=== PATIENT | female | born 1930 | race Caucasian/White ===

== ENCOUNTER 2016-07-18 14:07 | Emergency (ER) | payer OTHER, MEDICARE ==
[~2016-07-18] VITALS: Ht 162.6 cm; Wt 64.8 kg
[~2016-07-18 14:07] MED LIST: ADVIN25/60 INH; ASCO500T16 PO; ASPI-232 PO; ATEN50TA8 PO; CALC1CHW PO; CYCL0.05 OPB; FLUT0.0529 NAE; LEVO100T PO; MULT-506 PO; POTA-65 PO; PRMVC PV; TIOTCAP INH; TRIATAB3 PO; TRML160 TOP
[2016-07-18 14:11] VITALS: TEMP 36.8; Ht 162.6 cm; Wt 64.8 kg
[2016-07-18 14:18] VITALS: O2SAT 97
[2016-07-18] MEDS ORDERED: ALBUT/IPRATROP 3MG/0.5MG NEB 3 ML VIAL INH STA (14:21)
[2016-07-18] MEDS ORDERED: SODIUM CHLORIDE 0.9% 1000ML 1,000 ML IV STA (14:21)
--- NOTE | 2016-07-18 14:47 | DIAGNOSTIC IMAGING REPORT ---
CHEST ONE VIEW PORTABLE HISTORY: Evaluate Fever/Sepsis COMPARISON: Chest 04/26/2016. FINDINGS: No pneumothorax. No pleural effusions. The heart remains borderline enlarged. Mild diffuse interstitial thickening persists. There is progressive interstitial thickening at the left lower lobe. IMPRESSION: Mild diffuse interstitial thickening consistent with a chronic interstitial process. The left lower lobe interstitial thickening has progressed which may represent a superimposed pneumonitis. Electronically signed by: Darryl Degroot M.D. 07/18/2016 2:46 PM Dictated Date/Time: 07/18/2016 2:44 PM
[2016-07-18 15:05] LABS: BASO % 0.2 %; BASO ABS # 0.02 K/uL (0-0.2); COMPLETE YES; EOS % 0.2 %; HEMATOCRIT 30.3 % (37-47); IG% 0.8 %; LYMPH % 12.5 %; LYMPH ABS # 1.66 K/uL (1.2-3.4); MEAN CELL VOLUME 77.9 fL (80-100); MEAN CORPUSCULAR HEMOGLOBIN 25.4 pg (25-34); MEAN CORPUSCULAR HGB CONC 32.7 g/dl (32-36); MEAN PLATELET VOLUME 9.1 fL (7.4-10.4); MONO % 9.9 %; NEUT % 76.4 %; PLATELET COUNT 191 K/uL (130-400); RED BLOOD COUNT 3.89 M/uL (4.2-5.4)
[2016-07-18 15:15] LABS: INR 1.1 (0.9-1.1); PARTIAL THROMBOPLASTIN RATIO 0.9; PROTHROMBIN TIME (PATIENT) 11.4 SECONDS (9.0-12.0)
[2016-07-18] MEDS ORDERED: ACET-1256 PO (15:15)
[2016-07-18] MEDS ORDERED: FLUT0.15 NAE (15:15)
[2016-07-18] MEDS ORDERED: LEVO1TAB33 PO (15:15)
[2016-07-18] MEDS ORDERED: [UNRECOGNIZED DRUG - CODE] OPB (15:15)
[2016-07-18] MEDS ORDERED: VITACAP26 PO (15:15)
[2016-07-18] MEDS ORDERED: PRED10TA PO (15:15)
[2016-07-18] MEDS ORDERED: SPRIN INH (15:16)
[2016-07-18 15:22] LABS: BLOOD UREA NITROGEN 20 mg/dl (7-18); BUN/CREATININE RATIO 17.9 (10-20); CALCIUM 9.7 mg/dl (8.5-10.1); CARBON DIOXIDE 30 mmol/L (21-32); CHLORIDE 102 mmol/L (98-107); GLUCOSE 91 mg/dl (70-99); POTASSIUM 3.4 mmol/L (3.5-5.1); SODIUM 139 mmol/L (136-145)
[2016-07-18] MEDS ORDERED: PRED20TA PO (16:25)
[2016-07-18] MEDS ORDERED: PRVHFAIN INH (16:25)
--- NOTE | 2016-07-18 16:25 | EMERGENCY ROOM VISIT NOTE ---
History Report prepared by Isha: Regina Fry Under the Supervision of: Dr. Julio Luevano D.O. First contact with patient: 14:12 Chief Complaint: SHORTNESS OF BREATH Stated Complaint: BREATHING DIFFICULTY History of Present Illness The patient is an 85 year old female who presents to the Emergency Room with complaints of a worsening illness that began last Thursday. The patient states that she has had chronic problems with her sinuses over the years. She states that she was diagnosed with chronic rhinitis several years ago. The patient states that her PCP gave her a rescue kit to use when she would begin to feel sick. She states that Thursday she started with fatigue, cough, vomiting, and shortness of breath. The patient states that she started a 10 day prednisone taper and Levofloxacin on Thursday, but states that her symptoms have continued to worsen. She states that today she felt too sick to go see her primary care physician. The patient additionally notes chest heaviness and congestion. She states that she gets winded with walking up one flight of stairs. The patient denies any body aches. The patient states that she uses inhalers daily. Source of History: patient Onset: Thursday Position: other (global) Quality: other Timing: worsening Associated Symptoms: + SOB, + cough, + fatigue, + vomiting Note: Associated Symptoms: chest heaviness, congestion. Review of Systems See HPI for pertinent positives & negatives. A total of 10 systems reviewed and were otherwise negative. Past Medical & Surgical Medical Problems: (1) Bronchitis (2) Bronchitis (3) Chronic Sinusitis Nos (4) COPD (chronic obstructive pulmonary disease) (5) COPD exacerbation (6) Cough (7) Dehydration (8) Hypertension Nos (9) Hypokalemia (10) Hypokalemia (11) Hypothyroidism Nos (12) Hypoxia (13) Interstitial lung disease (14) Nausea & vomiting (15) Nausea & vomiting (16) Osteoarthritis (17) Sinus infection (18) Upper respiratory infection Surgical Problems: (1) Cataract Nos (2) Knee Joint Replacement Status (3) Knee Joint Replacement Status Family History Diabetes mellitus Hypertension Social History Smoking Status: Former Smoker Alcohol Use: none Drug Use: none Marital Status: Housing Status: lives alone Occupation Status: retired Current/Historical Medications Scheduled Albuterol (Ventolin Hfa), 1 PUFF INH QID Aspirin (Aspir-81), 81 MG PO QPM Atenolol (Tenormin), 50 MG PO DAILY Calcium Carbonate-Vitamin D (Caltrate 600+D), 1 TAB PO DAILY Cyclosporine (Ophth) (Restasis Multidose), 1 DROP OPB BID Fluticasone Prop/Salmeterol (Advair Diskus 250/50 60 Dose), 1 PUFF INH BID Fluticasone Propionate (Nasal) (Flonase Allergy Relief), 2 SPRAY DONNELL DAILY Levothyroxine Sodium (Synthroid), 100 MCG PO DAILY Multivitamin (Multivitamin), 1 TAB PO DAILY Potassium Chloride (Potassium Chloride ER), 40 MEQ PO DAILY Tiotropium Nichols (Spiriva Handihaler), 1 CAP INH DAILY Triamterene/Hctz (Triamterene/Hctz 37.5-25MG), 1 TAB PO DAILY Vitamins C & E (Vitamin C), 1 CAP PO DAILY Scheduled PRN Acetaminophen (Tylenol), 500 MG PO Q8 PRN for Pain Hydrocodone/Acetaminophen 7.5MG/325MG (Pollard 7.5MG/325MG), 1 TAB PO HS PRN for Pain Levofloxacin (Levaquin), 500 MG PO UD PRN for PRN Prednisone (Prednisone), 10 MG PO UD PRN for PRN Allergies Coded Allergies: Diclofenac (Verified Adverse Reaction, Mild, N/V, 07/18/16) Ketoprofen (Verified Adverse Reaction, Mild, N/V, 07/18/16) Naproxen (Verified Adverse Reaction, Mild, N/V, 07/18/16) Propoxyphene (Verified Adverse Reaction, Mild, N/V, 07/18/16) Rofecoxib (Verified Adverse Reaction, Mild, ABD CRAMPS, 07/18/16) Sulfa Drugs (Verified Adverse Reaction, Mild, N/V, 07/18/16) Sulfamethoxazole (Verified Adverse Reaction, Mild, N/V, 07/18/16) Tramadol (Verified Adverse Reaction, Mild, N/V, 07/18/16) Trimethoprim (Verified Adverse Reaction, Mild, N/V, 07/18/16) Uncoded Allergies: DARVOCET (Allergy, Unknown, UNKNOWN, 07/18/16) ORADIS (Allergy, Unknown, UNKNOWN, 07/18/16) Physical Exam Vital Signs Date Time Temp Pulse Resp B/P Pulse Ox O2 Delivery O2 Flow Rate FiO2 07/18/16 16:41 96 18 110/49 93 Room Air 07/18/16 15:58 89 18 121/57 93 Room Air 07/18/16 14:19 85 07/18/16 14:18 97 Nasal Cannula 2.0 07/18/16 14:17 90 Room Air 07/18/16 14:11 36.8 83 21 143/56 90 Room Air Nasal Cannula 07/18/16 14:11 94 Nasal Cannula 2.0 Physical Exam CONSTITUTIONAL/VITAL SIGNS: Reviewed / noted above. GENERAL: Non-toxic in appearance. Occasional cough. INTEGUMENTARY: Warm, dry, and [place]. HEAD: Normocephalic. EYES: without scleral icterus or trauma. ENT/OROPHARYNX: clear and moist. LYMPHADENOPATHY/NECK: Is supple without lymphadenopathy or meningismus. RESPIRATORY: Expiratory wheezing bilaterally with bilateral crackles. No increased work of breathing or respiratory distress. CARDIOVASCULAR: Regular rate and rhythm. GI/ABDOMEN: Soft and nontender. No organomegaly or pulsatile mass. No rebound or guarding. Normal bowel sounds. EXTREMITIES: Warm and well perfused. BACK: No CVA tenderness. NEUROLOGICAL: Intact without focal deficits. PSYCHIATRIC: normal affect. MUSCULOSKELETAL: Normally developed with good muscle tone. Medical Decision & Procedures ER Provider Diagnostic Interpretation: X ray results and stated below per my interpretation and radiology interpretation. CHEST ONE VIEW PORTABLE HISTORY: Evaluate Fever/Sepsis COMPARISON: Chest 04/26/2016. FINDINGS: No pneumothorax. No pleural effusions. The heart remains borderline enlarged. Mild diffuse interstitial thickening persists. There is progressive interstitial thickening at the left lower lobe. IMPRESSION: Mild diffuse interstitial thickening consistent with a chronic interstitial process. The left lower lobe interstitial thickening has progressed which may represent a superimposed pneumonitis. Electronically signed by: Darryl Degroot M.D. 07/18/2016 2:46 PM Dictated Date/Time: 07/18/2016 2:44 PM Laboratory Results 07/18/16 14:50 Red Blood Count 3.89, Mean Corpuscular Volume 77.9, Mean Corpuscular Hemoglobin 25.4, Mean Corpuscular Hemoglobin Concent 32.7, Mean Platelet Volume 9.1, Neutrophils (%) (Auto) 76.4, Lymphocytes (%) (Auto) 12.5, Monocytes (%) (Auto) 9.9, Eosinophils (%) (Auto) 0.2, Basophils (%) (Auto) 0.2, Neutrophils # (Auto) 10.17, Lymphocytes # (Auto) 1.66, Monocytes # (Auto) 1.32, Eosinophils # (Auto) 0.03, Basophils # (Auto) 0.02 07/18/16 14:50 Test 07/18/16 14:50 07/18/16 15:10 White Blood Count 13.30 K/uL (4.8-10.8) Red Blood Count 3.89 M/uL (4.2-5.4) Hemoglobin 9.9 g/dL (12.0-16.0) Hematocrit 30.3 % (37-47) Mean Corpuscular Volume 77.9 fL (80-100) Mean Corpuscular Hemoglobin 25.4 pg (25-34) Mean Corpuscular Hemoglobin Concent 32.7 g/dl (32-36) Platelet Count 191 K/uL (130-400) Mean Platelet Volume 9.1 fL (7.4-10.4) Neutrophils (%) (Auto) 76.4 % Lymphocytes (%) (Auto) 12.5 % Monocytes (%) (Auto) 9.9 % Eosinophils (%) (Auto) 0.2 % Basophils (%) (Auto) 0.2 % Neutrophils # (Auto) 10.17 K/uL (1.4-6.5) Lymphocytes # (Auto) 1.66 K/uL (1.2-3.4) Monocytes # (Auto) 1.32 K/uL (0.11-0.59) Eosinophils # (Auto) 0.03 K/uL (0-0.5) Basophils # (Auto) 0.02 K/uL (0-0.2) RDW Standard Deviation 49.6 fL (36.4-46.3) RDW Coefficient of Variation 17.4 % (11.5-14.5) Immature Granulocyte % (Auto) 0.8 % Immature Granulocyte # (Auto) 0.10 K/uL (0.00-0.02) Prothrombin Time 11.4 SECONDS (9.0-12.0) Prothromb Time International Ratio 1.1 (0.9-1.1) Activated Partial Thromboplast Time 23.1 SECONDS (21.0-31.0) Partial Thromboplastin Ratio 0.9 Anion Gap 7.0 mmol/L (3-11) Est Creatinine Clear Calc Drug Dose 33.5 ml/min Estimated GFR () 53.8 Estimated GFR (Non- 46.4 BUN/Creatinine Ratio 17.9 (10-20) Calcium Level 9.7 mg/dl (8.5-10.1) Troponin I < 0.015 ng/ml (0-0.045) Influenza Type A Antigen Neg for Influ A (NEG) Influenza Type B Antigen Neg for Influ B (NEG) Laboratory results as stated above per my review. Medications Administered Medications (Trade) Dose Ordered Sig/Monico Route Start Time Stop Time Status Last Admin Dose Admin Sodium Chloride (Nss 1000ml) 1,000 ml @ 200 mls/hr Q5H STAT IV 07/18/16 14:21 07/18/16 19:20 07/18/16 14:50 200 MLS/HR Albuterol/ Ipratropium (Duoneb) 3 ml NOW STAT INH 07/18/16 14:21 07/18/16 14:24 DC 07/18/16 14:41 3 ML ECG Indication: SOB/dyspnea Rate (beats per minute): 93 Rhythm: sinus rhythm Findings: LBBB, PAC, no acute ischemic change Comparison ECG Date: 04-26-16 Change: When compared to the EKG done on 04-26-16, the left bundle branch block and PACs are new. ED Course 1418: Previous medical records were reviewed. The patient was evaluated in room 1413. A complete history and physical examination was performed. 1421: Ordered DuoNeb 3 ml INH, Sodium chloride 1000 ml @ 200 mls/hr IV. 1629: I reevaluated the patient and she is resting comfortably. I discussed the exam findings with her and I discussed the treatment plan. She verbalized complete understanding and agreement. She is ready to go home. Medical Decision the differential was considered includes acute myocardial infarction, acute coronary syndrome, myocarditis, pericarditis, pericardial effusions /tamponad, esophageal perforation, pulmonary embolism, pneumonia, pneumothorax, cardiomyopathy, congestive heart, anemia , COPD/asthma exacerbation. This is a 85-year-old female who presents to the ED with a chief complaint of a cough and some shortness of breath. The patient states that she has had this cough for about 6 days. She has been placed on Levaquin for 6 days as well as prednisone. The patient reports continued cough occasionally with yellow sputum , chest heaviness and congestion. She also feels tired. Her vital signs are stable. Her physical exam reveals some expiratory wheezing and some crackles in the bases. Crackles are reportedly chronic per the patient. She is in no respiratory distress. Chest x-ray reveals chronic interstitial process with slight worsening in the left lower lobe versus a infiltrate. The patient is currently on Levaquin and has been on Levaquin for 6 days. This may be artifact or viral. White blood cell count is 13.3. Hemoglobin is 9.0. PRP is normal. Troponin is negative. Flu swab was negative. EKG shows a sinus rhythm at a rate of 73. The patient was told the results of the test. She is felt to be stable for discharge and outpatient follow-up. She was given an albuterol inhaler. Prednisone also prescribed. Impression Primary Impression: Pneumonia Scribe Attestation The scribe's documentation has been prepared under my direction and personally reviewed by me in its entirety. I confirm that the note above accurately reflects all work, treatment, procedures, and medical decision making performed by me. Departure Information Dispostion Home / Self-Care Prescriptions Hydrocodone/Acetaminophen 7.5MG/325MG (Pollard 7.5MG/325MG) Tab 1 TAB PO HS Y for Pain, #10 TAB Prov: Julio Luevano D.O. 07/18/16 Albuterol (Ventolin Hfa) 60 Puffs/5400 Mcg Aers 1 PUFF INH QID for 5 Days, #1 INHALER Prov: Julio Luevano D.O. 07/18/16 Referrals Amari Elena M.D. (PCP) Forms HOME CARE DOCUMENTATION FORM, IMPORTANT VISIT INFORMATION Patient Instructions [facility] Additional Instructions Finished Levaquin prescription. Albuterol inhaler as prescribed. Prednisone as prescribed. See your doctor in 1-3 days for recheck. Return for worsening.
[2016-07-18] MEDS ORDERED: HYDR-3983 PO (16:40)
[2016-07-18 16:41] VITALS: BP 110/49; PULSE 96; O2SAT 93
[2017-02-05] MEDS ORDERED: NRV5 PO (15:13)
[2017-02-05] MEDS ORDERED: TPRSR25 PO (15:13)
[2017-02-05] MEDS ORDERED: HYDR-3983 PO (15:42)
== END 2016-07-18 16:50 | disposition home or self-care (01) ==
LOC: EDBD 14:07 → C.EDC 14:08
DX: J18.9 Pneumonia, unspecified organism (principal); J44.9 Chronic obstructive pulmonary disease, unspecified; E03.9 Hypothyroidism, unspecified; Z98.49 Cataract extraction status, unspecified eye; Z96.659 Presence of unspecified artificial knee joint; Z83.3 Family history of diabetes mellitus; Z87.891 Personal history of nicotine dependence; Z88.2 Allergy status to sulfonamides

== ENCOUNTER → 2016-10-01 | Outpatient (CLI) | payer OTHER, MEDICARE ==
[~2016-10-01] MED LIST changes: +ACET-1256 PO; +AMOX875T PO; -ASCO500T16 PO; -CYCL0.05 OPB; -FLUT0.0529 NAE; +FLUT0.15 NAE; +HYDR-3983 PO; +LEVO1TAB33 PO; +METO50TA7 PO; +NRV5 PO; +PRED10TA PO; -PRMVC PV; +PRVHFAIN INH; +SPRIN INH; -TIOTCAP INH; +TPRSR25 PO; -TRML160 TOP; +VITACAP26 PO; +[UNRECOGNIZED DRUG - CODE] OPB
--- NOTE | 2016-10-01 14:43 | MAMMOGRAPHY REPORT ---
BILATERAL DIGITAL SCREENING MAMMOGRAM WITH CAD: 10/01/2016 CLINICAL HISTORY: Routine screening. Patient has no complaints. TECHNIQUE: Current study was also evaluated with a Computer Aided Detection (CAD) system. Bilateral CC and MLO views were obtained. COMPARISON: Comparison is made to exams dated: 09/04/2015 mammogram, 04/10/2014 mammogram, 06/26/2011 mammogram, 06/24/2010 mammogram, 06/06/2009 mammogram - [facility], and 06/05/2008. BREAST COMPOSITION: There are scattered areas of fibroglandular density in both breasts. FINDINGS: No suspicious masses, calcifications, or areas of architectural distortion are noted in e ither breast. There has been no significant interval change compared to prior exams. Bilateral benig n-appearing calcifications are not significantly changed. IMPRESSION: ACR BI-RADS CATEGORY 2: BENIGN There is no mammographic evidence of malignancy. A 1 year screening mammogram is recommended. The p atient will receive written notification of the results. Approximately 10% of breast cancers are not detected with mammography. A negative mammographic repor t should not delay biopsy if a clinically suggestive mass is present. Elaina Flores M.D. ah/:10/01/2016 10:05:18 Hand Stoner: Kristi NASSRA([place])(M), [facility] letter sent: Normal 1/2 BI-RADS Code: ACR BI-RADS Category 2: Benign
== END | disposition home or self-care (01) ==
LOC: C.MAMM 09:48
PROVIDERS: ATTEND Family Medicine
DX: Z12.31 Encounter for screening mammogram for malignant neoplasm of breast (principal)

== ENCOUNTER 2017-02-01 15:40 | Inpatient (IN) | payer OTHER, MEDICARE ==
[~2017-02-01] VITALS: Ht 160 cm; Wt 60.7 kg
[~2017-02-01 15:40] MED LIST changes: -AMOX875T PO; -HYDR-3983 PO; -METO50TA7 PO; -NRV5 PO; -TPRSR25 PO
--- NOTE | 2017-02-01 16:21 | EMERGENCY ROOM VISIT NOTE ---
History Report prepared by Isha: Regina Fry Under the Supervision of: Dr. Dylan Lam M.D. First contact with patient: 15:49 Chief Complaint: SHORTNESS OF BREATH Stated Complaint: HIGH BP,DIZZY,NODULE ON LUNG,SOB History of Present Illness The patient is an 86 year old female who presents to the Emergency Room with complaints of persistent dizziness that began three days ago. The patient additionally reports that she became short of breath at the same time. She states that her shortness of breath has been intermittent. The patient states that her shortness of breath is increased with exertion. She reports that for the past several years she was on Atenolol for her hypertension, but states that she was just changed to Metoprolol approximately 3-4 days ago. The patient states that every four-eight weeks she uses her rescue kit course for her short of breath. She states that she has experienced some burning in her chest that has been alleviated with Advair. The patient denies any current chest pain. She describes her dizziness as a lightheaded. The patient states that she takes aspirin, but states that she cut down on her aspirin use due to her increased bleeding. She denies any recent surgery or recent travel by plane. The patient denies any history of atrial fibrillation. She denies any fever, chills, cough, congestion, vision change, hearing change, nausea, vomiting, or urinary symptoms. The patient states that she has had a decrease in appetite and notes a recent weight loss. She reports that she is on a diuretic. The patient denies any history of heart failure. She denies any previous MS. Source of History: patient Onset: three days ago Position: other (global) Quality: other (dizziness) Timing: other (persistent) Associated Symptoms: + SOB, No fevers, No chills, No cough, No chest pain, No nausea, No vomiting, No urinary symptoms Note: Associated Symptoms: chest burning, lightheadedness Review of Systems See HPI for pertinent positives and negatives. A total of ten systems were reviewed and were otherwise negative. Past Medical & Surgical Medical Problems: (1) Bronchitis (2) Bronchitis (3) Chronic Sinusitis Nos (4) COPD (chronic obstructive pulmonary disease) (5) COPD exacerbation (6) Cough (7) Dehydration (8) Hypertension Nos (9) Hypokalemia (10) Hypokalemia (11) Hypothyroidism Nos (12) Hypoxia (13) Interstitial lung disease (14) Nausea & vomiting (15) Nausea & vomiting (16) Osteoarthritis (17) Sinus infection (18) Upper respiratory infection Surgical Problems: (1) Cataract Nos (2) Knee Joint Replacement Status (3) Knee Joint Replacement Status Family History Diabetes mellitus Hypertension Social History Smoking Status: Former Smoker Alcohol Use: none Drug Use: none Marital Status: Housing Status: lives alone Occupation Status: retired Current/Historical Medications Scheduled Amoxicillin & Pot Clavulanate (Augmentin 875-125 mg), 1 TAB PO BID Aspirin (Aspir-81), 81 MG PO QPM Calcium Carbonate-Vitamin D (Caltrate 600+D), 1 TAB PO DAILY Fluticasone Prop/Salmeterol (Advair Diskus 250/50 60 Dose), 1 PUFF INH BID Fluticasone Propionate (Nasal) (Flonase Allergy Relief), 2 SPRAY DONNELL DAILY Levothyroxine Sodium (Synthroid), 100 MCG PO DAILY Multivitamin (Multivitamin), 1 TAB PO DAILY Potassium Chloride (Potassium Chloride ER), 40 MEQ PO DAILY Triamterene/Hctz (Triamterene/Hctz 37.5-25MG), 1 TAB PO DAILY Vitamins C & E (Vitamin C), 1 CAP PO DAILY Scheduled PRN Acetaminophen (Tylenol), 500 MG PO Q8 PRN for Pain Hydrocodone/Acetaminophen 7.5MG/325MG ([place] 7.5MG/325MG), 1 TAB PO Q4H PRN for Pain Prednisone (Prednisone), 10 MG PO UD PRN for PRN Allergies Coded Allergies: Acetaminophen (Verified Allergy, Unknown, ., 02/01/17) Diclofenac (Verified Adverse Reaction, Mild, N/V, 02/01/17) Ketoprofen (Verified Adverse Reaction, Mild, N/V, 02/01/17) Naproxen (Verified Adverse Reaction, Mild, N/V, 02/01/17) Propoxyphene (Verified Adverse Reaction, Mild, N/V, 02/01/17) Rofecoxib (Verified Adverse Reaction, Mild, ABD CRAMPS, 02/01/17) Sulfa Drugs (Verified Adverse Reaction, Mild, N/V, 02/01/17) Sulfamethoxazole (Verified Adverse Reaction, Mild, N/V, 02/01/17) Tramadol (Verified Adverse Reaction, Mild, N/V, 02/01/17) Trimethoprim (Verified Adverse Reaction, Mild, N/V, 02/01/17) Uncoded Allergies: ORADIS (Allergy, Unknown, UNKNOWN, 07/18/16) Physical Exam Vital Signs Date Time Temp Pulse Resp B/P (MAP) Pulse Ox O2 Delivery O2 Flow Rate FiO2 02/01/17 19:40 92 22 94 Room Air 02/01/17 19:10 76 18 02/01/17 19:05 80 25 02/01/17 19:05 80 25 02/01/17 19:00 83 22 02/01/17 19:00 83 22 02/01/17 18:56 150/81 02/01/17 18:56 150/81 02/01/17 18:55 79 15 02/01/17 18:55 79 15 02/01/17 18:50 83 21 02/01/17 18:50 83 21 02/01/17 18:35 89 26 02/01/17 18:35 89 26 02/01/17 18:30 85 24 02/01/17 18:30 85 24 02/01/17 18:25 83 23 02/01/17 18:25 83 23 02/01/17 18:20 87 23 02/01/17 18:20 87 23 02/01/17 18:15 99 30 02/01/17 18:15 99 30 02/01/17 18:10 87 28 02/01/17 17:40 81 24 02/01/17 17:35 84 22 94 Room Air 02/01/17 17:30 87 18 02/01/17 17:25 90 21 95 02/01/17 17:20 96 18 02/01/17 17:15 95 23 02/01/17 17:10 90 15 02/01/17 17:05 93 19 02/01/17 17:00 90 25 02/01/17 16:55 102 21 02/01/17 16:50 95 24 02/01/17 16:45 93 24 02/01/17 16:40 105 24 02/01/17 16:35 99 19 02/01/17 16:30 107 20 02/01/17 16:25 102 21 02/01/17 16:20 113 18 02/01/17 16:15 111 23 02/01/17 16:10 104 24 94 02/01/17 16:05 108 23 94 02/01/17 16:02 112 02/01/17 16:01 96 Room Air 02/01/17 16:00 117 24 97 02/01/17 15:42 36.3 114 20 133/77 95 Room Air Physical Exam GENERAL: Awake, alert, well-appearing, in no distress HENT: Normocephalic, atraumatic. Dry mucous membranes. EYES: Normal conjunctiva. Sclera non-icteric. NECK: Supple. No nuchal rigidity. FROM. No JVD. RESPIRATORY: Clear to auscultation. CARDIAC: ST. Extremities warm and well perfused. Pulses equal. ABDOMEN: Soft, non-distended. No tenderness to palpation. No rebound or guarding. No masses. RECTAL: Deferred. MUSCULOSKELETAL: Chest examination reveals no tenderness. The back is symmetrical on inspection without obvious abnormality. There is no CVA tenderness to palpation. No joint edema. LOWER EXTREMITIES: Calves are equal size bilaterally and non-tender. No edema. No discoloration. NEURO: Normal sensorium. No sensory or motor deficits noted. Cerebellar intact. No nystagmus. SKIN: No rash or jaundice noted. Medical Decision & Procedures ER Provider Diagnostic Interpretation: X-ray: Per my interpretation, radiologist review. CHEST ONE VIEW PORTABLE HISTORY: Short of breath. COMPARISON: Chest 07/18/2016. FINDINGS: Mild diffuse interstitial thickening, unchanged. This is most pronounced within the left lower lobe. No new focal lung consolidations. No evidence for pulmonary edema. No pleural effusions. No pneumothorax. The heart is normal in size. IMPRESSION: No significant change compared to the prior study. No acute process. Chronic interstitial thickening is again noted. Electronically signed by: Darryl Degroot M.D. 02/01/2017 4:25 PM Dictated Date/Time: 02/01/2017 4:24 PM Laboratory Results Test 02/01/17 00:00 02/01/17 17:05 Urine Color YELLOW Urine Appearance CLEAR (CLEAR) Urine pH 7.5 (4.5-7.5) Urine Specific [place] 1.016 (1.000-1.030) Urine Protein NEG (NEG) Urine Glucose (UA) NEG (NEG) Urine Ketones NEG (NEG) Urine Occult Blood NEG (NEG) Urine Nitrite NEG (NEG) Urine Bilirubin NEG (NEG) Urine Urobilinogen NEG (NEG) Urine Leukocyte Esterase NEG (NEG) Immature Granulocyte % (Auto) 1.0 % White Blood Count 19.17 K/uL (4.8-10.8) Red Blood Count 4.30 M/uL (4.2-5.4) Hemoglobin 11.7 g/dL (12.0-16.0) Hematocrit 35.7 % (37-47) Mean Corpuscular Volume 83.0 fL (80-100) Mean Corpuscular Hemoglobin 27.2 pg (25-34) Mean Corpuscular Hemoglobin Concent 32.8 g/dl (32-36) Platelet Count 276 K/uL (130-400) Mean Platelet Volume 9.6 fL (7.4-10.4) Neutrophils (%) (Auto) 83.0 % Lymphocytes (%) (Auto) 10.3 % Monocytes (%) (Auto) 5.2 % Eosinophils (%) (Auto) 0.4 % Basophils (%) (Auto) 0.1 % Neutrophils # (Auto) 15.89 K/uL (1.4-6.5) Lymphocytes # (Auto) 1.98 K/uL (1.2-3.4) Monocytes # (Auto) 1.00 K/uL (0.11-0.59) Eosinophils # (Auto) 0.08 K/uL (0-0.5) Basophils # (Auto) 0.02 K/uL (0-0.2) Immature Granulocyte # (Auto) 0.20 K/uL (0.00-0.02) Troponin I < 0.015 ng/ml (0-0.045) Pro-B-Type Natriuretic Peptide 417 pg/ml (0-1800) Thyroid Stimulating Hormone (TSH) 0.152 uIu/ml (0.300-4.500) Free Thyroxine 1.39 ng/dl (0.80-1.60) Laboratory results reviewed by me Medications Administered Medications (Trade) Dose Ordered Sig/Monico Route Start Time Stop Time Status Last Admin Dose Admin Sodium Chloride 1,000 ml @ 999 mls/hr Q1H1M STAT IV 02/01/17 17:22 02/01/17 18:22 DC 02/01/17 17:42 999 MLS/HR Sodium Chloride 1,000 ml @ 999 mls/hr Q1H1M STAT IV 02/01/17 18:05 02/01/17 19:05 DC 02/01/17 19:38 999 MLS/HR Magnesium Sulfate (Magnesium Sulfate) 2 gm NOW STAT IV 02/01/17 18:05 02/01/17 18:09 DC 02/01/17 18:56 2 GM Lorazepam (Ativan Tab) 0.25 mg NOW STAT SL 02/01/17 18:16 02/01/17 18:19 DC 02/01/17 18:57 0.25 MG Potassium Chloride (Klor-Con M10) 40 meq NOW STAT PO 02/01/17 18:22 02/01/17 18:23 DC 02/01/17 18:57 40 MEQ Sodium Chloride 1,000 ml @ 80 mls/hr [id number] IV 02/01/17 20:07 02/02/17 12:36 DC 02/02/17 08:37 80 MLS/HR Ondansetron HCl (Zofran Inj) 4 mg Q6H PRN IV 02/01/17 20:15 03/03/17 20:14 02/03/17 13:01 4 MG ECG Indication: SOB/dyspnea Rate (beats per minute): 105 Rhythm: sinus tachycardia Findings: LBBB, no acute ischemic change Comparison ECG Date: 07/18/16 Change: no significant change ED Course 1552: The patient was evaluated in room B12B. A complete history and physical exam was performed. 1722: Ordered Sodium Chloride 1000 ml @ 999 mls/hr IV. 180: Ordered Magnesium Sulfate 2 gm IV, Sodium Chloride 1000 ml @ 999 mls/hr IV. 180: I reevaluated the patient and she is resting comfortably. I discussed all the exam findings with her and I discussed the treatment plan. She verbalized complete understanding and agreement. She is going to be evaluated for further treatment. 181: Ordered Ativan Tab 0.25 mg SL. 182: Ordered Potassium Chloride 40 meq PO. 182: I discussed the patients case with Eros Garcia. She is going to evaluate the patient for further treatment. Medical Decision I reviewed the patient's past medical history, medications, and the nursing notes as described above. Differential diagnosis include: Missed medication, dehydration, pulmonary or urinary infection, ACS, CHF, electrolyte abnormality. Patient is a 86-year-old woman with past medical history of hypertension presents to emergency department with generalized fatigue and lightheadedness shortness of breath per history of present illness. Denies room spinning. On arrival the patient is in no acute distress, afebrile with a heart rate tachycardic to the 110s. Appears clinically dry on exam. Neuro intact. No nystagmus. No worsening of sx with head movements. EKG unremarkable. Chest X- ray negative making CHF unlikely. Troponin negative in the setting of several days of constant symptoms making ACS unlikely. PE also unlikely considering patient does not have chest pain and is not hypoxic. Patient does have a leukocytosis to 19 however patient's H&H and platelets also or slightly elevated from patient's prior labs during this past year, suggesting likely a hemoconcentration component. Lactate ordered however there is no anion gap on the patient's chemistry. Otherwise patient is hypomagnesemic 1.5 and has a BUN/ creatinine of 20 consistent with the patient's dehydration. She given IV fluids on arrival with heart rate improving to 110s to the 80s. Considering the patient's age and symptomatic dehydration patient will be admitted to the medicine service for further management. Medication Reconcilliation Current Medication List: was personally reviewed by me Blood Pressure Screening Patient's blood pressure: Elevated blood pressure Blood pressure disposition: Elevated BP felt to be situational, Did not require urgent referral Consults Time Called: [id number] Consulting Physician: Eros Garcia Returned Call: [phone] I discussed the patients case with Eros Garcia. She is going to evaluate the patient for further treatment. Impression Primary Impression: Dehydration Additional Impressions: Hypomagnesemia Dizziness Scribe Attestation The scribe's documentation has been prepared under my direction and personally reviewed by me in its entirety. I confirm that the note above accurately reflects all work, treatment, procedures, and medical decision making performed by me. Departure Information Dispostion Being Evaluated By Hospitalist Amari Hernandez M.D. (PCP) Problem Qualifiers
[2017-02-01] MEDS ORDERED: AMOX875T PO (16:23)
[2017-02-01] MEDS ORDERED: HYDR-3983 PO (16:23)
[2017-02-01] MEDS ORDERED: METO50TA7 PO (16:23)
--- NOTE | 2017-02-01 16:26 | DIAGNOSTIC IMAGING REPORT ---
CHEST ONE VIEW PORTABLE HISTORY: Short of breath. COMPARISON: Chest 07/18/2016. FINDINGS: Mild diffuse interstitial thickening, unchanged. This is most pronounced within the left lower lobe. No new focal lung consolidations. No evidence for pulmonary edema. No pleural effusions. No pneumothorax. The heart is normal in size. IMPRESSION: No significant change compared to the prior study. No acute process. Chronic interstitial thickening is again noted. Electronically signed by: Darryl Degroot M.D. 02/01/2017 4:25 PM Dictated Date/Time: 02/01/2017 4:24 PM
[2017-02-01 17:17] LABS: BASO % 0.1 %; BASO ABS # 0.02 K/uL (0-0.2); COMPLETE YES; EOS % 0.4 %; HEMATOCRIT 35.7 % (37-47); LYMPH % 10.3 %; LYMPH ABS # 1.98 K/uL (1.2-3.4); MEAN CORPUSCULAR HEMOGLOBIN 27.2 pg (25-34); MEAN CORPUSCULAR HGB CONC 32.8 g/dl (32-36); MEAN PLATELET VOLUME 9.6 fL (7.4-10.4); MONO % 5.2 %; PLATELET COUNT 276 K/uL (130-400); WHITE BLOOD COUNT 19.17 K/uL (4.8-10.8)
[2017-02-01] MEDS ORDERED: SODIUM CHLORIDE 0.9% 1000ML 1,000 ML IV STA ×2 (17:22→18:05)
[2017-02-01 17:34] LABS: BLOOD UREA NITROGEN 24 mg/dl (7-18); CALCIUM 10.1 mg/dl (8.5-10.1); CARBON DIOXIDE 28 mmol/L (21-32); CHLORIDE 99 mmol/L (98-107); GLUCOSE 114 mg/dl (70-99); MAGNESIUM 1.5 mg/dl (1.8-2.4); POTASSIUM 3.4 mmol/L (3.5-5.1); SODIUM 137 mmol/L (136-145)
[2017-02-01 17:45] LABS: THYROID STIMULATING HORMONE 0.152 uIu/ml (0.300-4.500)
[2017-02-01] MEDS ORDERED: MAGNESIUM SULFATE 1GM / D5W 1 GM BAG IV STA (18:05)
[2017-02-01] MEDS ORDERED: LORAZEPAM 0.5 MG TAB SL STA (18:16)
[2017-02-01] MEDS ORDERED: POTASSIUM CHLORIDE 10 MEQ TABCR PO STA (18:22)
[2017-02-01 19:13] LABS: MANUAL MICROSCOPIC REQUIRED? NO; REVIEW REQ? NO; URINE APPEARANCE CLEAR (CLEAR); URINE BILIRUBIN NEG (NEG); URINE COLOR YELLOW; URINE NITRITE NEG (NEG); URINE PH 7.5 (4.5-7.5); URINE SPECIFIC GRAVITY 1.016 (1.000-1.030); UROBILINOGEN NEG (NEG); ZZUR CULT IF INDIC CLEAN CATCH NO
[2017-02-01] MEDS ORDERED: ONDANSETRON INJ 2 MG/ML 2 ML VIAL IV PRN (20:15)
[2017-02-01] MEDS ORDERED: POLYETHYLENE (MIRALAX) 17 GM PACK PO PRN (20:15)
[2017-02-01] MEDS ORDERED: ACETAMINOPHEN 500 MG TAB PO PRN (20:30)
--- NOTE | 2017-02-01 21:40 | History and Physical ---
History & Physical Date & Time of Service: Feb 01, 2017 at 21:14 Chief Complaint: Dizziness Primary Care Physician: Amari Elena M.D. History of Present Illness Source: patient, family Patient is an 86 yo female who presents to the ER for complaints of ongoing dizziness and gait imbalance. She reports that she gets dizzy at times when she is up and ambulating, but her symptoms have increased this week to the point that she gets dizzy even at rest or laying down. She denies any falls or syncope. She states that she has had several medications changed recently as well and was not sure if these contributed. The patient states she has been previously diagnosed with recurrent sinusitis and occasional asthma, for which she has a rescue kit with prednisone and an antibiotic. She gets flare ups of sinuses about every 6-8 weeks, and had her augmentin switched to levaquin due to increasing frequency of exacerbations. She reports levaquin made her feel dizzy, shaky, and unable to sleep, and she was taken off it and put back on augmentin. Last week her symptoms were not improving on Augmentin so she tried taking half a levaquin tablet twice a day and noticed the same jittery feeling and so she stopped. She also reports that her atenolol was switched to metoprolol last week due to an issue causing atenolol to be be unavailable at her pharmacy. Upon starting metoprolol the patient began to feel more dizzy and lightheaded so she stopped taking it and tried taking just half a tablet a few days this week but still continued to have dizziness. She is afraid of falling and lives alone. She has felt close to falling many times this week and was concerned. She also reports symptoms of feeling "wired" and jittery all day and night with difficulty sleeping but states she gets that way while taking steroids. She has been evaluated by ENT but was told there was no surgical intervention that could help her sinus flare ups. Past Medical/Surgical History Medical Problems: (1) Bronchitis Status: Resolved (2) Bronchitis Status: Resolved (3) Chronic Sinusitis Nos Status: Chronic (4) COPD (chronic obstructive pulmonary disease) Status: Chronic (5) COPD exacerbation Status: Resolved (6) Cough Status: Resolved (7) Dehydration Status: Resolved (8) Hypertension Nos Status: Chronic (9) Hypokalemia Status: Resolved (10) Hypokalemia Status: Resolved (11) Hypothyroidism Nos Status: Chronic (12) Hypoxia Status: Resolved (13) Interstitial lung disease Status: Chronic (14) Nausea & vomiting Status: Resolved (15) Nausea & vomiting Status: Resolved (16) Osteoarthritis Status: Chronic (17) Sinus infection Status: Resolved (18) Upper respiratory infection Status: Resolved Surgical Problems: (1) Cataract Nos Status: Resolved (2) Knee Joint Replacement Status Status: Resolved (3) Knee Joint Replacement Status Status: Resolved Family History Diabetes mellitus Hypertension Social History Smoking Status: Former Smoker Drug Use: none Marital Status: Housing status: lives alone Occupational Status: retired Immunizations History of Influenza Vaccine: Yes Influenza Vaccine Date: Apr 08, 2007 History of Tetanus Vaccine?: Unknown History of Pneumococcal: Yes Pneumococcal Date: Jul 09, 2003 History of Hepatitis B Vaccine: Unknown Multi-Drug Resistant Organisms History of MDRO: No Allergies Coded Allergies: Acetaminophen (Verified Allergy, Unknown, ., 02/01/17) Diclofenac (Verified Adverse Reaction, Mild, N/V, 02/01/17) Ketoprofen (Verified Adverse Reaction, Mild, N/V, 02/01/17) Naproxen (Verified Adverse Reaction, Mild, N/V, 02/01/17) Propoxyphene (Verified Adverse Reaction, Mild, N/V, 02/01/17) Rofecoxib (Verified Adverse Reaction, Mild, ABD CRAMPS, 02/01/17) Sulfa Drugs (Verified Adverse Reaction, Mild, N/V, 02/01/17) Sulfamethoxazole (Verified Adverse Reaction, Mild, N/V, 02/01/17) Tramadol (Verified Adverse Reaction, Mild, N/V, 02/01/17) Trimethoprim (Verified Adverse Reaction, Mild, N/V, 02/01/17) Uncoded Allergies: ORADIS (Allergy, Unknown, UNKNOWN, 07/18/16) Home Medications Scheduled Amoxicillin & Pot Clavulanate (Augmentin 875-125 mg), 1 TAB PO BID Aspirin (Aspir-81), 81 MG PO QPM Calcium Carbonate-Vitamin D (Caltrate 600+D), 1 TAB PO DAILY Fluticasone Prop/Salmeterol (Advair Diskus 250/50 60 Dose), 1 PUFF INH BID Fluticasone Propionate (Nasal) (Flonase Allergy Relief), 2 SPRAY DONNELL DAILY Levothyroxine Sodium (Synthroid), 100 MCG PO DAILY Multivitamin (Multivitamin), 1 TAB PO DAILY Potassium Chloride (Potassium Chloride ER), 40 MEQ PO DAILY Triamterene/Hctz (Triamterene/Hctz 37.5-25MG), 1 TAB PO DAILY Vitamins C & E (Vitamin C), 1 CAP PO DAILY Scheduled PRN Acetaminophen (Tylenol), 500 MG PO Q8 PRN for Pain Hydrocodone/Acetaminophen 7.5MG/325MG ([place] 7.5MG/325MG), 1 TAB PO Q4H PRN for Pain Prednisone (Prednisone), 10 MG PO UD PRN for PRN Review of Systems Constitutional: No fever, No chills, No sweats, No weight loss Eyes: No worsening of vision, No redness, No discharge, No diplopia ENT: + nasal symptoms, No hearing loss, No sore throat, No trouble swallowing Respiratory: No cough, No sputum, No wheezing, No shortness of breath Cardiovascular: No chest pain, No edema, No claudication, No palpitations Abdomen: No pain, No nausea, No vomiting, No diarrhea Musculoskeletal: No joint pain, No muscle pain, No problem reported Genitourinary - Female: No dysuria, No urinary frequency, No urinary urgency, No urinary incontinence Neurologic: + balance problems, No memory loss, No paralysis, No weakness, No numbness/tingling Psychiatric: + insomnia, No depression symptoms, No anxiety, No substance abuse Endocrine: No problem reported Hematologic / Lymphatic: No problem reported Integumentary: No problem reported Physical Exam Vital Signs Date Time Temp Pulse Resp B/P (MAP) Pulse Ox O2 Delivery O2 Flow Rate FiO2 02/01/17 21:00 204/103 02/01/17 19:40 92 22 94 Room Air 02/01/17 19:10 76 18 02/01/17 19:05 80 25 02/01/17 19:05 80 25 02/01/17 19:00 83 22 02/01/17 19:00 83 22 02/01/17 18:56 150/81 02/01/17 18:56 150/81 02/01/17 18:55 79 15 02/01/17 18:55 79 15 02/01/17 18:50 83 21 02/01/17 18:50 83 21 02/01/17 18:35 89 26 02/01/17 18:35 89 26 02/01/17 18:30 85 24 02/01/17 18:30 85 24 02/01/17 18:25 83 23 02/01/17 18:25 83 23 02/01/17 18:20 87 23 02/01/17 18:20 87 23 02/01/17 18:15 99 30 02/01/17 18:15 99 30 02/01/17 18:10 87 28 02/01/17 17:40 81 24 02/01/17 17:35 84 22 94 Room Air 02/01/17 17:30 87 18 02/01/17 17:25 90 21 95 02/01/17 17:20 96 18 02/01/17 17:15 95 23 02/01/17 17:10 90 15 02/01/17 17:05 93 19 02/01/17 17:00 90 25 02/01/17 16:55 102 21 02/01/17 16:50 95 24 02/01/17 16:45 93 24 02/01/17 16:40 105 24 02/01/17 16:35 99 19 02/01/17 16:30 107 20 02/01/17 16:25 102 21 02/01/17 16:20 113 18 02/01/17 16:15 111 23 02/01/17 16:10 104 24 94 02/01/17 16:05 108 23 94 02/01/17 16:02 112 02/01/17 16:01 96 Room Air 02/01/17 16:00 117 24 97 02/01/17 15:42 36.3 114 20 133/77 95 Room Air General Appearance: WD/WN, no apparent distress Head: normocephalic, atraumatic Eyes: PERRL, EOMI, sclerae normal ENT: normal ENT inspection, hearing grossly normal Neck: supple, no JVD, no carotid bruits, trachea midline Respiratory/Chest: chest non-tender, no respiratory distress, no accessory muscle use, + rales (bilaterally) Cardiovascular: regular rate, rhythm, no gallop, no JVD, no murmur, normal peripheral pulses Abdomen/GI: normal bowel sounds, non tender, soft, no organomegaly Extremities/Musculoskelatal: no calf tenderness, normal capillary refill, no pedal edema Neurologic/Psych: no motor/sensory deficits, alert, normal mood/affect, oriented x 3 Skin: normal color, warm/dry, no rash Diagnostics Laboratory Results Results Past 24 Hours Test 02/01/17 00:00 02/01/17 17:05 02/01/17 19:33 Range/Units Urine Color YELLOW Urine Appearance CLEAR CLEAR Urine pH 7.5 4.5-7.5 Urine Specific [place] 1.016 1.000-1.030 Urine Protein NEG NEG Urine Glucose (UA) NEG NEG Urine Ketones NEG NEG Urine Occult Blood NEG NEG Urine Nitrite NEG NEG Urine Bilirubin NEG NEG Urine Urobilinogen NEG NEG Urine Leukocyte Esterase NEG NEG White Blood Count 19.17 4.8-10.8 K/uL Red Blood Count 4.30 4.2-5.4 M/uL Hemoglobin 11.7 12.0-16.0 g/dL Hematocrit 35.7 37-47 % Mean Corpuscular Volume 83.0 80-100 fL Mean Corpuscular Hemoglobin 27.2 25-34 pg Mean Corpuscular Hemoglobin Concent 32.8 32-36 g/dl Platelet Count 276 130-400 K/uL Mean Platelet Volume 9.6 7.4-10.4 fL Neutrophils (%) (Auto) 83.0 % Lymphocytes (%) (Auto) 10.3 % Monocytes (%) (Auto) 5.2 % Eosinophils (%) (Auto) 0.4 % Basophils (%) (Auto) 0.1 % Neutrophils # (Auto) 15.89 1.4-6.5 K/uL Lymphocytes # (Auto) 1.98 1.2-3.4 K/uL Monocytes # (Auto) 1.00 0.11-0.59 K/uL Eosinophils # (Auto) 0.08 0-0.5 K/uL Basophils # (Auto) 0.02 0-0.2 K/uL RDW Standard Deviation 48.2 36.4-46.3 fL RDW Coefficient of Variation 15.8 11.5-14.5 % Immature Granulocyte % (Auto) 1.0 % Immature Granulocyte # (Auto) 0.20 0.00-0.02 K/uL Sodium Level 137 136-145 mmol/L Potassium Level 3.4 3.5-5.1 mmol/L Chloride Level 99 98-107 mmol/L Carbon Dioxide Level 28 21-32 mmol/L Anion Gap 10.0 3-11 mmol/L Blood Urea Nitrogen 24 7-18 mg/dl Creatinine 1.20 0.60-1.20 mg/dl Estimated GFR () 48.1 Estimated GFR (Non- 41.5 BUN/Creatinine Ratio 20.0 10-20 Random Glucose 114 70-99 mg/dl Calcium Level 10.1 8.5-10.1 mg/dl Magnesium Level 1.5 1.8-2.4 mg/dl Troponin I < 0.015 0-0.045 ng/ml Pro-B-Type Natriuretic Peptide 417 0-1800 pg/ml Thyroid Stimulating Hormone (TSH) 0.152 0.300-4.500 uIu/ml Free Thyroxine 1.39 0.80-1.60 ng/dl Lactic Acid Level 3.5 0.4-2.0 mmol/L EKG LBBB Impression Assessment and Plan Dizziness: -has been ongoing but worse in the last 1 week -could be related to known issues with sinuses or the recent changes to medications -discontinue BB as patient was only on it for BP issues and had no prior cardiac history or arrhythmia -if additional BP control needed, can try amlodipine or lisinopril -obtain orthostatics -carotid dopplers -TTE -MRI brain Chronic Recurrent Sinusitis: -frequent exacerbations -encouraged to use flonase daily regardless of symptoms -was evaluated by ENT, no surgical options -uses rescue kit q6-8 weeks -unable to tolerate levaquin per patient Left Lung Nodule: -stable, has been following up as an outpatient with no changes -continue to follow Hypomagnesemia: -replete and recheck CKD Stage II: -Cr 1.2 slightly above baseline -avoid nephrotoxins -hydrate with IV fluids overnight HTN: -stop metoprolol/atenolol -start amlodipine -continue triamterene/HCTZ -monitor Hypokalemia: -chronically on potassium supplements, continue to replete -monitor -unsure if prior work up for hyperaldosteronism has even been done given long standing hx of hypokalemia and HTN Anxiety: -stable -continue home meds Hypothyroidism: -stable T4 -continue Synthroid. Level of Care Telemetry Resuscitation Status FULL RESUSCITATION VTE Prophylaxis VTE Risk Assessment Done? Y/N: Yes Risk Level: Moderate Given or contraindicated: Unfractionated heparin SQ
[2017-02-01] MEDS ORDERED: AMLODIPINE BESYLATE 5 MG TAB PO ONE (21:45)
[2017-02-01] MEDS: SODIUM CHLORIDE 0.9% 1000ML 1,000 ML IV SCH (22:08)
[2017-02-01] MEDS: ASPIRIN 81 MG ECTAB PO SCH (22:11)
[2017-02-01 22:19] VITALS: BP 180/81; PULSE 85; TEMP 36.6; O2SAT 97; Ht 160 cm; Wt 60.7 kg
[2017-02-01] MEDS: FLUTICASONE/SALMETEROL 250/50 (ADVAIR) 14 PUFF/1 INHALER INH SCH (22:19)
[2017-02-01] MEDS ORDERED: IV FLUIDS COMPLETED PRN (22:45)
[2017-02-01] MEDS: HYDROCODONE/ACETAMINOPHEN 7.5/325MG TAB PO PRN (23:04)
[2017-02-01 23:13] VITALS: BP 186/67; PULSE 91; TEMP 36.6; O2SAT 97
[2017-02-02] VITALS (7 sets, daily range): BP systolic 113–161; BP diastolic 62–74; PULSE 62–99; TEMP 36.4–37; O2SAT 93–97
[2017-02-02] MEDS: LEVOTHYROXINE 100 MCG TAB PO SCH (05:44)
[2017-02-02 06:11] LABS: HEMATOCRIT 32.5 % (37-47); MEAN CELL VOLUME 83.5 fL (80-100); MEAN CORPUSCULAR HEMOGLOBIN 26.2 pg (25-34); MEAN CORPUSCULAR HGB CONC 31.4 g/dl (32-36); MEAN PLATELET VOLUME 9.6 fL (7.4-10.4); PLATELET COUNT 277 K/uL (130-400); RED BLOOD COUNT 3.89 M/uL (4.2-5.4)
[2017-02-02 06:34] LABS: PARTIAL THROMBOPLASTIN RATIO 0.8; PROTHROMBIN TIME (PATIENT) 10.5 SECONDS (9.0-12.0)
[2017-02-02 06:51] LABS: BUN/CREATININE RATIO 23.8 (10-20); CALCIUM 9.1 mg/dl (8.5-10.1); CREATININE 0.86 mg/dl (0.60-1.20); MAGNESIUM 1.9 mg/dl (1.8-2.4); POTASSIUM 3.8 mmol/L (3.5-5.1)
--- NOTE | 2017-02-02 06:55 | DIAGNOSTIC IMAGING REPORT ---
CAROTID DOPPLER NECK ART CLINICAL HISTORY: 86 years-old Female with Dizziness. COMPARISON: Head CT 04/26/2016 TECHNIQUE: Multiple real time sonographic images of the carotid bifurcations were obtained assessing gurrola scale, color Doppler and spectral wave form appearance FINDINGS: RIGHT CAROTID: The peak systolic velocity measured 97.8 cm/sec. The end diastolic velocity measured 24.8 cm/sec. The ICA to CCA ratio measured 1.3 which correlates with a stenosis of less than 50%. There is a [id number] degree of atherosclerotic plaquing within the right carotid bulb. LEFT CAROTID: The peak systolic velocity measured 69.3 cm/sec. The end diastolic velocity measured 25.7 cm/sec. The ICA to CCA ratio measured 1.1 which correlates with a stenosis of less than 50%. There is a mild degree of atherosclerotic plaquing of the left carotid bulb. There is normal antegrade vertebral flow bilaterally. IMPRESSION: 1. 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 2. Normal antegrade vertebral flow bilaterally. The above report was generated using voice recognition software. It may contain grammatical, syntax or spelling errors. Electronically signed by: Clay Smith M.D. 02/02/2017 6:54 AM Dictated Date/Time: 02/02/2017 6:49 AM
[2017-02-02] MEDS: SODIUM CHLORIDE 0.9% 1000ML 1,000 ML IV SCH (08:37)
[2017-02-02] MEDS: FLUTICASONE PROPIONATE NA SPR 16 GM BTL NAE SCH (08:38)
[2017-02-02] MEDS: FLUTICASONE/SALMETEROL 250/50 (ADVAIR) 14 PUFF/1 INHALER INH SCH ×2 (08:38→21:14)
[2017-02-02] MEDS: CALCIUM 600MG + VIT D 400 IU TAB PO SCH (08:38)
[2017-02-02] MEDS: TRIAMTERENE/HCTZ 37.5/25MG TAB PO SCH (08:39)
[2017-02-02] MEDS: POTASSIUM CHLORIDE 20 MEQ TABCR PO SCH (08:39)
[2017-02-02] MEDS: MULTIVITAMIN TAB PO SCH (08:40)
[2017-02-02] MEDS: HEPARIN SOD 5000 UNIT/0.5 ML CARP SQ SCH ×2 (08:43→21:16)
[2017-02-02] MEDS: HYDROCODONE/ACETAMINOPHEN 7.5/325MG TAB PO PRN ×2 (08:50→21:15)
[2017-02-02] MEDS ORDERED: NON-FORMULARY MEDICATION (Vitamins C & E (Vitamin C) 1 CAP) PO SCH (09:00)
[2017-02-02] MEDS ORDERED: AMLODIPINE BESYLATE 5 MG TAB PO SCH (09:00)
--- NOTE | 2017-02-02 09:32 | DIAGNOSTIC IMAGING REPORT ---
MRI OF THE BRAIN WITHOUT AND WITH IV CONTRAST CLINICAL HISTORY: recurrent dizziness and vertigo COMPARISON STUDY: Noncontrast head CT dated 04/26/2016 TECHNIQUE: MRI of the brain was performed from the vertex to the skull base utilizing various T1 and T2 weighted sequences. Following the IV administration of 6 mL of Gadavist contrast, additional enhanced images were obtained. FINDINGS: Sagittal T1, axial diffusion, proton density and T2 weighted axial, coronal FLAIR, and pre and post axial T1-weighted images were acquired. These were supplemented with post gadolinium coronal T1 weighted images. No intra or extra-axial mass lesions are visualized. Axial diffusion-weighted images reveal no evidence of acute or subacute infarction. There is no evidence of ventricular dilatation. Proton density T2-weighted and FLAIR images reveal moderate foci of increased T2 signal within the white matter, likely on a small vessel basis. There are no abnormal flow voids. There is no evidence of pathologic enhancement. There is anterior artifact secondary to metallic fillings. IMPRESSION: 1. No acute intracranial findings 2. No evidence of intracranial mass 3. No evidence of acute or subacute infarction 4. Moderate foci of increased T2 signal within the white matter, likely on a small vessel basis. Electronically signed by: Dat Perez M.D. 02/02/2017 9:31 AM Dictated Date/Time: 02/02/2017 9:28 AM
--- NOTE | 2017-02-02 10:22 | ECHOCARDIOGRAM REPORT ---
*NOTICE TO RECEIVING CONSTITUTION PARTY AGENCY This information is strictly Confidential and protected under [place] law. [place] law prohibits you from making any further disclosure of this information unless further disclosure is expressly permitted by the written consent of the person to whom it pertains or is authorized by law. A general authorization for the release of medical or other information is not sufficient for this purpose. Hospital accepts no responsibility if the information is made available to any other person, INCLUDING THE PATIENT. Interpretation Summary * Name: RUSTY JOINER Study Date: 02/02/2017 07:36 AM BP: 158/72 mmHg * Patient Location: C.2T\S\S229\S\1 HR: 82 * : 1930 (M/d/yyyy) Gender: Female Height: 63 in * Age: 86 yrs Ethnicity: CA Weight: 132 lb * Ordering Physician: Claribel Bustillo * Performed By: Dora Stover * * Reason For Study: SYNCOPE * BSA: 1.6 m2 * -- Conclusions -- * There is moderate concentric left ventricular hypertrophy. * Ejection Fraction = 65-70%. * Grade I diastolic dysfunction, (abnormal relaxation pattern). * The left atrium is mildly dilated. * The right ventricular systolic function is normal. * Right atrial size is normal. Procedure Details * A complete two-dimensional transthoracic echocardiogram was performed (2D, M-mode, Doppler and color flow Doppler). Left Ventricle * The left ventricle is normal in size. * There is moderate concentric left ventricular hypertrophy. * Ejection Fraction = 65-70%. Right Ventricle * The right ventricle is grossly normal size. * The right ventricular systolic function is normal. Atria * The left atrium is mildly dilated. * Right atrial size is normal. * No ASD detected; PFO is not assessed. Mitral Valve * The mitral valve leaflets appear thickened, but open well. * There is trace mitral regurgitation. Tricuspid Valve * The tricuspid valve anatomy is normal. * Significant tricuspid regurgitation is absent. Aortic Valve * The aortic valve is tricuspid. The leaflet thickness if normal. There is no aortic stenosis, and no significant insufficiency. * Aortic valve sclerosis mild, without significant aortic valvular stenosis. * There is no significant aortic regurgitation. Pulmonic Valve * The pulmonic valve is not well visualized. * Trace pulmonic valvular regurgitation. Great Vessels * The aortic root and proximal ascending aorta are normal sized. Pericardium/Pleural * There is no pericardial effusion. Left Ventricular Diastolic Function * Grade I diastolic dysfunction, (abnormal relaxation pattern). MMode 2D Measurements and Calculations IVSd 2.1 cm IVSs 1.6 cm LVIDd 2.8 cm LVIDs 1.8 cm LVPWd 1.1 cm LVPWs 2.0 cm IVS/LVPW 1.9 FS 37.3 % EDV(Teich) 29.5 ml ESV(Teich) 9.1 ml EF(Teich) 69.1 % EDV(cubed) 21.9 ml ESV(cubed) 5.4 ml EF(cubed) 75.3 % % IVS thick -24.96 % % LVPW thick 74.8 % LV mass(C)d 165.2 grams LV mass(C)dI 101.9 grams/m\S\2 LV mass(C)s 121.0 grams LV mass(C)sI 74.7 grams/m\S\2 CO(Teich) 1.6 l/min CI(Teich) 0.97 l/min/m\S\2 SV(Teich) 20.4 ml SI(Teich) 12.6 ml/m\S\2 CO(cubed) 1.3 l/min CI(cubed) 0.78 l/min/m\S\2 SV(cubed) 16.5 ml SI(cubed) 10.2 ml/m\S\2 ACS 1.2 cm LA dimension 2.8 cm asc Aorta Diam 2.6 cm LVOT diam 1.9 cm LVOT area 3.0 cm\S\2 LVAd ap4 23.6 cm\S\2 LVLd ap4 7.7 cm EDV(MOD-sp4) 60.0 ml LVAs ap4 10.8 cm\S\2 LVLs ap4 6.3 cm ESV(MOD-sp4) 17.0 ml EF(MOD-sp4) 71.7 % LVAd ap2 20.1 cm\S\2 LVLd ap2 6.9 cm EDV(MOD-sp2) 48.0 ml LVAs ap2 9.5 cm\S\2 LVLs ap2 5.7 cm ESV(MOD-sp2) 14.0 ml EF(MOD-sp2) 70.8 % CO(MOD-sp4) 3.3 l/min CI(MOD-sp4) 2.0 l/min/m\S\2 SV(MOD-sp4) 43.0 ml SI(MOD-sp4) 26.5 ml/m\S\2 CO(MOD-sp2) 2.6 l/min CI(MOD-sp2) 1.6 l/min/m\S\2 SV(MOD-sp2) 34.0 ml SI(MOD-sp2) 21.0 ml/m\S\2 Doppler Measurements and Calculations MV E max kalyn 88.4 cm/sec MV A max kalyn 119.4 cm/sec MV E/A 0.74 MV dec time 0.35 sec Ao V2 max 174.9 cm/sec Ao max PG 12.2 mmHg Ao max PG (full) 6.7 mmHg GENIE(V,A) 2.0 cm\S\2 GENIE(V,D) 2.0 cm\S\2 LV V1 max PG 5.6 mmHg LV V1 max 118.0 cm/sec MR max kalyn 539.6 cm/sec MR max PG 116.5 mmHg PA V2 max 69.6 cm/sec PA max PG 1.9 mmHg PI end-d kalyn 73.3 cm/sec TR max kalyn 236.2 cm/sec
[2017-02-02] MEDS ORDERED: METOPROLOL SUCC 25MG EXT REL TAB PO ONE (10:30)
--- NOTE | 2017-02-02 17:09 | Progress Note ---
Internal Med Progress Note Date of Service: Feb 02, 2017. Provider Documentation: SUBJECTIVE: dizziness is better today Recent chjnage in medications possible cause of her dizziness as per patient on and off sinus flare up afebrile no chest pain or sob eating ok OBJECTIVE: Vital Signs-as noted below Exam: General-alert and oriented. Not in distress ENT-Normal hearing Neck-no neck masses supple Lungs-cta b/l no wheezing no crackles present Heart-s1 and s2 heard regular rate and rhythm no murmurs Abdomen-soft bowel sounds present non tender no distension Extremities- no erythema Neuro-alert and oriented moves extremities Lab data as noted below. ASSESSMENT & PLAN: Dizziness: question of from recent change in medications or form sinus flare and labyrinthitis? improving now MRI brain unremarkable echo except for moderate concentric LVH unremarkable will monitor Chronic Recurrent Sinusitis: frequent exacerbations encouraged to use flonase daily regardless of symptoms was evaluated by ENT, no surgical options on prednisone will monitor Left Lung Nodule: stable out patient followup Hypomagnesemia: replaced. CKD Stage II: will f.u labs HTN: was on atenolol 50mg daily for several years but was changed to Toprol xl 50mg daily as pharmacy could not get atenolol. Patient thinks topol xl caused her worsening of dizziness dizziness is improving ow to avoid rebound tachycardia will keep Toprol xl 25mg daily and to taper off if dizziness recurs started on amlodipine 2.5mg daily. home triamterene/HCTZ will monitor Hypokalemia: chronically on potassium supplements, continue to replete will monirto hyperaldosteronism? followup with pcp. Anxiety: stable on home meds Hypothyroidism: on Synthroid. DVT PROPHYLAXIS scds DISPOSITION monitor in tele to be determined Vital Signs: Date Time Temp Pulse Resp B/P (MAP) Pulse Ox O2 Delivery O2 Flow Rate FiO2 02/02/17 16:00 Room Air 02/02/17 15:59 36.9 81 20 124/65 (84) 94 Room Air 02/02/17 11:51 37.0 62 18 113/64 (80) 94 02/02/17 11:00 Room Air 02/02/17 08:18 36.5 82 16 158/72 (100) 95 02/02/17 07:45 Room Air 02/02/17 04:34 Room Air 02/02/17 04:00 36.5 79 19 154/63 (93) 97 Room Air 02/02/17 00:17 Room Air 02/01/17 23:13 36.6 91 18 186/67 (106) 97 Room Air 02/01/17 22:19 36.6 85 20 180/81 97 Room Air 02/01/17 21:28 36.3 92 22 204/103 94 02/01/17 21:00 204/103 02/01/17 19:40 92 22 94 Room Air 02/01/17 19:10 76 18 02/01/17 19:05 80 25 02/01/17 19:05 80 25 02/01/17 19:00 83 22 02/01/17 19:00 83 22 02/01/17 18:56 150/81 02/01/17 18:56 150/81 02/01/17 18:55 79 15 02/01/17 18:55 79 15 02/01/17 18:50 83 21 02/01/17 18:50 83 21 02/01/17 18:35 89 26 02/01/17 18:35 89 26 02/01/17 18:30 85 24 02/01/17 18:30 85 24 02/01/17 18:25 83 23 02/01/17 18:25 83 23 02/01/17 18:20 87 23 02/01/17 18:20 87 23 02/01/17 18:15 99 30 02/01/17 18:15 99 30 02/01/17 18:10 87 28 02/01/17 17:40 81 24 02/01/17 17:35 84 22 94 Room Air 02/01/17 17:30 87 18 02/01/17 17:25 90 21 95 02/01/17 17:20 96 18 02/01/17 17:15 95 23 02/01/17 17:10 90 15 02/01/17 17:05 93 19 02/01/17 17:00 90 25 Lab Results: Results Past 24 Hours Test 02/01/17 17:05 02/01/17 19:33 02/02/17 05:36 02/02/17 09:30 Range/Units White Blood Count 19.17 15.90 4.8-10.8 K/uL Red Blood Count 4.30 3.89 4.2-5.4 M/uL Hemoglobin 11.7 10.2 12.0-16.0 g/dL Hematocrit 35.7 32.5 37-47 % Mean Corpuscular Volume 83.0 83.5 80-100 fL Mean Corpuscular Hemoglobin 27.2 26.2 25-34 pg Mean Corpuscular Hemoglobin Concent 32.8 31.4 32-36 g/dl Platelet Count 276 277 130-400 K/uL Mean Platelet Volume 9.6 9.6 7.4-10.4 fL Neutrophils (%) (Auto) 83.0 % Lymphocytes (%) (Auto) 10.3 % Monocytes (%) (Auto) 5.2 % Eosinophils (%) (Auto) 0.4 % Basophils (%) (Auto) 0.1 % Neutrophils # (Auto) 15.89 1.4-6.5 K/uL Lymphocytes # (Auto) 1.98 1.2-3.4 K/uL Monocytes # (Auto) 1.00 0.11-0.59 K/uL Eosinophils # (Auto) 0.08 0-0.5 K/uL Basophils # (Auto) 0.02 0-0.2 K/uL RDW Standard Deviation 48.2 49.3 36.4-46.3 fL RDW Coefficient of Variation 15.8 16.1 11.5-14.5 % Immature Granulocyte % (Auto) 1.0 % Immature Granulocyte # (Auto) 0.20 0.00-0.02 K/uL Sodium Level 137 139 136-145 mmol/L Potassium Level 3.4 3.8 3.5-5.1 mmol/L Chloride Level 99 107 98-107 mmol/L Carbon Dioxide Level 28 26 21-32 mmol/L Anion Gap 10.0 6.0 3-11 mmol/L Blood Urea Nitrogen 24 20 7-18 mg/dl Creatinine 1.20 0.86 0.60-1.20 mg/dl Estimated GFR () 48.1 71.9 Estimated GFR (Non- 41.5 62.0 BUN/Creatinine Ratio 20.0 23.8 10-20 Random Glucose 114 100 70-99 mg/dl Calcium Level 10.1 9.1 8.5-10.1 mg/dl Magnesium Level 1.5 1.9 1.8-2.4 mg/dl Troponin I < 0.015 0-0.045 ng/ml Pro-B-Type Natriuretic Peptide 417 0-1800 pg/ml Thyroid Stimulating Hormone (TSH) 0.152 0.300-4.500 uIu/ml Free Thyroxine 1.39 0.80-1.60 ng/dl Lactic Acid Level 3.5 1.7 0.4-2.0 mmol/L Prothrombin Time 10.5 9.0-12.0 SECONDS Prothromb Time International Ratio 1.0 0.9-1.1 Activated Partial Thromboplast Time 21.8 21.0-31.0 SECONDS Partial Thromboplastin Ratio 0.8 Est Creatinine Clear Calc Drug Dose 40.3 ml/min
[2017-02-02] MEDS: ASPIRIN 81 MG ECTAB PO SCH (21:14)
[2017-02-03] VITALS (7 sets, daily range): BP systolic 122–166; BP diastolic 56–76; PULSE 77–104; TEMP 36.5–37; O2SAT 93–97
[2017-02-03] MEDS: HYDROCODONE/ACETAMINOPHEN 7.5/325MG TAB PO PRN ×2 (00:56→21:19)
[2017-02-03] MEDS: LEVOTHYROXINE 100 MCG TAB PO SCH (05:47)
[2017-02-03] MEDS: FLUTICASONE PROPIONATE NA SPR 16 GM BTL NAE SCH (08:00)
[2017-02-03] MEDS: FLUTICASONE/SALMETEROL 250/50 (ADVAIR) 14 PUFF/1 INHALER INH SCH ×2 (08:00→21:07)
[2017-02-03] MEDS: POTASSIUM CHLORIDE 20 MEQ TABCR PO SCH (08:01)
[2017-02-03] MEDS: TRIAMTERENE/HCTZ 37.5/25MG TAB PO SCH (08:02)
[2017-02-03] MEDS: METOPROLOL SUCC 25MG EXT REL TAB PO SCH (08:03)
[2017-02-03] MEDS: AMLODIPINE BESYLATE 5 MG TAB PO SCH (08:03)
[2017-02-03] MEDS: CALCIUM 600MG + VIT D 400 IU TAB PO SCH (08:04)
[2017-02-03] MEDS: MULTIVITAMIN TAB PO SCH (08:04)
[2017-02-03] MEDS: HEPARIN SOD 5000 UNIT/0.5 ML CARP SQ SCH ×2 (08:11→21:10)
[2017-02-03] MEDS ORDERED: CALCIUM CARBONATE 500 MG CHEWABLE PO PRN (14:45)
[2017-02-03] MEDS ORDERED: MECLIZINE HCL 25 MG TAB PO STA (18:33)
--- NOTE | 2017-02-03 18:37 | Progress Note ---
Internal Med Progress Note Date of Service: Feb 03, 2017. Provider Documentation: SUBJECTIVE: felt some dizziness after ambulation today but not as bad as when she came in no chest pain or sob afebrile hemodynamics stable OBJECTIVE: Vital Signs-as noted below Exam: General-alert and oriented. Not in distress ENT-Normal hearing Neck-no neck masses supple Lungs-cta b/l no wheezing no crackles present Heart-s1 and s2 heard regular rate and rhythm no murmurs Abdomen-soft bowel sounds present non tender no distension Extremities- no erythema no edema Neuro-alert and oriented moves extremities Lab data as noted below. ASSESSMENT & PLAN: Dizziness: question of from recent change in medications or form sinus flare and labyrinthitis? improving now MRI brain unremarkable echo except for moderate concentric LVH unremarkable orthostatic hypotension? on gentle fluids meclizine prn pt/ot Chronic Recurrent Sinusitis: frequent exacerbations encouraged to use flonase daily regardless of symptoms was evaluated by ENT, no surgical options on prednisone will monitor Stable conditions: Left Lung Nodule: stable out patient followup Hypomagnesemia: replaced. CKD Stage II: will f.u labs HTN: was on atenolol 50mg daily for several years but was changed to Toprol xl 50mg daily as pharmacy could not get atenolol. Patient thinks topol xl caused her worsening of dizziness dizziness is improving ow to avoid rebound tachycardia will keep Toprol xl 25mg daily and to taper off if dizziness recurs started on amlodipine 2.5mg daily. home triamterene/HCTZ continue same will monitor Hypokalemia: chronically on potassium supplements, continue to replete will monirto hyperaldosteronism? followup with pcp. Anxiety: stable on home meds Hypothyroidism: on Synthroid. DVT PROPHYLAXIS scds DISPOSITION monitor in tele to be determined Vital Signs: Date Time Temp Pulse Resp B/P (MAP) Pulse Ox O2 Delivery O2 Flow Rate FiO2 02/03/17 16:48 Room Air 02/03/17 15:06 36.8 92 20 149/76 (100) 97 Room Air 02/03/17 12:55 91 156/63 (94) 93 Nasal Cannula 3.0 02/03/17 12:00 Room Air 02/03/17 11:37 36.5 79 18 159/73 (101) 95 Room Air 02/03/17 08:00 Room Air 02/03/17 07:41 36.7 77 18 129/66 (87) 95 Room Air 80 143/70 (94) 104 122/56 (78) 02/03/17 04:00 Room Air 02/03/17 03:08 36.6 83 17 136/67 (90) 95 Room Air 02/03/17 00:05 Room Air 02/02/17 23:07 36.4 89 17 161/74 (103) 93 Room Air 02/02/17 20:01 Room Air 02/02/17 20:01 91 152/72 (98) 90 133/65 (87) 99 115/62 (79) 02/02/17 19:16 36.6 85 20 135/69 (91) 96 Room Air
[2017-02-03] MEDS: SODIUM CHLORIDE 0.9% 1000ML 1,000 ML IV SCH (18:47)
[2017-02-03] MEDS ORDERED: MECLIZINE HCL 25 MG TAB PO PRN (21:00)
[2017-02-03] MEDS: ASPIRIN 81 MG ECTAB PO SCH (21:06)
[2017-02-04] VITALS (7 sets, daily range): BP systolic 121–171; BP diastolic 64–75; PULSE 81–101; TEMP 36.5–37; O2SAT 94–97
[2017-02-04] MEDS: HYDROCODONE/ACETAMINOPHEN 7.5/325MG TAB PO PRN ×3 (01:18→21:46)
[2017-02-04 05:52] LABS: HEMATOCRIT 29.1 % (37-47); MEAN CELL VOLUME 84.6 fL (80-100); MEAN CORPUSCULAR HEMOGLOBIN 26.5 pg (25-34); MEAN CORPUSCULAR HGB CONC 31.3 g/dl (32-36); MEAN PLATELET VOLUME 9.3 fL (7.4-10.4); PLATELET COUNT 239 K/uL (130-400); RED BLOOD COUNT 3.44 M/uL (4.2-5.4); WHITE BLOOD COUNT 15.79 K/uL (4.8-10.8)
[2017-02-04] MEDS: LEVOTHYROXINE 100 MCG TAB PO SCH (06:05)
[2017-02-04 06:33] LABS: CREATININE 0.83 mg/dl (0.60-1.20); MAGNESIUM 1.4 mg/dl (1.8-2.4); POTASSIUM 3.5 mmol/L (3.5-5.1)
[2017-02-04 06:34] LABS: BASO % 0.3 %; BASO ABS # 0.04 K/uL (0-0.2); COMPLETE YES; LYMPH % 33.2 %; LYMPH ABS # 5.24 K/uL (1.2-3.4); MONO % 9.2 %; NEUT % 53.3 %
[2017-02-04] MEDS: MAGNESIUM SULFATE 1GM / D5W 1 GM in PREMIXED IN D5W 100 ML IV SCH ×2 (07:27→08:28)
[2017-02-04] MEDS: SODIUM CHLORIDE 0.9% 1000ML 1,000 ML IV SCH (07:28)
[2017-02-04] MEDS: MULTIVITAMIN TAB PO SCH (08:37)
[2017-02-04] MEDS: TRIAMTERENE/HCTZ 37.5/25MG TAB PO SCH (08:37)
[2017-02-04] MEDS: FLUTICASONE PROPIONATE NA SPR 16 GM BTL NAE SCH (08:37)
[2017-02-04] MEDS: FLUTICASONE/SALMETEROL 250/50 (ADVAIR) 14 PUFF/1 INHALER INH SCH ×2 (08:37→20:27)
[2017-02-04] MEDS: POTASSIUM CHLORIDE 20 MEQ TABCR PO SCH (08:38)
[2017-02-04] MEDS: METOPROLOL SUCC 25MG EXT REL TAB PO SCH (08:38)
[2017-02-04] MEDS: AMLODIPINE BESYLATE 5 MG TAB PO SCH (08:38)
[2017-02-04] MEDS: CALCIUM 600MG + VIT D 400 IU TAB PO SCH (08:38)
[2017-02-04] MEDS: HEPARIN SOD 5000 UNIT/0.5 ML CARP SQ SCH ×2 (08:40→20:28)
--- NOTE | 2017-02-04 19:12 | Progress Note ---
Internal Med Progress Note Date of Service: Feb 04, 2017. Provider Documentation: SUBJECTIVE: no dizziness no sob or chest pain afebrile resting comfortably OBJECTIVE: Vital Signs-as noted below Exam: General-alert and oriented. Not in distress ENT-Normal hearing Neck-no neck masses supple Lungs-cta b/l no wheezing no crackles present Heart-s1 and s2 heard regular rate and rhythm no murmurs Abdomen-soft bowel sounds present non tender no distension Extremities- no erythema no edema Neuro-alert and oriented moves extremities Lab data as noted below. ASSESSMENT & PLAN: Dizziness: question of from recent change in medications or form sinus flare and labyrinthitis? improving now MRI brain unremarkable echo except for moderate concentric LVH unremarkable orthostatic hypotension? on gentle fluids meclizine prn stopped fluids and monitor pt/ot Chronic Recurrent Sinusitis: frequent exacerbations encouraged to use flonase daily regardless of symptoms was evaluated by ENT, no surgical options on prednisone will monitor Stable conditions: Left Lung Nodule: stable out patient followup Hypomagnesemia: replaced. CKD Stage II: will f.u labs HTN: was on atenolol 50mg daily for several years but was changed to Toprol xl 50mg daily as pharmacy could not get atenolol. Patient thinks topol xl caused her worsening of dizziness dizziness is improving ow to avoid rebound tachycardia will keep Toprol xl 25mg daily and to taper off if dizziness recurs started on amlodipine 2.5mg daily. home triamterene/HCTZ change toprol xl to 37.5mg daily will monitor Hypokalemia: chronically on potassium supplements, continue to replete will monirto hyperaldosteronism? followup with pcp. Anxiety: stable on home meds Hypothyroidism: on Synthroid. DVT PROPHYLAXIS scds DISPOSITION monitor in tele possible d/c in am Vital Signs: Date Time Temp Pulse Resp B/P (MAP) Pulse Ox O2 Delivery O2 Flow Rate FiO2 02/04/17 16:00 Room Air 02/04/17 15:19 36.9 90 18 148/71 (96) 96 Room Air 93 150/72 (98) 100 121/69 (86) 02/04/17 11:30 Room Air 02/04/17 10:31 36.7 88 20 171/73 (105) 97 Room Air 101 128/72 (90) 91 161/75 (103) 02/04/17 07:15 Room Air 02/04/17 06:52 36.5 96 19 137/64 (88) 96 Room Air 81 156/71 (99) 94 151/64 (93) 02/04/17 04:01 Room Air 02/04/17 03:19 36.8 84 17 144/73 (96) 95 Room Air 02/04/17 01:14 86 144/73 (96) 02/04/17 00:00 Room Air 02/03/17 23:15 36.9 97 17 166/66 (99) 96 Room Air 02/03/17 20:00 Room Air Lab Results: Results Past 24 Hours Test 02/04/17 05:19 Range/Units White Blood Count 15.79 4.8-10.8 K/uL Red Blood Count 3.44 4.2-5.4 M/uL Hemoglobin 9.1 12.0-16.0 g/dL Hematocrit 29.1 37-47 % Mean Corpuscular Volume 84.6 80-100 fL Mean Corpuscular Hemoglobin 26.5 25-34 pg Mean Corpuscular Hemoglobin Concent 31.3 32-36 g/dl Platelet Count 239 130-400 K/uL Mean Platelet Volume 9.3 7.4-10.4 fL Neutrophils (%) (Auto) 53.3 % Lymphocytes (%) (Auto) 33.2 % Monocytes (%) (Auto) 9.2 % Eosinophils (%) (Auto) 2.0 % Basophils (%) (Auto) 0.3 % Neutrophils # (Auto) 8.43 1.4-6.5 K/uL Lymphocytes # (Auto) 5.24 1.2-3.4 K/uL Monocytes # (Auto) 1.45 0.11-0.59 K/uL Eosinophils # (Auto) 0.32 0-0.5 K/uL Basophils # (Auto) 0.04 0-0.2 K/uL RDW Standard Deviation 50.3 36.4-46.3 fL RDW Coefficient of Variation 16.4 11.5-14.5 % Immature Granulocyte % (Auto) 2.0 % Immature Granulocyte # (Auto) 0.31 0.00-0.02 K/uL Sodium Level 138 136-145 mmol/L Potassium Level 3.5 3.5-5.1 mmol/L Chloride Level 103 98-107 mmol/L Carbon Dioxide Level 28 21-32 mmol/L Anion Gap 7.0 3-11 mmol/L Blood Urea Nitrogen 17 7-18 mg/dl Creatinine 0.83 0.60-1.20 mg/dl Est Creatinine Clear Calc Drug Dose 41.7 ml/min Estimated GFR () 75.1 Estimated GFR (Non- 64.8 BUN/Creatinine Ratio 21.0 10-20 Random Glucose 95 70-99 mg/dl Calcium Level 9.0 8.5-10.1 mg/dl Magnesium Level 1.4 1.8-2.4 mg/dl
[2017-02-04] MEDS: ASPIRIN 81 MG ECTAB PO SCH (20:27)
[2017-02-05] MEDS: HYDROCODONE/ACETAMINOPHEN 7.5/325MG TAB PO PRN (02:27)
[2017-02-05 03:48] VITALS: BP 144/62; PULSE 82; TEMP 37; O2SAT 93
[2017-02-05] MEDS: LEVOTHYROXINE 100 MCG TAB PO SCH (05:57)
[2017-02-05 07:15] VITALS: BP_SYST 122; BP_SYST 137; BP_DIAS 66; BP_DIAS 69; PULSE 77; PULSE 84; PULSE 94; TEMP 36.6
[2017-02-05 07:35] LABS: HEMATOCRIT 29.8 % (37-47); MEAN CELL VOLUME 84.9 fL (80-100); MEAN CORPUSCULAR HEMOGLOBIN 26.8 pg (25-34); MEAN CORPUSCULAR HGB CONC 31.5 g/dl (32-36); MEAN PLATELET VOLUME 9.1 fL (7.4-10.4); PLATELET COUNT 243 K/uL (130-400); RED BLOOD COUNT 3.51 M/uL (4.2-5.4)
[2017-02-05 08:04] LABS: BLOOD UREA NITROGEN 17 mg/dl (7-18); BUN/CREATININE RATIO 17.3 (10-20); CALCIUM 9.2 mg/dl (8.5-10.1); CARBON DIOXIDE 32 mmol/L (21-32); CHLORIDE 102 mmol/L (98-107); GLUCOSE 93 mg/dl (70-99); SODIUM 138 mmol/L (136-145)
[2017-02-05 08:05] LABS: BASO % 0.4 %; BASO ABS # 0.06 K/uL (0-0.2); COMPLETE YES; EOS % 1.3 %; IG% 3.4 %; LYMPH % 37.4 %; LYMPH ABS # 6.14 K/uL (1.2-3.4); MONO % 9.8 %; NEUT % 47.7 %; OVALOCYTES 1+; POIKILOCYTOSIS PRESENT
[2017-02-05 08:38] LABS: MAGNESIUM 1.6 mg/dl (1.8-2.4); POTASSIUM 3.3 mmol/L (3.5-5.1)
[2017-02-05] MEDS ORDERED: NURSING VERBAL MED ORDER ONE (09:00)
[2017-02-05] MEDS ORDERED: METOPROLOL SUCC 25MG EXT REL TAB PO SCH (09:00)
[2017-02-05] MEDS: FLUTICASONE PROPIONATE NA SPR 16 GM BTL NAE SCH (09:49)
[2017-02-05] MEDS: FLUTICASONE/SALMETEROL 250/50 (ADVAIR) 14 PUFF/1 INHALER INH SCH (09:49)
[2017-02-05] MEDS: AMLODIPINE BESYLATE 5 MG TAB PO SCH (09:49)
[2017-02-05] MEDS: MULTIVITAMIN TAB PO SCH (09:51)
[2017-02-05] MEDS: TRIAMTERENE/HCTZ 37.5/25MG TAB PO SCH (09:51)
[2017-02-05] MEDS: CALCIUM 600MG + VIT D 400 IU TAB PO SCH (09:53)
[2017-02-05] MEDS: POTASSIUM CHLORIDE 20 MEQ TABCR PO SCH (09:53)
[2017-02-05] MEDS: HEPARIN SOD 5000 UNIT/0.5 ML CARP SQ SCH (09:57)
[2017-02-05 11:21] VITALS: BP 149/73; PULSE 98; TEMP 36.7; O2SAT 95
[2017-02-05 15:04] VITALS: BP 151/69; PULSE 87; TEMP 36.8; O2SAT 95
[2017-02-05] MEDS ORDERED: NRV5 PO (15:13)
[2017-02-05] MEDS ORDERED: TPRSR25 PO (15:13)
--- NOTE | 2017-02-05 15:14 | Discharge Instructions ---
Discharge Instructions Date of Service Feb 05, 2017. Admission Reason for Admission: Dizziness, Hypomagnesemia Discharge Discharge Diagnosis / Problem: DIZZY SPELL , TACHYCARDIA Discharge Goals Goal(s): Decrease discomfort, Improve disease control, Diagnostic testing, Therapeutic intervention Activity Recommendations Activity Limitations: resume your previous activity . Instructions / Follow-Up Instructions / Follow-Up HOSPITAL FOLLOW UP : DR CHENG ON Thursday02/12/17 @ 11 AM Current Hospital Diet Patient's current hospital diet: Regular Diet Discharge Diet Recommended Diet: Regular Diet Pending Studies Studies pending at discharge: no Medical Emergencies . Who to Call and When: Medical Emergencies: If at any time you feel your situation is an emergency, please call 911 immediately. . Non-Emergent Contact Non-Emergency issues call your: Primary Care Provider . . "Provider Documentation" section prepared by Joanie Angel. . VTE Core Measure Inpt VTE Proph given/why not?: Unfractionated heparin SQ PA Drug Monitoring Program Search Results: patient reviewed within database Drug Monitoring Findings: LAST PRESCRIPTION FOR NORCO 7.5 /325 MG Q 4HRS FILLED ON 01/09/17 # 60 TABLETS BY KATHRYN EVANS ONLY # 5 TABLET OF NORCO 7.5/325 GIVEN TO PATIENT -PER REQUEST PT HAS NEXT SCHEDULED APPOINTMENT WITH DR CHENG ON 02/12/17 SHOULD BE ABLE TO FILL UP REST OF HER NARCOTIC PRESCRIPTION DRUGS
[2017-02-05] MEDS ORDERED: HYDR-3983 PO (15:42)
[2017-02-05 15:54] VITALS: BP 151/69; PULSE 87; TEMP 36.8; O2SAT 95
--- NOTE | 2017-02-05 15:55 | Progress Note ---
Internal Med Progress Note Date of Service: Feb 05, 2017. Provider Documentation: SUBJECTIVE: denies of any dizzy spell or lightheadedness no SOB or cough very eager to go home requesting to fill her pain medications for chronic arthritis pain last filled prescription for Medway was on 01/09/17 OBJECTIVE: Vital Signs-as noted below Exam: General-no sign of distress Eyes-sclera non icteric ENT-NAD Neck-no JVD Lungs-CTA Heart-regular S1/S2 Abdomen-soft, non tender Extremities-no edema Neuro-AAO x3, no focal deficit Lab data as noted below. ASSESSMENT & PLAN: Dizziness: symptom has resolved no evidence of any acute neurological event MRI of brain unremarkable echo except for moderate concentric LVH unremarkable possible symptom due to recent change in medications-atenolol was D/zohra , started on Toprol 50 mg daily Toprol Xl dose adjusted /reduced to 37.5 mg daily Chronic Recurrent Sinusitis: encouraged to use Flonase daily regardless of symptoms was evaluated by ENT as out pt , no surgical options cont out pt meds CKD Stage II: renal function stable HTN: was on atenolol 50mg daily for several years but was changed to Toprol xl 50mg daily as pharmacy could not get atenolol. Patient thinks Toprol XL caused her worsening of dizziness dizziness has resolved now Toprol XL dose adjusted to 37.5mg daily started on amlodipine 2.5mg daily. cont triamterene/HCTZ ARTHRITIS /CHRONIC PAIN SYNDROME : has been taking Medway for years gets filled every months by [facility] asked to have prescription for few tables till she gets to see her PCP next week PA date base PDMP system reviewed had 60 # filled on 01/09/17 script for # 5 tablet given to pt upon request Anxiety: cont home meds Hypothyroidism: on Synthroid. DVT PROPHYLAXIS scds DVT PROPHYLAXIS scd and teds DISPOSITION Discharge home today Medicine follow up with Dr Elena Vital Signs: Date Time Temp Pulse Resp B/P (MAP) Pulse Ox O2 Delivery O2 Flow Rate FiO2 02/05/17 15:04 36.8 87 20 151/69 (96) 95 Room Air 02/05/17 12:00 Room Air 02/05/17 11:21 36.7 98 18 149/73 (98) 95 Room Air 02/05/17 08:00 Room Air 02/05/17 07:15 36.6 77 18 137/69 (91) Room Air 84 137/69 (91) 94 122/66 (84) 02/05/17 04:00 Room Air 02/05/17 03:48 37.0 82 17 144/62 (89) 93 Room Air 02/05/17 00:00 Room Air 02/04/17 23:41 37.0 88 17 153/64 (93) 94 Room Air 02/04/17 20:00 Room Air 02/04/17 19:13 36.7 88 18 150/75 (100) 97 Room Air 02/04/17 16:00 Room Air Lab Results: Results Past 24 Hours Test 02/05/17 07:02 02/05/17 08:13 Range/Units White Blood Count 16.40 4.8-10.8 K/uL Red Blood Count 3.51 4.2-5.4 M/uL Hemoglobin 9.4 12.0-16.0 g/dL Hematocrit 29.8 37-47 % Mean Corpuscular Volume 84.9 80-100 fL Mean Corpuscular Hemoglobin 26.8 25-34 pg Mean Corpuscular Hemoglobin Concent 31.5 32-36 g/dl Platelet Count 243 130-400 K/uL Mean Platelet Volume 9.1 7.4-10.4 fL Neutrophils (%) (Auto) 47.7 % Lymphocytes (%) (Auto) 37.4 % Monocytes (%) (Auto) 9.8 % Eosinophils (%) (Auto) 1.3 % Basophils (%) (Auto) 0.4 % Neutrophils # (Auto) 7.82 1.4-6.5 K/uL Lymphocytes # (Auto) 6.14 1.2-3.4 K/uL Monocytes # (Auto) 1.60 0.11-0.59 K/uL Eosinophils # (Auto) 0.22 0-0.5 K/uL Basophils # (Auto) 0.06 0-0.2 K/uL RDW Standard Deviation 50.5 36.4-46.3 fL RDW Coefficient of Variation 16.5 11.5-14.5 % Immature Granulocyte % (Auto) 3.4 % Immature Granulocyte # (Auto) 0.56 0.00-0.02 K/uL Hypogranular Neutrophils 1+ Poikilocytosis PRESENT Ovalocytes 1+ Sodium Level 138 136-145 mmol/L Potassium Level 3.3 3.5-5.1 mmol/L Chloride Level 102 98-107 mmol/L Carbon Dioxide Level 32 21-32 mmol/L Anion Gap 4.0 3-11 mmol/L Blood Urea Nitrogen 17 7-18 mg/dl Creatinine 1.00 0.60-1.20 mg/dl Est Creatinine Clear Calc Drug Dose 34.6 ml/min Estimated GFR () 59.9 Estimated GFR (Non- 51.7 BUN/Creatinine Ratio 17.3 10-20 Random Glucose 93 70-99 mg/dl Calcium Level 9.2 8.5-10.1 mg/dl Magnesium Level 1.6 1.8-2.4 mg/dl
--- NOTE | 2017-02-05 15:56 | Discharge Summary ---
Discharge Summary Date of Service Feb 05, 2017. Discharge Summary Admission Date: Feb 05, 2017 at 08:53 Discharge Date: Feb 05, 2017 Discharge Disposition: Home Principal Diagnosis: DIZZY SPELL , TACHYCARDIA Procedures: MRI BRAIN IMPRESSION: 1. No acute intracranial findings 2. No evidence of intracranial mass 3. No evidence of acute or subacute infarction 4. Moderate foci of increased T2 signal within the white matter, likely on a small vessel basis. CAROTID USG ; IMPRESSION: 1. 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 2. Normal antegrade vertebral flow bilaterally. ECHO: Left Ventricle The left ventricle is normal in size. There is moderate concentric left ventricular hypertrophy. Ejection Fraction = 65-70%. Right Ventricle The right ventricle is grossly normal size. The right ventricular systolic function is normal. Atria The left atrium is mildly dilated. Right atrial size is normal. No ASD detected; PFO is not assessed. Medication Reconciliation New Medications: Amlodipine Besylate (Amlodipine Besylate) 5 Mg Tab 2.5 MG PO QAM for 30 Days, #15 TAB Metoprolol Succinate (Metoprolol Succinate ER) 25 Mg Tabcr 37.5 MG PO QAM for 30 Days, #45 TABS 2 Refills Changed Medications: Hydrocodone/Acetaminophen 7.5MG/325MG ([place] 7.5MG/325MG) Tab 1 TAB PO Q8 PRN for Pain, #5 TAB (Changed from: Q4H) PRN PAIN Continued Medications: Acetaminophen (Tylenol) 500 Mg Tab 500 MG PO Q8 PRN for Pain, TAB Aspirin (Aspir-81) 81 Mg Tab 81 MG PO QPM Calcium Carbonate-Vitamin D (Caltrate 600+D) 1 Chw Chw 1 TAB PO DAILY Fluticasone Prop/Salmeterol (Advair Diskus 250/50 60 Dose) 1 Ea Aerp 1 PUFF INH BID, INHALER Fluticasone Propionate (Nasal) (Flonase Allergy Relief) 50 Mcg/Act Spr 2 SPRAY DONNELL DAILY Levothyroxine Sodium (Synthroid) 100 Mcg Tab 100 MCG PO DAILY, TAB Multivitamin (Multivitamin) Tab 1 TAB PO DAILY, TAB Potassium Chloride (Potassium Chloride ER) 20 Meq Tab 40 MEQ PO DAILY Prednisone (Prednisone) 10 Mg Tab 10 MG PO UD PRN for PRN, #30 RESCUE KIT Triamterene/Hctz (Triamterene/Hctz 37.5-25MG) 1 Tab Tab 1 TAB PO DAILY Vitamins C & E (Vitamin C) 1 Cap Cap 1 CAP PO DAILY Discontinued Medications: Amoxicillin & Pot Clavulanate (Augmentin 875-125 mg) 1 Tab Tab 1 TAB PO BID, #14 TAB Admission Information HPI (per Admitting provider): Patient is an 86 yo female who presents to the ER for complaints of ongoing dizziness and gait imbalance. She reports that she gets dizzy at times when she is up and ambulating, but her symptoms have increased this week to the point that she gets dizzy even at rest or laying down. She denies any falls or syncope. She states that she has had several medications changed recently as well and was not sure if these contributed. The patient states she has been previously diagnosed with recurrent sinusitis and occasional asthma, for which she has a rescue kit with prednisone and an antibiotic. She gets flare ups of sinuses about every 6-8 weeks, and had her augmentin switched to levaquin due to increasing frequency of exacerbations. She reports levaquin made her feel dizzy, shaky, and unable to sleep, and she was taken off it and put back on augmentin. Last week her symptoms were not improving on Augmentin so she tried taking half a levaquin tablet twice a day and noticed the same jittery feeling and so she stopped. She also reports that her atenolol was switched to metoprolol last week due to an issue causing atenolol to be be unavailable at her pharmacy. Upon starting metoprolol the patient began to feel more dizzy and lightheaded so she stopped taking it and tried taking just half a tablet a few days this week but still continued to have dizziness. She is afraid of falling and lives alone. She has felt close to falling many times this week and was concerned. She also reports symptoms of feeling "wired" and jittery all day and night with difficulty sleeping but states she gets that way while taking steroids. She has been evaluated by ENT but was told there was no surgical intervention that could help her sinus flare ups. Physical Exam (per Admitting): General Appearance: WD/WN, no apparent distress Head: normocephalic, atraumatic Eyes: PERRL, EOMI, sclerae normal ENT: normal ENT inspection, hearing grossly normal Neck: supple, no JVD, no carotid bruits, trachea midline Respiratory/Chest: chest non-tender, no respiratory distress, no accessory muscle use, + rales (bilaterally) Cardiovascular: regular rate, rhythm, no gallop, no JVD, no murmur, normal peripheral pulses Abdomen/GI: normal bowel sounds, non tender, soft, no organomegaly Extremities/Musculoskelatal: no calf tenderness, normal capillary refill, no pedal edema Neurologic/Psych: no motor/sensory deficits, alert, normal mood/affect, oriented x 3 Skin: normal color, warm/dry, no rash Hospital Course Dizziness: symptom has resolved no evidence of any acute neurological event MRI of brain unremarkable echo except for moderate concentric LVH unremarkable possible symptom due to recent change in medications-atenolol was D/zohra , started on Toprol 50 mg daily Toprol Xl dose adjusted /reduced to 37.5 mg daily Chronic Recurrent Sinusitis: encouraged to use Flonase daily regardless of symptoms was evaluated by ENT as out pt , no surgical options cont out pt meds CKD Stage II: renal function stable HTN: was on atenolol 50mg daily for several years but was changed to Toprol xl 50mg daily as pharmacy could not get atenolol. Patient thinks Toprol XL caused her worsening of dizziness dizziness has resolved now Toprol XL dose adjusted to 37.5mg daily started on amlodipine 2.5mg daily. cont triamterene/HCTZ ARTHRITIS /CHRONIC PAIN SYNDROME : has been taking [place] for years gets filled every months by [facility] clinic asked to have prescription for few tables till she gets to see her PCP next week PA date base PDMP system reviewed had 60 # filled on 01/09/17 script for # 5 tablet given to pt upon request Anxiety: cont home meds Hypothyroidism: on Synthroid. DVT PROPHYLAXIS scds DVT PROPHYLAXIS scd and teds DISPOSITION Discharge home today Medicine follow up with Dr Elena Total time spent on discharge = 40 m ins This includes examination of the patient, discharge planning, medication reconciliation, and communication with other providers. Discharge Instructions DI: Medical v4 Discharge Instructions Date of Service Feb 05, 2017. Admission Reason for Admission: Dizziness, Hypomagnesemia Discharge Discharge Diagnosis / Problem: DIZZY SPELL , TACHYCARDIA Discharge Goals Goal(s): Decrease discomfort, Improve disease control, Diagnostic testing, Therapeutic intervention Activity Recommendations Activity Limitations: resume your previous activity . Instructions / Follow-Up Instructions / Follow-Up HOSPITAL FOLLOW UP : DR ELENA ON Thursday02/12/17 @ 11 AM Current Hospital Diet Patient's current hospital diet: Regular Diet Discharge Diet Recommended Diet: Regular Diet Pending Studies Studies pending at discharge: no Medical Emergencies . Who to Call and When: Medical Emergencies: If at any time you feel your situation is an emergency, please call 911 immediately. . Non-Emergent Contact Non-Emergency issues call your: Primary Care Provider . . "Provider Documentation" section prepared by Joanie Angel. . VTE Core Measure Inpt VTE Proph given/why not?: Unfractionated heparin SQ PA Drug Monitoring Program Search Results: patient reviewed within database Drug Monitoring Findings: LAST PRESCRIPTION FOR NORCO 7.5 /325 MG Q 4HRS FILLED ON 01/09/17 # 60 TABLETS BY KATHRYN EVANS ONLY # 5 TABLET OF NORCO 7.5/325 GIVEN TO PATIENT -PER REQUEST PT HAS NEXT SCHEDULED APPOINTMENT WITH DR ELENA ON 02/12/17 SHOULD BE ABLE TO FILL UP REST OF HER NARCOTIC PRESCRIPTION DRUGS
== END 2017-02-05 16:28 | disposition home or self-care (01) | DRG 149 ==
LOC: C.EDB 15:41 → C.2T 20:17 → ENRESERV 20:39 → OBSVTOIN 02-05 08:53
PROVIDERS: ADMIT Internal Medicine; ATTEND Hospitalist
DX: R42 Dizziness and giddiness (principal); R00.0 Tachycardia, unspecified; E86.0 Dehydration; E83.42 Hypomagnesemia; E87.6 Hypokalemia; I12.9 Hypertensive chronic kidney disease with stage 1 through stage 4 chronic kidney disease, or unspecified chronic kidney disease; N18.2 Chronic kidney disease, stage 2 (mild); E03.9 Hypothyroidism, unspecified; M19.90 Unspecified osteoarthritis, unspecified site; J32.9 Chronic sinusitis, unspecified; G89.4 Chronic pain syndrome; F41.9 Anxiety disorder, unspecified; Z96.659 Presence of unspecified artificial knee joint; Z87.891 Personal history of nicotine dependence; Z79.51 Long term (current) use of inhaled steroids; Z79.52 Long term (current) use of systemic steroids; Z79.82 Long term (current) use of aspirin; Z79.891 Long term (current) use of opiate analgesic; Z79.899 Other long term (current) drug therapy

== ENCOUNTER → 2017-10-05 | Outpatient (CLI) | payer OTHER, MEDICARE ==
[~2017-10-05] MED LIST changes: +CEPH500C PO; +HYDR-3983 PO; -LEVO1TAB33 PO; -PRVHFAIN INH; -SPRIN INH; -[UNRECOGNIZED DRUG - CODE] OPB
--- NOTE | 2017-10-06 07:40 | MAMMOGRAPHY REPORT ---
BILATERAL DIGITAL SCREENING MAMMOGRAM TOMOSYNTHESIS WITH CAD: 10/05/2017 CLINICAL HISTORY: Routine screening. Patient has no complaints. TECHNIQUE: Breast tomosynthesis in addition to standard 2D mammography was performed. Current study was also evaluated with a Computer Aided Detection (CAD) system. COMPARISON: Comparison is made to exams dated: 10/01/2016 mammogram, 09/04/2015 mammogram, 04/26/2014 ma mmogram, 04/10/2014 mammogram, 06/26/2011 mammogram, and 06/24/2010 mammogram - [facility]. BREAST COMPOSITION: There are scattered areas of fibroglandular density in both breasts. FINDINGS: There are moderate vascular calcifications in the breasts and a few benign rim calcificatio ns. Stable asymmetry in the lateral right breast. No new suspicious mass, architectural distortion or cluster of microcalcifications is seen. IMPRESSION: ACR BI-RADS CATEGORY 1: NEGATIVE There is no mammographic evidence of malignancy. A 1 year screening mammogram is recommended. The pa tient will receive written notification of the results. Approximately 10% of breast cancers are not detected with mammography. A negative mammographic report should not delay biopsy if a clinically suggestive mass is present. Cat Devlin M.D. ay/:10/05/2017 13:47:48 Mineralogy Professor: Rosalina QUEZADA)([place]), [facility] letter sent: Normal 1/2 BI-RADS Code: ACR BI-RADS Category 1: Negative
== END | disposition home or self-care (01) ==
LOC: C.MAMM 09:56
PROVIDERS: ATTEND Family Medicine
DX: Z12.31 Encounter for screening mammogram for malignant neoplasm of breast (principal)

== ENCOUNTER 2018-02-01 15:33 | Inpatient (IN) | payer OTHER, MEDICARE ==
[~2018-02-01] VITALS: Ht 157.5 cm; Wt 56.5 kg
[~2018-02-01 15:33] MED LIST changes: -CEPH500C PO
--- NOTE | 2018-02-01 16:15 | DIAGNOSTIC IMAGING REPORT ---
CHEST ONE VIEW PORTABLE CLINICAL HISTORY: EVALUATE WEAKNESS dyspnea COMPARISON STUDY: 01/03/2018 FINDINGS: Focal parenchymal infiltrate left lung base. Lungs otherwise appear clear. No significant cardiac enlargement. IMPRESSION: Focal parenchymal infiltrate left base. The above report was generated using voice recognition software. It may contain grammatical, syntax or spelling errors. Electronically signed by: Amari Mejía M.D. 02/01/2018 4:14 PM Dictated Date/Time: 02/01/2018 4:13 PM
--- NOTE | 2018-02-01 16:20 | EMERGENCY ROOM VISIT NOTE ---
History Report prepared by Isha: Tami Diaz Under the Supervision of: Dr. Oj Santana M.D. 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 She was then placed on a different medication and since then, she has felt chronic weakness and a loss of appetite. The patient has some SOB but this is not new. She did not take her morning medications but is currently taking Prednisone (5 mg once a day) for interstitial lung disease. Pt denies LOC, headache, fevers, chills, diaphoresis, visual changes, neck pain , chest pain, nausea, vomiting, abdominal pain, back pain, melena, hematochezia , urinary symptoms, numbness, lymphadenopathy, rash, or other complaints. 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 A total of ten systems were reviewed and were otherwise negative. Past Medical & Surgical Medical Problems: (1) CKD (chronic kidney disease), stage III (2) Deviated nasal septum (3) GERD (gastroesophageal reflux disease) (4) Hiatal hernia (5) Hypertension (6) Hypothyroidism (7) Interstitial pulmonary fibrosis (8) Left bundle branch block (9) Osteoarthritis Surgical Problems: (1) Cataract Nos (2) H/O repair of right rotator cuff (3) History of appendectomy (4) History of cataract surgery (5) History of hysterectomy (6) History of left oophorectomy (7) History of total left knee replacement (8) History of total right knee replacement (9) Knee Joint Replacement Status (10) S/P left knee arthroscopy (11) S/P right knee arthroscopy Family History Diabetes mellitus Hypertension Social History Smoking Status: Former Smoker Alcohol Use: none Drug Use: none Marital Status: Housing Status: lives alone Occupation Status: retired Current/Historical Medications Scheduled Ascorbic Acid (C-500), 2 TAB PO DAILY Aspirin (Aspir-81), 81 MG PO QPM Atenolol (Tenormin), 50 MG PO DAILY Cyclosporine (Ophth) (Restasis), 1 DROPS OP BID Levothyroxine Sodium (Synthroid), 100 MCG PO DAILY Multivitamin (Multivitamin), 1 TAB PO DAILY Potassium Chloride (Potassium Chloride ER), 40 MEQ PO DAILY Prednisone (Prednisone), 5 MG PO DAILY Triamterene/Hctz (Triamterene/Hctz 37.5-25MG), 1 TAB PO DAILY Scheduled PRN Acetaminophen (Tylenol), 500 MG PO Q8 PRN for Pain Fluticasone Prop/Salmeterol (Advair Diskus 250/50 60 Dose), 1 PUFF INH BID PRN for SOB/Wheezing Hydrocodone/Acetaminophen 7.5MG/325MG ([place] 7.5MG/325MG), 1 TAB PO Q6H PRN for Pain Allergies Coded Allergies: Diclofenac (Verified Adverse Reaction, Mild, N/V, 01/03/18) Ketoprofen (Verified Adverse Reaction, Mild, N/V, 01/03/18) ORUDIS Naproxen (Verified Adverse Reaction, Mild, N/V, 01/03/18) Propoxyphene (Verified Adverse Reaction, Mild, N/V, 01/03/18) Rofecoxib (Verified Adverse Reaction, Mild, ABD CRAMPS, 01/03/18) Sulfa Antibiotics (Verified Adverse Reaction, Mild, N/V, 01/03/18) Sulfamethoxazole (Verified Adverse Reaction, Mild, N/V, 01/03/18) Tramadol (Verified Adverse Reaction, Mild, N/V, 01/03/18) Trimethoprim (Verified Adverse Reaction, Mild, N/V, 01/03/18) Physical Exam Vital Signs Date Time Temp Pulse Resp B/P (MAP) Pulse Ox O2 Delivery O2 Flow Rate FiO2 02/01/18 17:40 78 18 131/58 94 Room Air 02/01/18 16:35 74 18 135/74 95 Room Air 77 125/73 79 72/52 02/01/18 16:30 77 02/01/18 16:01 95 Room Air 02/01/18 15:42 36.7 75 20 160/88 97 Room Air Physical Exam GENERAL: Awake, alert, tired-appearing, in no distress HENT: Normocephalic, atraumatic. Oropharynx unremarkable. EYES: Normal conjunctiva. Sclera non-icteric. NECK: Supple. No nuchal rigidity. FROM. No masses. RESPIRATORY: Clear to auscultation. No wheezes. No rales. Normal respiratory effort. Crackles at the bases. CARDIAC: Normal rate. Normal rhythm. No murmurs. No rubs. Extremities warm and well perfused. Pulses equal. No JVD. GI: Soft, non-distended. No tenderness to palpation. No rebound or guarding. No masses. RECTAL: Deferred. MUSCULOSKELETAL: Atraumatic. Chest examination reveals no tenderness. The back is symmetrical on inspection without obvious abnormality. There is no CVA tenderness to palpation. No joint edema. LOWER EXTREMITIES: Calves are equal size bilaterally and non-tender. No edema. No discoloration. NEURO: Normal sensorium. No sensory or motor deficits noted. SKIN: No rash or jaundice noted. Medical Decision & Procedures ER Provider Diagnostic Interpretation: Radiology results as stated below per my review and radiologist interpretation: CHEST ONE VIEW PORTABLE CLINICAL HISTORY: EVALUATE WEAKNESS dyspnea COMPARISON STUDY: 01/03/2018 FINDINGS: Focal parenchymal infiltrate left lung base. Lungs otherwise appear clear. No significant cardiac enlargement. IMPRESSION: Focal parenchymal infiltrate left base. The above report was generated using voice recognition software. It may contain grammatical, syntax or spelling errors. Electronically signed by: Amari Mejía M.D. 02/01/2018 4:14 PM Laboratory Results 02/01/18 16:24 Red Blood Count 4.10, Mean Corpuscular Volume 87.1, Mean Corpuscular Hemoglobin 28.0, Mean Corpuscular Hemoglobin Concent 32.2, Mean Platelet Volume 9.5, Neutrophils (%) (Auto) 74.9, Lymphocytes (%) (Auto) 14.9, Monocytes (%) (Auto) 7.9, Eosinophils (%) (Auto) 0.8, Basophils (%) (Auto) 0.2, Neutrophils # (Auto) 13.02, Lymphocytes # (Auto) 2.60, Monocytes # (Auto) 1.38, Eosinophils # (Auto) 0.14, Basophils # (Auto) 0.03 02/01/18 16:24 Test 8/6/18 16:24 White Blood Count 17.40 K/uL (4.8-10.8) Red Blood Count 4.10 M/uL (4.2-5.4) Hemoglobin 11.5 g/dL (12.0-16.0) Hematocrit 35.7 % (37-47) Mean Corpuscular Volume 87.1 fL (80-100) Mean Corpuscular Hemoglobin 28.0 pg (25-34) Mean Corpuscular Hemoglobin Concent 32.2 g/dl (32-36) Platelet Count 306 K/uL (130-400) Mean Platelet Volume 9.5 fL (7.4-10.4) Neutrophils (%) (Auto) 74.9 % Lymphocytes (%) (Auto) 14.9 % Monocytes (%) (Auto) 7.9 % Eosinophils (%) (Auto) 0.8 % Basophils (%) (Auto) 0.2 % Neutrophils # (Auto) 13.02 K/uL (1.4-6.5) Lymphocytes # (Auto) 2.60 K/uL (1.2-3.4) Monocytes # (Auto) 1.38 K/uL (0.11-0.59) Eosinophils # (Auto) 0.14 K/uL (0-0.5) Basophils # (Auto) 0.03 K/uL (0-0.2) RDW Standard Deviation 45.2 fL (36.4-46.3) RDW Coefficient of Variation 14.2 % (11.5-14.5) Immature Granulocyte % (Auto) 1.3 % Immature Granulocyte # (Auto) 0.23 K/uL (0.00-0.02) Prothrombin Time 10.8 SECONDS (9.0-12.0) Prothromb Time International Ratio 1.0 (0.9-1.1) Activated Partial Thromboplast Time 24.1 SECONDS (21.0-31.0) Partial Thromboplastin Ratio 0.9 Anion Gap 9.0 mmol/L (3-11) Est Creatinine Clear Calc Drug Dose 26.9 ml/min Estimated GFR () 47.2 Estimated GFR (Non- 40.8 BUN/Creatinine Ratio 19.3 (10-20) Calcium Level 9.6 mg/dl (8.5-10.1) Magnesium Level 1.5 mg/dl (1.8-2.4) Total Bilirubin 0.4 mg/dl (0.2-1) Direct Bilirubin 0.2 mg/dl (0-0.2) Aspartate Amino Transf (AST/SGOT) 37 U/L (15-37) Alanine Aminotransferase (ALT/SGPT) 37 U/L (12-78) Alkaline Phosphatase 83 U/L (45-117) Total Creatine Kinase 29 U/L (26-192) Creatine Kinase MB < 1.0 ng/ml (0.5-3.6) Creatine Kinase MB Ratio (0-3.0) Troponin I < 0.015 ng/ml (0-0.045) Total Protein 7.2 gm/dl (6.4-8.2) Albumin 2.7 gm/dl (3.4-5.0) Lipase 197 U/L (73-393) Thyroid Stimulating Hormone (TSH) 2.640 uIu/ml (0.300-4.500) Laboratory results reviewed by me Medications Administered Medications (Trade) Dose Ordered Sig/Monico Route Start Time Stop Time Status Last Admin Dose Admin Sodium Chloride 1,000 ml @ 125 mls/hr Q8H STAT IV 02/01/18 16:34 02/01/18 20:36 DC 02/01/18 16:34 125 MLS/HR Levofloxacin (Levaquin / D5W) 750 mg NOW STAT IV 02/01/18 17:15 02/01/18 17:17 DC 02/01/18 17:15 750 MG Magnesium Sulfate (Magnesium Sulfate 1gm / D5W) 1 gm NOW STAT IV 02/01/18 17:16 02/01/18 17:18 DC 02/01/18 17:16 1 GM ED Course 1544: The patient was evaluated in room C1. A complete history and physical exam was performed. 1630: Orthostatics were positive. Her bp went down when she was standing. 1634: Ordered Sodium Chloride 1000 ml @ 125 mls/hr IV 1715: Ordered Levofloxacin 750 mg IV 1716: Ordered Magnesium Sulfate 1 gm IV 1718: I checked on the patient at this time. I discussed the possibility of her staying in the hospital. She is in agreement with the treatment plan. 1727: Discussed the patient's case with TRUDI Reid. The patient will be evaluated for further treatment and disposition. Medical Decision Prior records/ancillary studies reviewed and summarized above. The patient had an enterococcus UTI. Nursing notes reviewed and agree them. The patient's history was concerning for weakness. Differential diagnosis: Etiologies such as metabolic, infection, hypo/hyperglycemia, electrolyte abnormalities, cardiac sources, intracerebral event, toxicologic, neurologic, as well as others were entertained. Physical examination: As above. ER treatment provided: IV Lock IV normal saline hydration IV magnesium On reassessment the patient felt better. Diagnostics interpretation by me: ECG: No acute ischemia The labs revealed a mild leukocytosis which was consistent with prior. Chemistry panel unremarkable. Urinalysis concerning for infection. Blood and urine cultures pending. Imaging studies: Chest x-ray as above. Somewhat concerning for left lower lobe infiltrate. The patient has orthostasis. She is generally weak. She has hypomagnesemia. She has a questionable left lower lobe infiltrate. I am concerned she may have a UTI as well. She was treated with Levaquin. She will need treatment in the hospital Consultation: A consultation was placed with the hospitalist. The case was discussed and diagnostics were reviewed. The patient was evaluated in the ER for further treatment. Medication Reconcilliation Current Medication List: was personally reviewed by me Blood Pressure Screening Patient's blood pressure: Elevated blood pressure Blood pressure disposition: Elevated BP felt to be situational Consults Time Called: 1718 Consulting Physician: TRUDI Reid Returned Call: 1727 Discussed the patient's case with TRUDI Reid. The patient will be evaluated for further treatment and disposition. Impression Primary Impression: Weakness Additional Impressions: Hypotension Pneumonia UTI (urinary tract infection) Scribe Attestation The scribe's documentation has been prepared under my direction and personally reviewed by me in its entirety. I confirm that the note above accurately reflects all work, treatment, procedures, and medical decision making performed by me. Departure Information Dispostion Being Evaluated By Hospitalist (TRUDI Reid) Referrals Amari Elena M.D. (PCP) Patient Instructions My [facility] Problem Qualifiers
[2018-02-01] MEDS ORDERED: HYDR-3983 PO (16:33)
[2018-02-01] MEDS ORDERED: SODIUM CHLORIDE 0.9% 1000ML 1,000 ML IV STA (16:34)
[2018-02-01 16:35] LABS: BASO % 0.2 %; BASO ABS # 0.03 K/uL (0-0.2); EOS % 0.8 %; EOS ABS # 0.14 K/uL (0-0.5); HEMATOCRIT 35.7 % (37-47); HEMOGLOBIN 11.5 g/dL (12.0-16.0); IG# 0.23 K/uL (0.00-0.02); LYMPH % 14.9 %; MEAN CELL VOLUME 87.1 fL (80-100); MEAN CORPUSCULAR HGB CONC 32.2 g/dl (32-36); MEAN PLATELET VOLUME 9.5 fL (7.4-10.4); MONO % 7.9 %; MONO ABS # 1.38 K/uL (0.11-0.59); NEUT % 74.9 %; NEUT ABS # 13.02 K/uL (1.4-6.5); PLATELET COUNT 306 K/uL (130-400); RED CELL DISTRIBUTION WIDTH CV 14.2 % (11.5-14.5); RED CELL DISTRIBUTION WIDTH SD 45.2 fL (36.4-46.3)
[2018-02-01 16:45] LABS: PTT PATIENT 24.1 SECONDS (21.0-31.0)
[2018-02-01 17:02] LABS: ALBUMIN 2.7 gm/dl (3.4-5.0); ALKALINE PHOSPHATASE 83 U/L (45-117); ALT/SGPT 37 U/L (12-78); AST/SGOT 37 U/L (15-37); BLOOD UREA NITROGEN 23 mg/dl (7-18); CALCIUM 9.6 mg/dl (8.5-10.1); CARBON DIOXIDE 27 mmol/L (21-32); CKMB < 1.0 ng/ml (0.5-3.6); CREATININE 1.21 mg/dl (0.60-1.20); GLUCOSE 105 mg/dl (70-99); LIPASE 197 U/L (73-393); POTASSIUM 3.9 mmol/L (3.5-5.1); SODIUM 137 mmol/L (136-145); TOTAL PROTEIN 7.2 gm/dl (6.4-8.2)
[2018-02-01] MEDS ORDERED: LEVAQUIN 750MG / 150ML D5W IV STA (17:15)
[2018-02-01] MEDS ORDERED: MAGNESIUM SULFATE 1GM / D5W 1 GM BAG IV STA (17:16)
[2018-02-01] MEDS ORDERED: ACETAMINOPHEN 325 MG TAB PO PRN (18:30)
[2018-02-01] MEDS ORDERED: ONDANSETRON INJ 2 MG/ML 2 ML VIAL IV PRN (18:30)
[2018-02-01] MEDS ORDERED: [UNRECOGNIZED DRUG - CODE] PO (18:32)
[2018-02-01] MEDS ORDERED: CYCL0.052 OP (18:33)
--- NOTE | 2018-02-01 18:40 | Progress Note ---
Progress Note Date of Service Feb 01, 2018. Progress Note She is an 87-year-old female with significant past medical history including interstitial lung disease, COPD, hypertension and hyperlipidemia apparently was seen in the ER on 03 January with Enterococcus faecalis UTI. She was she was given Omnicef 500 mg twice daily for 5 days and then antibiotic was changed to be a cheaper one after that. She was not feeling well while she was on antibiotic and for the last 2 weeks she has been generally weak and lethargic. She denies any symptoms other than weakness and dizziness on standing and moving around. She has loss of appetite and she has lost about 20 pounds according to her since 03 January She denies any fever, chills, any abdominal pain, nausea vomiting, any problem with urine and her bowel habit, any cough, any any increasing shortness of breath, any headache visual symptoms or any weakness involving any side of the body. On examination in the emergency room She has not having any acute distress Hemodynamically stable with postural blood pressure changes Chest- bibasilar rales Heart-regular no murmur appreciated Abdomen-soft, benign, nontender, no hypogastric and/or renal angle tenderness, bowel sounds present Extremities-trace to no edema [employer]-alert, awake and oriented 3 Generally weak but no focal neuro deficit appreciated. Pertinent labs: White count 17,000 with left shift but has been on a steroid, creatinine elevated likely secondary to dehydration, chest x-ray probable right lower lobe infiltration CT of the abdomen and pelvis and CT of the chest pending for now Assessment and plan: Ongoing anorexia with fatigue and significant weight loss-to rule out possible infective/inflammatory/malignant causes Has significant dehydration with renal impairment We will recheck urine, blood culture, CT of the chest and CT of the abdomen and pelvis to find a possible cause Agree with assessment and plan as outlined above Dr. Salbador Gilliland
--- NOTE | 2018-02-01 19:52 | History and Physical ---
History & Physical Date & Time of Service: Feb 01, 2018 ~ 1800 Chief Complaint: Weakness Primary Care Physician: Amari Elena M.D. History of Present Illness 87-year-old female who presents the ED with generalized weakness. Patient was seen in the ED on 01/03 and diagnosed with UTI. Patient was discharged on Ancef however urine culture grew enterococcus and patient's prescription was changed to amoxicillin. Patient reports she did complete her course of antibiotics. Over the past couple of weeks, patient reports profound weakness to the point where she is lying in bed for most the day. She has had a very poor appetite and has lost approximately 20 pounds for the past 2 weeks. She feels as though her urinary symptoms have resolved. No fevers or chills. Patient has history of pulmonary fibrosis and feels as though her breathing is at baseline. She denies lightheadedness, dizziness, diaphoresis, syncopal events. No abdominal pain, nausea, vomiting, diarrhea. In the ED, patient is found to have positive orthostatic blood pressures. Chest x-ray showing a possible infiltrate in the left base. WBC 17.4 K however patient has a chronic leukocytosis. Mg+ was mildly low at 1.5. Patient was given IVF, IV magnesium replacement, and a dose of IV Levaquin. Past Medical/Surgical History Medical Problems: (1) CKD (chronic kidney disease), stage III Status: Chronic (2) Deviated nasal septum Status: Chronic (3) GERD (gastroesophageal reflux disease) Status: Chronic (4) Hiatal hernia Status: Chronic (5) Hypertension Status: Chronic (6) Hypothyroidism Status: Chronic (7) Interstitial pulmonary fibrosis Status: Chronic (8) Left bundle branch block Status: Chronic (9) Osteoarthritis Status: Chronic Surgical Problems: (1) Cataract Nos Status: Resolved (2) H/O repair of right rotator cuff Status: Chronic (3) History of appendectomy Status: Chronic (4) History of cataract surgery Status: Chronic (5) History of hysterectomy Status: Chronic (6) History of left oophorectomy Status: Chronic (7) History of total left knee replacement Status: Chronic (8) History of total right knee replacement Status: Chronic (9) Knee Joint Replacement Status Status: Resolved (10) S/P left knee arthroscopy Status: Chronic (11) S/P right knee arthroscopy Status: Chronic Family History Noncontributory secondary to patient's advanced age Social History Smoking Status: Former Smoker Alcohol Use: occasionally Marital Status: Housing status: lives alone Occupational Status: retired Immunizations History of Influenza Vaccine: Yes Influenza Vaccine Date: Apr 10, 2017 History of Tetanus Vaccine?: Yes Tetanus Immunization Date: Jul 11, 2014 History of Pneumococcal: Yes Pneumococcal Date: Mar 19, 2015 Allergies Coded Allergies: Diclofenac (Verified Adverse Reaction, Mild, N/V, 01/03/18) Ketoprofen (Verified Adverse Reaction, Mild, N/V, 01/03/18) ORUDIS Naproxen (Verified Adverse Reaction, Mild, N/V, 01/03/18) Propoxyphene (Verified Adverse Reaction, Mild, N/V, 01/03/18) Rofecoxib (Verified Adverse Reaction, Mild, ABD CRAMPS, 01/03/18) Sulfa Antibiotics (Verified Adverse Reaction, Mild, N/V, 01/03/18) Sulfamethoxazole (Verified Adverse Reaction, Mild, N/V, 01/03/18) Tramadol (Verified Adverse Reaction, Mild, N/V, 01/03/18) Trimethoprim (Verified Adverse Reaction, Mild, N/V, 01/03/18) Home Medications Scheduled Ascorbic Acid (C-500), 2 TAB PO DAILY Aspirin (Aspir-81), 81 MG PO QPM Atenolol (Tenormin), 50 MG PO DAILY Cyclosporine (Ophth) (Restasis), 1 DROPS OP BID Levothyroxine Sodium (Synthroid), 100 MCG PO DAILY Multivitamin (Multivitamin), 1 TAB PO DAILY Potassium Chloride (Potassium Chloride ER), 40 MEQ PO DAILY Prednisone (Prednisone), 5 MG PO DAILY Triamterene/Hctz (Triamterene/Hctz 37.5-25MG), 1 TAB PO DAILY Scheduled PRN Acetaminophen (Tylenol), 500 MG PO Q8 PRN for Pain Fluticasone Prop/Salmeterol (Advair Diskus 250/50 60 Dose), 1 PUFF INH BID PRN for SOB/Wheezing Hydrocodone/Acetaminophen 7.5MG/325MG ([place] 7.5MG/325MG), 1 TAB PO Q6H PRN for Pain Review of Systems ROS per HPI, all other systems reviewed and negative Physical Exam Vital Signs Date Time Temp Pulse Resp B/P (MAP) Pulse Ox O2 Delivery O2 Flow Rate FiO2 02/01/18 19:21 75 18 131/58 95 02/01/18 17:40 78 18 131/58 94 Room Air 02/01/18 16:35 74 18 135/74 95 Room Air 77 125/73 79 72/52 02/01/18 16:30 77 02/01/18 16:01 95 Room Air 02/01/18 15:42 36.7 75 20 160/88 97 Room Air General Appearance: WD/WN, no apparent distress Head: normocephalic, atraumatic Eyes: normal inspection, EOMI, sclerae normal ENT: hearing grossly normal, + pertinent finding (Mucous membranes moist) Neck: supple, no JVD, trachea midline Respiratory/Chest: no respiratory distress, + rales (Bilateral) Cardiovascular: regular rate, rhythm, no edema, normal peripheral pulses Abdomen/GI: normal bowel sounds, non tender, soft, no organomegaly Extremities/Musculoskelatal: normal inspection, no calf tenderness, normal capillary refill Neurologic/Psych: no motor/sensory deficits, alert, normal mood/affect, oriented x 3 Skin: normal color, warm/dry Diagnostics Laboratory Results Results Past 24 Hours Test 02/01/18 16:24 Range/Units White Blood Count 17.40 4.8-10.8 K/uL Red Blood Count 4.10 4.2-5.4 M/uL Hemoglobin 11.5 12.0-16.0 g/dL Hematocrit 35.7 37-47 % Mean Corpuscular Volume 87.1 80-100 fL Mean Corpuscular Hemoglobin 28.0 25-34 pg Mean Corpuscular Hemoglobin Concent 32.2 32-36 g/dl Platelet Count 306 130-400 K/uL Mean Platelet Volume 9.5 7.4-10.4 fL Neutrophils (%) (Auto) 74.9 % Lymphocytes (%) (Auto) 14.9 % Monocytes (%) (Auto) 7.9 % Eosinophils (%) (Auto) 0.8 % Basophils (%) (Auto) 0.2 % Neutrophils # (Auto) 13.02 1.4-6.5 K/uL Lymphocytes # (Auto) 2.60 1.2-3.4 K/uL Monocytes # (Auto) 1.38 0.11-0.59 K/uL Eosinophils # (Auto) 0.14 0-0.5 K/uL Basophils # (Auto) 0.03 0-0.2 K/uL RDW Standard Deviation 45.2 36.4-46.3 fL RDW Coefficient of Variation 14.2 11.5-14.5 % Immature Granulocyte % (Auto) 1.3 % Immature Granulocyte # (Auto) 0.23 0.00-0.02 K/uL Prothrombin Time 10.8 9.0-12.0 SECONDS Prothromb Time International Ratio 1.0 0.9-1.1 Activated Partial Thromboplast Time 24.1 21.0-31.0 SECONDS Partial Thromboplastin Ratio 0.9 Sodium Level 137 136-145 mmol/L Potassium Level 3.9 3.5-5.1 mmol/L Chloride Level 101 98-107 mmol/L Carbon Dioxide Level 27 21-32 mmol/L Anion Gap 9.0 3-11 mmol/L Blood Urea Nitrogen 23 7-18 mg/dl Creatinine 1.21 0.60-1.20 mg/dl Est Creatinine Clear Calc Drug Dose 26.9 ml/min Estimated GFR () 47.2 Estimated GFR (Non- 40.8 BUN/Creatinine Ratio 19.3 10-20 Random Glucose 105 70-99 mg/dl Calcium Level 9.6 8.5-10.1 mg/dl Magnesium Level 1.5 1.8-2.4 mg/dl Total Bilirubin 0.4 0.2-1 mg/dl Direct Bilirubin 0.2 0-0.2 mg/dl Aspartate Amino Transf (AST/SGOT) 37 15-37 U/L Alanine Aminotransferase (ALT/SGPT) 37 12-78 U/L Alkaline Phosphatase 83 45-117 U/L Total Creatine Kinase 29 26-192 U/L Creatine Kinase MB < 1.0 0.5-3.6 ng/ml Creatine Kinase MB Ratio 0-3.0 Troponin I < 0.015 0-0.045 ng/ml Total Protein 7.2 6.4-8.2 gm/dl Albumin 2.7 3.4-5.0 gm/dl Lipase 197 73-393 U/L Thyroid Stimulating Hormone (TSH) 2.640 0.300-4.500 uIu/ml Microbiology Results 02/01/18 Blood Culture, Received Pending 02/01/18 Blood Culture, Received Pending Diagnostic Radiology CXR IMPRESSION: Focal parenchymal infiltrate left base. Impression Assessment and Plan GENERALIZED WEAKNESS WEIGHT LOSS ORTHOSTASIS -Admit to [facility] -Patient presenting with 2 weeks of generalized weakness, poor appetite, 20 pound weight loss -Was diagnosed with enterococcus UTI on 01/03 and completed antibiotic therapy, patient reports improvement in her urinary symptoms -In the ED, found to have positive orthostatic blood pressures and possible left parenchymal base infiltrate which will be discussed below -Recheck UA -Orthostasis likely due to hypovolemia from poor p.o. intake -IVF, hold antihypertensive, monitor orthostatic BPs -Given patient's significant amount weight loss, will check CT ABD/pelvis POSSIBLE PNEUMONIA HISTORY OF INTERSTITIAL PULMONARY FIBROSIS -Chest x-ray suggests a left parenchymal base infiltrate however patient denies worsening shortness of breath, cough, sputum production, fever -WBC 17 K, however patient has a chronic leukocytosis and this is her baseline -No wheezing noted on exam, saturating well on room air -S/P Levaquin in the ED, will continue with empirically for now -CT chest -Continue chronic prednisone 5 mg daily HYPOMAGNESEMIA -Replace, follow Mg+ HYPERTENSION -Holding atenolol, triamterene/HCTZ due to orthostasis HYPOTHYROIDISM -Recent outpatient labs showed an elevated TSH and patient was instructed to increase her levothyroxine to 112 mcg daily which she has not done yet -will place patient on higher dose during admission -PCP has already sent new prescription to pharmacy CHRONIC LEUKOCYTOSIS -Had hematology/oncology evaluation who feels as though patient's leukocytosis is secondary to chronic prednisone use CKD STAGE III - baseline creat runs in the mid ones - creat noted to be 1.2 today - continue to monitor, avoid nephrotoxic agents when able DVT PROPHYLAXIS -SQ heparin CODE STATUS -Patient is a DNR as per my discussion with her. DISPOSITION -In my clinical judgment this beneficiary meets acute admission criteria, established by [facility], that includes being hospitalized through two midnights. She is an 87-year-old female with significant past medical history including interstitial lung disease, COPD, hypertension and hyperlipidemia apparently was seen in the ER on 03 January with Enterococcus faecalis UTI. She was she was given Omnicef 500 mg twice daily for 5 days and then antibiotic was changed to be a cheaper one after that. She was not feeling well while she was on antibiotic and for the last 2 weeks she has been generally weak and lethargic. She denies any symptoms other than weakness and dizziness on standing and moving around. She has loss of appetite and she has lost about 20 pounds according to her since 03 January She denies any fever, chills, any abdominal pain, nausea vomiting, any problem with urine and her bowel habit, any cough, any any increasing shortness of breath, any headache visual symptoms or any weakness involving any side of the body. On examination in the emergency room She has not having any acute distress Hemodynamically stable with postural blood pressure changes Chest- bibasilar rales Heart-regular no murmur appreciated Abdomen-soft, benign, nontender, no hypogastric and/or renal angle tenderness, bowel sounds present Extremities-trace to no edema PIT BOSS-alert, awake and oriented 3 Generally weak but no focal neuro deficit appreciated. Pertinent labs: White count 17,000 with left shift but has been on a steroid, creatinine elevated likely secondary to dehydration, chest x-ray probable right lower lobe infiltration CT of the abdomen and pelvis and CT of the chest pending for now Assessment and plan: Ongoing anorexia with fatigue and significant weight loss-to rule out possible infective/inflammatory/malignant causes Has significant dehydration with renal impairment We will recheck urine, blood culture, CT of the chest and CT of the abdomen and pelvis to find a possible cause Agree with assessment and plan as outlined above Dr. Salbador Gilliland Resuscitation Status VTE Prophylaxis Will order VTE Prophylaxis: Yes
[2018-02-01 20:10] VITALS: BP 156/68; PULSE 81; TEMP 36.4; BMI 22.8
[2018-02-01] MEDS ORDERED: MAGNESIUM SULFATE 1GM / D5W 100 ML IV STA (20:30)
[2018-02-01] MEDS: BOOST VANILLA OR BOOST GLUCOSE CONTROL CHOCOLATE PO SCH (21:00)
[2018-02-01] MEDS: SODIUM CHLORIDE 0.9% 1000ML 1,000 ML IV SCH (21:34)
[2018-02-01] MEDS: ASPIRIN 81 MG ECTAB PO SCH (21:41)
[2018-02-01] MEDS: HEPARIN SOD 5000 UNIT/0.5 ML CARP SQ SCH (21:41)
--- NOTE | 2018-02-01 21:45 | DIAGNOSTIC IMAGING REPORT ---
(CHEST) THORAX WITHOUT CLINICAL HISTORY: 87 years-old Female presenting with hx pulmonary fibrosis, weight loss. TECHNIQUE: Multidetector CT imaging of the chest was performed without the use of intravenous contrast. IV contrast: None. A dose lowering technique was used consistent with the principles of ALARA (as low as reasonably achievable). COMPARISON: 07/10/2015 [address]. CT DOSE (mGy.cm): The estimated cumulative dose is 533.29 mGy.cm. FINDINGS: Bull Driver topogram: Unremarkable. On soft tissue windows, the left lobe of the thyroid may either be surgically absent or atrophic. No axillary, supraclavicular, or mediastinal lymphadenopathy. Evaluation of the sandra limited without intravenous contrast. Atherosclerosis of the aorta. Normal heart size. Coronary artery and aortic valve calcification. No pericardial or pleural effusion. Moderate hiatal hernia. Fat-containing right Bochdalek hernia. On lung windows, extensive reticular opacities with a peripheral and subpleural distribution. Limited honeycombing suggested with a basilar predominance. Reticular and linear opacities also affect anterior portions of the lingula and right middle lobe. Subtle bronchiectasis evident peripherally. No other focal opacity. The appearance has not significantly changed since 2016. On bone windows, degenerative changes of the spine. Mild vertebral body compression deformity at T10. This is new since 2016. IMPRESSION: 1. Findings consistent with chronic fibrotic lung disease, with suggestion of a usual interstitial pneumonia pattern though the degree of fibrotic change has only minimally progressed since 2016 suggesting a secondary etiology. This may relate to chronic aspiration among other etiologies. 2. No superimposed infiltrate to suggest acute intrathoracic pathology. 3. Moderate hiatal hernia. 4. Age-indeterminate mild compression fracture of T10 new since 2016. Correlate for point tenderness. Electronically signed by: Villa Desouza M.D. 02/01/2018 9:44 PM Dictated Date/Time: 02/01/2018 9:38 PM
[2018-02-01] MEDS: HYDROCODONE/ACETAMINOPHEN 7.5/325MG TAB PO PRN (21:48)
--- NOTE | 2018-02-01 22:01 | DIAGNOSTIC IMAGING REPORT ---
ABD/PELVIS ORAL CONT ONLY CLINICAL HISTORY: 87 years-old Female presenting with weight loss. TECHNIQUE: Multidetector CT of the abdomen and pelvis was performed after the administration of oral contrast only. IV contrast: None. A dose lowering technique was used consistent with the principles of ALARA (as low as reasonably achievable). COMPARISON: None. CT DOSE (mGy.cm): The estimated cumulative dose is 533.29. FINDINGS: Oil Inspector topogram: Unremarkable. Lung bases: Reticular peripheral and subpleural opacities with bronchiectasis evident at the lung bases. Normal heart size. Coronary artery and aortic valve calcification. No pericardial or pleural effusion. Liver: Normal morphology. Normal density. Focal hypodensity in anterior left hepatic lobe likely hepatic cyst though indeterminate. Biliary: No gross biliary ductal dilatation allowing for noncontrast technique. Normal gallbladder. Pancreas: Moderate parenchymal atrophy. Spleen: Normal noncontrast appearance. Adrenal glands: Normal noncontrast appearance. Kidneys and ureters: Duplicated right renal collecting system. The two right ureters appear to join in the mid portion of their courses though this is suboptimally evaluated without intravenous contrast. Otherwise normal noncontrast appearance of the kidneys and ureters. Bladder: Normal noncontrast appearance. Pelvic organs: Uterus surgically absent. No adnexal masses. Bowel: Few scattered colonic diverticula. No bowel obstruction. Oral contrast has transited to the colon. Moderate hiatal hernia. Peritoneal cavity: No free fluid or intraperitoneal gas. Lymph nodes: No gross lymphadenopathy allowing for noncontrast technique. Vasculature: Atherosclerosis of the normal caliber abdominal aorta. Abdominal wall: Diastasis of the rectus abdominis. Musculoskeletal: Degenerative changes of the spine. Degenerative changes of the sacroiliac joints and hip joints. Posttraumatic deformity of the right superior and inferior pubic rami. Mild compression deformity of T10. IMPRESSION: 1. Allowing for noncontrast technique, no acute intra-abdominal pathology or gross evidence of malignancy. 2. Moderate hiatal hernia. 3. Fibrotic lung disease. 4. Mild compression fracture of T10, age indeterminate. Electronically signed by: Villa Desouza M.D. 02/01/2018 9:59 PM Dictated Date/Time: 02/01/2018 9:52 PM
[2018-02-01 22:31] VITALS: O2SAT 95
[2018-02-01 23:00] VITALS: BP_SYST 114; BP_SYST 136; BP_SYST 144; BP_DIAS 63; BP_DIAS 64; BP_DIAS 65; PULSE 76; TEMP 36.8; O2SAT 94
[2018-02-02] MEDS: LEVOTHYROXINE 112 MCG TAB PO SCH (05:57)
[2018-02-02] MEDS: SODIUM CHLORIDE 0.9% 1000ML 1,000 ML IV SCH ×2 (05:57→15:52)
[2018-02-02] MEDS: HEPARIN SOD 5000 UNIT/0.5 ML CARP SQ SCH ×3 (05:57→22:21)
[2018-02-02] MEDS: HYDROCODONE/ACETAMINOPHEN 7.5/325MG TAB PO PRN ×2 (06:15→22:24)
[2018-02-02 06:36] LABS: HEMATOCRIT 30.8 % (37-47); HEMOGLOBIN 9.7 g/dL (12.0-16.0); MEAN CELL VOLUME 86.3 fL (80-100); MEAN CORPUSCULAR HEMOGLOBIN 27.2 pg (25-34); MEAN CORPUSCULAR HGB CONC 31.5 g/dl (32-36); MEAN PLATELET VOLUME 9.4 fL (7.4-10.4); PLATELET COUNT 264 K/uL (130-400); RED CELL DISTRIBUTION WIDTH CV 14.4 % (11.5-14.5); RED CELL DISTRIBUTION WIDTH SD 45.4 fL (36.4-46.3); WHITE BLOOD COUNT 13.06 K/uL (4.8-10.8)
--- NOTE | 2018-02-02 07:04 | Clinical Documentation Query ---
CLINICAL DOCUMENTATION QUERY 87 yo female admitted with pneumonia. Patient states have a 20 lb wt loss over past 2 weeks. Patient complains of severe weakness and lethargy. Patient documented as ongoing anorexia with fatigue and significant weight loss. In your clinical opinion is this patient being managed for: ( + ) Moderate to severe protein-calorie malnutrition ( ) Not Agree ( ) Other explanation of clinical findings (No explanation is considered a No Response) ( ) Unable to determine ( ) Need to Discuss (Phone CDS or qliq) (No discussion is considered a No Response) The medical record reflects the following clinical findings, treatment, and risk factors. Clinical Indicators: As above Treatment: Dietary consult, boost shakes, daily weight Risk Factors: Age, pneumonia, recent UTI, possible infective/inflammatory/malignant cause Please clarify and document your clinical opinion in the progress notes and discharge summary. Terms such as "probable", "suspected", "likely", "questionable", "possible", or "still to be ruled out" are acceptable. IF IN AGREEMENT, YOU MUST DOCUMENT ABOVE DIAGNOSTIC STATEMENT IN DAILY PROGRESS NOTES AND DISCHARGE SUMMARY. This document is not part of the patient's record. Thank You, Amarilsi Reynolds RN, MSN [phone]
[2018-02-02 07:12] VITALS: BP 114/59; PULSE 70; TEMP 37.3; O2SAT 92
[2018-02-02 07:16] LABS: CALCIUM 8.5 mg/dl (8.5-10.1); CREATININE 0.96 mg/dl (0.60-1.20); POTASSIUM 3.1 mmol/L (3.5-5.1)
[2018-02-02] MEDS: ASCORBIC ACID 500 MG TAB PO SCH (08:42)
[2018-02-02] MEDS: POTASSIUM CHLORIDE 20 MEQ TABCR PO SCH (08:42)
[2018-02-02] MEDS: MULTIVITAMIN TAB PO SCH (08:42)
[2018-02-02] MEDS: BOOST VANILLA OR BOOST GLUCOSE CONTROL CHOCOLATE PO SCH (08:45)
--- NOTE | 2018-02-02 11:22 | Progress Note ---
Internal Med Progress Note Date of Service: Feb 02, 2018. Provider Documentation: SUBJECTIVE: The patient was seen and examined today in medical floor She was admitted yesterday with the generalized weakness and weight loss of more than 20 pounds over 6-8 weeks She was noted to have UTI during this admission She feels a lot better today and she did good at physical therapy Denies any other symptoms OBJECTIVE: Vital Signs-as noted below Exam: General-no apparent distress Eyes-normal ENT-normal Neck-supple Lungs-decreased breath sounds at bases with coarse crackles bilaterally Heart-regular Abdomen-benign, soft, nontender, no hypogastric and/or renal angles tenderness Extremities-trace edema bilaterally Neuro-alert, awake and oriented 3 No focal sensory or motor deficit appreciated Lab data as noted below. ASSESSMENT & PLAN: GENERALIZED WEAKNESS SECONDARY TO RECURRENT UTI ORTHOSTASIS -Patient presenting with 2 weeks of generalized weakness, poor appetite, 20 pound weight loss -Was diagnosed with enterococcus UTI on 01/03 and completed antibiotic therapy, patient reports improvement in her urinary symptoms -In the ED, found to have positive orthostatic blood pressures and possible left parenchymal base infiltrate which will be discussed below -Recheck UA-suggestive of infection, awake sensitivity -Orthostasis likely due to hypovolemia from poor p.o. intake -IVF, hold antihypertensive, monitor orthostatic BPs -CT of the abdomen and pelvis and chest were unremarkable for any new findings, she has bilateral pulmonary fibrosis -Clinically better today and will continue intravenous Levaquin for UTI POSSIBLE PNEUMONIA-ruled out HISTORY OF INTERSTITIAL PULMONARY FIBROSIS -Chest x-ray suggests a left parenchymal base infiltrate however patient denies worsening shortness of breath, cough, sputum production, fever -WBC 17 K, however patient has a chronic leukocytosis and this is her baseline -No wheezing noted on exam, saturating well on room air -S/P Levaquin in the ED, will continue with empirically for now -CT chest-no pneumonia but possible pneumonitis -Continue chronic prednisone 5 mg daily -We will continue Levaquin which will cover respiratory pathogens as well HYPOMAGNESEMIA -Replace, follow Mg+ -Monitor HYPERTENSION -Holding atenolol, triamterene/HCTZ due to orthostasis HYPOTHYROIDISM -Recent outpatient labs showed an elevated TSH and patient was instructed to increase her levothyroxine to 112 mcg daily which she has not done yet -will place patient on higher dose during admission -PCP has already sent new prescription to pharmacy CHRONIC LEUKOCYTOSIS -Had hematology/oncology evaluation who feels as though patient's leukocytosis is secondary to chronic prednisone use -Leukocytosis is down to 13 today Acute on chronic kidney disease -secondary to dehydration CKD STAGE III- - baseline creat runs in the mid ones - creat noted to be 1.2 today - continue to monitor, avoid nephrotoxic agents when able -Creatinine is normalized Moderate to severe malnutrition Significant weight loss for the last 3-4 weeks Has not been eating or drinking much for the last 3-4 weeks Has anorexia Improving since this morning DVT PROPHYLAXIS -SQ heparin CODE STATUS -Patient is a DNR as per my discussion with her. DISPOSITION Abdomen sensitivity for E. coli Likely home tomorrow Vital Signs: Date Time Temp Pulse Resp B/P (MAP) Pulse Ox O2 Delivery O2 Flow Rate FiO2 02/02/18 07:12 37.3 70 17 114/59 (77) 92 Room Air 02/02/18 00:10 Room Air 02/01/18 23:00 36.8 76 18 136/64 (88) 94 Room Air 144/63 (90) 114/65 (81) 02/01/18 22:31 95 Room Air 02/01/18 20:10 36.4 81 18 156/68 Room Air 02/01/18 19:21 75 18 131/58 95 02/01/18 17:40 78 18 131/58 94 Room Air 02/01/18 16:35 74 18 135/74 95 Room Air 77 125/73 79 72/52 02/01/18 16:30 77 02/01/18 16:01 95 Room Air 02/01/18 15:42 36.7 75 20 160/88 97 Room Air Lab Results: Results Past 24 Hours Test 02/01/18 16:24 02/01/18 21:08 02/02/18 05:49 Range/Units White Blood Count 17.40 13.06 4.8-10.8 K/uL Red Blood Count 4.10 3.57 4.2-5.4 M/uL Hemoglobin 11.5 9.7 12.0-16.0 g/dL Hematocrit 35.7 30.8 37-47 % Mean Corpuscular Volume 87.1 86.3 80-100 fL Mean Corpuscular Hemoglobin 28.0 27.2 25-34 pg Mean Corpuscular Hemoglobin Concent 32.2 31.5 32-36 g/dl Platelet Count 306 264 130-400 K/uL Mean Platelet Volume 9.5 9.4 7.4-10.4 fL Neutrophils (%) (Auto) 74.9 % Lymphocytes (%) (Auto) 14.9 % Monocytes (%) (Auto) 7.9 % Eosinophils (%) (Auto) 0.8 % Basophils (%) (Auto) 0.2 % Neutrophils # (Auto) 13.02 1.4-6.5 K/uL Lymphocytes # (Auto) 2.60 1.2-3.4 K/uL Monocytes # (Auto) 1.38 0.11-0.59 K/uL Eosinophils # (Auto) 0.14 0-0.5 K/uL Basophils # (Auto) 0.03 0-0.2 K/uL RDW Standard Deviation 45.2 45.4 36.4-46.3 fL RDW Coefficient of Variation 14.2 14.4 11.5-14.5 % Immature Granulocyte % (Auto) 1.3 % Immature Granulocyte # (Auto) 0.23 0.00-0.02 K/uL Prothrombin Time 10.8 9.0-12.0 SECONDS Prothromb Time International Ratio 1.0 0.9-1.1 Activated Partial Thromboplast Time 24.1 21.0-31.0 SECONDS Partial Thromboplastin Ratio 0.9 Sodium Level 137 139 136-145 mmol/L Potassium Level 3.9 3.1 3.5-5.1 mmol/L Chloride Level 101 105 98-107 mmol/L Carbon Dioxide Level 27 25 21-32 mmol/L Anion Gap 9.0 9.0 3-11 mmol/L Blood Urea Nitrogen 23 17 7-18 mg/dl Creatinine 1.21 0.96 0.60-1.20 mg/dl Est Creatinine Clear Calc Drug Dose 26.9 33.9 ml/min Estimated GFR () 47.2 62.5 Estimated GFR (Non- 40.8 53.9 BUN/Creatinine Ratio 19.3 17.3 10-20 Random Glucose 105 79 70-99 mg/dl Calcium Level 9.6 8.5 8.5-10.1 mg/dl Magnesium Level 1.5 1.8 1.8-2.4 mg/dl Total Bilirubin 0.4 0.2-1 mg/dl Direct Bilirubin 0.2 0-0.2 mg/dl Aspartate Amino Transf (AST/SGOT) 37 15-37 U/L Alanine Aminotransferase (ALT/SGPT) 37 12-78 U/L Alkaline Phosphatase 83 45-117 U/L Total Creatine Kinase 29 26-192 U/L Creatine Kinase MB < 1.0 0.5-3.6 ng/ml Creatine Kinase MB Ratio 0-3.0 Troponin I < 0.015 0-0.045 ng/ml Total Protein 7.2 6.4-8.2 gm/dl Albumin 2.7 3.4-5.0 gm/dl Lipase 197 73-393 U/L Thyroid Stimulating Hormone (TSH) 2.640 0.300-4.500 uIu/ml Urine Color YELLOW Urine Appearance TURBID CLEAR Urine pH 5.0 4.5-7.5 Urine Specific [place] 1.013 1.000-1.030 Urine Protein TRACE NEG Urine Glucose (UA) NEG NEG Urine Ketones NEG NEG Urine Occult Blood TRACE NEG Urine Nitrite POS NEG Urine Bilirubin NEG NEG Urine Urobilinogen NEG NEG Urine Leukocyte Esterase LARGE NEG Urine WBC (Auto) >30 0-5 /hpf Urine RBC (Auto) 5-10 0-4 /hpf Urine Hyaline Casts (Auto) 0-5 /lpf Urine Epithelial Cells (Auto) >30 0-5 /lpf Urine Bacteria (Auto) 2+ NEG Urine Pathogenic Casts 0 /lpf Microbiology Results 02/01/18 Blood Culture, Received Pending 02/01/18 Blood Culture, Received Pending 02/01/18 Urine Culture - Preliminary, Resulted Gram Negative Bacilli
[2018-02-02 15:07] VITALS: Ht 157.5 cm; Wt 56.5 kg
[2018-02-02 15:40] VITALS: BP 140/65; PULSE 76; TEMP 36.4; O2SAT 96
[2018-02-02] MEDS: ASPIRIN 81 MG ECTAB PO SCH (20:16)
[2018-02-02 23:13] VITALS: BP 197/68; PULSE 92; TEMP 36.7; O2SAT 93
[2018-02-02 23:35] VITALS: BP 174/69; PULSE 89
[2018-02-03] MEDS: SODIUM CHLORIDE 0.9% 1000ML 1,000 ML IV SCH (01:47)
[2018-02-03] MEDS: LEVOTHYROXINE 112 MCG TAB PO SCH (06:01)
[2018-02-03] MEDS: HEPARIN SOD 5000 UNIT/0.5 ML CARP SQ SCH ×2 (06:01→13:56)
[2018-02-03 06:57] VITALS: BP 167/62; PULSE 88; TEMP 36.7; O2SAT 90
[2018-02-03 07:23] VITALS: BP_SYST 166; BP_SYST 175; BP_DIAS 66; BP_DIAS 68; BP_DIAS 72; PULSE 71; PULSE 85; PULSE 87
[2018-02-03 08:39] LABS: BASO % 0.4 %; BASO ABS # 0.05 K/uL (0-0.2); EOS % 1.3 %; EOS ABS # 0.17 K/uL (0-0.5); HEMATOCRIT 28.6 % (37-47); HEMOGLOBIN 9.1 g/dL (12.0-16.0); IG# 0.13 K/uL (0.00-0.02); LYMPH % 18.8 %; LYMPH ABS # 2.48 K/uL (1.2-3.4); MEAN CELL VOLUME 86.9 fL (80-100); MEAN CORPUSCULAR HEMOGLOBIN 27.7 pg (25-34); MEAN CORPUSCULAR HGB CONC 31.8 g/dl (32-36); MEAN PLATELET VOLUME 9.1 fL (7.4-10.4); MONO % 6.7 %; MONO ABS # 0.89 K/uL (0.11-0.59); NEUT % 71.8 %; NEUT ABS # 9.47 K/uL (1.4-6.5); PLATELET COUNT 218 K/uL (130-400); RED CELL DISTRIBUTION WIDTH CV 14.3 % (11.5-14.5); RED CELL DISTRIBUTION WIDTH SD 45.6 fL (36.4-46.3); WHITE BLOOD COUNT 13.19 K/uL (4.8-10.8)
[2018-02-03] MEDS: POTASSIUM CHLORIDE 20 MEQ TABCR PO SCH (08:53)
[2018-02-03] MEDS: MULTIVITAMIN TAB PO SCH (08:53)
[2018-02-03] MEDS: ASCORBIC ACID 500 MG TAB PO SCH (08:53)
[2018-02-03] MEDS ORDERED: BOOST GLUCOSE CONTROL VANILLA PO SCH (09:00)
[2018-02-03 09:09] LABS: CREATININE 0.99 mg/dl (0.60-1.20); POTASSIUM 3.2 mmol/L (3.5-5.1)
--- NOTE | 2018-02-03 11:24 | Progress Note ---
Internal Med Progress Note Date of Service: Feb 03, 2018. Provider Documentation: SUBJECTIVE: The patient was seen and examined today in medical floor She was admitted yesterday with the generalized weakness and weight loss of more than 20 pounds over 6-8 weeks She was noted to have UTI during this admission She feels a lot better today and she did good at physical therapy Denies any other symptoms 02/03: Clinically a lot better and denies any symptoms Has been ambulating well without any dizziness and/or weakness Appetite has improved OBJECTIVE: Vital Signs-as noted below Exam: General-no apparent distress Eyes-normal ENT-normal Neck-supple Lungs-decreased breath sounds at bases with coarse crackles bilaterally Heart-regular Abdomen-benign, soft, nontender, no hypogastric and/or renal angles tenderness Extremities-trace edema bilaterally Neuro-alert, awake and oriented 3 No focal sensory or motor deficit appreciated Lab data as noted below. ASSESSMENT & PLAN: E. coli UTI-pansensitive Recurrent episode Has been on Levaquin IV We will change to oral and continue for a total of 10 days and an outpatient GENERALIZED WEAKNESS SECONDARY TO RECURRENT UTI ORTHOSTASIS -Patient presenting with 2 weeks of generalized weakness, poor appetite, 20 pound weight loss -Was diagnosed with enterococcus UTI on 01/03 and completed antibiotic therapy, patient reports improvement in her urinary symptoms -In the ED, found to have positive orthostatic blood pressures and possible left parenchymal base infiltrate which will be discussed below -Recheck UA-suggestive of infection, awake sensitivity -Orthostasis likely due to hypovolemia from poor p.o. intake -IVF, hold antihypertensive, monitor orthostatic BPs -CT of the abdomen and pelvis and chest were unremarkable for any new findings, she has bilateral pulmonary fibrosis -Clinically better today and will continue intravenous Levaquin for UTI -No more orthostasis and weakness is improved POSSIBLE PNEUMONIA-ruled out HISTORY OF INTERSTITIAL PULMONARY FIBROSIS -Chest x-ray suggests a left parenchymal base infiltrate however patient denies worsening shortness of breath, cough, sputum production, fever -WBC 17 K, however patient has a chronic leukocytosis and this is her baseline -No wheezing noted on exam, saturating well on room air -S/P Levaquin in the ED, will continue with empirically for now -CT chest-no pneumonia but possible pneumonitis -Continue chronic prednisone 5 mg daily -We will continue Levaquin which will cover respiratory pathogens as well -Doubt any pneumonia HYPOMAGNESEMIA/hypokalemia -Replace, follow Mg+ -Monitor -Potassium replaced HYPERTENSION -Holding atenolol, triamterene/HCTZ due to orthostasis HYPOTHYROIDISM -Recent outpatient labs showed an elevated TSH and patient was instructed to increase her levothyroxine to 112 mcg daily which she has not done yet -will place patient on higher dose during admission -PCP has already sent new prescription to pharmacy CHRONIC LEUKOCYTOSIS -Had hematology/oncology evaluation who feels as though patient's leukocytosis is secondary to chronic prednisone use -Leukocytosis is down to 13 today -White cell count remained elevated at 13 Acute on chronic kidney disease -secondary to dehydration CKD STAGE III- - baseline creat runs in the mid ones - creat noted to be 1.2 today - continue to monitor, avoid nephrotoxic agents when able -Creatinine is normalized Moderate to severe malnutrition Significant weight loss for the last 3-4 weeks Has not been eating or drinking much for the last 3-4 weeks Has anorexia Improving since this morning DVT PROPHYLAXIS -SQ heparin CODE STATUS -Patient is a DNR as per my discussion with her. DISPOSITION Abdomen sensitivity for E. coli Likely home this afternoon Vital Signs: Date Time Temp Pulse Resp B/P (MAP) Pulse Ox O2 Delivery O2 Flow Rate FiO2 02/03/18 07:23 71 175/66 (102) 85 175/72 (106) 87 166/68 (100) 02/03/18 06:57 36.7 88 18 167/62 (97) 90 Room Air 02/02/18 23:35 89 174/69 (104) 02/02/18 23:13 36.7 92 20 197/68 (111) 93 Room Air 02/02/18 20:45 Room Air 02/02/18 15:40 36.4 76 16 140/65 (90) 96 Room Air Lab Results: Results Past 24 Hours Test 02/03/18 08:28 Range/Units White Blood Count 13.19 4.8-10.8 K/uL Red Blood Count 3.29 4.2-5.4 M/uL Hemoglobin 9.1 12.0-16.0 g/dL Hematocrit 28.6 37-47 % Mean Corpuscular Volume 86.9 80-100 fL Mean Corpuscular Hemoglobin 27.7 25-34 pg Mean Corpuscular Hemoglobin Concent 31.8 32-36 g/dl Platelet Count 218 130-400 K/uL Mean Platelet Volume 9.1 7.4-10.4 fL Neutrophils (%) (Auto) 71.8 % Lymphocytes (%) (Auto) 18.8 % Monocytes (%) (Auto) 6.7 % Eosinophils (%) (Auto) 1.3 % Basophils (%) (Auto) 0.4 % Neutrophils # (Auto) 9.47 1.4-6.5 K/uL Lymphocytes # (Auto) 2.48 1.2-3.4 K/uL Monocytes # (Auto) 0.89 0.11-0.59 K/uL Eosinophils # (Auto) 0.17 0-0.5 K/uL Basophils # (Auto) 0.05 0-0.2 K/uL RDW Standard Deviation 45.6 36.4-46.3 fL RDW Coefficient of Variation 14.3 11.5-14.5 % Immature Granulocyte % (Auto) 1.0 % Immature Granulocyte # (Auto) 0.13 0.00-0.02 K/uL Sodium Level 140 136-145 mmol/L Potassium Level 3.2 3.5-5.1 mmol/L Chloride Level 109 98-107 mmol/L Carbon Dioxide Level 22 21-32 mmol/L Anion Gap 8.0 3-11 mmol/L Blood Urea Nitrogen 14 7-18 mg/dl Creatinine 0.99 0.60-1.20 mg/dl Est Creatinine Clear Calc Drug Dose 32.9 ml/min Estimated GFR () 60.2 Estimated GFR (Non- 52.0 BUN/Creatinine Ratio 14.3 10-20 Random Glucose 129 70-99 mg/dl Calcium Level 8.0 8.5-10.1 mg/dl
[2018-02-03] MEDS ORDERED: POTASSIUM CHLORIDE 10 MEQ TABCR PO ONE (11:45)
[2018-02-03] MEDS ORDERED: NURSING VERBAL MED ORDER ONE (12:30)
[2018-02-03] MEDS ORDERED: LEVO-459 PO (13:45)
[2018-02-03] MEDS ORDERED: LCTX PO (13:45)
--- NOTE | 2018-02-03 13:47 | Discharge Instructions ---
Discharge Instructions Date of Service Feb 03, 2018. Admission Reason for Admission: Weakness Discharge Discharge Diagnosis / Problem: UTI ,Recurrence in 1 month Discharge Goals Goal(s): Prevent Disease Progression Activity Recommendations Activity Limitations: resume your previous activity . Instructions / Follow-Up Instructions / Follow-Up Dr Loja (Ulices is not available) on 02/09/18 at 12:45 PM Current Hospital Diet Patient's current hospital diet: AHA Diet (Heart Healthy) Discharge Diet Recommended Diet: AHA Diet (Heart Healthy) Pending Studies Studies pending at discharge: no Medical Emergencies . Who to Call and When: Medical Emergencies: If at any time you feel your situation is an emergency, please call 911 immediately. . Non-Emergent Contact Non-Emergency issues call your: Primary Care Provider . Past History Medical & Surgical History: (1) UTI (urinary tract infection) (2) Weakness (3) GERD (gastroesophageal reflux disease) (4) CKD (chronic kidney disease), stage III (5) Hypothyroidism (6) Interstitial pulmonary fibrosis (7) Hypertension (8) S/P left knee arthroscopy (9) S/P right knee arthroscopy (10) History of left oophorectomy (11) History of total right knee replacement (12) History of total left knee replacement (13) History of appendectomy . "Provider Documentation" section prepared by Silvino Gilliland. .
[2018-02-03 14:02] VITALS: BP 166/68; PULSE 87; TEMP 36.7; O2SAT 90
[2018-02-03] MEDS ORDERED: LEVOFLOXACIN / D5W 750 MG in PREMIXED IN D5W 150 ML IV SCH (18:00)
--- NOTE | 2018-02-04 08:12 | Discharge Summary ---
Discharge Summary Date of Service Feb 04, 2018. Discharge Summary Admission Date: Feb 01, 2018 at 18:23 Discharge Date: Feb 03, 2018 Discharge Disposition: Home Principal Diagnosis: UTI ,Recurrence in 1 month Secondary Diagnoses/Problems: Please see H&P and Hospital progress note Medication Reconciliation New Medications: Lactobacillus Acidophilus (Lactinex) Tab 2 TAB PO BID, #30 TAB Levofloxacin (Levaquin) 500 Mg Tab 500 MG PO DAILY, #8 TABS Continued Medications: Acetaminophen (Tylenol) 500 Mg Tab 500 MG PO Q8 PRN for Pain, TAB Ascorbic Acid (C-500) 500 Mg Tab 2 TAB PO DAILY Aspirin (Aspir-81) 81 Mg Tab 81 MG PO QPM Atenolol (Tenormin) 50 Mg Tab 50 MG PO DAILY, TAB Cyclosporine (Ophth) (Restasis) 0.05 % Emu 1 DROPS OP BID for 30 Days, #60 VIAL 3 Refills Fluticasone Prop/Salmeterol (Advair Diskus 250/50 60 Dose) 1 Ea Aerp 1 PUFF INH BID PRN for SOB/Wheezing, INHALER Hydrocodone/Acetaminophen 7.5MG/325MG (Woodland 7.5MG/325MG) Tab 1 TAB PO Q6H PRN for Pain, TAB PRN PAIN Levothyroxine Sodium (Synthroid) 100 Mcg Tab 100 MCG PO DAILY, TAB patient to increase to 112 mcg Multivitamin (Multivitamin) Tab 1 TAB PO DAILY, TAB Potassium Chloride (Potassium Chloride ER) 20 Meq Tab 40 MEQ PO DAILY Prednisone (Prednisone) 10 Mg Tab 5 MG PO DAILY Triamterene/Hctz (Triamterene/Hctz 37.5-25MG) 1 Tab Tab 1 TAB PO DAILY Admission Information HPI (per Admitting provider): 87-year-old female who presents the ED with generalized weakness. Patient was seen in the ED on 01/03 and diagnosed with UTI. Patient was discharged on Ancef however urine culture grew enterococcus and patient's prescription was changed to amoxicillin. Patient reports she did complete her course of antibiotics. Over the past couple of weeks, patient reports profound weakness to the point where she is lying in bed for most the day. She has had a very poor appetite and has lost approximately 20 pounds for the past 2 weeks. She feels as though her urinary symptoms have resolved. No fevers or chills. Patient has history of pulmonary fibrosis and feels as though her breathing is at baseline. She denies lightheadedness, dizziness, diaphoresis, syncopal events. No abdominal pain, nausea, vomiting, diarrhea. In the ED, patient is found to have positive orthostatic blood pressures. Chest x-ray showing a possible infiltrate in the left base. WBC 17.4 K however patient has a chronic leukocytosis. Mg+ was mildly low at 1.5. Patient was given IVF, IV magnesium replacement, and a dose of IV Levaquin. Past Medical/Surgical History Medical Problems: (1) CKD (chronic kidney disease), stage III Status: Chronic (2) Deviated nasal septum Status: Chronic (3) GERD (gastroesophageal reflux disease) Status: Chronic (4) Hiatal hernia Status: Chronic (5) Hypertension Status: Chronic (6) Hypothyroidism Status: Chronic (7) Interstitial pulmonary fibrosis Status: Chronic (8) Left bundle branch block Status: Chronic (9) Osteoarthritis Status: Chronic Surgical Problems: (1) Cataract Nos Status: Resolved (2) H/O repair of right rotator cuff Status: Chronic (3) History of appendectomy Status: Chronic (4) History of cataract surgery Status: Chronic (5) History of hysterectomy Status: Chronic (6) History of left oophorectomy Status: Chronic (7) History of total left knee replacement Status: Chronic (8) History of total right knee replacement Status: Chronic (9) Knee Joint Replacement Status Status: Resolved (10) S/P left knee arthroscopy Status: Chronic (11) S/P right knee arthroscopy Status: Chronic Family History Noncontributory secondary to patient's advanced age Social History Smoking Status: Former Smoker Alcohol Use: occasionally Marital Status: Housing status: lives alone Occupational Status: retired Immunizations History of Influenza Vaccine: Yes Influenza Vaccine Date: Apr 10, 2017 History of Tetanus Vaccine?: Yes Tetanus Immunization Date: Jul 11, 2014 History of Pneumococcal: Yes Pneumococcal Date: Mar 19, 2015 Allergies Coded Allergies: Diclofenac (Verified Adverse Reaction, Mild, N/V, 01/03/18) Ketoprofen (Verified Adverse Reaction, Mild, N/V, 01/03/18) ORUDIS Naproxen (Verified Adverse Reaction, Mild, N/V, 01/03/18) Propoxyphene (Verified Adverse Reaction, Mild, N/V, 01/03/18) Rofecoxib (Verified Adverse Reaction, Mild, ABD CRAMPS, 01/03/18) Sulfa Antibiotics (Verified Adverse Reaction, Mild, N/V, 01/03/18) Sulfamethoxazole (Verified Adverse Reaction, Mild, N/V, 01/03/18) Tramadol (Verified Adverse Reaction, Mild, N/V, 01/03/18) Trimethoprim (Verified Adverse Reaction, Mild, N/V, 01/03/18) Home Medications Scheduled Ascorbic Acid (C-500), 2 TAB PO DAILY Aspirin (Aspir-81), 81 MG PO QPM Atenolol (Tenormin), 50 MG PO DAILY Cyclosporine (Ophth) (Restasis), 1 DROPS OP BID Levothyroxine Sodium (Synthroid), 100 MCG PO DAILY Multivitamin (Multivitamin), 1 TAB PO DAILY Potassium Chloride (Potassium Chloride ER), 40 MEQ PO DAILY Prednisone (Prednisone), 5 MG PO DAILY Triamterene/Hctz (Triamterene/Hctz 37.5-25MG), 1 TAB PO DAILY Scheduled PRN Acetaminophen (Tylenol), 500 MG PO Q8 PRN for Pain Fluticasone Prop/Salmeterol (Advair Diskus 250/50 60 Dose), 1 PUFF INH BID PRN for SOB/Wheezing Hydrocodone/Acetaminophen 7.5MG/325MG (Woodland 7.5MG/325MG), 1 TAB PO Q6H PRN for Pain Review of Systems ROS per HPI, all other systems reviewed and negative Physical Exam Vital Signs Date Time Temp Pulse Resp B/P (MAP) Pulse Ox O2 Delivery O2 Flow Rate FiO2 02/01/18 19:21 75 18 131/58 95 02/01/18 17:40 78 18 131/58 94 Room Air 02/01/18 16:35 74 18 135/74 95 Room Air 77 125/73 79 72/52 02/01/18 16:30 77 02/01/18 16:01 95 Room Air 02/01/18 15:42 36.7 75 20 160/88 97 Room Air General Appearance: WD/WN, no apparent distress Head: normocephalic, atraumatic Eyes: normal inspection, EOMI, sclerae normal ENT: hearing grossly normal, + pertinent finding (Mucous membranes moist) Neck: supple, no JVD, trachea midline Respiratory/Chest: no respiratory distress, + rales (Bilateral) Cardiovascular: regular rate, rhythm, no edema, normal peripheral pulses Abdomen/GI: normal bowel sounds, non tender, soft, no organomegaly Extremities/Musculoskelatal: normal inspection, no calf tenderness, normal capillary refill Neurologic/Psych: no motor/sensory deficits, alert, normal mood/affect, oriented x 3 Skin: normal color, warm/dry Diagnostics Laboratory Results Results Past 24 Hours Test 02/01/18 16:24 Range/Units White Blood Count 17.40 4.8-10.8 K/uL Red Blood Count 4.10 4.2-5.4 M/uL Hemoglobin 11.5 12.0-16.0 g/dL Hematocrit 35.7 37-47 % Mean Corpuscular Volume 87.1 80-100 fL Mean Corpuscular Hemoglobin 28.0 25-34 pg Mean Corpuscular Hemoglobin Concent 32.2 32-36 g/dl Platelet Count 306 130-400 K/uL Mean Platelet Volume 9.5 7.4-10.4 fL Neutrophils (%) (Auto) 74.9 % Lymphocytes (%) (Auto) 14.9 % Monocytes (%) (Auto) 7.9 % Eosinophils (%) (Auto) 0.8 % Basophils (%) (Auto) 0.2 % Neutrophils # (Auto) 13.02 1.4-6.5 K/uL Lymphocytes # (Auto) 2.60 1.2-3.4 K/uL Monocytes # (Auto) 1.38 0.11-0.59 K/uL Eosinophils # (Auto) 0.14 0-0.5 K/uL Basophils # (Auto) 0.03 0-0.2 K/uL RDW Standard Deviation 45.2 36.4-46.3 fL RDW Coefficient of Variation 14.2 11.5-14.5 % Immature Granulocyte % (Auto) 1.3 % Immature Granulocyte # (Auto) 0.23 0.00-0.02 K/uL Prothrombin Time 10.8 9.0-12.0 SECONDS Prothromb Time International Ratio 1.0 0.9-1.1 Activated Partial Thromboplast Time 24.1 21.0-31.0 SECONDS Partial Thromboplastin Ratio 0.9 Sodium Level 137 136-145 mmol/L Potassium Level 3.9 3.5-5.1 mmol/L Chloride Level 101 98-107 mmol/L Carbon Dioxide Level 27 21-32 mmol/L Anion Gap 9.0 3-11 mmol/L Blood Urea Nitrogen 23 7-18 mg/dl Creatinine 1.21 0.60-1.20 mg/dl Est Creatinine Clear Calc Drug Dose 26.9 ml/min Estimated GFR () 47.2 Estimated GFR (Non- 40.8 BUN/Creatinine Ratio 19.3 10-20 Random Glucose 105 70-99 mg/dl Calcium Level 9.6 8.5-10.1 mg/dl Magnesium Level 1.5 1.8-2.4 mg/dl Total Bilirubin 0.4 0.2-1 mg/dl Direct Bilirubin 0.2 0-0.2 mg/dl Aspartate Amino Transf (AST/SGOT) 37 15-37 U/L Alanine Aminotransferase (ALT/SGPT) 37 12-78 U/L Alkaline Phosphatase 83 45-117 U/L Total Creatine Kinase 29 26-192 U/L Creatine Kinase MB < 1.0 0.5-3.6 ng/ml Creatine Kinase MB Ratio 0-3.0 Troponin I < 0.015 0-0.045 ng/ml Total Protein 7.2 6.4-8.2 gm/dl Albumin 2.7 3.4-5.0 gm/dl Lipase 197 73-393 U/L Thyroid Stimulating Hormone (TSH) 2.640 0.300-4.500 uIu/ml Microbiology Results 02/01/18 Blood Culture, Received Pending 02/01/18 Blood Culture, Received Pending Diagnostic Radiology CXR IMPRESSION: Focal parenchymal infiltrate left base. Impression Assessment and Plan GENERALIZED WEAKNESS WEIGHT LOSS ORTHOSTASIS -Admit to MedSurg -Patient presenting with 2 weeks of generalized weakness, poor appetite, 20 pound weight loss -Was diagnosed with enterococcus UTI on 01/03 and completed antibiotic therapy, patient reports improvement in her urinary symptoms -In the ED, found to have positive orthostatic blood pressures and possible left parenchymal base infiltrate which will be discussed below -Recheck UA -Orthostasis likely due to hypovolemia from poor p.o. intake -IVF, hold antihypertensive, monitor orthostatic BPs -Given patient's significant amount weight loss, will check CT ABD/pelvis POSSIBLE PNEUMONIA HISTORY OF INTERSTITIAL PULMONARY FIBROSIS -Chest x-ray suggests a left parenchymal base infiltrate however patient denies worsening shortness of breath, cough, sputum production, fever -WBC 17 K, however patient has a chronic leukocytosis and this is her baseline -No wheezing noted on exam, saturating well on room air -S/P Levaquin in the ED, will continue with empirically for now -CT chest -Continue chronic prednisone 5 mg daily HYPOMAGNESEMIA -Replace, follow Mg+ HYPERTENSION -Holding atenolol, triamterene/HCTZ due to orthostasis HYPOTHYROIDISM -Recent outpatient labs showed an elevated TSH and patient was instructed to increase her levothyroxine to 112 mcg daily which she has not done yet -will place patient on higher dose during admission -PCP has already sent new prescription to pharmacy CHRONIC LEUKOCYTOSIS -Had hematology/oncology evaluation who feels as though patient's leukocytosis is secondary to chronic prednisone use CKD STAGE III - baseline creat runs in the mid ones - creat noted to be 1.2 today - continue to monitor, avoid nephrotoxic agents when able DVT PROPHYLAXIS -SQ heparin CODE STATUS -Patient is a DNR as per my discussion with her. DISPOSITION -In my clinical judgment this beneficiary meets acute admission criteria, established by [facility], that includes being hospitalized through two midnights. She is an 87-year-old female with significant past medical history including interstitial lung disease, COPD, hypertension and hyperlipidemia apparently was seen in the ER on 03 January with Enterococcus faecalis UTI. She was she was given Omnicef 500 mg twice daily for 5 days and then antibiotic was changed to be a cheaper one after that. She was not feeling well while she was on antibiotic and for the last 2 weeks she has been generally weak and lethargic. She denies any symptoms other than weakness and dizziness on standing and moving around. She has loss of appetite and she has lost about 20 pounds according to her since 03 January She denies any fever, chills, any abdominal pain, nausea vomiting, any problem with urine and her bowel habit, any cough, any any increasing shortness of breath, any headache visual symptoms or any weakness involving any side of the body. On examination in the emergency room She has not having any acute distress Hemodynamically stable with postural blood pressure changes Chest- bibasilar rales Heart-regular no murmur appreciated Abdomen-soft, benign, nontender, no hypogastric and/or renal angle tenderness, bowel sounds present Extremities-trace to no edema OVEREDGE SEWER-alert, awake and oriented 3 Generally weak but no focal neuro deficit appreciated. Pertinent labs: White count 17,000 with left shift but has been on a steroid, creatinine elevated likely secondary to dehydration, chest x-ray probable right lower lobe infiltration CT of the abdomen and pelvis and CT of the chest pending for now Assessment and plan: Ongoing anorexia with fatigue and significant weight loss-to rule out possible infective/inflammatory/malignant causes Has significant dehydration with renal impairment We will recheck urine, blood culture, CT of the chest and CT of the abdomen and pelvis to find a possible cause Agree with assessment and plan as outlined above Dr. Salbador Gilliland Resuscitation Status VTE Prophylaxis Will order VTE Prophylaxis: Yes <Electronically signed by Yahaira TESFAYE> <Electronically signed by Silvino Gilliland M.D.> Signed: 02/01/181951 Signed: 02/02/18716 Physical Exam (per Admitting): General Appearance: WD/WN, no apparent distress Head: normocephalic, atraumatic Eyes: normal inspection, EOMI, sclerae normal ENT: hearing grossly normal, + pertinent finding (Mucous membranes moist) Neck: supple, no JVD, trachea midline Respiratory/Chest: no respiratory distress, + rales (Bilateral) Cardiovascular: regular rate, rhythm, no edema, normal peripheral pulses Abdomen/GI: normal bowel sounds, non tender, soft, no organomegaly Extremities/Musculoskelatal: normal inspection, no calf tenderness, normal capillary refill Neurologic/Psych: no motor/sensory deficits, alert, normal mood/affect, oriented x 3 Skin: normal color, warm/dry Hospital Course E. coli UTI-pansensitive Recurrent episode Has been on Levaquin IV We will change to oral and continue for a total of 10 days and an outpatient GENERALIZED WEAKNESS SECONDARY TO RECURRENT UTI ORTHOSTASIS -Patient presenting with 2 weeks of generalized weakness, poor appetite, 20 pound weight loss -Was diagnosed with enterococcus UTI on 01/03 and completed antibiotic therapy, patient reports improvement in her urinary symptoms -In the ED, found to have positive orthostatic blood pressures and possible left parenchymal base infiltrate which will be discussed below -Recheck UA-suggestive of infection, awake sensitivity -Orthostasis likely due to hypovolemia from poor p.o. intake -IVF, hold antihypertensive, monitor orthostatic BPs -CT of the abdomen and pelvis and chest were unremarkable for any new findings, she has bilateral pulmonary fibrosis -Clinically better today and will continue intravenous Levaquin for UTI -No more orthostasis and weakness is improved POSSIBLE PNEUMONIA-ruled out HISTORY OF INTERSTITIAL PULMONARY FIBROSIS -Chest x-ray suggests a left parenchymal base infiltrate however patient denies worsening shortness of breath, cough, sputum production, fever -WBC 17 K, however patient has a chronic leukocytosis and this is her baseline -No wheezing noted on exam, saturating well on room air -S/P Levaquin in the ED, will continue with empirically for now -CT chest-no pneumonia but possible pneumonitis -Continue chronic prednisone 5 mg daily -We will continue Levaquin which will cover respiratory pathogens as well -Doubt any pneumonia HYPOMAGNESEMIA/hypokalemia -Replace, follow Mg+ -Monitor -Potassium replaced HYPERTENSION -Holding atenolol, triamterene/HCTZ due to orthostasis HYPOTHYROIDISM -Recent outpatient labs showed an elevated TSH and patient was instructed to increase her levothyroxine to 112 mcg daily which she has not done yet -will place patient on higher dose during admission -PCP has already sent new prescription to pharmacy CHRONIC LEUKOCYTOSIS -Had hematology/oncology evaluation who feels as though patient's leukocytosis is secondary to chronic prednisone use -Leukocytosis is down to 13 today -White cell count remained elevated at 13 Acute on chronic kidney disease -secondary to dehydration CKD STAGE III- - baseline creat runs in the mid ones - creat noted to be 1.2 today - continue to monitor, avoid nephrotoxic agents when able -Creatinine is normalized Moderate to severe malnutrition Significant weight loss for the last 3-4 weeks Has not been eating or drinking much for the last 3-4 weeks Has anorexia Improving since this morning DVT PROPHYLAXIS -SQ heparin CODE STATUS -Patient is a DNR as per my discussion with her. DISPOSITION Abdomen sensitivity for E. coli Likely home this afternoon Total time spent on discharge = 35 minutes This includes examination of the patient, discharge planning, medication reconciliation, and communication with other providers. Discharge Instructions Date of Service Feb 03, 2018. Admission Reason for Admission: Weakness Discharge Discharge Diagnosis / Problem: UTI ,Recurrence in 1 month Discharge Goals Goal(s): Prevent Disease Progression Activity Recommendations Activity Limitations: resume your previous activity . Instructions / Follow-Up Instructions / Follow-Up Dr Loja (Ulices is not available) on 02/09/18 at 12:45 PM Current Hospital Diet Patient's current hospital diet: AHA Diet (Heart Healthy) Discharge Diet Recommended Diet: AHA Diet (Heart Healthy) Pending Studies Studies pending at discharge: no Medical Emergencies . Who to Call and When: Medical Emergencies: If at any time you feel your situation is an emergency, please call 911 immediately. . Non-Emergent Contact Non-Emergency issues call your: Primary Care Provider . Past History Medical & Surgical History: (1) UTI (urinary tract infection) (2) Weakness (3) GERD (gastroesophageal reflux disease) (4) CKD (chronic kidney disease), stage III (5) Hypothyroidism (6) Interstitial pulmonary fibrosis (7) Hypertension (8) S/P left knee arthroscopy (9) S/P right knee arthroscopy (10) History of left oophorectomy (11) History of total right knee replacement (12) History of total left knee replacement (13) History of appendectomy . "Provider Documentation" section prepared by Silvino Gilliland. . <Electronically signed by Silvino Gilliland M.D.> Signed: 02/03/18 [id number] Signed: Additional Copies To Amari Elena M.D.
== END 2018-02-03 15:16 | disposition home or self-care (01) | DRG 690 ==
LOC: EDBD 15:33 → C.EDC 15:34 → C.MS2W 18:23 → ENRESERV 18:34
PROVIDERS: ADMIT Internal Medicine; ATTEND Internal Medicine
DX: N39.0 Urinary tract infection, site not specified (principal); N18.3 Chronic kidney disease, stage 3 (moderate); K21.9 Gastro-esophageal reflux disease without esophagitis; E03.9 Hypothyroidism, unspecified; I12.9 Hypertensive chronic kidney disease with stage 1 through stage 4 chronic kidney disease, or unspecified chronic kidney disease; J84.10 Pulmonary fibrosis, unspecified; Z96.653 Presence of artificial knee joint, bilateral; Z87.891 Personal history of nicotine dependence; Z88.2 Allergy status to sulfonamides; Z88.8 Allergy status to other drugs, medicaments and biological substances; E83.41 Hypermagnesemia; B95.2 Enterococcus as the cause of diseases classified elsewhere

== ENCOUNTER 2019-09-02 13:15 | Inpatient (IN) ==
[2019-09-02] MEDS ORDERED: cefTRIAXone SODIUM 2,000 MG/70 ML BAG IV STA (13:48)
[2019-09-02] MEDS ORDERED: SODIUM CHLORIDE 0.9% 1000ML 1,000 ML IV ONE (13:48)
--- NOTE | 2019-09-02 14:21 | XRay Report ---
XR chest 1V portable HISTORY: SEPSIS COMPARISON: Chest 06/15/2019. FINDINGS: Mild diffuse interstitial thickening which is likely chronic. This is similar to the prior study. This is most pronounced within the left lower lobe. The heart remains borderline enlarged. No pleural effusions. No pneumothorax. No new focal lung consolidations to suggest pneumonia. No evidenc e for pulmonary edema. Degenerative changes and again noted at the glenohumeral joints. IMPRESSION: No significant change compared to the prior study. No acute process. Chronic interstitial thickening persists. ACT 112: Negative or not required by law. Electronically signed by: Darryl Degroot M.D. 09/02/2019 2:19 PM
[2019-09-02 14:53] LABS: Hematocrit (blood only) 27.4 % (37-47); Mean Corpuscular Hemoglobin 29.8 pg (25-34); Mean Corpuscular Hgb Conc 32.8 g/dL (32-36); Mean Corpuscular Volume 90.7 fL (80-100); Platelet Count 156 K/uL (130-400); RDW Coefficient of Variation 15.1 % (11.5-14.5); RDW Standard Deviation 50.1 fL (36.4-46.3); Red Blood Count 3.02 M/uL (4.2-5.4); White Blood Count 23.08 K/uL (4.8-10.8)
[2019-09-02 15:03] LABS: INR 1.1 (0.9-1.1); Partial Thromboplastin Time 28.1 Seconds (21.0-31.0); Prothrombin Time 11.9 Seconds (9.0-12.0)
[2019-09-02 15:06] LABS: Alanine Aminotransferase 42 U/L (12-78); Albumin Level 1.7 gm/dl (3.4-5.0); Aspartate Aminotransferase 50 U/L (15-37); BUN Creatinine Ratio 19.7 (10-20); Blood Urea Nitrogen 29 mg/dl (7-18); Calcium 8.7 mg/dl (8.5-10.1); Carbon Dioxide 24 mmol/L (21-32); Chloride 100 mmol/L (98-107); Creatinine Clr Calc Pharmacy 20.1 ml/min; Est GFR (African American) 36.2; Est GFR (Non-African American) 31.3; Glucose 106 mg/dl (70-99); Magnesium 1.5 mg/dl (1.8-2.4); Potassium 3.9 mmol/L (3.5-5.1); Sodium 132 mmol/L (136-145)
[2019-09-02 15:11] LABS: Albumin Globulin Ratio 0.4 (0.9-2); Alkaline Phosphatase 167 U/L (45-117); Bilirubin,Total 0.7 mg/dl (0.2-1); Globulin 4.3 gm/dl (2.5-4.0); Troponin I < 0.015 ng/ml (0-0.045)
[2019-09-02] MEDS: MAGNESIUM SULFATE / D5W 1 GM/100 ML BAG IV SCH ×2 (15:24→16:33)
--- NOTE | 2019-09-02 15:27 | Emergency Department Note ---
Entered by Shefali Damian acting as a scribe for History of Present Illness General Chief complaint: Weakness Stated complaint: weakness Time Seen by Provider: 09/02/19 13:30 Source: patient History of Present Illness Onset (ago): day(s) (several ) Location: head (general ) Pain Consistency: + other (worsening ) Quality: + other (weakness ) Associated symptoms: + loss of appetite and + other (negative urinary symptoms; negative abdominal pain); no nausea/vomiting and no shortness of breath The patient is an 89 year old female who presents to the Emergency Room with complaints of worsening weakness that began several days prior to arrival. The patient states that she was seen 3 days ago in the ED after falling out of bed. She states that she was discharged at this time. The patient reports that over the course of the past 3 days she has been having worsening weakness. She reports that during this time she has had a loss of appetite. The patient denies urinary symptoms, nausea, vomiting, shortness of breath, and abdominal pain. The patient states that she is not on antibiotics currently. The patient reports a history of UTIs. ED pharmacist alert me to additional information and that they had tried to contact the patient following her discharge to alert her that her urine was suggestive of a urinary tract infection and culture was positive. They attempted to call in antibiotics. Upon finally hearing back from family and calling in antibiotics additional sensitivities became available which prompted additional phone calls and attempts to change the antibiotic. Upon the ED becca steve finally making contact with them when the son called back today, he mentioned to the ED pharmacist that the patient seemed weaker and did not seem to be improving which prompted a discussion with myself. I advised the ED pharmacist to instruct the son to bring his mother back to the emergency room. Home Medications Home Medications Medication Instructions Recorded Confirmed Type atenolol 50 mg tablet 50 mg PO QAM #30 tab 03/15/19 09/02/19 History calcium carbonate 600 mg (1,500 1 tab PO QAM tab 03/15/19 09/02/19 History mg)-vitamin D3 200 unit tablet cyclosporine 0.05 % eye drops in a 1 drp OPB BID ea 03/15/19 09/02/19 History dropperette diclofenac sodium 3 % topical gel 0 g TOPICAL TID PRN gm 03/15/19 09/02/19 History fluticasone 250 mcg-salmeterol 50 1 puffs INHALATION BID ea 03/15/19 09/02/19 History mcg/dose blistr powdr for inhalation hydrocodone 7.5 mg-acetaminophen 0.5 - 1 tab PO DAILY PRN tab 03/15/19 09/02/19 History 300 mg tablet montelukast 10 mg tablet 10 mg PO HS #30 tab 03/15/19 09/02/19 History multivitamin 1 tab PO QAM 03/15/19 09/02/19 History omeprazole 20 mg capsule,delayed 20 mg PO DAILY PRN cap 03/15/19 09/02/19 History release potassium chloride 20 mEq 40 meq PO QAM tab 03/15/19 09/02/19 History tablet,extended release prednisone 5 mg tablet 2.5 mg PO Q2D tab 03/15/19 09/02/19 History triamterene 37.5 1 tab PO QAM tab 03/15/19 09/02/19 History mg-hydrochlorothiazide 25 mg tablet aspirin 81 mg PO HS 06/15/19 09/02/19 History levothyroxine 100 mcg PO QAM 08/30/19 09/02/19 History Allergies Allergy/AdvReac Type Severity Reaction Status Date / Time capsaicin AdvReac Mild N/V Verified 09/02/19 14:54 diclofenac AdvReac Mild N/V Verified 09/02/19 14:54 Diclopak AdvReac Mild N/V Verified 01/03/18 15:28 ketoprofen AdvReac Mild N/V Verified 09/02/19 14:54 naproxen AdvReac Mild N/V Verified 09/02/19 14:54 propoxyphene AdvReac Mild N/V Verified 09/02/19 14:54 rofecoxib AdvReac Mild ABD CRAMPS Verified 09/02/19 14:54 Sulfa (Sulfonamide AdvReac Mild N/V Verified 09/02/19 14:54 Antibiotics) sulfamethoxazole AdvReac Mild N/V Verified 09/02/19 14:54 tramadol AdvReac Mild N/V Verified 09/02/19 14:54 trimethoprim AdvReac Mild N/V Verified 09/02/19 14:54 Past Med/Surg History Medical History CKD (chronic kidney disease), stage III (Chronic) Deviated nasal septum (Chronic) GERD (gastroesophageal reflux disease) (Chronic) Hiatal hernia (Chronic) Hypertension (Chronic) Hypothyroidism (Chronic) Interstitial pulmonary fibrosis (Chronic) Left bundle branch block (Chronic) Osteoarthritis (Chronic) Surgical History H/O repair of right rotator cuff (Chronic) History of appendectomy (Chronic) History of cataract surgery (Chronic) History of hysterectomy (Chronic) History of left oophorectomy (Chronic) 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) S/P left knee arthroscopy (Chronic) S/P right knee arthroscopy (Chronic) Family History Other Family history non-contributory Social History Preferred Language: Czech Communication Ability: Effective Campaign Management Specialist Required: No Beliefs That Will Affect Care: None Current Living Situation: Alone Feels Safe at Home: Yes Safety Concerns: Feels Safe At This Time Smoking Status: Former smoker Do You Dip or Chew Tobacco: No ; Second Hand Exposure: Yes ; Tobacco Cessation Education Requested by Patient: No Hx Alcohol Use: Yes Alcohol type: wine Hx Substance Use: No Review of Systems See HPI for pertinent positives & negatives. and A total of 10 systems reviewed and were otherwise negative Physical Exam Vital Signs Vital Signs - 24 hr 09/02/19 13:15 09/02/19 13:23 09/02/19 14:15 Temperature 37.6 C H Temperature Source Oral Pulse Rate 82 76 82 Pulse Rate from SpO2 Sensor Pulse Rhythm Regular Regular Respiratory Rate 18 20 18 Respiratory Effort / Characteristics Non-Labored Respiratory Depth Normal Respiratory Pattern Regular Blood Pressure 112/51 L 112/51 L Blood Pressure Mean 71 67 Pulse Oximetry 93 93 Oxygen Delivery Method Room Air Room Air Sepsis Recent Fever Within 48 Hours No Sepsis New/Unexplained Change in Mental Status No Sepsis Action Taken by Nursing No Action Required 09/02/19 15:24 09/02/19 15:30 09/02/19 16:00 Temperature Temperature Source Pulse Rate 81 82 78 Pulse Rate from SpO2 Sensor 81 81 76 Pulse Rhythm Respiratory Rate 24 20 17 Respiratory Effort / Characteristics Respiratory Depth Respiratory Pattern Blood Pressure 113/59 L 107/53 L 110/53 L Blood Pressure Mean 76 63 71 Pulse Oximetry 93 92 91 Oxygen Delivery Method Room Air Room Air Sepsis Recent Fever Within 48 Hours Sepsis New/Unexplained Change in Mental Status Sepsis Action Taken by Nursing 09/02/19 16:30 Temperature Temperature Source Pulse Rate 74 Pulse Rate from SpO2 Sensor 72 Pulse Rhythm Respiratory Rate 20 Respiratory Effort / Characteristics Respiratory Depth Respiratory Pattern Blood Pressure 111/50 L Blood Pressure Mean 73 Pulse Oximetry 92 Oxygen Delivery Method Sepsis Recent Fever Within 48 Hours Sepsis New/Unexplained Change in Mental Status Sepsis Action Taken by Nursing GENERAL: alert, ill-appearing, well nourished, no distress, non-toxic EYE EXAM: normal conjunctiva, PERRL and EOM's grossly intact OROPHARYNX: no exudate, no erythema, lips, buccal mucosa, and tongue normal and mucous membranes are moist NECK: supple, no nuchal rigidity, no adenopathy, non-tender LUNGS: Clear to auscultation. Normal chest wall mechanics, no w/r/r HEART: no murmurs, S1 normal and S2 normal ABDOMEN: abdomen soft, non-tender, normo-active bowel sounds, no masses, no rebound or guarding. BACK: Back is symmetrical on inspection and there is no deformity, no midline tenderness, no CVA tenderness. SKIN: no rashes and no bruising UPPER EXTREMITIES: upper extremities are grossly normal. FROM, nml pulses b/l. LOWER EXTREMITIES: No pitting edema. Multiple skin tears to bilateral lower ext remities. Contusions in various stages of healing. No other deformities. Normal distal pulses. NEURO EXAM: Normal sensorium, cranial nerves II-XII grossly intact, normal speech, no gross weakness of arms, no gross weakness of legs. Course Course 1340: Past medical records reviewed. The patient was evaluated in room C10. A complete history and physical exam was performed. 1515: Patient and son now at bedside updated on results. They are in agreement with plan for additional inpatient evaluation and management. Reviewed results with them. Administered Medications Hydrocodone Bitart/Acetaminophen ([place] 7.5/325mg) 0.5 - 1 tab PO DAILY PRN PRN Reason: Pain Last Admin: 09/02/19 22:29 Dose: 1 tab Documented by: [id number] Aspirin (Ecotrin Ectab) 81 mg PO HS [facility] Stop: 10/02/19 20:59 Last Admin: 09/02/19 21:25 Dose: 81 mg Documented by: [id number] Atenolol (Tenormin) 50 mg PO QAM [facility] Stop: 10/03/19 08:59 Last Admin: 09/03/19 08:31 Dose: 50 mg Documented by: [id number] Fluticasone/Vilanterol (Breo Ellipta 200/25 Mcg Inh) 1 puffs INH DAILY [facility] Stop: 10/03/19 08:59 Last Admin: 09/03/19 08:31 Dose: 1 puffs Documented by: [id number] Heparin Sodium (Porcine) (Heparin Sodium (Porcine)) 5,000 units SQ Q12 [facility] Stop: 10/02/19 20:59 Last Admin: 09/03/19 08:32 Dose: 5,000 units Documented by: [id number] Cosigned by: [id number] Admin: 09/02/19 21:25 Dose: 5,000 units Documented by: [id number] Cosigned by: [id number] Levothyroxine Sodium (Synthroid) 100 mcg PO DAILYBB [facility] Stop: 10/03/19 06:29 Last Admin: 09/03/19 06:24 Dose: 100 mcg Documented by: [id number] Miscellaneous (Order Awaiting Action) 1 ea N/A QS [facility] Stop: 10/03/19 00:00 Last Admin: 09/03/19 07:31 Dose: Not Given Documented by: [id number] Admin: 09/03/19 01:27 Dose: Not Given Documented by: [id number] Montelukast Sodium (Singulair) 10 mg PO HS [facility] Stop: 10/02/19 20:59 Last Admin: 09/02/19 21:25 Dose: 10 mg Documented by: [id number] Multivitamins (Multivitamin Tab) 1 tab PO QAM [facility] Stop: 10/03/19 08:59 Last Admin: 09/03/19 08:31 Dose: 1 tab Documented by: [id number] Multivitamins/Minerals (Caltrate Plus) 1 tab PO QAM [facility] Stop: 10/03/19 08:59 Last Admin: 09/03/19 08:31 Dose: 1 tab Documented by: [id number] Potassium Chloride (Klor-Con M20) 40 meq PO QAM [facility] Stop: 10/03/19 08:59 Last Admin: 09/03/19 08:32 Dose: 40 meq Documented by: [id number] Prednisone (Prednisone) 2.5 mg PO Q2D [facility] Stop: 10/03/19 08:59 Last Admin: 09/03/19 08:30 Dose: 2.5 mg Documented by: [id number] Triamterene/HCTZ (Maxzide 37.5/25mg) 1 tab PO QAM [facility] Stop: 10/03/19 08:59 Last Admin: 09/03/19 08:30 Dose: 1 tab Documented by: [id number] Discontinued Medications Sodium Chloride (Nss 1000ml) 1,000 mls @ 999 mls/hr IV .Q1H1M ONE Stop: 09/02/19 14:48 Last Infusion: 09/02/19 15:10 Dose: 0 mls/hr Documented by: [id number] Admin: 09/02/19 14:34 Dose: 999 mls/hr Documented by: [id number] Ceftriaxone Sodium (Rocephin) 2,000 mg in 70 mls @ 140 mls/hr IV NOW STA Stop: 09/02/19 14:17 Last Infusion: 09/02/19 15:10 Dose: 0 mls/hr Documented by: [id number] Admin: 09/02/19 14:34 Dose: 140 mls/hr Documented by: [id number] Magnesium Sulfate/Dextrose (Magnesium Sulfate / D5w) 1 gm in 100 mls @ 100 mls/hr IV Q1H [facility] Stop: 09/02/19 17:14 Last Infusion: 09/02/19 17:35 Dose: 0 mls/hr Documented by: [id number] Admin: 09/02/19 16:33 Dose: 100 mls/hr Documented by: [id number] Infusion: 09/02/19 16:33 Dose: 0 mls/hr Documented by: [id number] Admin: 09/02/19 15:24 Dose: 100 mls/hr Documented by: [id number] Sodium Chloride (Nss 1000ml) 1,000 mls @ 250 mls/hr IV .Q4H [facility] Stop: 10/02/19 15:59 Last Admin: 09/03/19 09:38 Dose: Not Given Documented by: [id number] Infusion: 09/03/19 09:38 Dose: 0 mls/hr Documented by: [id number] Admin: 09/03/19 07:47 Dose: 250 mls/hr Documented by: [id number] Infusion: 09/03/19 07:13 Dose: 250 mls/hr Documented by: [id number] Admin: 09/03/19 03:13 Dose: 250 mls/hr Documented by: [id number] Infusion: 09/03/19 03:10 Dose: 0 mls/hr Documented by: [id number] Admin: 09/02/19 21:18 Dose: 250 mls/hr Documented by: [id number] Admin: 09/02/19 19:11 Dose: Not Given Documented by: [id number] Oxycodone HCl (Roxicodone Immediate Rel) 5 mg PO NOW STA Stop: 09/03/19 02:48 Last Admin: 09/03/19 03:10 Dose: 5 mg Documented by: [id number] Medical Decision Making Differential Diagnosis Differential Diagnosis includes but is not limited to dehydration, stroke, anemia, hypoglycemia, hyponatremia, hypernatremia, urinary tract infection, pneumonia, bronchitis, sepsis, gastroenteritis, additional abdominal pathology, metabolic abnormalities and infections. Medical Records Attestation: I reviewed the patient's medical records. Home Medications Current Medication List: was personally reviewed by me Laboratory Data Attestation: I reviewed the patient's lab results. Result diagrams: 09/03/19 06:56 09/03/19 06:56 Lab Results 09/02/19 09/02/19 09/02/19 Range/Units 14:30 14:30 14:30 WBC 23.08 H (4.8-10.8) K/uL RBC 3.02 L (4.2-5.4) M/uL Hgb 9.0 L (12.0-16.0) g/dL Hct 27.4 L (37-47) % MCV 90.7 (80-100) fL MCH 29.8 (25-34) pg MCHC 32.8 (32-36) g/dL RDW Std Deviation 50.1 H (36.4-46.3) fL RDW Coeff of Heather 15.1 H (11.5-14.5) % Plt Count 156 (130-400) K/uL MPV 10.0 (7.4-10.4) fL Immature Gran % (Auto) 0.6 % Neut % (Auto) 84.1 % Lymph % (Auto) 8.3 % Clinch % (Auto) 6.5 % Eos % (Auto) 0.2 % Baso % (Auto) 0.3 % Immature Gran # (Auto) 0.15 H (0.00-0.02) K/uL Neut # (Auto) 19.42 H (1.4-6.5) K/uL Lymph # (Auto) 1.92 (1.2-3.4) K/uL Clinch # (Auto) 1.49 H (0.11-0.59) K/uL Eos # (Auto) 0.04 (0-0.5) K/uL Baso # (Auto) 0.06 (0-0.2) K/uL PT 11.9 (9.0-12.0) Seconds INR 1.1 (0.9-1.1) APTT 28.1 (21.0-31.0) Seconds PTT Ratio 1.0 Sodium (136-145) mmol/L Potassium (3.5-5.1) mmol/L Chloride (98-107) mmol/L Carbon Dioxide (21-32) mmol/L Anion Gap (3-11) BUN (7-18) mg/dl Creatinine (0.6-1.2) mg/dl Est Cr Clr Drug Dosing ml/min Est GFR ( Amer) Est GFR (Non-Af Amer) BUN/Creatinine Ratio (10-20) Glucose (70-99) mg/dl Lactate (0.4-2.0) mmol/L Calcium (8.5-10.1) mg/dl Magnesium (1.8-2.4) mg/dl Total Bilirubin (0.2-1) mg/dl AST (15-37) U/L ALT (12-78) U/L Alkaline Phosphatase (45-117) U/L Troponin I (0-0.045) ng/ml Total Protein (6.4-8.2) gm/dl Albumin (3.4-5.0) gm/dl Globulin (2.5-4.0) gm/dl Albumin/Globulin Ratio (0.9-2) Procalcitonin 2.85 H (0-0.5) ng/ml Urine Color Urine Appearance (Clear) Urine pH (4.5-7.5) Ur Specific Rule (1.000-1.030) Urine Protein (Negative) Urine Glucose (UA) (Negative) Urine Ketones (Negative) Urine Blood (Negative) Urine Nitrite (Negative) Urine Bilirubin (Negative) Urine Urobilinogen (Negative) Ur Leukocyte Esterase (Negative) Urine WBC (Auto) (0-5) /hpf Urine RBC (Auto) (0-4) /hpf U Hyaline Cast (Auto) (0-5) /lpf U Epithel Cells (Auto) (0-5) /lpf Urine Bacteria (Auto) (Negative) 09/02/19 09/02/19 09/02/19 Range/Units 14:30 14:30 15:45 WBC (4.8-10.8) K/uL RBC (4.2-5.4) M/uL Hgb (12.0-16.0) g/dL Hct (37-47) % MCV (80-100) fL MCH (25-34) pg MCHC (32-36) g/dL RDW Std Deviation (36.4-46.3) fL RDW Coeff of Heather (11.5-14.5) % Plt Count (130-400) K/uL MPV (7.4-10.4) fL Immature Gran % (Auto) % Neut % (Auto) % Lymph % (Auto) % Clinch % (Auto) % Eos % (Auto) % Baso % (Auto) % Immature Gran # (Auto) (0.00-0.02) K/uL Neut # (Auto) (1.4-6.5) K/uL Lymph # (Auto) (1.2-3.4) K/uL Clinch # (Auto) (0.11-0.59) K/uL Eos # (Auto) (0-0.5) K/uL Baso # (Auto) (0-0.2) K/uL PT (9.0-12.0) Seconds INR (0.9-1.1) APTT (21.0-31.0) Seconds PTT Ratio Sodium 132 L (136-145) mmol/L Potassium 3.9 (3.5-5.1) mmol/L Chloride 100 (98-107) mmol/L Carbon Dioxide 24 (21-32) mmol/L Anion Gap 8.0 (3-11) BUN 29 H (7-18) mg/dl Creatinine 1.49 H (0.6-1.2) mg/dl Est Cr Clr Drug Dosing 20.1 ml/min Est GFR ( Amer) 36.2 Est GFR (Non-Af Amer) 31.3 BUN/Creatinine Ratio 19.7 (10-20) Glucose 106 H (70-99) mg/dl Lactate 0.9 (0.4-2.0) mmol/L Calcium 8.7 (8.5-10.1) mg/dl Magnesium 1.5 L (1.8-2.4) mg/dl Total Bilirubin 0.7 (0.2-1) mg/dl AST 50 H (15-37) U/L ALT 42 (12-78) U/L Alkaline Phosphatase 167 H (45-117) U/L Troponin I < 0.015 (0-0.045) ng/ml Total Protein 6.0 L (6.4-8.2) gm/dl Albumin 1.7 L (3.4-5.0) gm/dl Globulin 4.3 H (2.5-4.0) gm/dl Albumin/Globulin Ratio 0.4 L (0.9-2) Procalcitonin (0-0.5) ng/ml Urine Color Dark Yellow Urine Appearance Cloudy A (Clear) Urine pH 5.5 (4.5-7.5) Ur Specific Rule 1.013 (1.000-1.030) Urine Protein 1+ H (Negative) Urine Glucose (UA) Negative (Negative) Urine Ketones Negative (Negative) Urine Blood 1+ H (Negative) Urine Nitrite Negative (Negative) Urine Bilirubin Negative (Negative) Urine Urobilinogen Negative (Negative) Ur Leukocyte Esterase 2+ H (Negative) Urine WBC (Auto) >30 H (0-5) /hpf Urine RBC (Auto) 5-10 H (0-4) /hpf U Hyaline Cast (Auto) 1-5 (0-5) /lpf U Epithel Cells (Auto) 5-10 H (0-5) /lpf Urine Bacteria (Auto) 4+ H (Negative) Imaging Data Radiologist's Impression: Radiology results as stated below per my review and the radiologist's interpretation: XR chest 1V portable HISTORY: SEPSIS COMPARISON: Chest 06/15/2019. FINDINGS: Mild diffuse interstitial thickening which is likely chronic. This is similar to the prior study. This is most pronounced within the left lower lobe. The heart remains borderline enlarged. No pleural effusions. No pneumothorax. No new focal lung consolidations to suggest pneumonia. No evidence for pulmonary edema. Degenerative changes and again noted at the glenohumeral joints. IMPRESSION: No significant change compared to the prior study. No acute process. Chronic interstitial thickening persists. ACT 112: Negative or not required by law. Electronically signed by: Darryl Degroot M.D. 09/02/2019 2:19 PM ECG Data Attestation: I personally reviewed and interpreted this ECG as follows: Indication: + weakness Rate (beats per minute): 76 Rhythm: + sinus rhythm ECG Intervals/blocks: + Left bundle branch block ECG [place]: + Left axis deviation ECG ST segments: no ST depression and no ST elevation ECG Findings: no PACs and no PVCs Blood Pressure Blood Pressure Findings: Normal blood pressure MDM Narrative Patient returned to the ER today after worsening symptoms and difficulty making contact with patient and son in order to start antibiotics after initial evaluation 3 days ago for a fall. Patient here continues to complain of weakness, poor appetite, and concern for dehydration. No overt urinary symptoms however patient does have a history of UTIs and was found to have 1 from results 3 days ago. Labs drawn and sent, patient started on IV fluids and per culture and sensitivity results patient was started on IV Rocephin. Patient remained hemodynamically stable while here. Patient and son made aware of all results. Patient with significant leukocytosis similar compared to 3 days ago, and evolving LYNETTE, likely from dehydration as well as infection. Patient with no symptoms to suggest kidney stone or other obstructive pathology and patient with no history of this prior. Likely patient with evolving urinary tract infection contributing to systemic symptoms. Patient was in agreement with plan and was aware of all results. Case discussed with hospitalist for additional e valuation. Impression & Plan Weakness, Acute UTI, LYNETTE (acute kidney injury), Hypomagnesemia, Acute dehydration Discharge Plan Visit Data *Final* Discharge Date/Time: 09/02/19 17:38 Chief Complaint: Weakness Stated Complaint: weakness ED Provider: Lorelei Tellez Discharge Problem: Weakness, Acute UTI, LYNETTE (acute kidney injury), Hypomagnesemia, Acute deh ydration Patient Disposition: Admitted As Inpatient Condition: Good Discharge Instructions Interventions: ED Discharge Assessment Last Done: 09/02/19 17:38 The scribe's documentation has been prepared under my direction and personally reviewed by me in its entirety. I confirm that the note above accurately reflects all work, treatment, procedures, and medical decision making performed by me.
[2019-09-02 15:38] LABS: Basophils # (auto) 0.06 K/uL (0-0.2); Basophils % (auto) 0.3 %; Eosinophils # (auto) 0.04 K/uL (0-0.5); Eosinophils % (auto) 0.2 %; Immature Granulocytes # (auto) 0.15 K/uL (0.00-0.02); Immature Granulocytes % (auto) 0.6 %; Lymphocytes # (auto) 1.92 K/uL (1.2-3.4); Lymphocytes % (auto) 8.3 %; Monocytes # (auto) 1.49 K/uL (0.11-0.59); Monocytes % (auto) 6.5 %; Neutrophils # (auto) 19.42 K/uL (1.4-6.5); Neutrophils % (auto) 84.1 %
[2019-09-02 16:01] LABS: Appearance Urine Cloudy (Clear); Bacteria Urine Automated 4+ (Negative); Bilirubin Urine Negative (Negative); Blood Urine 1+ (Negative); Color Urine Dark Yellow; Glucose Urine UA Negative (Negative); Ketones Urine Negative (Negative); Leukocyte Esterase Urine 2+ (Negative); Nitrite Urine Negative (Negative); Protein Urine 1+ (Negative); Specific Gravity Urine 1.013 (1.000-1.030); Urobilinogen Urine Negative (Negative); WBC Urine Automated >30 /hpf (0-5); pH Urine 5.5 (4.5-7.5)
--- NOTE | 2019-09-02 17:06 | History & Physical Report ---
Date of Service September 02, 2019 Assessment & Plan (1) Acute UTI: She was brought into the emergency room on Thursday last following a fall UA was ordered and the patient was sent home Urine came back positive for E. coli which is pansensitive and the patient was called into the emergency room with more weakness, anorexia and fear of falling She started with intravenous ceftriaxone and admitted to medical floor (2) Fall: Has had a fall last Thursday Remains generally weak and lethargic We will get PT and OT evaluation (3) LYNETTE (acute kidney injury): Secondary to not been eating or drinking enough Creatinine is up at 1.49 We will give moderate amount of intravenous fluid Was advised to drink more fluids Monitor PRP Present on Admission?: Yes (4) Hypertension: Blood pressure seems to be controlled Continue current medications (5) Interstitial pulmonary fibrosis: No acute pulmonary issue Saturation remains normal with room air (6) Hypothyroidism: Continue supplement (7) GERD (gastroesophageal reflux disease): Continue PPI DVT prophylaxis Subcu heparin CODE STATUS Full Discussed with the POA and the patient History of Present Illness Chief Complaint: Generalized weakness with fall and found out to have UTI Primary Care Provider: Amari Elena MD She is an 89-year-old female with significant past medical history including hypertension, hypothyroidism, GERD, interstitial pulmonary fibrosis, chronic kidney disease stage III, hypokalemia and osteoarthritis has had a fall last Thursday and she was brought into the emergency room for further evaluation. She did not have any significant findings on blood test and or x-rays except white count is elevated to 23,000 and there was thought to be due to prednisone. A urine sample is taken and the patient was sent back home. The urine test come back positive for E. coli pansensitive and the patient is brought back to the emergency room today with increasing weakness, anorexia, risk of falling at home as per the son and without any significant urinary symptoms. She denies any fever and/or chills, any chest pain and/or palpitation, any abdominal pain, nausea and or vomiting, any numbness and or tingling involving any of the extremities. She has generalized weakness but nothing focal. Her white count remains elevated at 23,000 and urine culture was positive for E. coli which was pansensitive. She was started with intravenous ceftriaxone and was admitted to medical floor for continuation of care. Allergies Allergy/AdvReac Type Severity Reaction Status Date / Time capsaicin AdvReac Mild N/V Verified 09/02/19 14:54 diclofenac AdvReac Mild N/V Verified 09/02/19 14:54 Diclopak AdvReac Mild N/V Verified 01/03/18 15:28 ketoprofen AdvReac Mild N/V Verified 09/02/19 14:54 naproxen AdvReac Mild N/V Verified 09/02/19 14:54 propoxyphene AdvReac Mild N/V Verified 09/02/19 14:54 rofecoxib AdvReac Mild ABD CRAMPS Verified 09/02/19 14:54 Sulfa (Sulfonamide AdvReac Mild N/V Verified 09/02/19 14:54 Antibiotics) sulfamethoxazole AdvReac Mild N/V Verified 09/02/19 14:54 tramadol AdvReac Mild N/V Verified 09/02/19 14:54 trimethoprim AdvReac Mild N/V Verified 09/02/19 14:54 Home Medications Home Medications Medication Instructions Recorded Confirmed Type atenolol 50 mg tablet 50 mg PO QAM #30 tab 03/15/19 09/02/19 History calcium carbonate 600 mg (1,500 1 tab PO QAM tab 03/15/19 09/02/19 History mg)-vitamin D3 200 unit tablet cyclosporine 0.05 % eye drops in a 1 drp OPB BID ea 03/15/19 09/02/19 History dropperette diclofenac sodium 3 % topical gel 0 g TOPICAL TID PRN gm 03/15/19 09/02/19 History fluticasone 250 mcg-salmeterol 50 1 puffs INHALATION BID ea 03/15/19 09/02/19 History mcg/dose blistr powdr for inhalation hydrocodone 7.5 mg-acetaminophen 0.5 - 1 tab PO DAILY PRN tab 03/15/19 09/02/19 History 300 mg tablet montelukast 10 mg tablet 10 mg PO HS #30 tab 03/15/19 09/02/19 History multivitamin 1 tab PO QAM 03/15/19 09/02/19 History omeprazole 20 mg capsule,delayed 20 mg PO DAILY PRN cap 03/15/19 09/02/19 History release potassium chloride 20 mEq 40 meq PO QAM tab 03/15/19 09/02/19 History tablet,extended release prednisone 5 mg tablet 2.5 mg PO Q2D tab 03/15/19 09/02/19 History triamterene 37.5 1 tab PO QAM tab 03/15/19 09/02/19 History mg-hydrochlorothiazide 25 mg tablet aspirin 81 mg PO HS 06/15/19 09/02/19 History levothyroxine 100 mcg PO QAM 08/30/19 09/02/19 History Past Med/Surg History Medical History CKD (chronic kidney disease), stage III (Chronic) Deviated nasal septum (Chronic) GERD (gastroesophageal reflux disease) (Chronic) Hiatal hernia (Chronic) Hypertension (Chronic) Hypothyroidism (Chronic) Interstitial pulmonary fibrosis (Chronic) Left bundle branch block (Chronic) Osteoarthritis (Chronic) Surgical History H/O repair of right rotator cuff (Chronic) History of appendectomy (Chronic) History of cataract surgery (Chronic) History of hysterectomy (Chronic) History of left oophorectomy (Chronic) 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) S/P left knee arthroscopy (Chronic) S/P right knee arthroscopy (Chronic) Family History Other Family history non-contributory Social History Preferred Language: Iranian Feels Safe at Home: Yes Smoking Status: Former smoker Review of Systems Review of Systems: All systems reviewed & are unremarkable except as noted in HPI & below Physical Exam Physical Exam: Lying in bed comfortably Constitutional: + ill appearing and + thin; no acute distress Eyes: PERRL, conjunctivae normal, anicteric sclerae ENMT: external ear and nose normal, oropharynx normal Neck: trachea midline, no thyromegaly Respiratory: normal respiratory effort Auscultation: + diminished lung sounds and + crackles (Minimal crackles at the bases) Cardiovascular: Rate/Rhythm: regular rate and regular rhythm Heart Sounds: no murmur Gastrointestinal (Abdomen): Inspection/Auscultation: abdomen normal to inspection; abdomen not distended Percussion/Palpation: abdomen soft; abdomen nontender Musculoskeletal: No acute arthritis Skin: Superficial skin tear involving both the lower legs secondary to recent fall Neurologic: moves all extremities; no focal motor deficits Generally weak Lymphatic: no cervical or axillary lymphadenopathy Results & Data Vital Signs (Past 12 Hours) Vital Signs Temp Pulse Resp BP Pulse Ox 09/02/19 16:30 74 20 111/50 L 92 09/02/19 16:00 78 17 110/53 L 91 09/02/19 15:30 82 20 107/53 L 92 09/02/19 15:24 81 24 113/59 L 93 09/02/19 14:15 82 18 93 09/02/19 13:23 76 20 112/51 L 09/02/19 13:15 37.6 C H 82 18 112/51 L 93 Laboratory Results Short CBC 09/02/19 Range/Units 14:30 WBC 23.08 H (4.8-10.8) K/uL Hgb 9.0 L (12.0-16.0) g/dL Hct 27.4 L (37-47) % Plt Count 156 (130-400) K/uL BMP 09/02/19 14:30 Sodium 132 L Potassium 3.9 Chloride 100 Carbon Dioxide 24 BUN 29 H Creatinine 1.49 H Glucose 106 H Calcium 8.7 Cardiac Enzymes 09/02/19 Range/Units 14:30 Troponin I < 0.015 (0-0.045) ng/ml Liver Function 09/02/19 Range/Units 14:30 Total Bilirubin 0.7 (0.2-1) mg/dl AST 50 H (15-37) U/L ALT 42 (12-78) U/L Alkaline Phosphatase 167 H (45-117) U/L Albumin 1.7 L (3.4-5.0) gm/dl Urine 09/02/19 Range/Units 15:45 Urine Color Dark Yellow Urine Appearance Cloudy A (Clear) Urine pH 5.5 (4.5-7.5) Ur Specific [place] 1.013 (1.000-1.030) Urine Protein 1+ H (Negative) Urine Glucose (UA) Negative (Negative) Medications Administered Current Inpatient Medications Heparin Sodium (Porcine) (Heparin Sodium (Porcine)) 5,000 units SQ Q12 CHASE Stop: 10/02/19 20:59 Magnesium Sulfate/Dextrose (Magnesium Sulfate / D5w) 1 gm in 100 mls @ 100 mls/hr IV Q1H CHASE Stop: 09/02/19 17:14 Last Admin: 09/02/19 16:33 Dose: 100 mls/hr Documented by: Sodium Chloride (Nss 1000ml) 1,000 mls @ 250 mls/hr IV .Q4H CHASE Stop: 10/02/19 15:59 Ceftriaxone Sodium (Rocephin) 1,000 mg in 50 mls @ 100 mls/hr IV Q24H CHASE Stop: 09/08/19 13:59 Code Status & VTE Plan VTE Prophylaxis Plan VTE Prophylaxis will be ordered: Yes (1) Fall Encounter type: initial encounter Qualified Code(s): W19.XXXA - Unspecified fall, initial encounter
[2019-09-02] MEDS ORDERED: PANTOprazole 40 MG TAB PO PRN (18:29)
[2019-09-02] MEDS ORDERED: DICLOFENAC SOD 1% GEL 100 GM TUBE EXT PRN (18:43)
[2019-09-02] MEDS: SODIUM CHLORIDE 0.9% 1000ML 1,000 ML IV SCH ×2 (19:11→21:18)
[2019-09-02] MEDS: ASPIRIN 81 MG ECTAB PO SCH (21:25)
[2019-09-02] MEDS: HEPARIN SOD 5,000 UNIT/0.5 ML VIAL SQ SCH (21:25)
[2019-09-02] MEDS: MONTELUKAST SODIUM 10 MG TABLET PO SCH (21:25)
[2019-09-02] MEDS: HYDROCODONE/ACETAMINOPHEN 7.5/325MG TAB PO PRN (22:29)
[2019-09-03] MEDS ORDERED: OXYCODONE HCL IR 5 MG TAB (IMMEDIATE RELEASE) PO STA (02:47)
[2019-09-03] MEDS: SODIUM CHLORIDE 0.9% 1000ML 1,000 ML IV SCH ×3 (03:13→09:38)
[2019-09-03] MEDS: LEVOTHYROXINE SODIUM 100 MCG TABLET PO SCH (06:24)
[2019-09-03 07:08] LABS: Hematocrit (blood only) 25.6 % (37-47); Hemoglobin 8.4 g/dL (12.0-16.0); Mean Corpuscular Hemoglobin 29.7 pg (25-34); Mean Corpuscular Hgb Conc 32.8 g/dL (32-36); Mean Corpuscular Volume 90.5 fL (80-100); Mean Platelet Volume 9.8 fL (7.4-10.4); Platelet Count 159 K/uL (130-400); RDW Coefficient of Variation 15.3 % (11.5-14.5); RDW Standard Deviation 50.8 fL (36.4-46.3); Red Blood Count 2.83 M/uL (4.2-5.4); White Blood Count 17.86 K/uL (4.8-10.8)
[2019-09-03 07:32] LABS: Basophils # (auto) 0.05 K/uL (0-0.2); Basophils % (auto) 0.3 %; Eosinophils # (auto) 0.09 K/uL (0-0.5); Eosinophils % (auto) 0.5 %; Immature Granulocytes % (auto) 0.6 %; Lymphocytes # (auto) 2.34 K/uL (1.2-3.4); Lymphocytes % (auto) 13.1 %; Monocytes # (auto) 1.11 K/uL (0.11-0.59); Monocytes % (auto) 6.2 %; Neutrophils # (auto) 14.17 K/uL (1.4-6.5); Neutrophils % (auto) 79.3 %; Polychromasia 1+
[2019-09-03 07:42] LABS: BUN Creatinine Ratio 20.9 (10-20); Calcium 8.1 mg/dl (8.5-10.1); Creatinine Clr Calc Pharmacy 24.5 ml/min; Est GFR (African American) 46.1; Est GFR (Non-African American) 39.8; Magnesium 1.9 mg/dl (1.8-2.4); Phosphorus 2.6 mg/dl (2.5-4.9); Potassium 4.2 mmol/L (3.5-5.1)
[2019-09-03] MEDS: predniSONE 2.5 MG TAB PO SCH (08:30)
[2019-09-03] MEDS: TRIAMTERENE/HCTZ 37.5/25MG TAB PO SCH (08:30)
[2019-09-03] MEDS: MULTIVITAMIN TAB PO SCH (08:31)
[2019-09-03] MEDS: FLUTICASONE/VILANTEROL 200/25MCG 14 PUFFS/INHALER INH SCH (08:31)
[2019-09-03] MEDS: CALCIUM 600MG + VIT D 400 IU TAB PO SCH (08:31)
[2019-09-03] MEDS: ATENOLOL 50 MG TABLET PO SCH (08:31)
[2019-09-03] MEDS: POTASSIUM CHLORIDE 20 MEQ TABCR PO SCH (08:32)
[2019-09-03] MEDS: HEPARIN SOD 5,000 UNIT/0.5 ML VIAL SQ SCH ×2 (08:32→20:46)
--- NOTE | 2019-09-03 09:09 | Hospitalist Progress Note ---
Date of Service September 03, 2019 Assessment & Plan (1) Acute UTI: with Bacteremia likely secondary to E.coli -She was brought into the emergency room on Thursday08/30/2019 after a fall to the floor. UA was ordered and the patient was sent home -Urine came back positive for E. coli which is pansensitive and the patient was called into the emergency room on 09/02/2019 with more weakness, anorexia and fear of falling -She started with intravenous ceftriaxone and admitted to medical floor. Patient denies dysuria symptoms or fever. repeat urine culture on 09/02/2019 with gram negative bacilli. blood cultures on 09/02/2019 also with gram negative bacilli and suggest of E.coli Bacteremia -continue ceftriaxone (2) Fall: Has had a fall last Thursday08/30/2019 PT and OT evaluations Skin abrasions/skin tears present on point or arrival -skin abrasions/skin tears of bilateral giang -dressing changes, wound care (3) LYNETTE (acute kidney injury): Secondary to not been eating or drinking enough admission Creatinine on 09/02/2019 is 1.49 creatinine is 1.22 on 09/03/2019 after IV fluids, will stop IV fluids (4) Hypertension: -Continue triamterene/HCTZ (5) Interstitial pulmonary fibrosis: -admission CXR: Mild diffuse interstitial thickening which is likely chronic. This is similar to the prior study. This is most pronounced within the left lower lobe. The heart remains borderline enlarged. No pleural effusions. No pneumothorax. No new focal lung consolidations to suggest pneumonia. No evidence for pulmonary edema. Degenerative changes and again noted at the glenohumeral joints. IMPRESSION: No significant change compared to the prior study. No acute process. Chronic interstitial thickening persists. -Saturation remains normal with room air (6) Hypothyroidism: Continue levothyroxine (7) GERD (gastroesophageal reflux disease): Continue PPI DVT prophylaxis Subcu heparin CODE STATUS Full Admission and Anticipated Discharge Date Admission Date: September 02, 2019 Subjective patient has skin abrasions/skin tears of bilateral giang. pain of the legs when these areas were assessed. patient otherwise in no acute distress. answers que stions appropriately. denies dysuria. denies abdomen pain. no vomiting. no dizziness. denies fever Review of Systems Review of Systems: All systems reviewed & are unremarkable except as noted in HPI & below Physical Exam Constitutional: cooperative and comfortable Eyes: PERRL, conjunctivae normal, anicteric sclerae EOM intact bilaterally ENMT: external ear and nose normal, oropharynx normal Neck: normal visual inspection Respiratory: normal respiratory effort, lungs clear to auscultation Cardiovascular: Rate/Rhythm: regular rate and regular rhythm Gastrointestinal (Abdomen): normal bowel sounds, soft, nontender, no hepatosplenomegaly Skin: skin abrasions/skin tears of bilateral giang Neurologic: PERRL, EOMI, accommodation nl, no face palsy, no dysarthria CN's II-XI intact bilaterally Psychiatric: A+Ox3, euthymic affect Results & Data ([facility]) Vital Signs (Past 12 Hours) Vital Signs Temp Pulse Resp BP Pulse Ox 09/03/19 07:19 36.8 C 66 16 103/59 L 95 09/02/19 22:25 36.5 C 74 16 141/70 H 94 (1) Fall Encounter type: initial encounter Qualified Code(s): W19.XXXA - Unspecified fall, initial encounter
[2019-09-03] MEDS ORDERED: cefTRIAXone SODIUM 2,000 MG in DEXTROSE 5% 50 ML IV SCH (14:00)
[2019-09-03] MEDS ORDERED: cefTRIAXone SODIUM 1,000 MG/50 ML BAG IV SCH (14:00)
[2019-09-03] MEDS: ASPIRIN 81 MG ECTAB PO SCH (20:46)
[2019-09-03] MEDS: MONTELUKAST SODIUM 10 MG TABLET PO SCH (20:46)
[2019-09-03] MEDS: HYDROCODONE/ACETAMINOPHEN 7.5/325MG TAB PO PRN (20:55)
[2019-09-04 06:13] LABS: Hematocrit (blood only) 26.2 % (37-47); Hemoglobin 8.4 g/dL (12.0-16.0); Mean Corpuscular Hemoglobin 29.3 pg (25-34); Mean Corpuscular Hgb Conc 32.1 g/dL (32-36); Mean Corpuscular Volume 91.3 fL (80-100); Mean Platelet Volume 10.2 fL (7.4-10.4); Nucleated RBC # (auto) 0.02 K/uL (0-0); Nucleated RBC % (auto) 0.1 %; Platelet Count 198 K/uL (130-400); RDW Coefficient of Variation 15.5 % (11.5-14.5); RDW Standard Deviation 51.9 fL (36.4-46.3); Red Blood Count 2.87 M/uL (4.2-5.4); White Blood Count 15.74 K/uL (4.8-10.8)
[2019-09-04] MEDS: LEVOTHYROXINE SODIUM 100 MCG TABLET PO SCH (06:16)
[2019-09-04 06:39] LABS: Basophils # (auto) 0.05 K/uL (0-0.2); Basophils % (auto) 0.3 %; Eosinophils # (auto) 0.11 K/uL (0-0.5); Eosinophils % (auto) 0.7 %; Immature Granulocytes % (auto) 0.6 %; Lymphocytes # (auto) 2.14 K/uL (1.2-3.4); Lymphocytes % (auto) 13.6 %; Monocytes # (auto) 0.94 K/uL (0.11-0.59); Neutrophils % (auto) 78.8 %
[2019-09-04 07:03] LABS: Albumin Globulin Ratio 0.4 (0.9-2); Albumin Level 1.6 gm/dl (3.4-5.0); BUN Creatinine Ratio 19.8 (10-20); Bilirubin,Total 0.3 mg/dl (0.2-1); Calcium 9.1 mg/dl (8.5-10.1); Est GFR (African American) 49.5; Est GFR (Non-African American) 42.7; Globulin 4.3 gm/dl (2.5-4.0); Potassium 5.1 mmol/L (3.5-5.1); Total Protein 5.9 gm/dl (6.4-8.2)
[2019-09-04] MEDS ORDERED: ERTAPENEM CONSULT ACTIVE PRN (07:37)
[2019-09-04] MEDS: ERTAPENEM SODIUM 500 MG in SODIUM CHLORIDE 0.9% 50 ML IV SCH (08:23)
[2019-09-04] MEDS: MULTIVITAMIN TAB PO SCH (08:24)
[2019-09-04] MEDS: HEPARIN SOD 5,000 UNIT/0.5 ML VIAL SQ SCH ×2 (08:24→21:01)
[2019-09-04] MEDS: POTASSIUM CHLORIDE 20 MEQ TABCR PO SCH (08:24)
[2019-09-04] MEDS: TRIAMTERENE/HCTZ 37.5/25MG TAB PO SCH (08:25)
[2019-09-04] MEDS: CALCIUM 600MG + VIT D 400 IU TAB PO SCH (08:25)
[2019-09-04] MEDS: ATENOLOL 50 MG TABLET PO SCH (08:25)
[2019-09-04] MEDS: FLUTICASONE/VILANTEROL 200/25MCG 14 PUFFS/INHALER INH SCH (08:26)
--- NOTE | 2019-09-04 11:19 | Hospitalist Progress Note ---
Date of Service September 04, 2019 Assessment & Plan (1) Acute UTI: with Bacteremia from ESBL Escherichia coli -She was brought into the emergency room on Thursday08/30/2019 after a fall to the floor. UA was ordered and the patient was sent home -Urine came back positive for E. coli which is pansensitive and the patient was called into the emergency room on 09/02/2019 with more weakness, anorexia and fear of falling -She was started with intravenous ceftriaxone and admitted to medical floor. -on 09/03/2019, the admission blood cultures were noted to be positive for gram negative bacilli and patient was continued ceftriaxone -as of 09/04/2019 both the admission urine cultures and the admission blood cultures speciated as ESBL Escherichia coli (including resistance to ceftriaxone). patient was switched to IV Ertapenem daily on 09/04/2019 based on sensitivities. Discussed with patient and patient's son Darryl at the bedside (phone number is [phone]; [phone]) that perhaps the most appropriate treatment is continue IV antibiotics manager long term care after first negative blood culture to ensure clearance of bacteria. we also discussed the possibility of outpatient oral Levaquin instead but hospitalist doctor pointed out potential side effects of oral fluoroquinolone and possible reduced efficacy compared to IV antibiotics. Patient's son sign consent form for midline or PICC line if ultimately an IV line access needed for manager long term care IV antibiotics. in addition, hospitalist discussed with patient/patient's son, manager rn case about inquiring into nursing facilities that do IV antibiotics after the hospital stay (2) Fall: -Has had a fall last Thursday08/30/2019 -PT and OT evaluations Skin abrasions/skin tears present on point or arrival -skin abrasions/skin tears of bilateral giang -dressing changes, wound care (3) LYNETTE (acute kidney injury): -Secondary to not been eating or drinking enough -admission Creatinine on 09/02/2019 is 1.49 -creatinine is 1.22 on 09/03/2019 after IV fluids, stopped IV fluids -creatinine is 1.15 on 09/04/2019 (4) Hypertension: -Continue triamterene/HCTZ (5) Interstitial pulmonary fibrosis: -admission CXR: Mild diffuse interstitial thickening which is likely chronic. This is similar to the prior study. This is most pronounced within the left lower lobe. The heart remains borderline enlarged. No pleural effusions. No pneumothorax. No new focal lung consolidations to suggest pneumonia. No evidence for pulmonary edema. Degenerative changes and again noted at the glenohumeral joints. IMPRESSION: No significant change compared to the prior study. No acute process. Chronic interstitial thickening persists. -Saturation remains normal with room air (6) Hypothyroidism: Continue levothyroxine (7) GERD (gastroesophageal reflux disease): Continue PPI DVT prophylaxis Subcu heparin CODE STATUS Full Admission and Anticipated Discharge Date Admission Date: September 02, 2019 Subjective as of 09/04/2019 both the admission urine cultures and the admission blood cultures speciated as ESBL Escherichia coli (including resistance to ceftriaxone). patient was switched to IV Ertapenem daily on 09/04/2019 based on sensitivities. Discussed with patient and patient's son Darryl at the bedside (phone number is [phone]; [phone]) that perhaps the most appropriate treatment is continue IV antibiotics shelter after first negative blood culture to ensure clearance of bacteria. we also discussed the possibility of outpatient oral Levaquin instead but hospitalist doctor pointed out potential side effects of oral fluoroquinolone and possible reduced efficacy compared to IV antibiotics. Patient's son sign consent form for midline or PICC line if ultimately an IV line access needed for shelter IV antibiotics. in addition, hospitalist discussed with patient/patient's son, manager rn case about inquiring into nursing facilities that do IV antibiotics after the hospital stay patient still reports she feels weak. patient reports she has been able to ambulate from hospital bed to bathroom with walker. no acute distress. no dizziness. no headache. no abdomen pain. no chest pain, breathing on room air. no shortness of breath Review of Systems Review of Systems: All systems reviewed & are unremarkable except as noted in HPI & below Physical Exam Constitutional: cooperative and comfortable Eyes: PERRL, conjunctivae normal, anicteric sclerae EOM intact bilaterally ENMT: external ear and nose normal, oropharynx normal Neck: normal visual inspection Respiratory: normal respiratory effort, lungs clear to auscultation Cardiovascular: Rate/Rhythm: regular rate and regular rhythm Gastrointestinal (Abdomen): normal bowel sounds, soft, nontender, no hepatosplenomegaly Skin: skin tears of lower extremities in dressing Neurologic: PERRL, EOMI, accommodation nl, no face palsy, no dysarthria CN's II-XI intact bilaterally Psychiatric: A+Ox3, euthymic affect Results & Data ([facility]) Vital Signs (Past 12 Hours) Vital Signs Temp Pulse Resp BP Pulse Ox 09/04/19 07:18 36.5 C 74 18 149/69 H 96 (1) Fall Encounter type: initial encounter Qualified Code(s): W19.XXXA - Unspecified fall, initial encounter
[2019-09-04] MEDS: HYDROCODONE/ACETAMINOPHEN 7.5/325MG TAB PO PRN (21:00)
[2019-09-04] MEDS: ASPIRIN 81 MG ECTAB PO SCH (21:01)
[2019-09-04] MEDS: MONTELUKAST SODIUM 10 MG TABLET PO SCH (21:02)
[2019-09-05] MEDS: LEVOTHYROXINE SODIUM 100 MCG TABLET PO SCH (05:55)
[2019-09-05 06:53] LABS: Hematocrit (blood only) 26.1 % (37-47); Hemoglobin 8.4 g/dL (12.0-16.0); Mean Corpuscular Hemoglobin 29.4 pg (25-34); Mean Corpuscular Hgb Conc 32.2 g/dL (32-36); Mean Corpuscular Volume 91.3 fL (80-100); Mean Platelet Volume 9.9 fL (7.4-10.4); Platelet Count 224 K/uL (130-400); RDW Coefficient of Variation 15.3 % (11.5-14.5); RDW Standard Deviation 51.6 fL (36.4-46.3); Red Blood Count 2.86 M/uL (4.2-5.4); White Blood Count 11.52 K/uL (4.8-10.8)
[2019-09-05 07:22] LABS: Basophils # (auto) 0.05 K/uL (0-0.2); Basophils % (auto) 0.4 %; Eosinophils # (auto) 0.12 K/uL (0-0.5); Immature Granulocytes # (auto) 0.06 K/uL (0.00-0.02); Immature Granulocytes % (auto) 0.5 %; Lymphocytes # (auto) 2.37 K/uL (1.2-3.4); Lymphocytes % (auto) 20.6 %; Monocytes # (auto) 0.89 K/uL (0.11-0.59); Monocytes % (auto) 7.7 %; Neutrophils # (auto) 8.03 K/uL (1.4-6.5); Neutrophils % (auto) 69.8 %
[2019-09-05 07:27] LABS: Albumin Level 1.6 gm/dl (3.4-5.0); Calcium 9.1 mg/dl (8.5-10.1); Creatinine Clr Calc Pharmacy 27.2 ml/min; Est GFR (African American) 52.3; Est GFR (Non-African American) 45.1; Potassium 5.2 mmol/L (3.5-5.1)
[2019-09-05 07:29] LABS: Albumin Globulin Ratio 0.3 (0.9-2); Bilirubin,Total 0.4 mg/dl (0.2-1); Globulin 4.7 gm/dl (2.5-4.0); Total Protein 6.3 gm/dl (6.4-8.2)
[2019-09-05] MEDS: ERTAPENEM SODIUM 500 MG in SODIUM CHLORIDE 0.9% 50 ML IV SCH (08:05)
[2019-09-05] MEDS: FLUTICASONE/VILANTEROL 200/25MCG 14 PUFFS/INHALER INH SCH (08:25)
[2019-09-05] MEDS: ATENOLOL 50 MG TABLET PO SCH (08:26)
[2019-09-05] MEDS: MULTIVITAMIN TAB PO SCH (08:26)
[2019-09-05] MEDS: POTASSIUM CHLORIDE 20 MEQ TABCR PO SCH (08:26)
[2019-09-05] MEDS: predniSONE 2.5 MG TAB PO SCH (08:30)
[2019-09-05] MEDS: TRIAMTERENE/HCTZ 37.5/25MG TAB PO SCH (08:31)
[2019-09-05] MEDS: CALCIUM 600MG + VIT D 400 IU TAB PO SCH (08:31)
[2019-09-05] MEDS: HEPARIN SOD 5,000 UNIT/0.5 ML VIAL SQ SCH ×2 (08:32→20:41)
[2019-09-05] MEDS ORDERED: SODIUM CHLORIDE 0.9% 1000ML 250 ML IV ONE (08:39)
[2019-09-05] MEDS: HYDROCODONE/ACETAMINOPHEN 7.5/325MG TAB PO PRN (09:00)
--- NOTE | 2019-09-05 12:04 | Electrocardiogram Report ---
Test Reason : Blood Pressure : / mmHG Vent. Rate : 076 BPM Atrial Rate : 076 BPM P-R Int : 166 ms QRS Dur : 138 ms QT Int : 416 ms P-R-T Axes : 021 -44 054 degrees QTc Int : 468 ms Normal sinus rhythm Left axis deviation Left bundle branch block Abnormal ECG When compared with ECG of 30-AUG-2019 16:28, Premature atrial complexes are no longer Present Nonspecific T wave abnormality has replaced inverted T waves in Inferior leads Nonspecific T wave abnormality now evident in Lateral leads Confirmed by Chas Arboleda ([id number]) on 09/05/2019 12:04:04 PM Referred By: REFERRED SELF Confirmed By:Chas Arboleda
--- NOTE | 2019-09-05 14:55 | Hospitalist Progress Note ---
Date of Service September 05, 2019 Assessment & Plan (1) Acute UTI: Sepsis, POA with urinary tract infection and bacteremia from ESBL Escherichia coli -She was brought into the emergency room on Thursday08/30/2019 after a fall to the floor. UA was ordered and the patient was sent home -Urine came back positive for E. coli which is pansensitive and the patient was called into the emergency room on 09/02/2019 with more weakness, anorexia and fear of falling -She was started with intravenous ceftriaxone and admitted to medical floor. -on 09/03/2019, the admission blood cultures were noted to be positive for gram negative bacilli and patient was continued ceftriaxone -as of 09/04/2019 both the admission urine cultures and the admission blood cultures speciated as ESBL Escherichia coli (including resistance to ceftriaxone). patient was switched to IV Ertapenem daily on 09/04/2019 based on sensitivities. Discussed with patient and patient's son Darryl at the bedside (phone number is [phone]; [phone]) that perhaps the most appropriate treatment is continue IV antibiotics assisted after first negative blood culture to ensure clearance of bacteria. we also discussed the possibility of outpatient oral Levaquin instead but hospitalist doctor pointed out potential side effects of oral fluoroquinolone and possible reduced efficacy compared to IV antibiotics. Patient's son sign consent form for midline or PICC line if ultimately an IV line access needed for manager terminal IV antibiotics. in addition, hospitalist discussed with patient/patient's son, window caser about inquiring into nursing facilities that do IV antibiotics after the hospital stay -09/05/2019. WBC downtrended to 11,000. continue IV ertapenem. possible that midline can be placed on 09/06/2019 and consider 2 weeks of IV ertapenem for first negative blood cultures. (2) Fall: -Has had a fall last Thursday08/30/2019 -PT and OT evaluations Skin abrasions/skin tears present on point or arrival -skin abrasions/skin tears of bilateral giang -dressing changes, wound care (3) LYNETTE (acute kidney injury): -Secondary to not been eating or drinking enough -admission Creatinine on 09/02/2019 is 1.49 -creatinine is 1.22 on 09/03/2019 after IV fluids, stopped IV fluids -creatinine is 1.1 on 09/05/2019 (4) Hypertension: -Continue triamterene/HCTZ (5) Interstitial pulmonary fibrosis: -admission CXR: Mild diffuse interstitial thickening which is likely chronic. This is similar to the prior study. This is most pronounced within the left lower lobe. The heart remains borderline enlarged. No pleural effusions. No pneumothorax. No new focal lung consolidations to suggest pneumonia. No evidence for pulmonary edema. Degenerative changes and again noted at the glenohumeral joints. IMPRESSION: No significant change compared to the prior study. No acute process. Chronic interstitial thickening persists. -Saturation remains normal with room air (6) Hypothyroidism: Continue levothyroxine (7) GERD (gastroesophageal reflux disease): Continue PPI DVT prophylaxis Subcu heparin CODE STATUS Full Admission and Anticipated Discharge Date Admission Date: September 02, 2019 Subjective no chest pain. no headache. no shortness of breath. no palpitations. no dizziness. no vomiting. no fever. Review of Systems Review of Systems: All systems reviewed & are unremarkable except as noted in HPI & below Physical Exam Constitutional: cooperative and comfortable Eyes: PERRL, conjunctivae normal, anicteric sclerae EOM intact bilaterally ENMT: external ear and nose normal, oropharynx normal Neck: normal visual inspection Respiratory: normal respiratory effort, lungs clear to auscultation Cardiovascular: Rate/Rhythm: regular rate and regular rhythm Gastrointestinal (Abdomen): normal bowel sounds, soft, nontender, no hepatospl enomegaly Skin: skin tear of skin from dressing Neurologic: PERRL, EOMI, accommodation nl, no face palsy, no dysarthria CN's II-XI intact bilaterally Psychiatric: A+Ox3, euthymic affect Results & Data ([facility]) Vital Signs (Past 12 Hours) Vital Signs Temp Pulse Resp BP Pulse Ox 09/05/19 07:31 37.3 C 68 16 149/58 H 95 (1) Fall Encounter type: initial encounter Qualified Code(s): W19.XXXA - Unspecified fall, initial encounter
[2019-09-05] MEDS: ASPIRIN 81 MG ECTAB PO SCH (20:41)
[2019-09-05] MEDS: MONTELUKAST SODIUM 10 MG TABLET PO SCH (20:41)
[2019-09-06 05:53] LABS: Basophils # (auto) 0.04 K/uL (0-0.2); Basophils % (auto) 0.3 %; Eosinophils # (auto) 0.06 K/uL (0-0.5); Eosinophils % (auto) 0.5 %; Hematocrit (blood only) 27.5 % (37-47); Hemoglobin 8.8 g/dL (12.0-16.0); Immature Granulocytes # (auto) 0.07 K/uL (0.00-0.02); Immature Granulocytes % (auto) 0.6 %; Lymphocytes % (auto) 22.1 %; Mean Corpuscular Hemoglobin 29.5 pg (25-34); Mean Corpuscular Volume 92.3 fL (80-100); Mean Platelet Volume 10.1 fL (7.4-10.4); Monocytes # (auto) 0.98 K/uL (0.11-0.59); Monocytes % (auto) 8.3 %; Neutrophils # (auto) 7.99 K/uL (1.4-6.5); Neutrophils % (auto) 68.2 %; Platelet Count 259 K/uL (130-400); RDW Coefficient of Variation 15.3 % (11.5-14.5); RDW Standard Deviation 52.1 fL (36.4-46.3); Red Blood Count 2.98 M/uL (4.2-5.4); White Blood Count 11.74 K/uL (4.8-10.8)
[2019-09-06] MEDS: LEVOTHYROXINE SODIUM 100 MCG TABLET PO SCH (06:11)
[2019-09-06 06:38] LABS: BUN Creatinine Ratio 18.3 (10-20); Calcium 9.2 mg/dl (8.5-10.1); Est GFR (African American) 56.6; Est GFR (Non-African American) 48.8; Potassium 4.6 mmol/L (3.5-5.1)
[2019-09-06] MEDS: FLUTICASONE/VILANTEROL 200/25MCG 14 PUFFS/INHALER INH SCH (09:33)
[2019-09-06] MEDS: ERTAPENEM SODIUM 500 MG in SODIUM CHLORIDE 0.9% 50 ML IV SCH (09:33)
[2019-09-06] MEDS: ATENOLOL 50 MG TABLET PO SCH (09:34)
[2019-09-06] MEDS: CALCIUM 600MG + VIT D 400 IU TAB PO SCH (09:34)
[2019-09-06] MEDS: TRIAMTERENE/HCTZ 37.5/25MG TAB PO SCH (09:34)
[2019-09-06] MEDS: HEPARIN SOD 5,000 UNIT/0.5 ML VIAL SQ SCH ×2 (09:34→20:48)
[2019-09-06] MEDS: MULTIVITAMIN TAB PO SCH (09:34)
--- NOTE | 2019-09-06 11:43 | Hospitalist Progress Note ---
Date of Service September 06, 2019 Assessment & Plan (1) Acute UTI: Sepsis, POA with urinary tract infection and bacteremia from ESBL Escherichia coli -She was brought into the emergency room on Thursday08/30/2019 after a fall to the floor. UA was ordered and the patient was sent home -Urine came back positive for E. coli which is pansensitive and the patient was called into the emergency room on 09/02/2019 with more weakness, anorexia and fear of falling -She was started with intravenous ceftriaxone and admitted to medical floor. -on 09/03/2019, the admission blood cultures were noted to be positive for gram negative bacilli and patient was continued ceftriaxone -as of 09/04/2019 both the admission urine cultures and the admission blood cultures speciated as ESBL Escherichia coli (including resistance to ceftriaxone). patient was switched to IV Ertapenem daily on 09/04/2019 based on sensitivities. Discussed with patient and patient's son Darryl at the bedside (phone number is [phone]; [phone]) that perhaps the most appropriate treatment is continue IV antibiotics skilled nursing after first negative blood culture to ensure clearance of bacteria. we also discussed the possibility of outpatient oral Levaquin instead but hospitalist doctor pointed out potential side effects of oral fluoroquinolone and possible reduced efficacy compared to IV antibiotics. Patient's son sign consent form for midline or PICC line if ultimately an IV line access needed for skilled nursing IV antibiotics. in addition, hospitalist discussed with patient/patient's son, major case detective about inquiring into nursing facilities that do IV antibiotics after the hospital stay -09/05/2019. WBC downtrended to 11,000. continue IV ertapenem. -09/06/2019: first negative blood culture from 09/04/2019. midline to be placed on 09/06/2019. plans to continue IV ertapenem 500 mg daily for 2 weeks from the first negative blood cultures so last day of antibiotics as 09/18/2019. major case detective to arrange discharge to [facility] once all logistics can be completed (2) Fall: -Has had a fall last Thursday08/30/2019 -PT and OT evaluations Skin abrasions/skin tears present on point or arrival -skin abrasions/skin tears of bilateral giang -in dressing (3) LYNETTE (acute kidney injury): -Secondary to not been eating or drinking enough -admission Creatinine on 09/02/2019 is 1.49 -creatinine is 1.22 on 09/03/2019 after IV fluids, stopped IV fluids -creatinine is 1.03 on 09/06/2019. acute kidney injury is resolved (4) Hypertension: -Continue triamterene/HCTZ (5) Interstitial pulmonary fibrosis: -admission CXR: Mild diffuse interstitial thickening which is likely chronic. This is similar to the prior study. This is most pronounced within the left lower lobe. The heart remains borderline enlarged. No pleural effusions. No pneumothorax. No new focal lung consolidations to suggest pneumonia. No evidence for pulmonary edema. Degenerative changes and again noted at the glenohumeral joints. IMPRESSION: No significant change compared to the prior study. No acute process. Chronic interstitial thickening persists. -Saturation remains normal with room air (6) Hypothyroidism: Continue levothyroxine (7) GERD (gastroesophageal reflux disease): Continue PPI DVT prophylaxis Subcu heparin CODE STATUS Full Admission and Anticipated Discharge Date Admission Date: September 02, 2019 Subjective Patient's son at bedside with the patient. We discussed plans for midline placement and then when ready, likely discharge to [facility] for completion of IV antibiotic course. patient breathing on room air. no acute distress. no chest pain. no dizziness. no vomiting Review of Systems Review of Systems: All systems reviewed & are unremarkable except as noted in HPI & below Physical Exam Constitutional: cooperative and comfortable Eyes: PERRL, conjunctivae normal, anicteric sclerae EOM intact bilaterally ENMT: external ear and nose normal, oropharynx normal Neck: normal visual inspection Respiratory: normal respiratory effort, lungs clear to auscultation Cardiovascular: Rate/Rhythm: regular rate and regular rhythm Gastrointestinal (Abdomen): normal bowel sounds, soft, nontender, no hepatosplenomegaly Skin: Trauma: + evidence of skin trauma (skin tears of bilateral ginag in dressing) Neurologic: PERRL, EOMI, accommodation nl, no face palsy, no dysarthria CN's II-XI intact bilaterally Psychiatric: A+Ox3, euthymic affect Results & Data ([facility]) Vital Signs (Past 12 Hours) Vital Signs Temp Pulse Pulse Resp BP Pulse Ox 09/06/19 07:30 36.6 C 70 18 145/70 H 96 09/05/19 23:43 36.4 C L 70 17 157/71 H 96 (1) Fall Encounter type: initial encounter Qualified Code(s): W19.XXXA - Unspecified fall, initial encounter
[2019-09-06] MEDS: MONTELUKAST SODIUM 10 MG TABLET PO SCH (20:48)
[2019-09-06] MEDS: ASPIRIN 81 MG ECTAB PO SCH (20:48)
[2019-09-07] MEDS: LEVOTHYROXINE SODIUM 100 MCG TABLET PO SCH (06:15)
[2019-09-07 06:32] LABS: Basophils # (auto) 0.03 K/uL (0-0.2); Basophils % (auto) 0.3 %; Eosinophils # (auto) 0.09 K/uL (0-0.5); Eosinophils % (auto) 0.9 %; Hematocrit (blood only) 29.2 % (37-47); Hemoglobin 9.3 g/dL (12.0-16.0); Immature Granulocytes # (auto) 0.09 K/uL (0.00-0.02); Immature Granulocytes % (auto) 0.9 %; Lymphocytes # (auto) 2.64 K/uL (1.2-3.4); Lymphocytes % (auto) 25.8 %; Mean Corpuscular Hemoglobin 29.4 pg (25-34); Mean Corpuscular Hgb Conc 31.8 g/dL (32-36); Mean Corpuscular Volume 92.4 fL (80-100); Monocytes # (auto) 0.75 K/uL (0.11-0.59); Monocytes % (auto) 7.3 %; Neutrophils # (auto) 6.64 K/uL (1.4-6.5); Neutrophils % (auto) 64.8 %; Platelet Count 288 K/uL (130-400); RDW Coefficient of Variation 15.1 % (11.5-14.5); RDW Standard Deviation 51.1 fL (36.4-46.3); Red Blood Count 3.16 M/uL (4.2-5.4); White Blood Count 10.24 K/uL (4.8-10.8)
[2019-09-07 07:00] LABS: BUN Creatinine Ratio 20.2 (10-20); Calcium 9.1 mg/dl (8.5-10.1); Creatinine Clr Calc Pharmacy 26.5 ml/min; Est GFR (African American) 50.6; Est GFR (Non-African American) 43.7; Potassium 4.4 mmol/L (3.5-5.1)
[2019-09-07] MEDS: FLUTICASONE/VILANTEROL 200/25MCG 14 PUFFS/INHALER INH SCH (08:06)
[2019-09-07] MEDS: predniSONE 2.5 MG TAB PO SCH (08:07)
[2019-09-07] MEDS: ATENOLOL 50 MG TABLET PO SCH (08:07)
[2019-09-07] MEDS: MULTIVITAMIN TAB PO SCH (08:07)
[2019-09-07] MEDS: TRIAMTERENE/HCTZ 37.5/25MG TAB PO SCH (08:07)
[2019-09-07] MEDS: CALCIUM 600MG + VIT D 400 IU TAB PO SCH (08:08)
[2019-09-07] MEDS: HEPARIN SOD 5,000 UNIT/0.5 ML VIAL SQ SCH (08:08)
[2019-09-07] MEDS: ERTAPENEM SODIUM 500 MG in SODIUM CHLORIDE 0.9% 50 ML IV SCH (08:12)
[2019-09-07] MEDS: HYDROCODONE/ACETAMINOPHEN 7.5/325MG TAB PO PRN (09:02)
--- NOTE | 2019-09-07 10:32 | Hospitalist Progress Note ---
Date of Service September 07, 2019 Assessment & Plan (1) Acute UTI: Sepsis, Present on Admission with Urinary tract infection and bacteremia from ESBL Escherichia coli per previous hospitalist Dr. Chao Wesley's notes: -She was brought into the emergency room on Thursday08/30/2019 after a fall to the floor. UA was ordered and the patient was sent home -Urine came back positive for E. coli which is pansensitive and the patient was called into the emergency room on 09/02/2019 with more weakness, anorexia and fear of falling -She was started with intravenous ceftriaxone and admitted to medical floor. - urine and blood cultures: E coli ESBL repeat blood cultures 09/04/2019: negative -patient given Ertapenem IV with clinical improvement - discharge plan: continue Ertapenem 500mg IV q24h until September 18, 2019 weekly CBC, Complete Metabolic Profile while on Ertapenem (2) Fall: -Has had a fall last Thursday08/30/2019 Skin abrasions/skin tears present on point or arrival -skin abrasions/skin tears of bilateral giang -healing continue daily wound care - continue PT/OT Fall precautions (3) LYNETTE (acute kidney injury): -Secondary poor oral intake -admission Creatinine on 09/02/2019 is 1.49 - given IV fluids resolved - encourage to increase fluid intake (4) Hypertension: stable -Continue triamterene/HCTZ (5) Interstitial pulmonary fibrosis: per Dr. Chao Wesley's notes: -admission CXR: Mild diffuse interstitial thickening which is likely chronic. This is similar to the prior study. This is most pronounced within the left lower lobe. The heart remains borderline enlarged. No pleural effusions. No pneumothorax. No new focal lung consolidations to suggest pneumonia. No evidence for pulmonary edema. Degenerative changes and again noted at the glenohumeral joints. IMPRESSION: No significant change compared to the prior study. No acute process. Chronic interstitial thickening persists. - stable on room air (6) Hypothyroidism: Continue levothyroxine (7) GERD (gastroesophageal reflux disease): Continue PPI DVT prophylaxis Subcu heparin given CODE STATUS Full Disposition d/c to [facility] ff up with PCP within 1 week Admission and Anticipated Discharge Date Admission Date: September 02, 2019 Subjective ff up for UTI seen resting in bed, comfortable, oriented x 2 not in distress, in good spirits states she feels fine overall has some weakness but improving denies abdominal pain ,nausea/vomiting, urinary symptoms, fever/chills no chest pain, dyspnea, palpitations ambulating to the bathroom with no problems denies other symptoms states she is ready for discharge today Review of Systems Review of Systems: All systems reviewed & are unremarkable except as noted in HPI & below Physical Exam Physical Exam: General- oriented x 3, not in distress, speaks in sentences with no effort or accessory muscle use Head- atraumatic Eyes- PERRL, EOMI, anicteric ENT- oropharynx clear Neck- supple, no JVD, no adenopathy, no thyromegaly; carotids +2/2, no bruits appreciated Lungs- clear to auscultation bilaterally, no rales/wheezes Heart- normal rate, regular rhythm; no murmur, no gallop, no rub appreciated Abdomen- normal bowel sounds, nondistended, soft, nontender, no masses or hepatosplenomegaly Extremities- no pretibial edema, no calf tenderness; peripheral pulses intact (+) skin tears Bilateral giang- no signs of infection, healing well Neuro- alert, oriented x 2; CN 2-12 grossly intact; motor 5/5 bilaterally;sensation 100% on all extremities; no other gross focal neurologic deficits Skin- warm & dry Results & Data ([facility]) Vital Signs (Past 12 Hours) Vital Signs Temp Pulse Resp BP Pulse Ox 09/07/19 07:27 36.4 C L 70 18 155/66 H 97 09/06/19 23:22 36.7 C 72 18 128/65 95 Laboratory Results Laboratory Results - last 24 hr 09/07/19 09/07/19 06:09 06:09 WBC 10.24 RBC 3.16 L Hgb 9.3 L Hct 29.2 L MCV 92.4 MCH 29.4 MCHC 31.8 L RDW Std Deviation 51.1 H RDW Coeff of Heather 15.1 H Plt Count 288 MPV 10.0 Immature Gran % (Auto) 0.9 Neut % (Auto) 64.8 Lymph % (Auto) 25.8 [place] % (Auto) 7.3 Eos % (Auto) 0.9 Baso % (Auto) 0.3 Immature Gran # (Auto) 0.09 H Neut # (Auto) 6.64 H Lymph # (Auto) 2.64 [place] # (Auto) 0.75 H Eos # (Auto) 0.09 Baso # (Auto) 0.03 Sodium 135 L Potassium 4.4 Chloride 104 Carbon Dioxide 25 Anion Gap 6.0 BUN 23 H Creatinine 1.13 Est Cr Clr Drug Dosing 26.5 Est GFR ( Amer) 50.6 Est GFR (Non-Af Amer) 43.7 BUN/Creatinine Ratio 20.2 H Glucose 87 Calcium 9.1 (1) Fall Encounter type: initial encounter Qualified Code(s): W19.XXXA - Unspecified fall, initial encounter
--- NOTE | 2019-09-07 10:41 | Discharge Summary ---
Date of Service September 07, 2019 Admission HPI Per Admitting Provider She is an 89-year-old female with significant past medical history including hypertension, hypothyroidism, GERD, interstitial pulmonary fibrosis, chronic kidney disease stage III, hypokalemia and osteoarthritis has had a fall last Thursday and she was brought into the emergency room for further evaluation. She did not have any significant findings on blood test and or x-rays except white count is elevated to 23,000 and there was thought to be due to prednisone. A urine sample is taken and the patient was sent back home. The urine test come back positive for E. coli pansensitive and the patient is brought back to the emergency room today with increasing weakness, anorexia, risk of falling at home as per the son and without any significant urinary symptoms. She denies any fever and/or chills, any chest pain and/or palpitation, any abdominal pain, nausea and or vomiting, any numbness and or tingling involving any of the extremities. She has generalized weakness but nothing focal. Her white count remains elevated at 23,000 and urine culture was positive for E. coli which was pansensitive. She was started with intravenous ceftriaxone and was admitted to medical floor for continuation of care. Admission Exam Per Admitting Provider Physical Exam: Lying in bed comfortably Constitutional: + ill appearing and + thin; no acute distress Eyes: PERRL, conjunctivae normal, anicteric sclerae ENMT: external ear and nose normal, oropharynx normal Neck: trachea midline, no thyromegaly Respiratory: normal respiratory effort Auscultation: + diminished lung sounds and + crackles (Minimal crackles at the bases) Cardiovascular: Rate/Rhythm: regular rate and regular rhythm Heart Sounds: no murmur Gastrointestinal (Abdomen): Inspection/Auscultation: abdomen normal to inspection; abdomen not distended Percussion/Palpation: abdomen soft; abdomen nontender Musculoskeletal: No acute arthritis Skin: Superficial skin tear involving both the lower legs secondary to recent fall Neurologic: moves all extremities; no focal motor deficits Generally weak Lymphatic: no cervical or axillary lymphadenopathy Principal Diagnosis SEPSIS SECONDARY TO E COLI ESBL URINARY TRACT INFECTION AND BACTEREMIA Discharge Exam General- oriented x 3, not in distress, speaks in sentences with no effort or accessory muscle use Head- atraumatic Eyes- PERRL, EOMI, anicteric ENT- oropharynx clear Neck- supple, no JVD, no adenopathy, no thyromegaly; carotids +2/2, no bruits appreciated Lungs- clear to auscultation bilaterally, no rales/wheezes Heart- normal rate, regular rhythm; no murmur, no gallop, no rub appreciated Abdomen- normal bowel sounds, nondistended, soft, nontender, no masses or hepatosplenomegaly Extremities- no pretibial edema, no calf tenderness; peripheral pulses intact (+) skin tears Bilateral giang- no signs of infection, healing well Neuro- alert, oriented x 2; CN 2-12 grossly intact; motor 5/5 bilaterally;sensation 100% on all extremities; no other gross focal neurologic deficits Skin- warm & dry Discharge Data Allergies Allergy/AdvReac Type Severity Reaction Status Date / Time capsaicin AdvReac Mild N/V Verified 09/02/19 14:54 diclofenac AdvReac Mild N/V Verified 09/02/19 14:54 Diclopak AdvReac Mild N/V Verified 01/03/18 15:28 ketoprofen AdvReac Mild N/V Verified 09/02/19 14:54 naproxen AdvReac Mild N/V Verified 09/02/19 14:54 propoxyphene AdvReac Mild N/V Verified 09/02/19 14:54 rofecoxib AdvReac Mild ABD CRAMPS Verified 09/02/19 14:54 Sulfa (Sulfonamide AdvReac Mild N/V Verified 09/02/19 14:54 Antibiotics) sulfamethoxazole AdvReac Mild N/V Verified 09/02/19 14:54 tramadol AdvReac Mild N/V Verified 09/02/19 14:54 trimethoprim AdvReac Mild N/V Verified 09/02/19 14:54 Consultations 09/02/19 15:53 ED Decision to Admit Stat 09/02/19 16:49 Consult Case Management - Discharge Planning Routine Hospital Course (1) Acute UTI: Sepsis, Present on Admission with Urinary tract infection and bacteremia from ESBL Escherichia coli per previous hospitalist Dr. Chao Wesley's notes: -She was brought into the emergency room on Thursday08/30/2019 after a fall to the floor. UA was ordered and the patient was sent home -Urine came back positive for E. coli which is pansensitive and the patient was called into the emergency room on 09/02/2019 with more weakness, anorexia and fear of falling -She was started with intravenous ceftriaxone and admitted to medical floor. - urine and blood cultures: E coli ESBL repeat blood cultures 09/04/2019: negative -patient given Ertapenem IV with clinical improvement afebrile, asymptomatic on discharge day - discharge plan: continue Ertapenem 500mg IV q24h until September 18, 2019 weekly CBC, Complete Metabolic Profile while on Ertapenem Probiotics x 4 weeks ff up with PCP Dr. Elena at 330pm (2) Fall: - had a fall last Thursday08/30/2019 Skin abrasions/skin tears present on point or arrival -skin abrasions/skin tears of bilateral giang -healing continue daily wound care - continue PT/OT Fall precautions (3) LYNETTE (acute kidney injury): -Secondary poor oral intake -admission Creatinine on 09/02/2019 is 1.49 - given IV fluids resolved - encourage to increase fluid intake (4) Hypertension: stable -Continue triamterene/HCTZ (5) Interstitial pulmonary fibrosis: per Dr. Chao Wesley's notes: -admission CXR: Mild diffuse interstitial thickening which is likely chronic. This is similar to the prior study. This is most pronounced within the left lower lobe. The heart remains borderline enlarged. No pleural effusions. No pneumothorax. No new focal lung consolidations to suggest pneumonia. No evidence for pulmonary edema. Degenerative changes and again noted at the glenohumeral joints. IMPRESSION: No significant change compared to the prior study. No acute process. Chronic interstitial thickening persists. - stable on room air (6) Hypothyroidism: Continue levothyroxine (7) GERD (gastroesophageal reflux disease): Continue PPI DVT prophylaxis Subcu heparin given CODE STATUS Full Disposition d/c to [facility] ff up with PCP within 1 week Total Time Total Time Spent Total Time Spent (In Minutes): 45 minutes Discharge Plan Discharge Items Patient Disposition: Transfer Inpatient Rehab Fac Reason For Visit: UTI,AMBULATORY DYSFUNCTION Discharge Diagnosis: Sepsis, POA with urinary tract infection and bacteremia from ESBL Escherichia coli Skin abrasions/skin tears present on point or arrival Hypertension Acute Kidney Injury (LYNETTE) resolved Condition on Discharge: Good Activity: Per Instructions section Activity Comment: continue PT/OT, Fall precautions please, Always with Assistance Driving/Machine Use: No Driving Non-emergency contact: Primary Care Provider Call non-emergency contact if: you have any medication questions, your symptoms worsen, your pain is worsening, you have a fever, your wound has increased redness, your wound has increased drainage and your wound pain has increased Follow-up/Referrals: Amari Elena MD [Primary Care Provider] - 09/14/19 3:30 pm (Your appointmnt is with Dr. Amari Elena on September 14, 2019 at 3:15 p.m. Please arrive 15 minutes early for your appointment If you need to reschedule please call ) Diet: Regular and Heart Healthy Diet Comment: Please encourage to increase oral fluid intake Addtl Attending Provider Instructions: first negative blood culture from 09/04/2019. midline placed on 09/06/2019. plans to continue IV ertapenem 500 mg daily for 2 weeks from the first negative blood cultures so last day of antibiotics is 09/18/2019. patient will need once weekly CBC and complete metabolic panel while on IV antibiotics outpatient scheduled appointments 09/14/2019 3:30 PM Provider Amari Elena MD Department [facility] 11/16/2019 1:10 PM Provider Amair Elena MD Department [facility] PLEASE REFER TO ACCOMPANYING HOSPITAL DISCHARGE SUMMARY FOR FURTHER DETAILS Pending Studies at Discharge: Yes Studies:: WEEKLY CBC AND COMPLETE METABOLIC PROFILE WHILE ON IV ERTAPENEM Stand-Alone Forms: My [facility] Skilled Items Patient informed of condition?: Yes DNR: No Discharge Level of Care: Skilled Communicable Disease: No Discharge Prognosis: Stable Lines: Mid-Line Urinary Catheter: No Medications and DC Order Prescriptions: New ertapenem 1 gram recon soln 500 mg IV DAILY 11 Days Qty: 11 RF: 0 Continued Restasis 0.05 % dropperette 1 drp OPB BID RF: 0 triamterene-hydrochlorothiazid 37.5-25 mg tablet 1 tab PO QAM RF: 0 calcium carbonate-vitamin D3 600 mg(1,500mg) -200 unit tablet 1 tab PO QAM RF: 0 fluticasone propion-salmeterol 250-50 mcg/dose blister with device 1 puffs inhalation BID RF: 0 multivitamin [Daily Multi-Vitamin] tablet 1 tab PO QAM RF: 0 montelukast 10 mg tablet 10 mg PO HS Qty: 30 RF: 0 prednisone 5 mg tablet 2.5 mg PO Q2D RF: 0 omeprazole 20 mg capsule,delayed release(DR/EC) 20 mg PO DAILY PRN (Reason: Acid Reflux) RF: 0 atenolol 50 mg tablet 50 mg PO QAM Qty: 30 RF: 0 diclofenac sodium 3 % gel 0 g topical TID PRN (Reason: Pain) RF: 0 aspirin 81 mg Tablet,Delayed Release (Dr/Ec) 81 mg PO HS RF: 0 levothyroxine 100 mcg tablet 100 mcg PO QAM RF: 0 Discontinued potassium chloride 20 mEq tablet extended release 40 meq PO QAM RF: 0 hydrocodone-acetaminophen 7.5-300 mg tablet 0.5 - 1 tab PO DAILY PRN (Reason: Pain) RF: 0 Discharge Orders: Discharge Order (Routine); Ordered 09/07/19 Ordered By: Nirav Allison Admission Data Admit Date/Time: 09/02/19 16:48 Attending Provider: Nirav Allison Admit Provider: Silvino Gilliland Primary Care Provider: Amari Elena Other Providers: Silvino Gilliland ; Rui Steiner ; Chao Wesley
== END 2019-09-07 14:40 | DRG 872 ==
LOC: ED 13:15 → 4W 16:48 → SUATTDRO 16:48 → 4W 17:38

== ENCOUNTER 2020-02-02 16:03 | Inpatient (IN) ==
[2020-02-02] MEDS ORDERED: LORATADINE 10 MG TAB PO ONE (16:37)
--- NOTE | 2020-02-02 16:48 | Emergency Department Note ---
History of Present Illness General Chief complaint: Illness Stated complaint: POSSIBLE UTI, WS HERE THE SYMPTOMS NO BETTER Time Seen by Provider: 02/02/20 16:25 Source: patient Limitations: no limitations History of Present Illness Provider complaint: Sinus symptoms Onset (ago): week(s) Location: face Radiation: non-radiation Severity: moderate Pain Consistency: + intermittent Quality: + other (Pressure) Relieved By: + none Associated symptoms: no chest pain, no cough, no fever/chills, no headaches, no nausea/vomiting and no shortness of breath This is an 89-year-old female presents with sinus symptoms for several weeks. She states that she feels a lot of pressure in her face and has significant sinus congestion. She is currently on prednisone 2.5 mg daily as prescribed by her municipal engineer. She was here January 09 and placed on Levaquin for a UTI and sinusitis. She took 2 doses after which she stated it did not make her feel well so her PCP switched her to amoxicillin which she took 500 twice daily for 7 days. She complains of persistent sinus symptoms with nasal drip. She states that she will be walking in her living room and her nose will drip to the floor. She denies cough, fever, chest pain, shortness of breath, abdominal pain, vomiting, diarrhea, urinary symptoms or headache. Her son is here with her and he is concerned that she may have another UTI as she has had them frequently. She states her urinary symptoms have resolved since her last visit. She lives at home and has had no known exposure to COVID-19. Home Medications Home Medications Medication Instructions Recorded Confirmed Type atenolol 50 mg tablet 50 mg PO QAM #30 tab 03/15/19 02/02/20 History diclofenac sodium 3 % topical gel 1 applic TOPICAL TID PRN gm 03/15/19 02/02/20 History fluticasone 250 mcg-salmeterol 50 1 puffs INHALATION BID ea 03/15/19 02/02/20 History mcg/dose blistr powdr for inhalation multivitamin 1 tab PO QAM 03/15/19 02/02/20 History omeprazole 20 mg capsule,delayed 20 mg PO DAILY cap 03/15/19 02/02/20 History release triamterene 37.5 1 tab PO QAM tab 03/15/19 02/02/20 History mg-hydrochlorothiazide 25 mg tablet aspirin 81 mg PO HS 06/15/19 02/02/20 History levothyroxine 100 mcg PO QAM 08/30/19 02/02/20 History cyclosporine [Restasis] 1 drp OPB BID 01/10/20 02/02/20 History potassium chloride 20 meq PO QAM 01/10/20 02/02/20 History prednisone 2.5 mg PO Q2D 01/10/20 02/02/20 History benzonatate [Tessalon Perles] 100 mg PO TID 02/02/20 02/02/20 History calcium carbonate [Calcium 600] 600 mg PO DAILY 02/02/20 02/02/20 History conjugated estrogens [Premarin] 0.625 mg VAGINAL UD 02/02/20 02/02/20 History hydrocodone-acetaminophen [[place]] 1 tab PO Q8 PRN 02/02/20 02/02/20 History ipratropium bromide 2 spray INTRANASAL TID PRN 02/02/20 02/02/20 History methylcellulose (laxative) 2 g PO DAILY 02/02/20 02/02/20 History montelukast 10 mg PO HS PRN 02/02/20 02/02/20 History oxycodone-acetaminophen [Percocet] 1 tab PO BID PRN 02/02/20 02/02/20 History Allergies Allergy/AdvReac Type Severity Reaction Status Date / Time capsaicin AdvReac Mild Nausea/Vomi Verified 02/02/20 17:46 ting diclofenac AdvReac Mild Nausea/Vomi Verified 02/02/20 17:46 ting Diclopak AdvReac Mild N/V Verified 01/03/18 15:28 ketoprofen AdvReac Mild Nausea/Vomi Verified 02/02/20 17:46 ting naproxen AdvReac Mild Nausea/Vomi Verified 02/02/20 17:46 ting propoxyphene AdvReac Mild Nausea/Vomi Verified 02/02/20 17:46 ting rofecoxib AdvReac Mild Abdominal Verified 02/02/20 17:46 cramps Sulfa (Sulfonamide AdvReac Mild Nausea/Vomi Verified 02/02/20 17:46 Antibiotics) ting sulfamethoxazole AdvReac Mild Nausea/Vomi Verified 02/02/20 17:46 ting tramadol AdvReac Mild Nausea/Vomi Verified 02/02/20 17:46 ting trimethoprim AdvReac Mild Nausea/Vomi Verified 01/10/20 17:18 ting Past Med/Surg History Medical History CKD (chronic kidney disease), stage III (Chronic) Deviated nasal septum (Chronic) GERD (gastroesophageal reflux disease) (Chronic) Hiatal hernia (Chronic) Hypertension (Chronic) Hypothyroidism (Chronic) Interstitial pulmonary fibrosis (Chronic) Left bundle branch block (Chronic) Osteoarthritis (Chronic) Surgical History H/O repair of right rotator cuff (Chronic) History of appendectomy (Chronic) History of cataract surgery (Chronic) History of hysterectomy (Chronic) History of left oophorectomy (Chronic) 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 and A total of 10 systems reviewed and were otherwise negative Physical Exam Vital Signs Vital Signs - 24 hr 02/02/20 16:06 02/02/20 18:44 02/02/20 18:45 Temperature 36.5 C Temperature Source Oral Pulse Rate 68 Pulse Rate [Finger] 70 Respiratory Rate 20 18 Blood Pressure 145/65 H Blood Pressure [Right Arm] 214/95 H 197/131 H Blood Pressure Mean 91 Blood Pressure Mean [Right Arm] 134 153 Blood Pressure Position Sitting Pulse Oximetry 98 97 Oxygen Delivery Method Room Air Sepsis Recent Fever Within 48 Hours No Sepsis New/Unexplained Change in Mental Status No Sepsis Action Taken by Nursing No Action Required Constitutional: Vital signs reviewed. Eyes: Pupils are equal round reactive to light. Conjunctiva are noninjected. ENT: Pharynx is clear without erythema or exudate. Mucous membranes are moist. No frontal or maxillary sinus tenderness. Neck supple without meningeal signs. Respiratory: Clear to auscultation bilaterally. Breath sounds are equal bilaterally. Cardiovascular: Regular rate and rhythm. No rubs or gallops. GI: Soft, nondistended and nontender. Bowel sounds are present. Musculoskeletal: No peripheral edema. No lower extremity tenderness. Integumentary: No cyanosis. or jaundice. Neurological: The patient is awake and alert. No focal deficits. Psychiatric: Normal affect. Not anxious appearing. Course Administered Medications Discontinued Medications Ceftriaxone Sodium (Rocephin) 2,000 mg in 70 mls @ 140 mls/hr IV NOW STA Stop: 02/02/20 19:18 Last Admin: 02/02/20 19:27 Dose: 140 mls/hr Documented by: [id number] Loratadine (Claritin) 10 mg PO NOW ONE Stop: 02/02/20 16:38 Last Admin: 02/02/20 17:05 Dose: 10 mg Documented by: [id number] Medical Decision Making Differential Diagnosis Acute sinusitis, UTI, pneumonia, allergic rhinitis, pyelonephritis Medical Records Attestation: I reviewed the patient's medical records. The patient was seen here January 09 for urinary symptoms and sinus symptoms. She was diagnosed with a UTI and sinusitis and placed on Levaquin for 7 days. Urine culture grew out E. coli which was sensitive to Levaquin but resistant to ampicillin. Home Medications Current Medication List: was personally reviewed by me Laboratory Data Attestation: I reviewed the patient's lab results. Result diagrams: 02/02/20 16:52 02/02/20 16:52 Lab Results 02/02/20 02/02/20 02/02/20 Range/Units 16:52 16:52 16:52 WBC 9.85 (4.8-10.8) K/uL RBC 3.75 L (4.2-5.4) M/uL Hgb 11.0 L (12.0-16.0) g/dL Hct 31.9 L (37-47) % MCV 85.1 (80-100) fL MCH 29.3 (25-34) pg MCHC 34.5 (32-36) g/dL RDW Std Deviation 44.2 (36.4-46.3) fL RDW Coeff of Heather 14.2 (11.5-14.5) % Plt Count 224 (130-400) K/uL MPV 9.1 (7.4-10.4) fL Immature Gran % (Auto) 0.5 % Neut % (Auto) 71.5 % Lymph % (Auto) 14.0 % Divide % (Auto) 12.5 % Eos % (Auto) 1.4 % Baso % (Auto) 0.1 % Neut # (Auto) 7.04 H (1.4-6.5) K/uL Lymph # (Auto) 1.38 (1.2-3.4) K/uL Divide # (Auto) 1.23 H (0.11-0.59) K/uL Eos # (Auto) 0.14 (0-0.5) K/uL Baso # (Auto) 0.01 (0-0.2) K/uL Immature Gran # (Auto) 0.05 H (0.00-0.02) K/uL D-Dimer 1410 H* (0-500) ug/L FEU Sodium 129 L (136-145) mmol/L Potassium 4.3 (3.5-5.1) mmol/L Chloride 96 L (98-107) mmol/L Carbon Dioxide 26 (21-32) mmol/L Anion Gap 7.0 (3-11) BUN 23 H (7-18) mg/dl Creatinine 1.16 (0.6-1.2) mg/dl Est Cr Clr Drug Dosing Not Reportable Est GFR ( Amer) 49.0 Est GFR (Non-Af Amer) 42.3 BUN/Creatinine Ratio 19.8 (10-20) Glucose 89 (70-99) mg/dl Calcium 9.7 (8.5-10.1) mg/dl Procalcitonin (0-0.5) ng/ml Urine Color Urine Appearance (Clear) Urine pH (4.5-7.5) Ur Specific Ros[place] (1.000-1.030) Urine Protein (Negative) Urine Glucose (UA) (Negative) Urine Ketones (Negative) Urine Blood (Negative) Urine Nitrite (Negative) Urine Bilirubin (Negative) Urine Urobilinogen (Negative) Ur Leukocyte Esterase (Negative) Urine WBC (Auto) (0-5) /hpf Urine RBC (Auto) (0-4) /hpf U Hyaline Cast (Auto) (0-5) /lpf U Epithel Cells (Auto) (0-5) /lpf Urine Bacteria (Auto) (Negative) COVID-19 PCR (Negative) 02/02/20 02/02/20 02/02/20 Range/Units 16:52 17:55 18:35 WBC (4.8-10.8) K/uL RBC (4.2-5.4) M/uL Hgb (12.0-16.0) g/dL Hct (37-47) % MCV (80-100) fL MCH (25-34) pg MCHC (32-36) g/dL RDW Std Deviation (36.4-46.3) fL RDW Coeff of Heather (11.5-14.5) % Plt Count (130-400) K/uL MPV (7.4-10.4) fL Immature Gran % (Auto) % Neut % (Auto) % Lymph % (Auto) % Divide % (Auto) % Eos % (Auto) % Baso % (Auto) % Neut # (Auto) (1.4-6.5) K/uL Lymph # (Auto) (1.2-3.4) K/uL Divide # (Auto) (0.11-0.59) K/uL Eos # (Auto) (0-0.5) K/uL Baso # (Auto) (0-0.2) K/uL Immature Gran # (Auto) (0.00-0.02) K/uL D-Dimer (0-500) ug/L FEU Sodium (136-145) mmol/L Potassium (3.5-5.1) mmol/L Chloride (98-107) mmol/L Carbon Dioxide (21-32) mmol/L Anion Gap (3-11) BUN (7-18) mg/dl Creatinine (0.6-1.2) mg/dl Est Cr Clr Drug Dosing Est GFR ( Amer) Est GFR (Non-Af Amer) BUN/Creatinine Ratio (10-20) Glucose (70-99) mg/dl Calcium (8.5-10.1) mg/dl Procalcitonin < 0.05 (0-0.5) ng/ml Urine Color Yellow Urine Appearance Clear (Clear) Urine pH 7.5 (4.5-7.5) Ur Specific [place] 1.016 (1.000-1.030) Urine Protein Negative (Negative) Urine Glucose (UA) Negative (Negative) Urine Ketones Negative (Negative) Urine Blood Negative (Negative) Urine Nitrite Negative (Negative) Urine Bilirubin Negative (Negative) Urine Urobilinogen Negative (Negative) Ur Leukocyte Esterase 1+ H (Negative) Urine WBC (Auto) 1-5 (0-5) /hpf Urine RBC (Auto) 0-4 (0-4) /hpf U Hyaline Cast (Auto) 1-5 (0-5) /lpf U Epithel Cells (Auto) >30 H (0-5) /lpf Urine Bacteria (Auto) Negative (Negative) COVID-19 PCR NEGATIVE (Negative) Imaging Data Radiologist's Impression: CT sinus wo con CT DOSE: 355.72 mGy.cm HISTORY: facial pain eval for sinusitus TECHNIQUE: Multiaxial CT images of the paranasal sinuses were performed and reformatted in the coronal plane without the use of contrast. A dose lowering technique was utilized adhering to the principles of ALARA. COMPARISON: None. FINDINGS: The frontal sinuses, ethmoid air cells, sphenoid sinuses, and bilateral maxillary antra are clear. The mastoid air cells are clear. The bilateral ostiomeatal units are patent. The nasal septum is midline. The orbits are unremarkable. Mild hyperplastic changes of the nasal turbinates IMPRESSION: Mild hyperplastic changes the nasal turbinates. Study is otherwise normal. ACT 112: Negative or not required by law. The above report was generated using voice recognition software. It may contain grammatical, syntax or spelling errors. Electronically signed by: Amari Mejía M.D. 02/02/2020 5:49 PM Dictated: 02/02/201747 Transcribed: 02/02/201747 XR chest 1V portable CLINICAL HISTORY: feeling unwell eval for pna dyspnea COMPARISON STUDY: 01/10/2020 FINDINGS: Developing interstitial infiltrate left base. Lungs otherwise appear clear. Mild stable cardiomegaly. The diaphragms are smooth. Severe degenerative change right and to a lesser extent left shoulder. IMPRESSION: Interstitial infiltrate left base. ACT 112: Negative or not required by law. The above report was generated using voice recognition software. It may contain grammatical, syntax or spelling errors. Electronically signed by: Amari Mejía M.D. 02/02/2020 5:18 PM ECG Data Attestation: I personally reviewed and interpreted this ECG as follows: Indication: + other (Eval QT for medication ) Rate (beats per minute): 63 Rhythm: + normal sinus ECG Intervals/blocks: + Left bundle branch block ECG [place]: + Left axis deviation ECG Findings: no PVCs Comparison ECG Date: from (January 10, 2020) Change: no significant change Blood Pressure Blood Pressure Findings: Elevated blood pressure Blood Pressure Disposition: Referred to patients primary care provider MDM Narrative I did evaluate the patient as noted above. The patient was seen here last month for UTI and sinusitis. She was placed on an appropriate antibiotic but unfortunately she did not like the side effects and so she was switched to amoxicillin which showed resistance based on the urine culture. I spoke to the pharmacist who reviewed her pharmacy record and apparently the patient was on Augmentin and not amoxicillin which would be appropriate for her urine culture results. She is presenting, however, with more sinus symptoms than she is any urinary symptoms. I did treat her with Claritin p.o. for possible allergic rhinitis. IV access was established. I did order and personally reviewed the images of the patient's chest x-ray as described above. She does have a left l ower lobe infiltrate. The patient was placed in respiratory isolation. Blood cultures were ordered. A COVID-19 test was ordered. I did order a urine analysis. She does not appear to have a urinary tract infection. I did order and review the patient's blood work as noted in the electronic medical record. She does not have leukocytosis. She has chronic anemia and chronic hyponatremia. I did order a CT of the sinus. I did review the images myself as well as the radiology report as described above. She does not have any significant sinus disease. I did discuss the test results with the patient and her son. She has a curb 65 score of 2. She will be hospitalized for further care and evaluation. I did discuss the case with the hospitalist and telephonic case manager. The hospitalist requested treatment with IV doxycycline and Rocephin. I did order 2 g of IV Rocephin and 100 g of IV doxycycline. Impression & Plan Left lower lobe pneumonia, Chronic hyponatremia, Anemia Discharge Plan Visit Data Chief Complaint: Illness Stated Complaint: POSSIBLE UTI, WS HERE THE 14TH SYMPTOMS NO BETTER ED Provider: Eagle Valadez Discharge Problem: Left lower lobe pneumonia, Chronic hyponatremia, Anemia Patient Disposition: Being Evaluated by Hospitalist Forms Stand Alone Forms: My [facility] Prescriptions Prescriptions: No Action triamterene-hydrochlorothiazid 37.5-25 mg tablet 1 tab PO QAM RF: 0 fluticasone propion-salmeterol 250-50 mcg/dose blister with device 1 puffs inhalation BID RF: 0 multivitamin [Daily Multi-Vitamin] tablet 1 tab PO QAM RF: 0 omeprazole 20 mg capsule,delayed release(DR/EC) 20 mg PO DAILY RF: 0 atenolol 50 mg tablet 50 mg PO QAM Qty: 30 RF: 0 diclofenac sodium 3 % gel 1 applic topical TID PRN (Reason: Pain) RF: 0 aspirin 81 mg Tablet,Delayed Release (Dr/Ec) 81 mg PO HS RF: 0 potassium chloride 20 mEq tablet,ER particles/crystals 20 meq PO QAM RF: 0 prednisone 2.5 mg tablet 2.5 mg PO Q2D RF: 0 Restasis 0.05 % dropperette 1 drp OPB BID RF: 0 levothyroxine 100 mcg tablet 100 mcg PO QAM RF: 0 oxycodone-acetaminophen [Percocet] 5-325 mg Tablet 1 tab PO BID PRN (Reason: Moderate Pain (Scale Score 5-6)) RF: 0 Premarin 0.625 mg/gram Cream 0.625 mg VAGINAL UD RF: 0 ipratropium bromide 0.03 % spray,non-aerosol 2 spray INTRANASAL TID PRN (Reason: Nasal Congestion) RF: 0 hydrocodone-acetaminophen [[place]] 5-325 mg tablet 1 tab PO Q8 PRN (Reason: pain) RF: 0 montelukast 10 mg tablet 10 mg PO HS PRN (Reason: allergies) RF: 0 calcium carbonate [Calcium 600] 600 mg calcium (1,500 mg) Tablet 600 mg PO DAILY RF: 0 benzonatate [Tessalon Perles] 100 mg Capsule 100 mg PO TID RF: 0 methylcellulose (laxative) Powder 2 g PO DAILY RF: 0 Referrals Referrals: Amari Elena MD [Primary Care Provider] - Discharge Problem: Left lower lobe pneumonia Qualifiers: Pneumonia type: due to unspecified organism Qualified Code(s): J18.9 - Pneumonia, unspecified organism Anemia Qualifiers: Anemia type: unspecified type Qualified Code(s): D64.9 - Anemia, unspecified
[2020-02-02 17:14] LABS: Basophils # (auto) 0.01 K/uL (0-0.2); Basophils % (auto) 0.1 %; Eosinophils # (auto) 0.14 K/uL (0-0.5); Eosinophils % (auto) 1.4 %; Hematocrit (blood only) 31.9 % (37-47); Immature Granulocytes # (auto) 0.05 K/uL (0.00-0.02); Immature Granulocytes % (auto) 0.5 %; Lymphocytes # (auto) 1.38 K/uL (1.2-3.4); Mean Corpuscular Hemoglobin 29.3 pg (25-34); Mean Corpuscular Hgb Conc 34.5 g/dL (32-36); Mean Corpuscular Volume 85.1 fL (80-100); Mean Platelet Volume 9.1 fL (7.4-10.4); Monocytes # (auto) 1.23 K/uL (0.11-0.59); Monocytes % (auto) 12.5 %; Neutrophils # (auto) 7.04 K/uL (1.4-6.5); Neutrophils % (auto) 71.5 %; Platelet Count 224 K/uL (130-400); RDW Coefficient of Variation 14.2 % (11.5-14.5); RDW Standard Deviation 44.2 fL (36.4-46.3); Red Blood Count 3.75 M/uL (4.2-5.4); White Blood Count 9.85 K/uL (4.8-10.8)
--- NOTE | 2020-02-02 17:19 | XRay Report ---
XR chest 1V portable CLINICAL HISTORY: feeling unwell eval for pna dyspnea COMPARISON STUDY: 01/10/2020 FINDINGS: Developing interstitial infiltrate left base. Lungs otherwise appear clear. Mild stable car diomegaly. The diaphragms are smooth. Severe degenerative change right and to a lesser extent left shoulder. IMPRESSION: Interstitial infiltrate left base. ACT 112: Negative or not required by law. The above report was generated using voice recognition software. It may contain grammatical, syntax or spelling errors. Electronically signed by: Amari Mejía M.D. 02/02/2020 5:18 PM
[2020-02-02 17:41] LABS: BUN Creatinine Ratio 19.8 (10-20); Blood Urea Nitrogen 23 mg/dl (7-18); Calcium 9.7 mg/dl (8.5-10.1); Carbon Dioxide 26 mmol/L (21-32); Chloride 96 mmol/L (98-107); Est GFR (Non-African American) 42.3; Glucose 89 mg/dl (70-99); Potassium 4.3 mmol/L (3.5-5.1); Sodium 129 mmol/L (136-145)
--- NOTE | 2020-02-02 17:51 | CT Scan Report ---
CT sinus wo con CT DOSE: 355.72 mGy.cm HISTORY: facial pain eval for sinusitus TECHNIQUE: Multiaxial CT images of the paranasal sinuses were performed and reformatted in the ochoa l plane without the use of contrast. A dose lowering technique was utilized adhering to the principl es of CARMELLA. COMPARISON: None. FINDINGS: The frontal sinuses, ethmoid air cells, sphenoid sinuses, and bilateral maxillary antra are clear. The mastoid air cells are clear. The bilateral ostiomeatal units are patent. The nasal septum is midline. The orbits are unremarkable. Mild hyperplastic changes of the nasal turbinates IMPRESSION: Mild hyperplastic changes the nasal turbinates. Study is otherwise normal. ACT 112: Negative or not required by law. The above report was generated using voice recognition software. It may contain grammatical, syntax or spelling errors. Electronically signed by: Amari Mejía M.D. 02/02/2020 5:49 PM
[2020-02-02 18:16] LABS: Appearance Urine Clear (Clear); Bacteria Urine Automated Negative (Negative); Bilirubin Urine Negative (Negative); Blood Urine Negative (Negative); Color Urine Yellow; Epithelial Cell Urine Auto >30 /lpf (0-5); Glucose Urine UA Negative (Negative); Ketones Urine Negative (Negative); Leukocyte Esterase Urine 1+ (Negative); Nitrite Urine Negative (Negative); Protein Urine Negative (Negative); RBC Urine Automated 0-4 /hpf (0-4); Specific Gravity Urine 1.016 (1.000-1.030); Urobilinogen Urine Negative (Negative); pH Urine 7.5 (4.5-7.5)
[2020-02-02] MEDS ORDERED: DOXYCYCLINE HYCLATE 100 MG in DEXTROSE 5% 100 ML IV STA (18:49)
[2020-02-02] MEDS ORDERED: cefTRIAXone SODIUM 2,000 MG/70 ML BAG IV STA (18:49)
--- NOTE | 2020-02-02 19:05 | History & Physical Report ---
Date of Service February 02, 2020 Assessment & Plan (1) Left lower lobe pneumonia: Left lower lobe pneumonia: Patient started on IV Rocephin and doxycycline for community-acquired pneumonia D-dimer elevated, with normal procalcitonin level, COVID-[address] chest with contrast ordered to rule out PE, and also to evaluate underlying interstitial lung disease/progression of lung fibrosis Consider pulmonology evaluation if CT chest shows significant lung disease Scattered wheeze noted, no respiratory distress, no hypoxia or tachypnea Ordered prednisone 40 mg p.o. daily for 5 days Sputum culture ordered for Gram stain and culture Hypertensive urgency: Systolic blood pressure elevated 200-197/diastolic 95-130 Denies of any chest pain chest discomfort shortness of breath or dyspnea on exertion On atenolol 50 mg daily, hydrochlorothiazide 25/triamterene 37.5 mg Order to give atenolol 50 mg now and then continued for tomorrow(patient reports of taking her a.m. dose) Hydrochlorothiazide and triamterene ordered to keep on hold secondary to hyponatremia Ordered for PRN IV hydralazine Consider additional PRN p.o. clonidine if blood pressure remains significantly elevated Echocardiogram ordered for a.m. to assess for hypertensive cardiomyopathy Hyponatremia: Sodium 129 Baseline sodium noted to be [id number] No report of nausea vomiting or diarrhea or poor p.o. intake We will hold diuretics Gentle hydration with normal saline at 80 mL/h for 1 L only Follow BMP Ordered for serum and urine osmolality Nephrology evaluation requested CKD stage III: Creatinine at baseline Follow BMP tomorrow as patient will receive IV contrast for CTA of chest Hypothyroidism: Continue levothyroxine: TSH level ordered in a.m. labs Recently diagnosed carotid stenosis: As per discharge summary from [facility], patient was started on low-dose statin Not reflecting in her current medication list Ordered for fasting lipid panel in a.m. Continue aspirin 81 mg daily Atorvastatin 20 mg daily ordered as per discharge instruction form [facility]. CODE STATUS: DNR/DNI DVT prophylaxis: Subcu heparin Disposition: Lives at home independently, PT OT evaluation prior to discharge home Joanie Angel MD (2) CKD (chronic kidney disease), stage III: (3) Hypertension: (4) Interstitial pulmonary fibrosis: (5) Anemia: (6) Hypothyroidism: Chart review, PMH, PSH, social history and med rec per undersigned. HPI, ROS, exam, assessment and plan per Dr. Angel. Please see her addendum. History of Present Illness Chief Complaint: Congestion, sinus pain Primary Care Provider: Amari Elena MD This is a 89-year-old female with PMH of interstitial pulmonary fibrosis on chronic prednisone, known LBBB, HTN, CKD 3, hypothyroidism, ambulatory dysfunction other medical problems listed below who presents with worsening congestion x 3 weeks. Patient was initially seen in ED on January 09 for UTI and sinus infection and was discharged on Levaquin. Intolerant of antibiotic and switch to Augmentin 2 days later and has since completed course with resolution of urinary symptoms. Has continued to have sinus pressure, congestion and rhinorrhea. Denies any known COVID-19 exposures. Allergies Allergy/AdvReac Type Severity Reaction Status Date / Time capsaicin AdvReac Mild Nausea/Vomi Verified 02/02/20 17:46 ting diclofenac AdvReac Mild Nausea/Vomi Verified 02/02/20 17:46 ting Diclopak AdvReac Mild N/V Verified 01/03/18 15:28 ketoprofen AdvReac Mild Nausea/Vomi Verified 02/02/20 17:46 ting naproxen AdvReac Mild Nausea/Vomi Verified 02/02/20 17:46 ting propoxyphene AdvReac Mild Nausea/Vomi Verified 02/02/20 17:46 ting rofecoxib AdvReac Mild Abdominal Verified 02/02/20 17:46 cramps Sulfa (Sulfonamide AdvReac Mild Nausea/Vomi Verified 02/02/20 17:46 Antibiotics) ting sulfamethoxazole AdvReac Mild Nausea/Vomi Verified 02/02/20 17:46 ting tramadol AdvReac Mild Nausea/Vomi Verified 02/02/20 17:46 ting trimethoprim AdvReac Mild Nausea/Vomi Verified 01/10/20 17:18 ting Home Medications Home Medications Medication Instructions Recorded Confirmed Type atenolol 50 mg tablet 50 mg PO QAM #30 tab 03/15/19 02/02/20 History diclofenac sodium 3 % topical gel 1 applic TOPICAL TID PRN gm 03/15/19 02/02/20 History fluticasone 250 mcg-salmeterol 50 1 puffs INHALATION BID ea 03/15/19 02/02/20 History mcg/dose blistr powdr for inhalation multivitamin 1 tab PO QAM 03/15/19 02/02/20 History omeprazole 20 mg capsule,delayed 20 mg PO DAILY cap 03/15/19 02/02/20 History release triamterene 37.5 1 tab PO QAM tab 03/15/19 02/02/20 History mg-hydrochlorothiazide 25 mg tablet aspirin 81 mg PO HS 06/15/19 02/02/20 History levothyroxine 100 mcg PO QAM 08/30/19 02/02/20 History cyclosporine [Restasis] 1 drp OPB BID 01/10/20 02/02/20 History potassium chloride 20 meq PO QAM 01/10/20 02/02/20 History prednisone 2.5 mg PO Q2D 01/10/20 02/02/20 History benzonatate [Tessalon Perles] 100 mg PO TID PRN 02/02/20 02/02/20 History calcium carbonate [Calcium 600] 600 mg PO DAILY 02/02/20 02/02/20 History conjugated estrogens [Premarin] 0.625 mg VAGINAL UD 02/02/20 02/02/20 History hydrocodone-acetaminophen [[place]] 1 tab PO Q8 PRN 02/02/20 02/02/20 History ipratropium bromide 2 spray INTRANASAL TID PRN 02/02/20 02/02/20 History methylcellulose (laxative) 2 g PO DAILY PRN 02/02/20 02/02/20 History montelukast 10 mg PO HS PRN 02/02/20 02/02/20 History Past Med/Surg History Medical History CKD (chronic kidney disease), stage III (Chronic) Deviated nasal septum (Chronic) GERD (gastroesophageal reflux disease) (Chronic) Hiatal hernia (Chronic) Hypertension (Chronic) Hypothyroidism (Chronic) Interstitial pulmonary fibrosis (Chronic) Left bundle branch block (Chronic) Osteoarthritis (Chronic) Surgical History H/O repair of right rotator cuff (Chronic) History of appendectomy (Chronic) History of cataract surgery (Chronic) History of hysterectomy (Chronic) History of left oophorectomy (Chronic) 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) S/P left knee arthroscopy (Chronic) S/P right knee arthroscopy (Chronic) Family History (Updated 02/02/20 @ 19:18 by Salma Hutton PA-C) Other Lung cancer Social History Smoking Status: Never smoker Second Hand Exposure: Yes; Hx Alcohol Use: Yes Alcohol type: wine Hx Substance Use: No Preferred Language: Citizen Of [place] Communication Ability: Effective Button Buttonhole Marker Required: No Beliefs That Will Affect Care: None Current Living Situation: Alone Feels Safe at Home: Yes Review of Systems Review of Systems: All systems reviewed & are unremarkable except as noted in HPI & below Constitutional: no fever, no chills, no fatigue and no weakness Ear, Nose, Mouth, Throat: + nasal congestion Respiratory: + cough, + chest congestion and + wheezing Cardiovascular: no chest pain and no dyspnea at rest Physical Exam Constitutional: WD/WN, vitals as above no acute distress Very pleasant, Eyes: PERRL, conjunctivae normal, anicteric sclerae ENMT: external ear and nose normal, oropharynx normal Neck: trachea midline, no thyromegaly Respiratory: normal respiratory effort; no respiratory distress and no cough Auscultation: + rales and + wheezes Cardiovascular: RRR, no murmur, no edema Gastrointestinal (Abdomen): Percussion/Palpation: abdomen soft; abdomen nontender Musculoskeletal: no cyanosis or clubbing, extremities motor strength 5/5 Bilateral lower extremity chronic venous stasis change, no open wounds noted Skin: Venous stasis changes noted on bilateral lower extremity, no open wounds Neurologic: PERRL, EOMI, accommodation nl, no face palsy, no dysarthria Psychiatric: A+Ox3, euthymic affect Results & Data Results & Data ([facility]) Vital Signs (Past 12 Hours) Vital Signs Temp Pulse Pulse Resp BP BP Pulse Ox 02/02/20 18:45 197/131 H 02/02/20 18:44 70 18 214/95 H 97 02/02/20 16:06 36.5 C 68 20 145/65 H 98 Diagnostic Findings XR chest 1V portable CLINICAL HISTORY: feeling unwell eval for pna dyspnea COMPARISON STUDY: 01/10/2020 FINDINGS: Developing interstitial infiltrate left base. Lungs otherwise appear clear. Mild stable cardiomegaly. The diaphragms are smooth. Severe degenerative change right and to a lesser extent left shoulder. IMPRESSION: Interstitial infiltrate left base. CT sinus wo con CT DOSE: 355.72 mGy.cm HISTORY: facial pain eval for sinusitus TECHNIQUE: Multiaxial CT images of the paranasal sinuses were performed and reformatted in the coronal plane without the use of contrast. A dose lowering technique was utilized adhering to the principles of ALARA. COMPARISON: None. FINDINGS: The frontal sinuses, ethmoid air cells, sphenoid sinuses, and bilateral maxillary antra are clear. The mastoid air cells are clear. The bilateral ostiomeatal units are patent. The nasal septum is midline. The orbits are unremarkable. Mild hyperplastic changes of the nasal turbinates IMPRESSION: Mild hyperplastic changes the nasal turbinates. Study is otherwise normal. Code Status & VTE Plan Code Status DNR/DNI: Discussed with patient VTE Prophylaxis Plan VTE Prophylaxis will be ordered: Yes Supervising Physician Co-Signing Physician Notes Attending addendum: Patient seen and examined, care coordinated with Salma Hutton PA-C: Labs and images reviewed 89-year-old female presents with complaint of nasal congestion cough ongoing for past several days Chest x-ray in the ER showed left lower lobe interstitial infiltrate Patient has underlying history of pulmonary fibrosis/interstitial lung disease, follows with pulmonology Dr. roberts, on chronic low-dose prednisone 2.5 mg every other day No evidence of sepsis COVID-19 test negative Physical exam: Brief General: Very pleasant elderly female, no sign of distress, talking in complete sentences HEENT: Unremarkable Heart: Regular S1 and S2 Lungs: Scattered wheeze, basilar Rales, Abdomen: Soft nontender Extremities: Normal strength Skin: Bilateral lower extremity chronic venous stasis changes noted no open wounds Neuro: No focal deficit Please refer to documentation above for assessment and plan. Joanie Angel MD (1) Anemia Anemia type: unspecified type Qualified Code(s): D64.9 - Anemia, unspecified (2) Left lower lobe pneumonia Pneumonia type: due to unspecified organism Qualified Code(s): J18.9 - Pneumonia, unspecified organism
[2020-02-02 19:16] LABS: D Dimer 1410 ug/L FEU (0-500)
[2020-02-02] MEDS ORDERED: HydrALAZINE HCL 20 MG/ML VIAL IV STA (19:16)
[2020-02-02] MEDS ORDERED: ONDANSETRON INJ 2 MG/ML 2 ML VIAL IV PRN (19:36)
[2020-02-02] MEDS ORDERED: NITROGLYCERIN SL 0.4 MG/TAB TAB SL PRN (19:36)
[2020-02-02] MEDS ORDERED: ACETAMINOPHEN 325 MG TAB PO PRN (19:36)
[2020-02-02] MEDS ORDERED: IOVERSOL 100ml IV ONE (19:57)
[2020-02-02] MEDS ORDERED: BENZONATATE 100 MG CAPSULE PO PRN (21:08)
[2020-02-02] MEDS ORDERED: MONTELUKAST SODIUM 10 MG TABLET PO PRN (21:08)
[2020-02-02] MEDS ORDERED: SODIUM CHLORIDE 0.9% 1000ML 1,000 ML IV SCH (21:15)
[2020-02-02] MEDS ORDERED: ALBUT/IPRATROP 3MG/0.5MG NEB 3 ML VIAL NEB PRN (21:30)
[2020-02-02] MEDS: HYDROCODONE/ACETAMOPHEN 5/325MG TAB PO PRN (21:50)
[2020-02-02] MEDS ORDERED: HydrALAZINE HCL 20 MG/ML VIAL IV PRN (22:00)
[2020-02-02] MEDS: ASPIRIN 81 MG ECTAB PO SCH (22:07)
[2020-02-02] MEDS: predniSONE 20 MG TAB PO SCH (22:07)
[2020-02-02] MEDS: ATENOLOL 50 MG TABLET PO SCH (22:07)
[2020-02-02] MEDS: HEPARIN SOD 5,000 UNIT/0.5 ML VIAL SQ SCH (22:08)
[2020-02-03] MEDS: *RESTASIS*ORDER AWAITING ACTION SCH ×2 (00:10→10:52)
[2020-02-03] MEDS: HEPARIN SOD 5,000 UNIT/0.5 ML VIAL SQ SCH ×3 (06:14→21:06)
[2020-02-03] MEDS: LEVOTHYROXINE SODIUM 100 MCG TABLET PO SCH (06:14)
[2020-02-03] MEDS: HYDROCODONE/ACETAMOPHEN 5/325MG TAB PO PRN ×2 (06:18→21:26)
[2020-02-03] MEDS ORDERED: CALCIUM CARBONATE 1250MG TAB PO SCH ×2 (07:00→13:00)
--- NOTE | 2020-02-03 07:47 | CT Scan Report ---
CT ANGIOGRAM OF THE CHEST CLINICAL HISTORY: Dyspnea. COMPARISON STUDY: Chest x-ray dated 02/02/2020. Chest CT dated 02/01/2018. TECHNIQUE: Following the IV administration of 119 cc of Optiray 320, CT angiogram of the chest was pe rformed from the upper abdomen to the thoracic inlet utilizing the pulmonary embolus protocol. Images are reviewed in the axial, sagittal, and coronal planes. 3-D MIPS images are created and assessed. I V contrast was administered without complication. A dose lowering technique was utilized adhering to the principles of ALARA. Examination is degraded by motion artifact, and by streak artifact from the arms which could not be elevated above the chest. CT DOSE: 327.40 mGy.cm FINDINGS: Thyroid: Imaged portions of the thyroid gland are normal in size and attenuation. Thoracic aorta: There is atherosclerotic calcification of the thoracic aorta, which is normal in saji ivy and demonstrates standard 3-vessel arch anatomy. No dissection is seen. There is likely stenosis of the origin of the right internal carotid artery. Pulmonary vasculature: The pulmonary trunk is normal in caliber. There are no filling defects identif ied in main, lobar, or proximal segmental pulmonary branches to suggest pulmonary embolus. Evaluation of the peripheral branches is significantly compromised by motion artifact. Heart: The heart is top normal in size and without pericardial effusion. There are coronary artery ca lcifications. Lungs and pleural spaces: Evaluation of the lung parenchyma is significantly degraded by motion artif act. There is bibasilar scarring/atelectasis. Chronic interstitial change is similar to previous. No airspace consolidation is seen typical for pneumonia and there is no pleural effusion. The trachea an d central airways are clear. Left apical scarring is unchanged from previous. Mediastinum: There is no mediastinal lymphadenopathy. Lisa: Clear. Axillae: There is no axillary lymphadenopathy. Upper abdomen: There is a large hiatal hernia. Partially visualized upper abdominal viscera is otherw ise grossly unremarkable. Skeletal structures: The skeletal structures are osteopenic. Degenerative change and hyperkyphosis is seen in the thoracic spine. There are numerous thoracic compression deformities. Advanced arthritic change is seen in the shoulders. There is chronic posttraumatic deformity of the sternum. No lytic or blastic bony lesions are seen. IMPRESSION: 1. Streak and motion compromised examination. 2. There is no evidence of central pulmonary embolus in the main, lobar, or proximal segmental pulmon yaakov arteries. Evaluation of the peripheral branches is degraded by streak and motion artifact. 3. Chronic interstitial change is seen throughout both lungs and similar to previous. There is no tiana dence of superimposed airspace consolidation or pleural effusion. 4. Large hiatal hernia. 5. Additional findings as above. ACT 112: Negative or not required by law. Electronically signed by: Chris Ramos M.D. 02/03/2020 7:46 AM
[2020-02-03] MEDS ORDERED: ARTIFICIAL TEARS OP PRN (08:28)
[2020-02-03] MEDS ORDERED: DICLOFENAC SOD 1% GEL 100 GM TUBE EXT PRN (08:30)
[2020-02-03 08:33] LABS: BUN Creatinine Ratio 19.2 (10-20); Calcium 9.3 mg/dl (8.5-10.1); Creatinine Clr Calc Pharmacy 25.5 ml/min; Est GFR (African American) 45.7; Est GFR (Non-African American) 39.4; Potassium 4.5 mmol/L (3.5-5.1)
[2020-02-03 08:44] LABS: Thyroid Stimulating Hormone 0.925 uIu/ml (0.300-4.500)
[2020-02-03] MEDS: FLUTICASONE/VILANTEROL 200/25MCG 14 PUFFS/INHALER INH SCH (08:58)
[2020-02-03] MEDS: ATENOLOL 50 MG TABLET PO SCH (08:59)
[2020-02-03] MEDS: MULTIVITAMIN TAB PO SCH (08:59)
[2020-02-03] MEDS: PANTOprazole 40 MG TAB PO SCH (09:00)
[2020-02-03] MEDS ORDERED: POTASSIUM CHLORIDE 20 MEQ TABCR PO SCH (09:00)
[2020-02-03] MEDS: predniSONE 20 MG TAB PO SCH (09:00)
[2020-02-03] MEDS ORDERED: DOXYCYCLINE HYCLATE 100 MG CAP PO SCH (09:00)
[2020-02-03] MEDS: METHYLCELLULOSE POWDER 454 GM JAR PO SCH (09:01)
[2020-02-03] MEDS: ATORVASTATIN 20 MG TAB PO SCH (09:05)
--- NOTE | 2020-02-03 10:31 | Nephrology Consultation ---
Date of Consultation February 03, 2020 Assessment & Plan (1) Chronic hyponatremia: Patient with acute on chronic hyponatremia. Admission sodium of 129. Urine osmolality of 316 and serum osmolality of 278. 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 Patient is getting normal saline and sodium is improved to 131 but is likely to drop. If we will continue normal saline. -Discontinue normal saline -Urea 15 g daily -Fluid restriction of 1.2 L daily. -Monitor sodium daily. (2) CKD (chronic kidney disease), stage III: Patient with the CKD stage III baseline creatinine of 1.1-1.2. Renal function is at baseline. No signs of volume overload. Patient is at risk for contrast-induced nephropathy as he received contrast on admission. Avoid nephrotoxins such as contrast and NSAIDs unless lifesaving History of Present Illness Reason for Consultation: Hyponatremia Requesting Physician: Joanie Angel MD Attending Physician: Octavia Stark MD History of Present Illness This is 89-year-old female with history of interstitial lung disease, CKD stage III with baseline creatinine of 1.1-1.2, hypothyroidism, hypertension and chronic hyponatremia who was admitted on 02/02/2020 with the upper respiratory tract symptoms. She was found to have a sodium of 129. She was given IV normal saline. Sodium this morning is 131. Serum osmolality was 278, urine osmolality of 316. She feels better this morning reports less congestion and sinus pressure. Baseline sodium in the low 130s. Creatinine is up to 1.2 this morning. She is getting normal saline at 80 mL/h. She denies any vomiting or diarrhea. She is eating and drinking well. She drinks about 6 water bottles at home. Allergies Allergy/AdvReac Type Severity Reaction Status Date / Time capsaicin AdvReac Mild Nausea/Vomi Verified 02/02/20 17:46 ting diclofenac AdvReac Mild Nausea/Vomi Verified 02/02/20 17:46 ting Diclopak AdvReac Mild N/V Verified 01/03/18 15:28 ketoprofen AdvReac Mild Nausea/Vomi Verified 02/02/20 17:46 ting naproxen AdvReac Mild Nausea/Vomi Verified 02/02/20 17:46 ting propoxyphene AdvReac Mild Nausea/Vomi Verified 02/02/20 17:46 ting rofecoxib AdvReac Mild Abdominal Verified 02/02/20 17:46 cramps Sulfa (Sulfonamide AdvReac Mild Nausea/Vomi Verified 02/02/20 17:46 Antibiotics) ting sulfamethoxazole AdvReac Mild Nausea/Vomi Verified 02/02/20 17:46 ting tramadol AdvReac Mild Nausea/Vomi Verified 02/02/20 17:46 ting trimethoprim AdvReac Mild Nausea/Vomi Verified 01/10/20 17:18 ting Home Medications Home Medications Medication Instructions Recorded Confirmed Type atenolol 50 mg tablet 50 mg PO QAM #30 tab 03/15/19 02/02/20 History diclofenac sodium 3 % topical gel 1 applic TOPICAL TID PRN gm 03/15/19 02/02/20 History fluticasone 250 mcg-salmeterol 50 1 puffs INHALATION BID ea 03/15/19 02/02/20 History mcg/dose blistr powdr for inhalation multivitamin 1 tab PO QAM 03/15/19 02/02/20 History omeprazole 20 mg capsule,delayed 20 mg PO DAILY cap 03/15/19 02/02/20 History release triamterene 37.5 1 tab PO QAM tab 03/15/19 02/02/20 History mg-hydrochlorothiazide 25 mg tablet aspirin 81 mg PO HS 06/15/19 02/02/20 History levothyroxine 100 mcg PO QAM 08/30/19 02/02/20 History cyclosporine [Restasis] 1 drp OPB BID 01/10/20 02/02/20 History potassium chloride 20 meq PO QAM 01/10/20 02/02/20 History prednisone 2.5 mg PO Q2D 01/10/20 02/02/20 History benzonatate [Tessalon Perles] 100 mg PO TID PRN 02/02/20 02/02/20 History calcium carbonate [Calcium 600] 600 mg PO DAILY 02/02/20 02/02/20 History conjugated estrogens [Premarin] 0.625 mg VAGINAL UD 02/02/20 02/02/20 History hydrocodone-acetaminophen [[place]] 1 tab PO Q8 PRN 02/02/20 02/02/20 History ipratropium bromide 2 spray INTRANASAL TID PRN 02/02/20 02/02/20 History methylcellulose (laxative) 2 g PO DAILY PRN 02/02/20 02/02/20 History montelukast 10 mg PO HS PRN 02/02/20 02/02/20 History Patient History Medical History CKD (chronic kidney disease), stage III (Chronic) Deviated nasal septum (Chronic) GERD (gastroesophageal reflux disease) (Chronic) Hiatal hernia (Chronic) Hypertension (Chronic) Hypothyroidism (Chronic) Interstitial pulmonary fibrosis (Chronic) Left bundle branch block (Chronic) Osteoarthritis (Chronic) Surgical History H/O repair of right rotator cuff (Chronic) History of appendectomy (Chronic) History of cataract surgery (Chronic) History of hysterectomy (Chronic) History of left oophorectomy (Chronic) 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) S/P left knee arthroscopy (Chronic) S/P right knee arthroscopy (Chronic) Family History (Updated 02/02/20 @ 19:18 by Salma Hutton PA-C) Other Lung cancer Social History Smoking Status: Former smoker Second Hand Exposure: Yes; Hx Alcohol Use: No Hx Substance Use: No Preferred Language: [place] Communication Ability: Effective Bond Clerk Required: No Beliefs That Will Affect Care: None marital status: / Current Living Situation: Alone Current Living Situation Comment: son lives next door Feels Safe at Home: Yes Review of Systems Review of Systems: All systems reviewed & are unremarkable except as noted in HPI & below Physical Exam Physical Exam: General exam: Appears comfortable, no acute distress HEENT: Pupils are equal and reactive to light Neck: No JVD, neck is supple trachea is midline Respiratory system: Clear breath sounds bilaterally. Gastrointestinal: Abdomen is soft, non distended, non tender, bowel sounds are present CVS: Regular rate and rhythm. No murmurs, rubs or gallops Musculoskeletal: No joint or muscle tenderness Extremities: Non tender, no edema, peripheral pulses are present Neuro: Oriented, hard of hearing, no tremors, no focal neurological deficits Skin: No rashes Results & Data Vital Signs (Past 12 Hours) Vital Signs Temp Pulse Pulse Resp BP BP Pulse Ox 02/03/20 02:50 36.7 C 72 18 118/66 95 02/03/20 02:03 90 02/02/20 23:22 36.3 C L 81 18 143/66 H 94 Laboratory Results 02/03/20 07:18 02/02/20 16:52 WBC 9.85 RBC 3.75 L MCV 85.1 MCH 29.3 MCHC 34.5 RDW Std Deviation 44.2 RDW Coeff of Heather 14.2 Plt Count 224 MPV 9.1
--- NOTE | 2020-02-03 10:42 | Hospitalist Progress Note ---
Date of Service February 03, 2020 Assessment & Plan (1) URI (upper respiratory infection): (2) Interstitial pulmonary fibrosis: (3) Left lower lobe pneumonia: Upper respiratory symptoms improving No cough, leukocytosis or fevers CXR showed left lung infiltrate. CT PE done due to elevated DDimer was negative for PE. Though reported to be significantly degraded by motion artifact, it did show chronic interstitial changes. I do not have very high suspicion for pneumonia based on current findings. However, will continue antibiotics for now and reassess considering patient's presentation and chronic lung problems (4) Hyponatremia: Sodium 129 on admission, now increased to 131 Baseline sodium noted to be [id number] Serum osm 278. 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 HCTZ/triamterene still on hold (7) Anemia: Chronic normocytic anemia Hb at baseline Hb is 11 (8) Hypothyroidism: Continue levothyroxine: TSH 0.925 Recently diagnosed carotid stenosis: As per discharge summary from [facility], patient was started on low-dose statin Not reflecting in her current medication list Continue aspirin 81 mg daily Atorvastatin 20 mg daily ordered as per discharge instruction form [facility]. CODE STATUS: DNR/DNI DVT prophylaxis: Subcu heparin Possible discharge in next 1-2days Admission and Anticipated Discharge Date Admission Date: February 02, 2020 Subjective Patient seen and examined Reports that congestion is improving. Reports no rhinorrhea today Denied any cough, shortness of breath, dyspnea on exertion, chest pain Denied any fevers, chills Reports malaise is resolved Physical Exam Constitutional: + well hydrated; no acute distress Elderly woman Eyes: PERRL, conjunctivae normal, anicteric sclerae ENMT: external ear and nose normal, oropharynx normal Ears: + hearing impairment Respiratory: normal respiratory effort; no respiratory distress Auscultation: no wheezes Mild basilar crackles Cardiovascular: Rate/Rhythm: regular rate and regular rhythm Extremities: no pedal edema S1 S2 Gastrointestinal (Abdomen): normal bowel sounds, soft, nontender, no hepatosplenomegaly Neurologic: PERRL, EOMI, accommodation nl, no face palsy, no dysarthria Psychiatric: A+Ox3, euthymic affect Results & Data Results & Data ([facility]) Vital Signs (Past 12 Hours) Vital Signs Temp Pulse Pulse Resp BP BP Pulse Ox 02/03/20 02:50 36.7 C 72 18 118/66 95 02/03/20 02:03 90 02/02/20 23:22 36.3 C L 81 18 143/66 H 94 Laboratory Results Laboratory Results - last 24 hr 02/02/20 02/02/20 02/02/20 16:52 16:52 16:52 WBC 9.85 RBC 3.75 L Hgb 11.0 L Hct 31.9 L MCV 85.1 MCH 29.3 MCHC 34.5 RDW Std Deviation 44.2 RDW Coeff of Heather 14.2 Plt Count 224 MPV 9.1 Immature Gran % (Auto) 0.5 Neut % (Auto) 71.5 Lymph % (Auto) 14.0 [place] % (Auto) 12.5 Eos % (Auto) 1.4 Baso % (Auto) 0.1 Neut # (Auto) 7.04 H Lymph # (Auto) 1.38 [place] # (Auto) 1.23 H Eos # (Auto) 0.14 Baso # (Auto) 0.01 Immature Gran # (Auto) 0.05 H D-Dimer 1410 H* Sodium 129 L Potassium 4.3 Chloride 96 L Carbon Dioxide 26 Anion Gap 7.0 BUN 23 H Creatinine 1.16 Est Cr Clr Drug Dosing Not Reportable Est GFR ( Amer) 49.0 Est GFR (Non-Af Amer) 42.3 BUN/Creatinine Ratio 19.8 Glucose 89 Osmolality Calcium 9.7 NT-Pro-B Natriuret Pep Triglycerides Cholesterol LDL Cholesterol, Calc VLDL Cholesterol, Calc HDL Cholesterol Cholesterol/HDL Ratio Procalcitonin TSH Urine Color Urine Appearance Urine pH Ur Specific [place] Urine Protein Urine Glucose (UA) Urine Ketones Urine Blood Urine Nitrite Urine Bilirubin Urine Urobilinogen Ur Leukocyte Esterase Urine WBC (Auto) Urine RBC (Auto) U Hyaline Cast (Auto) U Epithel Cells (Auto) Urine Bacteria (Auto) Urine Osmolality COVID-19 PCR 02/02/20 02/02/20 02/02/20 16:52 16:52 16:52 WBC RBC Hgb Hct MCV MCH MCHC RDW Std Deviation RDW Coeff of Heather Plt Count MPV Immature Gran % (Auto) Neut % (Auto) Lymph % (Auto) [place] % (Auto) Eos % (Auto) Baso % (Auto) Neut # (Auto) Lymph # (Auto) [place] # (Auto) Eos # (Auto) Baso # (Auto) Immature Gran # (Auto) D-Dimer Sodium Potassium Chloride Carbon Dioxide Anion Gap BUN Creatinine Est Cr Clr Drug Dosing Est GFR ( Amer) Est GFR (Non-Af Amer) BUN/Creatinine Ratio Glucose Osmolality 278 L Calcium NT-Pro-B Natriuret Pep 1517 Triglycerides Cholesterol LDL Cholesterol, Calc VLDL Cholesterol, Calc HDL Cholesterol Cholesterol/HDL Ratio Procalcitonin < 0.05 TSH Urine Color Urine Appearance Urine pH Ur Specific [place] Urine Protein Urine Glucose (UA) Urine Ketones Urine Blood Urine Nitrite Urine Bilirubin Urine Urobilinogen Ur Leukocyte Esterase Urine WBC (Auto) Urine RBC (Auto) U Hyaline Cast (Auto) U Epithel Cells (Auto) Urine Bacteria (Auto) Urine Osmolality COVID-19 [facility] 02/02/20 02/02/20 02/02/20 17:55 18:35 Unknown WBC RBC Hgb Hct MCV MCH MCHC RDW Std Deviation RDW Coeff of Heather Plt Count MPV Immature Gran % (Auto) Neut % (Auto) Lymph % (Auto) [place] % (Auto) Eos % (Auto) Baso % (Auto) Neut # (Auto) Lymph # (Auto) [place] # (Auto) Eos # (Auto) Baso # (Auto) Immature Gran # (Auto) D-Dimer Sodium Potassium Chloride Carbon Dioxide Anion Gap BUN Creatinine Est Cr Clr Drug Dosing Est GFR ( Amer) Est GFR (Non-Af Amer) BUN/Creatinine Ratio Glucose Osmolality Calcium NT-Pro-B Natriuret Pep Triglycerides Cholesterol LDL Cholesterol, Calc VLDL Cholesterol, Calc HDL Cholesterol Cholesterol/HDL Ratio Procalcitonin TSH Urine Color Yellow Urine Appearance Clear Urine pH 7.5 Ur Specific [place] 1.016 Urine Protein Negative Urine Glucose (UA) Negative Urine Ketones Negative Urine Blood Negative Urine Nitrite Negative Urine Bilirubin Negative Urine Urobilinogen Negative Ur Leukocyte Esterase 1+ H Urine WBC (Auto) 1-5 Urine RBC (Auto) 0-4 U Hyaline Cast (Auto) 1-5 U Epithel Cells (Auto) >30 H Urine Bacteria (Auto) Negative Urine Osmolality 316 L COVID-19 PCR NEGATIVE 02/03/20 07:18 WBC RBC Hgb Hct MCV MCH MCHC RDW Std Deviation RDW Coeff of Heather Plt Count MPV Immature Gran % (Auto) Neut % (Auto) Lymph % (Auto) [place] % (Auto) Eos % (Auto) Baso % (Auto) Neut # (Auto) Lymph # (Auto) [place] # (Auto) Eos # (Auto) Baso # (Auto) Immature Gran # (Auto) D-Dimer Sodium 131 L Potassium 4.5 Chloride 100 Carbon Dioxide 23 Anion Gap 8.0 BUN 24 H Creatinine 1.23 H Est Cr Clr Drug Dosing 25.5 Est GFR ( Amer) 45.7 Est GFR (Non-Af Amer) 39.4 BUN/Creatinine Ratio 19.2 Glucose 130 H Osmolality Calcium 9.3 NT-Pro-B Natriuret Pep Triglycerides 56 Cholesterol 217 H LDL Cholesterol, Calc 126 VLDL Cholesterol, Calc 11 HDL Cholesterol 80 Cholesterol/HDL Ratio 3 Procalcitonin TSH 0.925 Urine Color Urine Appearance Urine pH Ur Specific [place] Urine Protein Urine Glucose (UA) Urine Ketones Urine Blood Urine Nitrite Urine Bilirubin Urine Urobilinogen Ur Leukocyte Esterase Urine WBC (Auto) Urine RBC (Auto) U Hyaline Cast (Auto) U Epithel Cells (Auto) Urine Bacteria (Auto) Urine Osmolality COVID-19 PCR (1) Left lower lobe pneumonia Pneumonia type: due to unspecified organism Qualified Code(s): J18.9 - Pneumonia, unspecified organism (2) Anemia Anemia type: unspecified type Qualified Code(s): D64.9 - Anemia, unspecified
[2020-02-03] MEDS: UREA (URE-NA) 15 GM PACK PO SCH (12:30)
--- NOTE | 2020-02-03 13:24 | Electrocardiogram Report ---
Test Reason : Blood Pressure : / mmHG Vent. Rate : 063 BPM Atrial Rate : 063 BPM P-R Int : 180 ms QRS Dur : 146 ms QT Int : 430 ms P-R-T Axes : 053 -42 080 degrees QTc Int : 440 ms Normal sinus rhythm Left axis deviation Left bundle branch block Abnormal ECG When compared with ECG of 10-JAN-2020 17:33, T wave inversion less evident in Lateral leads Confirmed by Roscoe Adrian ([id number]) on 02/03/2020 1:23:39 PM Referred By: REFERRED SELF Confirmed By:Glenroy Adrian
[2020-02-03] MEDS ORDERED: LORATADINE 10 MG TAB PO ONE (14:09)
[2020-02-03] MEDS ORDERED: cefTRIAXone SODIUM 1,000 MG in DEXTROSE 5% 50 ML IV SCH ×2 (17:00→19:00)
[2020-02-03] MEDS: DOXYCYCLINE HYCLATE 100 MG CAP PO SCH (21:06)
[2020-02-03] MEDS: ASPIRIN 81 MG ECTAB PO SCH (21:06)
[2020-02-04] MEDS: HYDROCODONE/ACETAMOPHEN 5/325MG TAB PO PRN (03:22)
[2020-02-04] MEDS: HEPARIN SOD 5,000 UNIT/0.5 ML VIAL SQ SCH (05:56)
[2020-02-04] MEDS: LEVOTHYROXINE SODIUM 100 MCG TABLET PO SCH (06:06)
[2020-02-04 07:45] VITALS: BP 156/67; PULSE 70; TEMP 97.9; O2SAT 97
[2020-02-04] MEDS: predniSONE 20 MG TAB PO SCH (08:14)
[2020-02-04] MEDS: DOXYCYCLINE HYCLATE 100 MG CAP PO SCH (08:14)
[2020-02-04] MEDS: MULTIVITAMIN TAB PO SCH (08:14)
[2020-02-04] MEDS: ATORVASTATIN 20 MG TAB PO SCH (08:14)
[2020-02-04] MEDS: PANTOprazole 40 MG TAB PO SCH (08:15)
[2020-02-04] MEDS: METHYLCELLULOSE POWDER 454 GM JAR PO SCH (08:15)
[2020-02-04] MEDS: UREA (URE-NA) 15 GM PACK PO SCH (08:16)
[2020-02-04] MEDS: ATENOLOL 50 MG TABLET PO SCH (08:16)
[2020-02-04] MEDS: FLUTICASONE/VILANTEROL 200/25MCG 14 PUFFS/INHALER INH SCH (08:16)
[2020-02-04] MEDS ORDERED: LORATADINE 10 MG TAB PO SCH (09:00)
[2020-02-04] MEDS ORDERED: AMLODIPINE BESYLATE 5 MG TAB PO SCH (09:00)
--- NOTE | 2020-02-04 09:13 | Nephrology Progress Note ---
Date of Service February 04, 2020 Assessment & Plan (1) Chronic hyponatremia: Patient with acute on chronic hyponatremia. Admission sodium of 129. Urine osmolality of 316 and serum osmolality of 278. 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 Patient is getting normal saline and sodium is improved to 131 yesterday. Today's labs are pending. -Urea 15 g daily -Fluid restriction of 1.2 L daily. -Monitor sodium daily. -Patient can be discharged if sodium continues to improve. She will need a BMP mid next week and renal follow-up in 1 to 2 weeks (2) CKD (chronic kidney disease), stage III: Patient with the CKD stage III baseline creatinine of 1.1-1.2. Renal function is at baseline. No signs of volume overload. Patient is at risk for contrast-induced nephropathy as she received contrast on admission. Avoid nephrotoxins such as contrast and NSAIDs unless lifesaving (3) Hypertension: Blood pressure is acceptable. Agree with discontinuing triamterene/hydrochlorothiazide and replacing it with the amlodipine. Case discussed with Dr. Stark Admission and Anticipated Discharge Date Admission Date: February 02, 2020 Subjective Patient feels well today. No shortness of breath. Blood pressure is acceptable. Patient was taking triamterene and hydrochlorothiazide at home which is held now. Labs are pending this morning Review of Systems Review of Systems: All systems reviewed & are unremarkable except as noted in HPI & below Physical Exam Physical Exam: General exam: Appears comfortable, no acute distress HEENT: Pupils are equal and reactive to light Neck: No JVD, neck is supple trachea is midline Respiratory system: Clear breath sounds bilaterally. Gastrointestinal: Abdomen is soft, non distended, non tender, bowel sounds are present CVS: Regular rate and rhythm. No murmurs, rubs or gallops Musculoskeletal: No joint or muscle tenderness Extremities: Non tender, no edema, peripheral pulses are present Neuro: Oriented, no tremors, no focal neurological deficits Skin: No rashes Results & Data ([facility]) Vital Signs (Past 12 Hours) Vital Signs Temp Pulse Pulse Resp BP Pulse Ox 02/04/20 07:44 36.6 C 70 17 156/67 H 97 02/04/20 06:58 66 02/04/20 05:50 78 02/04/20 04:00 37.0 C 70 20 167/68 H 96 02/03/20 23:36 36.9 C 81 20 175/74 H 95 Laboratory Results 02/03/20 07:18
[2020-02-04 09:35] LABS: Hemoglobin 10.3 g/dL (12.0-16.0); Mean Corpuscular Hemoglobin 29.3 pg (25-34); Mean Corpuscular Hgb Conc 33.2 g/dL (32-36); Mean Corpuscular Volume 88.1 fL (80-100); Mean Platelet Volume 9.4 fL (7.4-10.4); Platelet Count 215 K/uL (130-400); RDW Standard Deviation 48.6 fL (36.4-46.3); Red Blood Count 3.52 M/uL (4.2-5.4)
[2020-02-04 09:58] LABS: Calcium 9.6 mg/dl (8.5-10.1); Creatinine Clr Calc Pharmacy 21.5 ml/min; Est GFR (African American) 37.1; Potassium 3.4 mmol/L (3.5-5.1)
[2020-02-04] MEDS ORDERED: POTASSIUM CHLORIDE 20 MEQ TABCR PO STA (11:24)
[2020-02-04] MEDS ORDERED: SODIUM CHLORIDE 0.9% 1000ML 500 ML IV ONE (12:10)
--- NOTE | 2020-02-04 13:06 | Discharge Summary ---
Date of Service February 04, 2020 Admission HPI Per Admitting Provider This is a 89-year-old female with PMH of interstitial pulmonary fibrosis on chronic prednisone, known LBBB, HTN, CKD 3, hypothyroidism, ambulatory dysfunction other medical problems listed below who presents with worsening congestion x 3 weeks. Patient was initially seen in ED on January 09 for UTI and sinus infection and was discharged on Levaquin. Intolerant of antibiotic and switch to Augmentin 2 days later and has since completed course with resolution of urinary symptoms. Has continued to have sinus pressure, congestion and rhinorrhea. Denies any known COVID-19 exposures. Admission Exam Per Admitting Provider General Appearance: WD/WN, vitals as above, NAD, sitting up in bed, pleasant, conversing easily Head: normocephalic, atraumatic Eyes: normal inspection, PERRL, conjunctivae normal, anicteric sclerae ENT: hard of hearing,external ear and nose normal, oropharynx normal Neck: trachea midline, no thyromegaly normal visual inspection Respiratory: +bibasilar rales with scattered expiratory wheezes. Normal insp/exp effort, no accessory muscle use Cardiovascular: regular rate, rhythm, +systolic ejection murmur, normal peripheral pulses, no BLE edema. Vessels: no JVD Chest: normal inspection of chest Abdomen/GI: normal bowel sounds, soft, nontender, no hepatosplenomegaly Extremities/Musculoskeletal: no cyanosis or clubbing, extremities motor strength 5/5 Neurologic: PERRL, EOMI, accommodation nl, no face palsy, no dysarthria, CN's II-XI intact bilaterally and moves all extremities Psychiatric: A+Ox3, euthymic affect Skin: no rashes, normal color, warm/dry Principal Diagnosis URI Hyponatremia Hypertensive urgency Possible LLL pneumonia Discharge Exam Constitutional + well hydrated; no acute distress Eyes PERRL, conjunctivae normal, anicteric sclerae ENMT external ear and nose normal, oropharynx normal Ears: + hearing impairment Respiratory normal respiratory effort; no respiratory distress Auscultation: no wheezes Mild basilar crackles (L>R) Cardiovascular Rate/Rhythm: regular rate and regular rhythm Extremities: no pedal edema Gastrointestinal (Abdomen) normal bowel sounds, soft, nontender, no hepatosplenomegaly Musculoskeletal no cyanosis or clubbing, extremities motor strength 5/5 Neurologic PERRL, EOMI, accommodation nl, no face palsy, no dysarthria Psychiatric A+Ox3, euthymic affect Discharge Data Allergies Allergy/AdvReac Type Severity Reaction Status Date / Time capsaicin AdvReac Mild Nausea/Vomi Verified 02/02/20 17:46 ting diclofenac AdvReac Mild Nausea/Vomi Verified 02/02/20 17:46 ting Diclopak AdvReac Mild N/V Verified 01/03/18 15:28 ketoprofen AdvReac Mild Nausea/Vomi Verified 02/02/20 17:46 ting naproxen AdvReac Mild Nausea/Vomi Verified 02/02/20 17:46 ting propoxyphene AdvReac Mild Nausea/Vomi Verified 02/02/20 17:46 ting rofecoxib AdvReac Mild Abdominal Verified 02/02/20 17:46 cramps Sulfa (Sulfonamide AdvReac Mild Nausea/Vomi Verified 02/02/20 17:46 Antibiotics) ting sulfamethoxazole AdvReac Mild Nausea/Vomi Verified 02/02/20 17:46 ting tramadol AdvReac Mild Nausea/Vomi Verified 02/02/20 17:46 ting trimethoprim AdvReac Mild Nausea/Vomi Verified 01/10/20 17:18 ting Consultations 02/02/20 18:08 ED Decision to Admit Stat 02/02/20 19:39 Consult Case Management - Discharge Planning Routine 02/02/20 20:56 Consult Nephrology Routine Ordered Studies 02/02/20 16:37 CT sinus wo con Stat 02/02/20 19:49 CT angio chest PE protocol Urgent Hospital Course (1) URI (upper respiratory infection): (2) Interstitial pulmonary fibrosis: (3) Left lower lobe pneumonia: Upper respiratory symptoms improving No cough, leukocytosis or fevers CXR showed left lung infiltrate. CT PE done due to elevated DDimer was negative for PE. Though reported to be significantly degraded by motion artifact, it did show chronic interstitial changes. Treated with iv antibiotics. Discharge on po augmentin to complete treatment Patient reports feeling better today and wants to go home. Discharged on loratadine as well. Patient reported significant improvement in URI symptoms with this (4) Hyponatremia: Sodium 129 on admission, now increased to 136 Serum osm 278. 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 Got po K. Continue K at home and monitor with BMP outpatient (6) Hypertension: Hypertensive urgency: Systolic blood pressure elevated 200-197/diastolic 95-130 on admission Denied any chest pain chest discomfort shortness of breath or dyspnea on exertion On atenolol 50 mg daily, hydrochlorothiazide 25/triamterene 37.5 mg at home HCTZ/triamterene discontinued Continue atenolol. Started on amlodipine 5mg daily (7) Anemia: Chronic normocytic anemia Hb at baseline Hb is 11 (8) Hypothyroidism: Continue levothyroxine: TSH 0.925 Recently diagnosed carotid stenosis: As per discharge summary from [facility], patient was started on low-dose statin Not reflecting in her current medication list Continue aspirin 81 mg daily Atorvastatin 20 mg daily ordered as per discharge instruction form [facility]. CODE STATUS: DNR/DNI Total Time Total Time Spent Total Time Spent (In Minutes): 45 Total Time Includes: Examination of the Patient, Discharge Planning, Medication Reconciliation and Communication With Other Providers Discharge Plan Discharge Items Patient Disposition: Home - Self-Care Reason For Visit: NASAL CONGESTION Discharge Diagnosis: Upper respiratory tract infection Hyponatremia (low sodium levels) Hypertensive urgency Possible left lung pneumonia Activity: Resume your previous activity Non-emergency contact: Primary Care Provider Call non-emergency contact if: you have any medication questions and your symptoms worsen Follow-up/Referrals: Amari Elena MD [Primary Care Provider] - Diet: Heart Healthy Fluids: 1500ml (6 cups) Ambulatory Orders: Basic Metabolic Panel (Routine) Timeframe: 3 Days Location: Determined by Patient Ordered By: Octavia Goins Attending Provider Instructions: Bri. You came to the hospital for sinus congestion and feeling ill. You were evaluated and found to have low sodium levels, very elevated blood pressures and possible pneumonia. You were treated with medications for these. Your home triamterene/Hydrochlorothiazide was discontinued for now. You were started on amlodipine in addition to your home atenolol for better blood pressure control. Please complete the remaining days of antibiotics. Please do the blood test BMP (Basic metabolic panel) next week to monitor your sodium, potassium levels and kidney function. Please follow up with your Primary Doctor and the Nephrology (kidney doctor) office It was a pleasure taking care of you. Pending Studies at Discharge: No Stand-Alone Forms: My [facility] [employer], Smoking Cessation Medications and DC Order Prescriptions: New atorvastatin 20 mg Tablet 20 mg PO QAM 30 Days Qty: 30 RF: 0 amlodipine [Norvasc] 5 mg Tablet 5 mg PO QAM 30 Days Qty: 30 RF: 0 loratadine [Allergy Relief (loratadine)] 10 mg Tablet 10 mg PO QAM 5 Days Qty: 5 RF: 0 Ure-Na 15 gram Powder In Packet 15 g PO DAILY 7 Days Qty: 8 RF: 0 amoxicillin-pot clavulanate [Augmentin] 500-125 mg tablet 1 tab PO BID Qty: 10 RF: 0 Continued fluticasone propion-salmeterol 250-50 mcg/dose blister with device 1 puffs inhalation BID RF: 0 multivitamin [Daily Multi-Vitamin] tablet 1 tab PO QAM RF: 0 omeprazole 20 mg capsule,delayed release(DR/EC) 20 mg PO DAILY RF: 0 atenolol 50 mg tablet 50 mg PO QAM Qty: 30 RF: 0 diclofenac sodium 3 % gel 1 applic topical TID PRN (Reason: Pain) RF: 0 aspirin 81 mg Tablet,Delayed Release (Dr/Ec) 81 mg PO HS RF: 0 potassium chloride 20 mEq tablet,ER particles/crystals 20 meq PO QAM RF: 0 prednisone 2.5 mg tablet 2.5 mg PO Q2D RF: 0 Restasis 0.05 % dropperette 1 drp OPB BID RF: 0 levothyroxine 100 mcg tablet 100 mcg PO QAM RF: 0 Premarin 0.625 mg/gram Cream 0.625 mg VAGINAL UD RF: 0 ipratropium bromide 0.03 % spray,non-aerosol 2 spray INTRANASAL TID PRN (Reason: Nasal Congestion) RF: 0 montelukast 10 mg tablet 10 mg PO HS PRN (Reason: allergies) RF: 0 calcium carbonate [Calcium 600] 600 mg calcium (1,500 mg) Tablet 600 mg PO DAILY RF: 0 benzonatate [Tessalon Perles] 100 mg Capsule 100 mg PO TID PRN (Reason: Cough) RF: 0 methylcellulose (laxative) Powder 2 g PO DAILY PRN (Reason: Constipation) RF: 0 hydrocodone-acetaminophen [[place]] 5-325 mg tablet 1 tab PO Q8 PRN (Reason: pain) Qty: 9 RF: 0 Discontinued triamterene-hydrochlorothiazid 37.5-25 mg tablet 1 tab PO QAM RF: 0 Discharge Orders: Discharge Order (Routine); Ordered 02/04/20 Ordered By: Octavia Stark Admission Data Admit Date/Time: 02/02/20 19:36 Attending Provider: Octavia Stark I. Admit Provider: Joanie Angel Primary Care Provider: Amari Elena Other Providers: Joanie Angel ; Marie Pitts ; Mike Solorzano Elissa R. ; Asha Harris ; Italo Rosenthal Other Interventions: Discharge Summary Assessment (RN) Last Done: 02/04/20 13:37 DC Date/Time DO NOT enter until pt leaves facility: 02/04/20 14:25
== END 2020-02-04 14:25 | disposition home or self-care (01) | DRG 194 ==
LOC: ED 16:03 → 2N 19:36 → SUATTDRO 19:36 → 2N 20:29

== ENCOUNTER 2022-05-19 12:24 | Inpatient (IN) ==
--- NOTE | 2022-05-19 13:03 | XRay Report ---
SINGLE VIEW CHEST CLINICAL HISTORY: Cough. FINDINGS: An AP, portable, upright chest radiograph is compared to study dated 05/12/2022 and correla carlos with chest CT dated 02/02/2020. The examination is degraded by portable technique, apical lordotic positioning, and patient rotation. The heart is enlarged noting atherosclerotic calcification of the thoracic aorta. The pulmonary vasculature is noncongested. There is bibasilar scarring/atelectasis. C hronic interstitial thickening/fibrotic change is similar to previous. Question superimposed airspace opacities in the right upper lobe and at the left lung base. No large pleural effusion or pneumothor ax is seen. There is a 2 cm density at the left apex. The skeletal structures are osteopenic. The bon y thorax is grossly intact. Advanced arthritic change is noted in the shoulders. Superior subluxation of the humeral heads suggest chronic bilateral rotator cuff injury. IMPRESSION: 2. Cardiomegaly and changes of chronic lung disease as above. 2. Question mild superimposed airspace opacities in the right upper lobe and at the left lung base. C orrelate clinically for evidence of an infectious/inflammatory pneumonitis. Radiographic follow-up to resolution is recommended. 3. There is a 2 cm density at the left apex. Chest CT correlation is recommended. ACT 112: Negative or not required by law. Electronically signed by: Chris Ramos M.D. 05/19/2022 1:02 PM
[2022-05-19 13:11] LABS: Basophils # (auto) 0.16 K/uL (0-0.2); Eosinophils # (auto) 0.37 K/uL (0-0.50); Eosinophils % (auto) 2.4 %; Hematocrit (blood only) 41.5 % (34.1-44.9); Hemoglobin 13.4 g/dl (12.0-16.0); Immature Granulocytes # (auto) 0.58 K/uL (0.00-0.02); Immature Granulocytes % (auto) 3.7 %; Lymphocytes # (auto) 1.01 K/uL (1.2-3.4); Lymphocytes % (auto) 6.5 %; Mean Corpuscular Hemoglobin 31.5 pg (25.0-34.0); Mean Corpuscular Hgb Conc 32.3 g/dL (32.0-36.0); Mean Corpuscular Volume 97.4 fL (80.0-100.0); Mean Platelet Volume 10.6 fL (9.4-12.3); Monocytes # (auto) 1.24 K/uL (0.24-0.82); Neutrophils # (auto) 12.23 K/uL (1.4-6.5); Neutrophils % (auto) 78.4 %; Platelet Count 343 K/uL (130-400); RDW Coefficient of Variation 13.4 % (11.5-14.5); RDW Standard Deviation 47.9 fL (36.4-46.3); Red Blood Count 4.26 M/uL (3.93-5.22); White Blood Count 15.59 K/ul (4.8-10.8)
--- NOTE | 2022-05-19 13:26 | Emergency Department Note ---
Impression & Plan COVID-19, Weakness, Interstitial pulmonary fibrosis, Elevated troponin I level, Hypercalcemia, Elevated C-reactive protein (CRP), Cough ED Provider Note Provider: Jose Reece MD DATE OF SERVICE: 05/19/2022 CHIEF COMPLAINT: Pneumonia/COVID/weakness HISTORY OF PRESENT ILLNESS: Patient is a 89-year-old female past medical history of CKD, interstitial pulmonary fibrosis, GERD, and hypertension presenting here via ambulance from her home. Patient's been ill for just shy of 2 weeks with c ough and cold symptoms. Seen here last Thursday diagnosed at that time both with COVID and possible pneumonia. Sent home on doxycycline and Augmentin. Taking these by her report. Denies significant nausea or vomiting not eating much and states her taste has been affected by the COVID. Denies chest pain or head pain. Denies any significant recent falls but states has been very weak and has required significant assistance from family members and caregivers to help her move around. Patient states she still has a bit of a productive cough. Denies significant leg swelling. REVIEW OF SYSTEMS: A total of 10 review of systems was obtained and negative except as stated above in the HPI. PAST MEDICAL HISTORY: As noted above MEDICATIONS: Reviewed home medications SOCIAL HISTORY: Lives at home with son, very distant former smoker PHYSICAL EXAM: GENERAL: alert and oriented in no acute distress on stretcher, fatigued in appearance however Head: normocephalic and atraumatic EYES: No injection, discharge or icterus. NECK: Trachea midline. ENT: Mucous membranes pink and moist. LUNGS: Airway patent. No retractions. Breath sounds clear with good air entry bilaterally. HEART: Regular rate and rhythm. No chest wall tenderness ABDOMEN: Soft and non-tender, without guarding or rebound. SKIN: Acyanotic, warm, dry, without rashes EXTREMITIES: Without swelling, tenderness or deformity NEUROLOGICAL: No focal deficits. No aphasia. No facial droop or slurred speech. EK bpm sinus rhythm with PAC. No acute ST segment elevation with left axis left bundle branch block noted. QTC of 44. Compared to previous May 12 no significant change CONTINUOUS CARDIAC MONITORING: was ordered and showed a heart rate of 70s-80s bpm in sinus rhythm occasional PAC Patient's laboratory studies and imaging reviewed. Differential includes Infection, dehydration, metabolic abnormality, h ypo/hyperglycemia, electrolyte disturbance, anemia, hypoxia, cardiac sources, intracerebral event, toxicologic, neurologic, as well as other pathologies. IMPRESSION/MEDICAL DECISION MAKING: Patient evaluated last week with COVID-19 as well as possible pneumonia started on antibiotics. Reviewed prior encounter notes. Now with continued weakness and cough. Denies shortness of breath at rest here. Not hypoxic likely. Blood work completed as well as repeat chest x-ray. Blood work shows some improvement of white blood cell count down to 15.6 from 20 last week. No significant anemia. Chest x-ray report however questions a left apex 2 cm density as well as airspace opacities in right upper lobe and left lung base. Priors chest x- ray from last week questionable left lung base infiltrate. For further definition given her continued illness CT of the chest will be completed. Given her age and poor renal function and low suspicion for PE at this time done without contrast. Procalcitonin not significantly elevated. CT of the chest shows evidence per radiology of interval progression of pulmonary fibrosis without consolidation consistent with pneumonia. Stable unchanged left apical lung nodule was noted. Patient's blood work does indicate mildly elevated CRP as well as a slightly elevated troponin of 18.9 today compared to her previous around 11 last week. Calcium is also somewhat elevated 11.4. Gently given some hydration for the hypercalcemia. Son updated via phone. Poor p.o. intake reported. Given her weakness with this and her comorbidities and COVID diagnosis discussed with her further observation and care here at the hospital. DIAGNOSIS: COVID-19, pulmonary fibrosis, weakness, hypercalcemia, elevated troponin, elevated CRP DISPOSITION: Hospitalist will evaluate Patient was agreeable with this plan. Past Med/Surg History Medical History Abnormal CT scan, chest CKD (chronic kidney disease), stage III Deviated nasal septum Diastolic heart failure GERD (gastroesophageal reflux disease) Hiatal hernia Hypertension Hypothyroidism Interstitial pulmonary fibrosis Left bundle branch block Osteoarthritis Recurrent UTI Surgical History H/O repair of right rotator cuff History of appendectomy History of cataract surgery History of hysterectomy History of left oophorectomy History of total left knee replacement History of total right knee replacement S/P left knee arthroscopy S/P right knee arthroscopy S/p total knee replacement, bilateral Family History Other Lung cancer Social History (Updated 04/23/22 @ 08:54 by KAYLEE Jaimes) Smoking Status: Former smoker Tobacco Type: Cigarettes Age Started Using Tobacco: 20; Age Quit Using Tobacco: 32; packs per day: 0.25; Second Hand Exposure: Yes; Hx Alcohol Use: No Hx Substance Use: No Preferred Language: Vietnamese Communication Ability: Effective Client Technologies Specialist Required: No Beliefs That Will Affect Care: None marital status: / Current Living Situation: Alone Current Living Situation Comment: son lives next door Feels Safe at Home: Yes Assistive Devices: Walker Allergies Allergies Allergy/AdvReac Type Severity Reaction Status Date / Time cefdinir AdvReac Intermediate Nausea and Unverified 07/01/21 09:33 Vomiting metoprolol AdvReac Intermediate Dizziness Unverified 07/01/21 09:33 to Metoprolol Tartrate capsaicin AdvReac Mild Nausea/Vomi Verified 07/01/21 09:33 ting diclofenac AdvReac Mild Nausea/Vomi Verified 07/01/21 09:33 ting Diclopak AdvReac Mild N/V Verified 01/03/18 15:28 ketoprofen AdvReac Mild Nausea/Vomi Verified 07/01/21 09:33 ting naproxen AdvReac Mild Nausea/Vomi Verified 07/01/21 09:33 ting propoxyphene AdvReac Mild Nausea/Vomi Verified 07/01/21 09:33 ting rofecoxib AdvReac Mild Abdominal Verified 07/01/21 09:33 cramps Sulfa (Sulfonamide AdvReac Mild Nausea/Vomi Verified 07/01/21 09:33 Antibiotics) ting sulfamethoxazole AdvReac Mild Nausea/Vomi Verified 07/01/21 09:33 ting tramadol AdvReac Mild Nausea/Vomi Verified 07/01/21 09:33 ting trimethoprim AdvReac Mild Nausea/Vomi Verified 07/01/21 09:33 ting Home Meds Home Medications Medication Instructions Recorded Confirmed atenolol 50 mg tablet 50 mg PO QAM #30 tabs 03/15/19 04/23/22 diclofenac sodium 3 % topical gel 1 applic topical TID PRN Pain 03/15/19 04/23/22 fluticasone 250 mcg-salmeterol 50 1 puffs inhalation BID 03/15/19 04/23/22 mcg/dose blistr powdr for inhalation multivitamin (Daily Multi-Vitamin 1 tab PO QAM 03/15/19 04/23/22 tablet) omeprazole 20 mg capsule,delayed 20 mg PO DAILY 03/15/19 04/23/22 release aspirin 81 mg tablet,delayed 81 mg PO HS 06/15/19 04/23/22 release levothyroxine 100 mcg tablet 100 mcg PO QAM 08/30/19 04/23/22 cyclosporine 0.05 % eye drops in a 1 drp OPB BID 01/10/20 04/23/22 dropperette (Restasis) potassium chloride 20 mEq 20 meq PO QAM 01/10/20 04/23/22 tablet,extended release(part/cryst) prednisone 2.5 mg tablet 2.5 mg PO Q2D 01/10/20 04/23/22 calcium carbonate 600 mg calcium 600 mg PO DAILY 02/02/20 04/23/22 (1,500 mg) tablet (Calcium) conjugated estrogens 0.625 mg/gram 0.625 mg vaginal UD 02/02/20 04/23/22 vaginal cream (Premarin) methylcellulose (laxative) 2 g PO DAILY PRN Constipation 02/02/20 04/23/22 acetaminophen 500 mg capsule 1,000 mg PO Q6H PRN Pain 12/02/20 04/23/22 hydrocodone 5 mg-acetaminophen 325 1 tab PO TID PRN Pain 12/02/20 04/23/22 mg tablet triamterene 37.5 1 tab PO DAILY 12/02/20 04/23/22 mg-hydrochlorothiazide 25 mg tablet Previous Rx's Medication Instructions Recorded magnesium oxide 400 mg (241.3 mg 400 mg PO DAILY #7 tabs 12/02/20 magnesium) tablet (MagOx) montelukast 10 mg tablet 10 mg PO HS #30 tabs 07/10/21 amoxicillin 500 mg-potassium 1 tab PO BID #20 tabs 05/12/22 clavulanate 125 mg tablet (Augmentin) doxycycline hyclate 100 mg capsule 100 mg PO BID 10 days #20 caps 05/12/22 Results & Data (ED) Vital Signs Vital Signs - 24 hr 05/19/22 12:12 05/19/22 12:12 Temperature 36.5 C Temperature Source Oral Pulse Rate 82 Pulse Rate [Apical] 88 Pulse Rhythm Regular Respiratory Rate 18 18 Respiratory Effort / Characteristics Non-Labored Non-Labored Respiratory Depth Normal Normal Respiratory Pattern Regular Regular Blood Pressure 115/88 Blood Pressure Mean 97 Blood Pressure Position Lying Pulse Oximetry 94 94 Oxygen Delivery Method Room Air Room Air Sepsis Recent Fever Within 48 Hours No Sepsis New/Unexplained Change in Mental Status No Sepsis Action Taken by Nursing No Action Required Laboratory Data Result diagrams: 05/19/22 12:52 05/19/22 12:52 Lab Results 05/19/22 05/19/22 05/19/22 Range/Units 12:52 12:52 12:52 WBC 15.59 H (4.8-10.8) K/ul RBC 4.26 (3.93-5.22) M/uL Hgb 13.4 (12.0-16.0) g/dl Hct 41.5 (34.1-44.9) % MCV 97.4 (80.0-100.0) fL MCH 31.5 (25.0-34.0) pg MCHC 32.3 (32.0-36.0) g/dL RDW Std Deviation 47.9 H (36.4-46.3) fL RDW Coeff of Heather 13.4 (11.5-14.5) % Plt Count 343 (130-400) K/uL MPV 10.6 (9.4-12.3) fL Immature Gran % (Auto) 3.7 % Neut % (Auto) 78.4 % Lymph % (Auto) 6.5 % Harlan % (Auto) 8.0 % Eos % (Auto) 2.4 % Baso % (Auto) 1.0 % Neut # (Auto) 12.23 H (1.4-6.5) K/uL Lymph # (Auto) 1.01 L (1.2-3.4) K/uL Harlan # (Auto) 1.24 H (0.24-0.82) K/uL Eos # (Auto) 0.37 (0-0.50) K/uL Baso # (Auto) 0.16 (0-0.2) K/uL Immature Gran # (Auto) 0.58 H (0.00-0.02) K/uL Sodium 142 (136-145) mmol/L Potassium 4.4 (3.5-5.1) mmol/L Chloride 108 H (98-107) mmol/L Carbon Dioxide 23 (21-32) mmol/L Anion Gap 11 (3-11) BUN 48 H (6-23) mg/dl Creatinine 1.52 H (0.6-1.2) mg/dl Est Cr Clr Drug Dosing 20.0 ml/min Est GFR ( Amer) 34.9 ml/min Est GFR (Non-Af Amer) 30.1 ml/min BUN/Creatinine Ratio 31.6 H (10-20) Glucose 128 H (70-99(Fasting)) mg/dl Lactate 2.0 (0.4-2.0) mmol/L Calcium 11.4 H (8.5-10.1) mg/dl Total Bilirubin 0.5 (0.2-1.0) mg/dl AST 18 (13-39) U/L ALT 16 (7-52) U/L Alkaline Phosphatase 107 H (34-104) U/L Troponin I High Sens 18.9 H D (0-14) pg/ml C-Reactive Protein 3.83 H (0-0.5) mg/dl Total Protein 8.0 (6.0-8.3) gm/dl Albumin 3.4 (3.4-5.0) gm/dl Globulin 4.6 H (2.5-4.0) gm/dl Albumin/Globulin Ratio 0.7 L (0.9-2) Procalcitonin (0-0.5) ng/ml 05/19/22 Range/Units 12:52 WBC (4.8-10.8) K/ul RBC (3.93-5.22) M/uL Hgb (12.0-16.0) g/dl Hct (34.1-44.9) % MCV (80.0-100.0) fL MCH (25.0-34.0) pg MCHC (32.0-36.0) g/dL RDW Std Deviation (36.4-46.3) fL RDW Coeff of Heather (11.5-14.5) % Plt Count (130-400) K/uL MPV (9.4-12.3) fL Immature Gran % (Auto) % Neut % (Auto) % Lymph % (Auto) % Harlan % (Auto) % Eos % (Auto) % Baso % (Auto) % Neut # (Auto) (1.4-6.5) K/uL Lymph # (Auto) (1.2-3.4) K/uL Harlan # (Auto) (0.24-0.82) K/uL Eos # (Auto) (0-0.50) K/uL Baso # (Auto) (0-0.2) K/uL Immature Gran # (Auto) (0.00-0.02) K/uL Sodium (136-145) mmol/L Potassium (3.5-5.1) mmol/L Chloride (98-107) mmol/L Carbon Dioxide (21-32) mmol/L Anion Gap (3-11) BUN (6-23) mg/dl Creatinine (0.6-1.2) mg/dl Est Cr Clr Drug Dosing ml/min Est GFR ( Amer) ml/min Est GFR (Non-Af Amer) ml/min BUN/Creatinine Ratio (10-20) Glucose (70-99(Fasting)) mg/dl Lactate (0.4-2.0) mmol/L Calcium (8.5-10.1) mg/dl Total Bilirubin (0.2-1.0) mg/dl AST (13-39) U/L ALT (7-52) U/L Alkaline Phosphatase (34-104) U/L Troponin I High Sens (0-14) pg/ml C-Reactive Protein (0-0.5) mg/dl Total Protein (6.0-8.3) gm/dl Albumin (3.4-5.0) gm/dl Globulin (2.5-4.0) gm/dl Albumin/Globulin Ratio (0.9-2) Procalcitonin 0.38 (0-0.5) ng/ml Administered Medications Sodium Chloride (Nss) 500 mls @ 999 mls/hr IV .Q31M ONE Stop: 05/19/22 14:37 Last Admin: 05/19/22 14:17 Dose: 999 mls/hr Documented By: SR Imaging Data Radiologist's Impression: Chest X-Ray 05/19/22 12:37 SINGLE VIEW CHEST CLINICAL HISTORY: Cough. FINDINGS: An AP, portable, upright chest radiograph is compared to study dated 05/12/2022 and correlated with chest CT dated 02/02/2020. The examination is degraded by portable technique, apical lordotic positioning, and patient rotation. The heart is enlarged noting atherosclerotic calcification of the thoracic aorta. The pulmonary vasculature is noncongested. There is bibasilar scarring/atelectasis. Chronic interstitial thickening/fibrotic change is similar to previous. Question superimposed airspace opacities in the right upper lobe and at the left lung base. No large pleural effusion or pneumothorax is seen. There is a 2 cm density at the left apex. The skeletal structures are osteopenic. The bony thorax is grossly intact. Advanced arthritic change is noted in the shoulders. Superior subluxation of the humeral heads suggest chronic bilateral rotator cuff injury. IMPRESSION: 2. Cardiomegaly and changes of chronic lung disease as above. 2. Question mild superimposed airspace opacities in the right upper lobe and at the left lung base. Correlate clinically for evidence of an i nfectious/inflammatory pneumonitis. Radiographic follow-up to resolution is recommended. 3. There is a 2 cm density at the left apex. Chest CT correlation is recommended. ACT 112: Negative or not required by law. Electronically signed by: Chris Ramos M.D. 05/19/2022 1:[address] 05/19/22 13:14 CT chest diagnostic wo con CT DOSE: 225.27 mGycm HISTORY: COVID 19, shortness of breath, ?pna and/or mass TECHNIQUE: Multiaxial CT images of the chest were performed without contrast. A dose lowering technique was utilized adhering to the principles of ALARA. COMPARISON: Chest CTA 02/02/2020. FINDINGS: No change in the old mild superior endplate compression deformities within the thoracic spine. There is an old, healed sternal fracture again noted. No pneumothorax. Stable focal irregular density within the left lung apex which measures approximately 2.1 x 1.0 cm. This contains a punctate calcification and favor scarring. Interval progression of the diffuse interstitial thickening with mild traction bronchiectasis and peripheral honeycombing at the lung bases. This is consistent with pulmonary fibrosis. Otherwise, no new focal lung consolidations to suggest a pneumonia. The central airways are patent. Degenerative changes again noted within the shoulders. Limited views of the upper abdomen demonstrate a normal liver, spleen, and adrenal glands. There is a moderate hiatus hernia, unchanged. Moderate calcified plaque within the normal caliber thoracic aorta. There are moderate coronary artery calcifications. The heart is normal in size. No pleural or pericardial effusions. No mediastinal or hilar lymphadenopathy. IMPRESSION: 1. Interval progression of the pulmonary fibrosis. 2. No new focal lung consolidations to suggest a pneumonia. 3. Stable 2.1 x 1.0 cm focal irregular density within the left lung apex. This favors scarring. 4. Moderate hiatus hernia, unchanged ACT 112: Negative or not required by law. Electronically signed by: Darryl Degroot M.D. 05/19/2022 1:59 PM Discharge Plan Visit Data Chief Complaint: Illness Stated Complaint: cough and weakness ED Provider: Jose Reece Discharge Problem: COVID-19, Weakness, Interstitial pulmonary fibrosis, Elevated troponin I level, Hypercalcemia, Elevated C-reactive protein (CRP), Cough Patient Disposition: Being Evaluated by Hospitalist Forms Stand Alone Forms: My [facility] Prescriptions Prescriptions: No Action montelukast 10 mg tablet 10 mg PO HS Qty: 30 5RF fluticasone propion-salmeterol 250-50 mcg/dose blister with device 1 puffs inhalation BID multivitamin [Daily Multi-Vitamin] tablet 1 tab PO QAM omeprazole 20 mg capsule,delayed release(DR/EC) 20 mg PO DAILY atenolol 50 mg tablet 50 mg PO QAM Qty: 30 diclofenac sodium 3 % gel 1 applic topical TID PRN (Reason: Pain) Rx Instructions: apply to hands aspirin 81 mg Tablet,Delayed Release (Dr/Ec) 81 mg PO HS potassium chloride 20 mEq tablet,ER particles/crystals 20 meq PO QAM prednisone 2.5 mg tablet 2.5 mg PO Q2D Restasis 0.05 % dropperette 1 drp OPB BID levothyroxine 100 mcg tablet 100 mcg PO QAM Premarin 0.625 mg/gram Cream 0.625 mg VAGINAL UD calcium carbonate [Calcium 600] 600 mg calcium (1,500 mg) Tablet 600 mg PO DAILY methylcellulose (laxative) Powder 2 g PO DAILY PRN (Reason: Constipation) hydrocodone-acetaminophen 5-325 mg tablet 1 tab PO TID PRN (Reason: Pain) triamterene-hydrochlorothiazid 37.5-25 mg tablet 1 tab PO DAILY acetaminophen [Tylenol Extra Strength] 500 mg Capsule 1,000 mg PO Q6H PRN (Reason: Pain) magnesium oxide [MagOx] 400 mg (241.3 mg magnesium) tablet 400 mg PO DAILY Qty: 7 0RF amoxicillin-pot clavulanate [Augmentin] 500-125 mg tablet 1 tab PO BID Qty: 20 0RF doxycycline hyclate 100 mg capsule 100 mg PO BID 10 Days Qty: 20 0RF Referrals Referrals: Amari Elena MD [Primary Care Provider] - : Cough Qualifiers: Cough type: unspecified Qualified Code(s): R05.9 - Cough, unspecified
[2022-05-19 13:44] LABS: Troponin I High Sensitivity 18.9 pg/ml (0-14)
[2022-05-19 13:47] LABS: Albumin Globulin Ratio 0.7 (0.9-2); Albumin Level 3.4 gm/dl (3.4-5.0); BUN Creatinine Ratio 31.6 (10-20); Bilirubin,Total 0.5 mg/dl (0.2-1.0); C Reactive Protein 3.83 mg/dl (0-0.5); Calcium 11.4 mg/dl (8.5-10.1); Est GFR (African American) 34.9 ml/min; Est GFR (Non-African American) 30.1 ml/min; Globulin 4.6 gm/dl (2.5-4.0); Potassium 4.4 mmol/L (3.5-5.1)
--- NOTE | 2022-05-19 14:01 | CT Scan Report ---
CT chest diagnostic wo con CT DOSE: 225.27 mGycm HISTORY: COVID 19, shortness of breath, ?pna and/or mass TECHNIQUE: Multiaxial CT images of the chest were performed without contrast. A dose lowering techni que was utilized adhering to the principles of ALARA. COMPARISON: Chest CTA 02/02/2020. FINDINGS: No change in the old mild superior endplate compression deformities within the thoracic spi ne. There is an old, healed sternal fracture again noted. No pneumothorax. Stable focal irregular den sity within the left lung apex which measures approximately 2.1 x 1.0 cm. This contains a punctate ca lcification and favor scarring. Interval progression of the diffuse interstitial thickening with mild traction bronchiectasis and peripheral honeycombing at the lung bases. This is consistent with pulmo nary fibrosis. Otherwise, no new focal lung consolidations to suggest a pneumonia. The central airway s are patent. Degenerative changes again noted within the shoulders. Limited views of the upper abdom en demonstrate a normal liver, spleen, and adrenal glands. There is a moderate hiatus hernia, unchang ed. Moderate calcified plaque within the normal caliber thoracic aorta. There are moderate coronary a rtery calcifications. The heart is normal in size. No pleural or pericardial effusions. No mediastina l or hilar lymphadenopathy. IMPRESSION: 1. Interval progression of the pulmonary fibrosis. 2. No new focal lung consolidations to suggest a pneumonia. 3. Stable 2.1 x 1.0 cm focal irregular density within the left lung apex. This favors scarring. 4. Moderate hiatus hernia, unchanged ACT 112: Negative or not required by law. Electronically signed by: Darryl Degroot M.D. 05/19/2022 1:59 PM
[2022-05-19] MEDS ORDERED: SODIUM CHLORIDE 0.9% 500 ML IV ONE (14:07)
--- NOTE | 2022-05-19 14:45 | History & Physical Report ---
Date of Service May 19, 2022 Assessment & Plan (1) Acute kidney injury superimposed on CKD: Plan: Baseline creatinine appears to be 1.2-1.3 - suspect related to poor oral intake since being diagnosed with COVID. - Admit for IV hydration - Encourage oral intake as tolerated - Follow labs - Hold furosemide for now due to dehydration but hx of diastolic HF so will resume once renal function improving (2) Weakness: Plan: Suspect deconditioning due to COVID on top of baseline ambulatory dysfunction - Fall precautions - PT/OT eval - may need to consider rehab or home health since pt lives alone (3) COVID-19: Plan: Not hypoxic so would defer dexamethasone, not a candidate for remdesivir based on timing of symptoms and kidney disease Concern for pneumonia on imaging in the ED last week - completed one week of Augmentin and doxycycline with improvement in pulmonary symptoms - however, seem to be causing significant side effects with diarrhea and poor appetite so will discontinue. (4) Elevated troponin I level: Plan: No acute symptoms of ACS Repeat this evening to document stability (5) Recurrent UTI: Plan: Continue suppressive antibiotics (6) Diastolic heart failure: (7) Hypertension: (8) Interstitial pulmonary fibrosis: Plan: Was previously on chronic prednisone but has been weaned off (9) Hypothyroidism: Plan: Levothyroxine dose recently increased from 100 to 112 mcg - will continue (10) GERD (gastroesophageal reflux disease): Plan Called pt's son, Darryl Madsen, for additional information. He lives next door and is very involved with his mother's care. However, he is sick with similar symptoms so is avoiding coming to visit her at this time. He requests to be kept updated at [phone]. Pt seen and reviewed with collaborating physician, Dr. Eastman. Plan of care discussed and as outlined above. Code Status; DNR/DNI DVT Prophylaxis: SubQ heparin Shashank Huerta PA-C History of Present Illness Chief Complaint: Weakness Primary Care Provider: Amari Elena MD This is an 89 y/o female with a PMH of interstitial pulmonary fibrosis, CKD3, HTN, hypothyroidism, known LBBB, sensorineural hearing loss, osteoporosis, and ambulatory dysfunction who presented to the ED today via EMS due to worsening weakness and poor oral intake since being diagnosed with COVID one week ago. Her symptoms apparently started about 10-11 days ago. She was seen in the ED last week and diagnosed with pneumonia, placed on Augmentin and doxycycline. History obtained from both patient and her son, Darryl, who assists with her care. Her cough persists and is productive of green mucus. Pt reports she may cough to the point of vomiting. However, she denies increased work of breathing or dyspnea. She has not been using her albuterol inhaler. No known fevers or chills. Denies chest pain or PAK. Appetite has been extremely poor - only eating 2-3 bites, twice a day. Limited fluid intake as well. Diarrhea since starting the antibiotics from the ED. At baseline, she requires a walker for ambulation but son reports she now must be carried or pushed in a wheelchair - cannot ambulate even with the walker. Pt reports that she lives alone but that her son lives next door and she has a sap bw consultant who comes to help regularly. Pt had COVID in February as well but did not require hospitalization. Allergies Allergy/AdvReac Type Severity Reaction Status Date / Time cefdinir AdvReac Intermediate Nausea and Unverified 07/01/21 09:33 Vomiting metoprolol AdvReac Intermediate Dizziness Unverified 07/01/21 09:33 to Metoprolol Tartrate capsaicin AdvReac Mild Nausea/Vomi Verified 07/01/21 09:33 ting diclofenac AdvReac Mild Nausea/Vomi Verified 07/01/21 09:33 ting Diclopak AdvReac Mild N/V Verified 01/03/18 15:28 ketoprofen AdvReac Mild Nausea/Vomi Verified 07/01/21 09:33 ting naproxen AdvReac Mild Nausea/Vomi Verified 07/01/21 09:33 ting propoxyphene AdvReac Mild Nausea/Vomi Verified 07/01/21 09:33 ting rofecoxib AdvReac Mild Abdominal Verified 07/01/21 09:33 cramps Sulfa (Sulfonamide AdvReac Mild Nausea/Vomi Verified 07/01/21 09:33 Antibiotics) ting sulfamethoxazole AdvReac Mild Nausea/Vomi Verified 07/01/21 09:33 ting tramadol AdvReac Mild Nausea/Vomi Verified 07/01/21 09:33 ting trimethoprim AdvReac Mild Nausea/Vomi Verified 07/01/21 09:33 ting Home Medications Medication Instructions Recorded Confirmed Type atenolol 50 mg tablet 50 mg PO QAM #30 tabs 03/15/19 05/19/22 History diclofenac sodium 3 % topical gel 1 applic topical TID PRN Pain 03/15/19 05/19/22 History multivitamin (Daily Multi-Vitamin 1 tab PO QAM 03/15/19 05/19/22 History tablet) omeprazole 20 mg capsule,delayed 20 mg PO DAILY PRN Dyspepsia 03/15/19 05/19/22 History release aspirin 81 mg tablet,delayed 81 mg PO HS 06/15/19 05/19/22 History release cyclosporine 0.05 % eye drops in a 1 drp OPB BID 01/10/20 05/19/22 History dropperette (Restasis) potassium chloride 20 mEq 20 meq PO QAM 01/10/20 05/19/22 History tablet,extended release(part/cryst) calcium carbonate 600 mg calcium 600 mg PO DAILY 02/02/20 05/19/22 History (1,500 mg) tablet (Calcium) conjugated estrogens 0.625 mg/gram 0.625 mg vaginal UD 02/02/20 05/19/22 History vaginal cream (Premarin) methylcellulose (laxative) 2 g PO DAILY PRN Constipation 02/02/20 05/19/22 History hydrocodone 5 mg-acetaminophen 325 1 tab PO TID PRN Pain 12/02/20 05/19/22 History mg tablet montelukast 10 mg tablet 10 mg PO HS #30 tabs 07/10/21 05/19/22 Rx amoxicillin 500 mg-potassium 1 tab PO BID #20 tabs 05/12/22 05/19/22 Rx clavulanate 125 mg tablet (Augmentin) doxycycline hyclate 100 mg capsule 100 mg PO BID 10 days #20 caps 05/12/22 05/19/22 Rx furosemide 20 mg tablet 20 mg PO DAILY 05/19/22 05/19/22 History levothyroxine 112 mcg tablet 112 mcg PO DAILY 05/19/22 05/19/22 History nitrofurantoin macrocrystal 50 mg 50 mg PO QID 05/19/22 05/19/22 History capsule Past Med/Surg History Medical History Abnormal CT scan, chest CKD (chronic kidney disease), stage III Deviated nasal septum Diastolic heart failure GERD (gastroesophageal reflux disease) Hiatal hernia Hypertension Hypothyroidism Interstitial pulmonary fibrosis Left bundle branch block Osteoarthritis Recurrent UTI Surgical History H/O repair of right rotator cuff History of appendectomy History of cataract surgery History of hysterectomy History of left oophorectomy History of total left knee replacement History of total right knee replacement S/P left knee arthroscopy S/P right knee arthroscopy S/p total knee replacement, bilateral Family History Other Lung cancer Social History Smoking Status: Never smoker Tobacco Type: Cigarettes Age Started Using Tobacco: 20; Age Quit Using Tobacco: 32; packs per day: 0.25; Second Hand Exposure: Yes; Hx Alcohol Use: No Hx Substance Use: No Preferred Language: Spanish Communication Ability: Effective Communication Ability Comment: [facility] Food Supervisor Required: No Beliefs That Will Affect Care: None marital status: / Current Living Situation: Alone Current Living Situation Comment: Son lives next door and comes over several times a day, caregiver 2hrs x5 Other Information That Helps Us Care for You: No Feels Safe at Home: Yes Assistive Devices: Walker and Wheelchair Assistive Devices Comment: Prior to episode of illness pt was ambulation with walker Review of Systems Review of Systems: All systems reviewed & are unremarkable except as noted in HPI & below Constitutional: + fatigue, + weakness and + anorexia; no fever Respiratory: + cough and + chest congestion; no dyspnea on exertion Cardiovascular: no chest pain, no palpitations and no syncope Gastrointestinal: + vomiting and + diarrhea/loose stools; no abdominal pain Genitourinary: + problem reported (chronic UTI - on suppressive abx) Musculoskeletal: + muscle weakness Integumentary: no yellowing of the skin Neurologic: + generalized weakness and + dizziness; no falls Physical Exam Constitutional: + thin and + frail appearing; no acute distress Eyes: + anicteric sclerae ENMT: Ears: + hearing impairment Neck: trachea midline Respiratory: no respiratory distress and no labored breathing Auscultation: + diminished lung sounds and + wheezes Cardiovascular: Rate/Rhythm: regular rate and regular rhythm Gastrointestinal (Abdomen): Inspection/Auscultation: normal bowel sounds; abdomen not distended Percussion/Palpation: abdomen soft and + hernia; abdomen nontender Musculoskeletal: Head/Neck/Chest: normocephalic, head atraumatic and neck supple Skin: no jaundice Neurologic: moves all extremities; no focal motor deficits Results & Data Results & Data ([facility]) Vital Signs (Past 12 Hours) Vital Signs Temp Pulse Pulse Resp BP BP Pulse Ox 05/19/22 14:31 85 16 176/92 H 94 05/19/22 12:12 88 18 94 05/19/22 12:12 36.5 C 82 18 115/88 94 O2 Del Method 05/19/22 14:31 Room Air 05/19/22 12:12 Room Air 05/19/22 12:12 Room Air Laboratory Results Laboratory Results - last 24 hr 05/19/22 05/19/22 05/19/22 12:52 12:52 12:52 WBC 15.59 H RBC 4.26 Hgb 13.4 Hct 41.5 MCV 97.4 MCH 31.5 MCHC 32.3 RDW Std Deviation 47.9 H RDW Coeff of Heather 13.4 Plt Count 343 MPV 10.6 Immature Gran % (Auto) 3.7 Neut % (Auto) 78.4 Lymph % (Auto) 6.5 Hodgeman % (Auto) 8.0 Eos % (Auto) 2.4 Baso % (Auto) 1.0 Neut # (Auto) 12.23 H Lymph # (Auto) 1.01 L Hodgeman # (Auto) 1.24 H Eos # (Auto) 0.37 Baso # (Auto) 0.16 Immature Gran # (Auto) 0.58 H Sodium 142 Potassium 4.4 Chloride 108 H Carbon Dioxide 23 Anion Gap 11 BUN 48 H Creatinine 1.52 H Est Cr Clr Drug Dosing 20.0 Est GFR ( Amer) 34.9 Est GFR (Non-Af Amer) 30.1 BUN/Creatinine Ratio 31.6 H Glucose 128 H Lactate 2.0 Calcium 11.4 H Total Bilirubin 0.5 AST 18 ALT 16 Alkaline Phosphatase 107 H Troponin I High Sens 18.9 H D C-Reactive Protein 3.83 H Total Protein 8.0 Albumin 3.4 Globulin 4.6 H Albumin/Globulin Ratio 0.7 L Procalcitonin 05/19/22 12:52 WBC RBC Hgb Hct MCV MCH MCHC RDW Std Deviation RDW Coeff of Heather Plt Count MPV Immature Gran % (Auto) Neut % (Auto) Lymph % (Auto) Hodgeman % (Auto) Eos % (Auto) Baso % (Auto) Neut # (Auto) Lymph # (Auto) Hodgeman # (Auto) Eos # (Auto) Baso # (Auto) Immature Gran # (Auto) Sodium Potassium Chloride Carbon Dioxide Anion Gap BUN Creatinine Est Cr Clr Drug Dosing Est GFR ( Amer) Est GFR (Non-Af Amer) BUN/Creatinine Ratio Glucose Lactate Calcium Total Bilirubin AST ALT Alkaline Phosphatase Troponin I High Sens C-Reactive Protein Total Protein Albumin Globulin Albumin/Globulin Ratio Procalcitonin 0.38 Diagnostic Findings Chest X-ray 05/19/22 - IMPRESSION: 2. Cardiomegaly and changes of chronic lung disease as above. 2. Question mild superimposed airspace opacities in the right upper lobe and at the left lung base. Correlate clinically for evidence of an infectious/inflammatory pneumonitis. Radiographic follow-up to resolution is recommended. 3. There is a 2 cm density at the left apex. Chest CT correlation is recommended. CT Chest without contrast 05/19/22 - IMPRESSION: 1. Interval progression of the pulmonary fibrosis. 2. No new focal lung consolidations to suggest a pneumonia. 3. Stable 2.1 x 1.0 cm focal irregular density within the left lung apex. This favors scarring. 4. Moderate hiatus hernia, unchanged Medications Administered Discontinued Medications Sodium Chloride (Nss) 500 mls @ 999 mls/hr IV .Q31M ONE Stop: 05/19/22 14:37 Last Admin: 05/19/22 14:17 Dose: 999 mls/hr Documented By: SR Code Status & VTE Plan VTE Prophylaxis Plan VTE Prophylaxis will be ordered: Yes Supervising Physician Co-Signing Physician Notes Care coordinated with Ophelia Huerta PA-C. Agree with above note. Patient seen and examined. Please refer to her notes for full details. Vital signs reviewed. Physical exam: General exam: Alert and oriented. Not in acute distress. CVS: S1 and S2 heard, regular rate and rhythm, no murmurs. RS: Clear to auscultation, no wheezing or crackles. ABD: Soft, bowel sounds present, nontender, no distention. ASTROPHYSICS TEACHER: Nonfocal. EXT: No edema, no erythema. Labs: Reviewed. Assessment and plan: 89F with recent dx of covid poor appetite and also completed one week course of augmentin and doxy for possible pneumonia comes because of not feeling well and weakness. Afberile. Denies any pain. denies Sob. Hemodynamically stable. Resting comfortable.Hard of hearing a/p Covid doing ok will monitor. weakness pt/ot may need rehab LYNETTE holding lasix gentle fluids follow labs Hx of diastolic chf monitor for volume overload. Other diagnosis and plan of care as per TRUDI Henry MD. (1) Diastolic heart failure Heart failure chronicity: chronic Qualified Code(s): I50.32 - Chronic diastolic (congestive) heart failure
[2022-05-19] MEDS ORDERED: SODIUM CHLORIDE 0.9% 1000ML 1,000 ML IV SCH (16:15)
[2022-05-19] MEDS ORDERED: ACETAMINOPHEN 325 MG TAB PO PRN (16:45)
[2022-05-19] MEDS ORDERED: ALBUTEROL HFA 8 GM INHALER INH PRN (16:45)
[2022-05-19] MEDS: ASPIRIN 81 MG ECTAB PO SCH (21:39)
[2022-05-19] MEDS: nitrofurantoin macrocrystaL 50 MG CAP PO SCH ×2 (21:39→21:40)
[2022-05-19] MEDS: MONTELUKAST SODIUM 10 MG TABLET PO SCH (21:41)
[2022-05-19] MEDS: HEPARIN SOD 5,000 UNIT/0.5 ML VIAL SQ SCH (21:41)
[2022-05-20] MEDS: LEVOTHYROXINE SODIUM 112 MCG TABLET PO SCH (05:43)
[2022-05-20 06:14] LABS: Basophils # (auto) 0.13 K/uL (0-0.2); Eosinophils # (auto) 0.47 K/uL (0-0.50); Eosinophils % (auto) 3.5 %; Hematocrit (blood only) 38.8 % (34.1-44.9); Hemoglobin 12.4 g/dl (12.0-16.0); Immature Granulocytes # (auto) 0.67 K/uL (0.00-0.02); Lymphocytes # (auto) 1.65 K/uL (1.2-3.4); Lymphocytes % (auto) 12.4 %; Mean Corpuscular Hemoglobin 31.6 pg (25.0-34.0); Mean Platelet Volume 10.7 fL (9.4-12.3); Monocytes # (auto) 1.24 K/uL (0.24-0.82); Monocytes % (auto) 9.3 %; Neutrophils # (auto) 9.15 K/uL (1.4-6.5); Neutrophils % (auto) 68.8 %; Platelet Count 275 K/uL (130-400); RDW Coefficient of Variation 13.3 % (11.5-14.5); RDW Standard Deviation 48.4 fL (36.4-46.3); Red Blood Count 3.92 M/uL (3.93-5.22); White Blood Count 13.31 K/ul (4.8-10.8)
[2022-05-20 06:35] LABS: BUN Creatinine Ratio 35.7 (10-20); Calcium 10.3 mg/dl (8.5-10.1); Creatinine Clr Calc Pharmacy 24.1 ml/min; Est GFR (African American) 48.9 ml/min; Est GFR (Non-African American) 42.2 ml/min
[2022-05-20] MEDS: POTASSIUM CHLORIDE CRTAB 20 MEQ TABCR PO SCH (08:03)
[2022-05-20] MEDS: nitrofurantoin macrocrystaL 50 MG CAP PO SCH (08:03)
[2022-05-20] MEDS: HEPARIN SOD 5,000 UNIT/0.5 ML VIAL SQ SCH ×2 (08:03→22:06)
[2022-05-20] MEDS: ATENOLOL 50 MG TABLET PO SCH (08:03)
--- NOTE | 2022-05-20 13:55 | Hospitalist Progress Note ---
Date of Service May 20, 2022 Assessment & Plan (1) Acute kidney injury superimposed on CKD: Plan: Presented with worsening generalized weakness and poor appetite since being diagnosed with COVID on 05/12/22 BUN/Creat on admission 48/1.5 Baseline creat ~ 1.2 Received IVF, Lasix held, PO intake encouraged. Will continue to hold Lasix for one more day. BUN/creat 41/1.1 today Continue to monitor renal functions (2) Ambulatory dysfunction: (3) Weakness: Plan: Deconditioning in the setting of COVID 19, dehydration PT/OT recommending rehab -- patient agreeable CM following (4) COVID-19: Plan: Saturating well on room air, does not meet criteria for COVID 19 directed therapies Concern for pneumonia on imaging in the ED last week - completed one week of Augmentin and doxycycline with improvement in pulmonary symptoms. No infiltrates or consolidation noted on CT 05/19/22 Has some crackles on exam, likely 2/2 pulmonary fibrosis. Incentive spirometer encouraged. (5) Recurrent UTI: Plan: Started on prophylactic nitrofurantoin by urology 03/2021 Was prescribed nitrofurantoin 50mg QID, however that is treatment dose not prophylactic dosing. Reached out to Dr. David Stover who is agreeable to change to 50mg daily prophylactic dosing (6) Diastolic heart failure: Plan: Appears euvolemic Holding Lasix due to LYNETTE as above, likely can resume tomorrow (7) Hypertension: Plan: BP controlled, continue atenolol (8) Interstitial pulmonary fibrosis: Plan: Was previously on chronic prednisone but has been weaned off 03/[address] 05/19/22 1. Interval progression of the pulmonary fibrosis. 2. No new focal lung consolidations to suggest a pneumonia. 3. Stable 2.1 x 1.0 cm focal irregular density within the left lung apex. This favors scarring. 4. Moderate hiatus hernia, unchanged (9) Hypothyroidism: Plan: Levothyroxine dose recently increased from 100 to 112 mcg - will continue Follow up TFTs w/ PCP (10) DVT prophylaxis: Plan: SQ Heparin Dispo - Renal functions improving. PT/OT recommending rehab, patient agreeable. Likely will be medically stable for d/c tomorrow. Admission and Anticipated Discharge Date Admission Date: May 19, 2022 Supervising Physician Co-Signing Physician Notes Patient is seen and examined at bedside. No distress on exam. States having minimal cough with expectoration and feels tired. Denies any chest pain, nausea, abdominal pain, dizziness. No other complaints. Saturating well on room air. On exam patient is chronic ill-appearing, elderly, no distress, normoce phalic/atraumatic, EOMI, decreased breath sounds, bilateral crackles, S1-S2, no murmur, no pedal edema, abdomen soft, nontender, normal bowel sounds, alert, awake, oriented, grossly no focal deficits. Hearing impairment present. LYNETTE, COVID-19 infection. creatinine levels back to normal. Monitor renal function and avoid nephrotoxic agents as able. Resume home diuretics as able. Check CRP. Consider steroids if needed, currently no indication. Previously on chronic prednisone. I personally reviewed the record. Patient is interviewed and examined at bedside. Patient's care is coordinated with Yahaira Stroud BULLARD MACHINE OPERATOR. Please refer to the documentation above for details of patient's presentation and for discussion of other issues. Subjective Follow up for generalized weakness, ambulatory dysfunction, LYNETTE, COVID + Patient seen and examined. Resting in bed. Patient reports she continues to feel weak. Reports cough however no coughing noted during my exam. Denies chest pain and shortness of breath. Poor appetite -- no nausea, vomiting, or abdominal pain. Worked with therapy this morning. Denies lightheadedness, dizziness. Review of Systems Review of Systems: ROS per HPI, all other systems reviewed and negative Physical Exam Constitutional: no acute distress (resting in bed) Frail, chronically ill appearing Respiratory: normal respiratory effort; no respiratory distress Auscultation: + crackles (BL bases) Cardiovascular: Rate/Rhythm: regular rate and regular rhythm Vessels: normal peripheral pulses Extremities: no edema Gastrointestinal (Abdomen): Percussion/Palpation: abdomen soft; abdomen nontender Skin: no rashes, warm and dry Neurologic: no focal motor deficits Psychiatric: A+Ox3, euthymic affect Results & Data Results & Data ([facility]) Vital Signs (Past 12 Hours) Vital Signs Temp Pulse Pulse Resp BP BP Pulse Ox 05/20/22 09:49 110/66 05/20/22 08:08 05/20/22 08:01 81 16 178/76 H 05/20/22 07:20 36.4 C L 85 18 189/83 H 189/88 H 96 O2 Del Method 05/20/22 09:49 05/20/22 08:08 Room Air 05/20/22 08:01 05/20/22 07:20 Room Air Laboratory Results Short CBC 05/20/22 Range/Units 05:53 WBC 13.31 H (4.8-10.8) K/ul Hgb 12.4 (12.0-16.0) g/dl Hct 38.8 (34.1-44.9) % Plt Count 275 (130-400) K/uL BMP 05/19/22 05/20/22 12:52 05:53 Sodium 142 142 Potassium 4.4 4.0 Chloride 108 H 113 H Carbon Dioxide 23 21 BUN 48 H 41 H Creatinine 1.52 H 1.15 D Glucose 128 H 88 Calcium 11.4 H 10.3 H Liver Function 05/19/22 Range/Units 12:52 Total Bilirubin 0.5 (0.2-1.0) mg/dl AST 18 (13-39) U/L ALT 16 (7-52) U/L Alkaline Phosphatase 107 H (34-104) U/L Albumin 3.4 (3.4-5.0) gm/dl Diagnostic Findings Chest CT 05/19/22 13:14 CT chest diagnostic wo con CT DOSE: 225.27 mGycm HISTORY: COVID 19, shortness of breath, ?pna and/or mass TECHNIQUE: Multiaxial CT images of the chest were performed without contrast. A dose lowering technique was utilized adhering to the principles of ALARA. COMPARISON: Chest CTA 02/02/2020. FINDINGS: No change in the old mild superior endplate compression deformities within the thoracic spine. There is an old, healed sternal fracture again noted. No pneumothorax. Stable focal irregular density within the left lung apex which measures approximately 2.1 x 1.0 cm. This contains a punctate calcification and favor scarring. Interval progression of the diffuse interstitial thickening with mild traction bronchiectasis and peripheral honeycombing at the lung bases. This is consistent with pulmonary fibrosis. Otherwise, no new focal lung consolidations to suggest a pneumonia. The central airways are patent. Degenerative changes again noted within the shoulders. Limited views of the upper abdomen demonstrate a normal liver, spleen, and adrenal glands. There is a moderate hiatus hernia, unchanged. Moderate calcified plaque within the normal caliber thoracic aorta. There are moderate coronary artery calcifications. The heart is normal in size. No pleural or pericardial effusions. No mediastinal or hilar lymphadenopathy. IMPRESSION: 1. Interval progression of the pulmonary fibrosis. 2. No new focal lung consolidations to suggest a pneumonia. 3. Stable 2.1 x 1.0 cm focal irregular density within the left lung apex. This favors scarring. 4. Moderate hiatus hernia, unchanged ACT 112: Negative or not required by law. Electronically signed by: Darryl Degroot M.D. 05/19/2022 1:59 PM (1) Diastolic heart failure Heart failure chronicity: chronic Qualified Code(s): I50.32 - Chronic diastolic (congestive) heart failure
[2022-05-20 14:52] LABS: Appearance Urine Cloudy (Clear); Bacteria Urine Automated Negative (Negative); Bilirubin Urine Negative (Negative); Blood Urine Negative (Negative); Cast Urine Automated 0 /lpf (0-5); Color Urine Yellow; Epithelial Cell Urine Auto >30 /lpf (0-5); Glucose Urine UA Negative (Negative); Ketones Urine Negative (Negative); Leukocyte Esterase Urine Trace (Negative); Nitrite Urine Negative (Negative); Protein Urine 1+ (Negative); Urobilinogen Urine Negative (Negative)
[2022-05-20 15:16] LABS: RBC Urine Automated 0-4 /hpf (0-4)
--- NOTE | 2022-05-20 15:29 | Student Report ---
[facility] Med Student Progress Note Date of Service Date of service: May 20, 2022 Subjective Subjective: 89 yo female with recent positive COVID test and pneumonia who came back with worsening weakness and lethargy. At home she was taking a course of doxycycline and Augmentin which have continued inpatient. She is very [place], most information obtained from chart review. Pt denied any pain, fever, trouble breathing. She still has a productive cough that is sometimes green in color. Denies N/V/D. ROS ROS: See above for pertinent positives & negatives. A total of 10 systems reviewed and were otherwise negative. Physical Exam Physical Exam: Vital Signs Temp 36.4 C L 05/20/22 07:20 Pulse 81 05/20/22 08:01 Resp 16 05/20/22 08:01 BP 110/66 05/20/22 09:49 Pulse Ox 96 05/20/22 07:20 O2 Del Method RA 05/20/22 08:08 Intake & Output 05/19/22 05/20/22 05/20/22 18:59 06:59 18:59 Intake Total 500 / 1733 1233 / 1733 Output Total 151 / 151 200 / 200 Balance 500 / 1582 1082 / 1582 -200 / -200 Weight 46.1 kg Intake: IV 500 / 1500 1000 / 1500 Sodium Chloride 0.9% 1000ML 1, 1000 / 1000 000 ml @ 80 mls/hr IV .[id number] [facility] Rx#:[id number] Sodium Chloride 0.9% 500 ml @ 500 / 500 999 mls/hr IV .Q31M ONE Rx#: [id number] Oral 233 / 233 Output: Urine 150 / 150 Urine Amount (Catheter) 200 / 200 External 200 / 200 # Bowel Movements 1 / 1 Other: Other Intake Source Sips # Unmeasured Voids 1 Weight Measurement Method Built in [facility] General: Well-appearing, in no significant distress. Very [place], but appopriate. HEENT: No scleral icterus, PERRLA, neck supple. Atraumatic. Normocephalic. Cardiovascular: S1, S2 regular rate. No murmur, gallop, S3, S4. Pulmonary: Clear to auscultation bilaterally, normal work of breathing. Abdomen: Soft, nontender, nondistended, positive bowel sounds. Musculoskeletal: Atraumatic, no peripheral edema. Neurologic: Patient awake alert and oriented x 3, +3 strength in all 4 extremities. Very [place]. Skin: Warm, dry, no rash Results Results: Short CBC 05/20/22 05:53 WBC 13.31 H Hgb 12.4 Hct 38.8 Plt Count 275 BMP 05/20/22 05:53 Sodium 142 Potassium 4.0 Chloride 113 H Carbon Dioxide 21 BUN 41 H Creatinine 1.15 D Glucose 88 Calcium 10.3 H Urine 05/20/22 14:20 Urine Color Yellow Urine Appearance Cloudy A Urine pH 5.0 Ur Specific [place] 1.020 Urine Protein 1+ H Urine Glucose (UA) Negative SINGLE VIEW CHEST CLINICAL HISTORY: Cough. FINDINGS: An AP, portable, upright chest radiograph is compared to study dated 05/12/2022 and correlated with chest CT dated 02/02/2020. The examination is degraded by portable technique, apical lordotic positioning, and patient rotation. The heart is enlarged noting atherosclerotic calcification of the thoracic aorta. The pulmonary vasculature is noncongested. There is bibasilar scarring/atelectasis. Chronic interstitial thickening/fibrotic change is similar to previous. Question superimposed airspace opacities in the right upper lobe and at the left lung base. No large pleural effusion or pneumothorax is seen. There is a 2 cm density at the left apex. The skeletal structures are osteopenic. The bony thorax is grossly intact. Advanced arthritic change is noted in the shoulders. Superior subluxation of the humeral heads suggest chronic bilateral rotator cuff injury. IMPRESSION: 2. Cardiomegaly and changes of chronic lung disease as above. 2. Question mild superimposed airspace opacities in the right upper lobe and at the left lung base. Correlate clinically for evidence of an infectious/inflammatory pneumonitis. Radiographic follow-up to resolution is recommended. 3. There is a 2 cm density at the left apex. Chest CT correlation is recommended. ACT 112: Negative or not required by law. CT chest diagnostic wo con CT DOSE: 225.27 mGycm HISTORY: COVID 19, shortness of breath, ?pna and/or mass TECHNIQUE: Multiaxial CT images of the chest were performed without contrast. A dose lowering technique was utilized adhering to the principles of ALARA. COMPARISON: Chest CTA 02/02/2020. FINDINGS: No change in the old mild superior endplate compression deformities within the thoracic spine. There is an old, healed sternal fracture again noted. No pneumothorax. Stable focal irregular density within the left lung apex which measures approximately 2.1 x 1.0 cm. This contains a punctate calcification and favor scarring. Interval progression of the diffuse interstitial thickening with mild traction bronchiectasis and peripheral honeycombing at the lung bases. This is consistent with pulmonary fibrosis. Otherwise, no new focal lung consolidations to suggest a pneumonia. The central airways are patent. Degenerative changes again noted within the shoulders. Limited views of the upper abdomen demonstrate a normal liver, spleen, and adrenal glands. There is a moderate hiatus hernia, unchanged. Moderate calcified plaque within the normal caliber thoracic aorta. There are moderate coronary artery calcifications. The heart is normal in size. No pleural or pericardial effusions. No mediastinal or hilar lymphadenopathy. IMPRESSION: 1. Interval progression of the pulmonary fibrosis. 2. No new focal lung consolidations to suggest a pneumonia. 3. Stable 2.1 x 1.0 cm focal irregular density within the left lung apex. This favors scarring. 4. Moderate hiatus hernia, unchanged ACT 112: Negative or not required by law. A&P A&P: 1. LYNETTE on CKD 3: Creatinine improving, presenting 1.5, now 1.15. Baseline 1.1-1.2. Hold diuretics. Daily CBC, BMP. 2. Weakness: PT/OT evaluation and recommendations for inpatient placement. Recommended pt d/c to rehab. Case management involved for facility/insurance approval. 3. COVID-19/pneumonia: Pt not indicated for COVID specific therapies at this time. Lactate/procal negative. Afebrile, on RA, denies problems breathing. Continue Augmentin/doxycycline regimen. 4. Increased troponin: Now trending down. Pt without ST changes on EKG from 05/19. Pt on ASA 81mg, continue. 5. Recurrent UTI: Pt was on nitrofurantoin 50mg QID, per pharmacy, pt redosed at 50mg HS. 6. Diastolic HF (chronic): Held diuretics in setting of LYNETTE, may resume tomorrow. Strict I&Os. 7. HTN: Pt not well controlled. Continue atenolol. May need outpatient follow-up with PCP. 8. Interstitial pulmonary fibrosis: Monitor oxygenation status closely. Consider prednisone 20-40mg daily if symptomatic. 9. Hypothyroid: Last TSH 0.5 in 2020. Continue levothyroxine. 10. GERD: Continue omeprazole. 11. DVT Proph: Heparin 5000 units subQ inj, every 12 hrs. Dispo: PT/OT recommends rehab, case management reaching out to local facilities. May resume diuretics, possible d/c tomorrow. Updated Medication List Medication Instructions Recorded Confirmed Type atenolol 50 mg tablet 50 mg PO QAM #30 tabs 03/15/19 05/19/22 History diclofenac sodium 3 % topical gel 1 applic topical TID PRN Pain 03/15/19 05/19/22 History multivitamin (Daily Multi-Vitamin 1 tab PO QAM 03/15/19 05/19/22 History tablet) omeprazole 20 mg capsule,delayed 20 mg PO DAILY PRN Dyspepsia 03/15/19 05/19/22 History release aspirin 81 mg tablet,delayed 81 mg PO HS 06/15/19 05/19/22 History release cyclosporine 0.05 % eye drops in a 1 drp OPB BID 01/10/20 05/19/22 History dropperette (Restasis) potassium chloride 20 mEq 20 meq PO QAM 01/10/20 05/19/22 History tablet,extended release(part/cryst) calcium carbonate 600 mg calcium 600 mg PO DAILY 02/02/20 05/19/22 History (1,500 mg) tablet (Calcium) conjugated estrogens 0.625 mg/gram 0.625 mg vaginal UD 02/02/20 05/19/22 History vaginal cream (Premarin) methylcellulose (laxative) 2 g PO DAILY PRN Constipation 02/02/20 05/19/22 History hydrocodone 5 mg-acetaminophen 325 1 tab PO TID PRN Pain 12/02/20 05/19/22 Histo ry mg tablet montelukast 10 mg tablet 10 mg PO HS #30 tabs 07/10/21 05/19/22 Rx amoxicillin 500 mg-potassium 1 tab PO BID #20 tabs 05/12/22 05/19/22 Rx clavulanate 125 mg tablet (Augmentin) doxycycline hyclate 100 mg capsule 100 mg PO BID 10 days #20 caps 05/12/22 05/19/22 Rx furosemide 20 mg tablet 20 mg PO DAILY 05/19/22 05/19/22 History levothyroxine 112 mcg tablet 112 mcg PO DAILY 05/19/22 05/19/22 History nitrofurantoin macrocrystal 50 mg 50 mg PO QID 05/19/22 05/19/22 History capsule
[2022-05-20] MEDS ORDERED: nitrofurantoin macrocrystaL 50 MG CAP PO SCH (21:00)
[2022-05-20] MEDS: ASPIRIN 81 MG ECTAB PO SCH (22:05)
[2022-05-20] MEDS: MONTELUKAST SODIUM 10 MG TABLET PO SCH (22:05)
[2022-05-21] MEDS: LEVOTHYROXINE SODIUM 112 MCG TABLET PO SCH (05:47)
[2022-05-21 08:44] LABS: Basophils # (auto) 0.12 K/uL (0-0.2); Basophils % (auto) 0.9 %; Eosinophils # (auto) 0.46 K/uL (0-0.50); Eosinophils % (auto) 3.3 %; Hematocrit (blood only) 38.2 % (34.1-44.9); Hemoglobin 12.3 g/dl (12.0-16.0); Immature Granulocytes # (auto) 0.43 K/uL (0.00-0.02); Immature Granulocytes % (auto) 3.1 %; Lymphocytes # (auto) 1.09 K/uL (1.2-3.4); Lymphocytes % (auto) 7.9 %; Mean Corpuscular Hemoglobin 31.2 pg (25.0-34.0); Mean Corpuscular Hgb Conc 32.2 g/dL (32.0-36.0); Mean Platelet Volume 11.1 fL (9.4-12.3); Monocytes # (auto) 1.25 K/uL (0.24-0.82); Monocytes % (auto) 9.1 %; Neutrophils # (auto) 10.44 K/uL (1.4-6.5); Neutrophils % (auto) 75.7 %; Platelet Count 221 K/uL (130-400); RDW Coefficient of Variation 13.3 % (11.5-14.5); RDW Standard Deviation 47.4 fL (36.4-46.3); Red Blood Count 3.94 M/uL (3.93-5.22); White Blood Count 13.79 K/ul (4.8-10.8)
[2022-05-21] MEDS: HEPARIN SOD 5,000 UNIT/0.5 ML VIAL SQ SCH (09:18)
[2022-05-21] MEDS: ATENOLOL 50 MG TABLET PO SCH (09:18)
[2022-05-21] MEDS: POTASSIUM CHLORIDE CRTAB 20 MEQ TABCR PO SCH (09:18)
[2022-05-21 09:20] LABS: Albumin Level 3.1 gm/dl (3.4-5.0); BUN Creatinine Ratio 30.9 (10-20); Bilirubin,Total 0.5 mg/dl (0.2-1.0); C Reactive Protein 2.01 mg/dl (0-0.5); Calcium 10.6 mg/dl (8.5-10.1); Creatinine Clr Calc Pharmacy 29.5 ml/min; Est GFR (African American) 62.3 ml/min; Est GFR (Non-African American) 53.8 ml/min; Magnesium 1.4 mg/dl (1.7-2.4); Potassium 3.9 mmol/L (3.5-5.1); Total Protein 7.1 gm/dl (6.0-8.3)
[2022-05-21] MEDS ORDERED: MAGNESIUM SULFATE / D5W 1 GM/100 ML BAG IV SCH (11:15)
--- NOTE | 2022-05-21 12:05 | Student Report ---
[facility] Med Student Progress Note Date of Service Date of service: May 21, 2022 ROS ROS: See above for pertinent positives & negatives. A total of 10 systems reviewed and were otherwise negative. Physical Exam Physical Exam: Vital Signs Temp 36.6 C 05/21/22 08:22 Pulse 73 05/21/22 08:22 Resp 17 05/21/22 08:22 BP 118/81 05/21/22 08:22 Pulse Ox 94 05/21/22 08:22 O2 Del Method 05/21/22 09:52 Intake & Output 05/20/22 05/21/22 05/21/22 18:59 06:59 18:59 Output Total 400 / 575 175 / 575 Balance -400 / -575 -175 / -575 Weight 46.1 kg Output: Urine Amount (Catheter) 400 / 575 175 / 575 External 400 / 575 175 / 575 General: Well-appearing [], in no significant distress. HEENT: No scleral icterus, PERRLA, neck supple. Atraumatic. Cardiovascular: Regular rate and rhythm, no extra sounds. Pulmonary: Clear to auscultation bilaterally, normal work of breathing. Abdomen: Soft, nontender, nondistended, positive bowel sounds. Musculoskeletal: Atraumatic, no peripheral edema. Neurologic: Patient awake alert and oriented x 3, full strength in all 4 extremities. Cranial nerves 2 through 12 grossly intact. Skin: Warm, dry, no rash Results Results: Short CBC 05/21/22 08:18 WBC 13.79 H Hgb 12.3 Hct 38.2 Plt Count 221 BMP 05/21/22 08:18 Sodium 142 Potassium 3.9 Chloride 113 H Carbon Dioxide 23 BUN 29 H Creatinine 0.94 Glucose 90 Calcium 10.6 H Liver Function 05/21/22 08:18 Total Bilirubin 0.5 Direct Bilirubin 0.0 AST 18 ALT 12 Alkaline Phosphatase 100 Albumin 3.1 L Urine 05/20/22 14:20 Urine Color Yellow Urine Appearance Cloudy A Urine pH 5.0 Ur Specific [place] 1.020 Urine Protein 1+ H Urine Glucose (UA) Negative A&P A&P: 1. LYNETTE on CKD3: Presenting BUN 48, creatinine 1.52, GFR 30.1. Baseline Today BUN 29, creatinine 0.94. Pt rec'd 500ml fluid bolus in ED and continued on NSS IV for approx 24 hours. 2. Ambulatory dysfunction/weakness secondary to COVID/pneumonia infections: PT/OT following, recommend rehab after discharge. Case management arranging placement at [facility]. 3. COVID-19/pneumonia: CT scan negative for pneumonia. CXR unchanged from admission 2cm density. Pt completed courses of doxycycline and Augmentin. Has not required O2, supportive therapies during this admission. 4. Recurrent UTI: Pt remains on nitrofurantoin 50mg once daily prophylactically, discussed with urology. 5. Chronic diastolic HF: Last echo from 2019 showed EF of 65%. Lasix held initially with LYNETTE, 6. HTN: Pt controlled. Continue atenolol. 7. Interstitial pulmonary fibrosis: Per radiology, CT scan shows interval progression of pulmonary fibrosis, stable density of left lung apex, most likely scarring. Pt has history of chronic steroid use, last taken 03/2021. 8. Hypothyroidism: Last thyroid function Continue Synthroid 9. DVT proph: Continue heparin subQ 10. Disposition: Stable for d/c. Awaiting placement at [facility].
[2022-05-21] MEDS ORDERED: MAGNESIUM OXIDE 400 MG TAB PO ONE (13:06)
--- NOTE | 2022-05-21 13:37 | Discharge Summary ---
Date of Service May 21, 2022 Admission HPI Per Admitting Provider This is an 89 y/o female with a PMH of interstitial pulmonary fibrosis, CKD3, HTN, hypothyroidism, known LBBB, sensorineural hearing loss, osteoporosis, and ambulatory dysfunction who presented to the ED today via EMS due to worsening weakness and poor oral intake since being diagnosed with COVID one week ago. Her symptoms apparently started about 10-11 days ago. She was seen in the ED last week and diagnosed with pneumonia, placed on Augmentin and doxycycline. History obtained from both patient and her son, Darryl, who assists with her care. Her cough persists and is productive of green mucus. Pt reports she may cough to the point of vomiting. However, she denies increased work of breathing or dyspnea. She has not been using her albuterol inhaler. No known fevers or chills. Denies chest pain or PAK. Appetite has been extremely poor - only eating 2-3 bites, twice a day. Limited fluid intake as well. Diarrhea since starting the antibiotics from the ED. At baseline, she requires a walker for ambulation but son reports she now must be carried or pushed in a wheelchair - cannot ambulate even with the walker. Pt reports that she lives alone but that her son lives next door and she has a small animal caretaker who comes to help regularly. Pt had COVID in February as well but did not require hospitalization. Admission Exam Per Admitting Provider Physical Exam Constitutional: + thin and + frail appearing; no acute d istress Eyes: + anicteric sclerae ENMT: Ears: + hearing impairment Neck: trachea midline Respiratory: no respiratory distress and no labored breathing Auscultation: + diminished lung sounds and + wheezes Cardiovascular: Rate/Rhythm: regular rate and regular rhythm Gastrointestinal (Abdomen): Inspection/Auscultation: normal bowel sounds; abdomen not distended Percussion/Palpation: abdomen soft and + hernia; abdomen nontender Musculoskeletal: Head/Neck/Chest: normocephalic, head atraumatic and neck supple Skin: no jaundice Neurologic: moves all extremities; no focal motor deficits Principal Diagnosis LYNETTE COVID-19 Generalized weakness, ambulatory dysfunction Discharge Exam Constitutional + frail appearing; no acute distress ENMT Ears: + hearing impairment Respiratory normal respiratory effort; no respiratory distress Auscultation: + crackles (Bilateral) Cardiovascular Rate/Rhythm: regular rate and regular rhythm Vessels: normal peripheral pulses Extremities: no edema Gastrointestinal (Abdomen) Percussion/Palpation: abdomen soft; abdomen nontender Skin no rashes, warm and dry Neurologic no focal motor deficits Psychiatric A+Ox3, euthymic affect Discharge Data Allergies Allergy/AdvReac Type Severity Reaction Status Date / Time cefdinir AdvReac Intermediate Nausea and Unverified 07/01/21 09:33 Vomiting metoprolol AdvReac Intermediate Dizziness Unverified 07/01/21 09:33 to Metoprolol Tartrate capsaicin AdvReac Mild Nausea/Vomi Verified 07/01/21 09:33 ting diclofenac AdvReac Mild Nausea/Vomi Verified 07/01/21 09:33 ting Diclopak AdvReac Mild N/V Verified 01/03/18 15:28 ketoprofen AdvReac Mild Nausea/Vomi Verified 07/01/21 09:33 ting naproxen AdvReac Mild Nausea/Vomi Verified 07/01/21 09:33 ting propoxyphene AdvReac Mild Nausea/Vomi Verified 07/01/21 09:33 ting rofecoxib AdvReac Mild Abdominal Verified 07/01/21 09:33 cramps Sulfa (Sulfonamide AdvReac Mild Nausea/Vomi Verified 07/01/21 09:33 Antibiotics) ting sulfamethoxazole AdvReac Mild Nausea/Vomi Verified 07/01/21 09:33 ting tramadol AdvReac Mild Nausea/Vomi Verified 07/01/21 09:33 ting trimethoprim AdvReac Mild Nausea/Vomi Verified 07/01/21 09:33 ting Ordered Studies Laboratory Results WBC 13.79 K/ul (4.8-10.8) H 05/21/22 08:18 RBC 3.94 M/uL (3.93-5.22) 05/21/22 08:18 Hgb 12.3 g/dl (12.0-16.0) 05/21/22 08:18 Hct 38.2 % (34.1-44.9) 05/21/22 08:18 MCV 97.0 fL (80.0-100.0) 05/21/22 08:18 MCH 31.2 pg (25.0-34.0) 05/21/22 08:18 MCHC 32.2 g/dL (32.0-36.0) 05/21/22 08:18 RDW Std Deviation 47.4 fL (36.4-46.3) H 05/21/22 08:18 RDW Coeff of Heather 13.3 % (11.5-14.5) 05/21/22 08:18 Plt Count 221 K/uL (130-400) 05/21/22 08:18 MPV 11.1 fL (9.4-12.3) 05/21/22 08:18 Immature Gran % (Auto) 3.1 % 05/21/22 08:18 Neut % (Auto) 75.7 % 05/21/22 08:18 Lymph % (Auto) 7.9 % 05/21/22 08:18 [place] % (Auto) 9.1 % 05/21/22 08:18 Eos % (Auto) 3.3 % 05/21/22 08:18 Baso % (Auto) 0.9 % 05/21/22 08:18 Neut # (Auto) 10.44 K/uL (1.4-6.5) H 05/21/22 08:18 Lymph # (Auto) 1.09 K/uL (1.2-3.4) L 05/21/22 08:18 [place] # (Auto) 1.25 K/uL (0.24-0.82) H 05/21/22 08:18 Eos # (Auto) 0.46 K/uL (0-0.50) 05/21/22 08:18 Baso # (Auto) 0.12 K/uL (0-0.2) 05/21/22 08:18 Immature Gran # (Auto) 0.43 K/uL (0.00-0.02) H 05/21/22 08:18 Sodium 142 mmol/L (136-145) 05/21/22 08:18 Potassium 3.9 mmol/L (3.5-5.1) 05/21/22 08:18 Chloride 113 mmol/L (98-107) H 05/21/22 08:18 Carbon Dioxide 23 mmol/L (21-32) 05/21/22 08:18 Anion Gap 6 (3-11) 05/21/22 08:18 BUN 29 mg/dl (6-23) H 05/21/22 08:18 Creatinine 0.94 mg/dl (0.6-1.2) 05/21/22 08:18 Est Cr Clr Drug Dosing 29.5 ml/min 05/21/22 08:18 Est GFR ( Amer) 62.3 ml/min 05/21/22 08:18 Est GFR (Non-Af Amer) 53.8 ml/min 05/21/22 08:18 BUN/Creatinine Ratio 30.9 (10-20) H 05/21/22 08:18 Glucose 90 mg/dl (70-99(Fasting)) 05/21/22 08:18 Lactate 2.0 mmol/L (0.4-2.0) 05/19/22 12:52 Calcium 10.6 mg/dl (8.5-10.1) H 05/21/22 08:18 Magnesium 1.4 mg/dl (1.7-2.4) L 05/21/22 08:18 Total Bilirubin 0.5 mg/dl (0.2-1.0) 05/21/22 08:18 Direct Bilirubin 0.0 mg/dl (0-0.2) 05/21/22 08:18 AST 18 U/L (13-39) 05/21/22 08:18 ALT 12 U/L (7-52) 05/21/22 08:18 Alkaline Phosphatase 100 U/L (34-104) 05/21/22 08:18 Troponin I High Sens 17.7 pg/ml (0-14) H 05/19/22 19:57 C-Reactive Protein 2.01 mg/dl (0-0.5) H 05/21/22 08:18 Total Protein 7.1 gm/dl (6.0-8.3) 05/21/22 08:18 Albumin 3.1 gm/dl (3.4-5.0) L 05/21/22 08:18 Globulin 4.6 gm/dl (2.5-4.0) H 05/19/22 12:52 Albumin/Globulin Ratio 0.7 (0.9-2) L 05/19/22 12:52 Procalcitonin 0.38 ng/ml (0-0.5) 05/19/22 12:52 Urine Color Yellow 05/20/22 14:20 Urine Appearance Cloudy (Clear) A 05/20/22 14:20 Urine pH 5.0 (4.5-7.5) 05/20/22 14:20 Ur Specific [place] 1.020 (1.000-1.030) 05/20/22 14:20 Urine Protein 1+ (Negative) H 05/20/22 14:20 Urine Glucose (UA) Negative (Negative) 05/20/22 14:20 Urine Ketones Negative (Negative) 05/20/22 14:20 Urine Blood Negative (Negative) 05/20/22 14:20 Urine Nitrite Negative (Negative) 05/20/22 14:20 Urine Bilirubin Negative (Negative) 05/20/22 14:20 Urine Urobilinogen Negative (Negative) 05/20/22 14:20 Ur Leukocyte Esterase Trace (Negative) H 05/20/22 14:20 Urine WBC (Auto) 5-10 /hpf (0-5) H 05/20/22 14:20 Urine RBC (Auto) 0-4 /hpf (0-4) 05/20/22 14:20 U Hyaline Cast (Auto) 0 /lpf (0-5) 05/20/22 14:20 U Epithel Cells (Auto) >30 /lpf (0-5) H 05/20/22 14:20 Urine Bacteria (Auto) Negative (Negative) 05/20/22 14:20 Urine Yeast Budding (None Prsent) A 05/20/22 14:20 Impressions Chest X-Ray 05/19/22 12:37 SINGLE VIEW CHEST CLINICAL HISTORY: Cough. FINDINGS: An AP, portable, upright chest radiograph is compared to study dated 05/12/2022 and correlated with chest CT dated 02/02/2020. The examination is degraded by portable technique, apical lordotic positioning, and patient rotation. The heart is enlarged noting atherosclerotic calcification of the thoracic aorta. The pulmonary vasculature is noncongested. There is bibasilar scarring/atelectasis. Chronic interstitial thickening/fibrotic change is similar to previous. Question superimposed airspace opacities in the right upper lobe and at the left lung base. No large pleural effusion or pneumothorax is seen. There is a 2 cm density at the left apex. The skeletal structures are osteopenic. The bony thorax is grossly intact. Advanced arthritic change is noted in the shoulders. Superior subluxation of the humeral heads suggest chronic bilateral rotator cuff injury. IMPRESSION: 2. Cardiomegaly and changes of chronic lung disease as above. 2. Question mild superimposed airspace opacities in the right upper lobe and at the left lung base. Correlate clinically for evidence of an infectious/inflammatory pneumonitis. Radiographic follow-up to resolution is recommended. 3. There is a 2 cm density at the left apex. Chest CT correlation is recommended. ACT 112: Negative or not required by law. Electronically signed by: Chris Ramos M.D. 05/19/2022 1:[address] 05/19/22 13:14 CT chest diagnostic wo con CT DOSE: 225.27 mGycm HISTORY: COVID 19, shortness of breath, ?pna and/or mass TECHNIQUE: Multiaxial CT images of the chest were performed without contrast. A dose lowering technique was utilized adhering to the principles of ALARA. COMPARISON: Chest CTA 02/02/2020. FINDINGS: No change in the old mild superior endplate compression deformities within the thoracic spine. There is an old, healed sternal fracture again noted. No pneumothorax. Stable focal irregular density within the left lung apex which measures approximately 2.1 x 1.0 cm. This contains a punctate calcification and favor scarring. Interval progression of the diffuse interstitial thickening with mild traction bronchiectasis and peripheral honeycombing at the lung bases. This is consistent with pulmonary fibrosis. Otherwise, no new focal lung consolidations to suggest a pneumonia. The central airways are patent. Degene rative changes again noted within the shoulders. Limited views of the upper abdomen demonstrate a normal liver, spleen, and adrenal glands. There is a moderate hiatus hernia, unchanged. Moderate calcified plaque within the normal caliber thoracic aorta. There are moderate coronary artery calcifications. The heart is normal in size. No pleural or pericardial effusions. No mediastinal or hilar lymphadenopathy. IMPRESSION: 1. Interval progression of the pulmonary fibrosis. 2. No new focal lung consolidations to suggest a pneumonia. 3. Stable 2.1 x 1.0 cm focal irregular density within the left lung apex. This favors scarring. 4. Moderate hiatus hernia, unchanged ACT 112: Negative or not required by law. Electronically signed by: Darryl Degroot M.D. 05/19/2022 1:59 PM Hospital Course (1) Acute kidney injury superimposed on CKD: Presented with worsening generalized weakness and poor appetite since being diagnosed with COVID on 05/12/22 BUN/Creat on admission 48/1.5 Baseline creat ~ 1.2 Received IVF, Lasix held, PO intake encouraged. BUN/creat 29/0.9 on 05/21 Recommend continue to hold Lasix at discharge, can utilize on an as-needed basis for edema and/or weight gain (2) Ambulatory dysfunction: (3) Weakness: Deconditioning in the setting of COVID 19, dehydration PT/OT recommending rehab -- patient agreeable (4) COVID-19: Saturating well on room air, does not meet criteria for COVID 19 directed therapies Concern for pneumonia on imaging in the ED last week - completed one week of Augmentin and doxycycline with improvement in pulmonary symptoms. No infiltrates or consolidation noted on CT 05/19/22 Has some crackles on exam, likely 2/2 pulmonary fibrosis. Incentive spirometer encouraged. Can come off isolation (5) Recurrent UTI: Started on prophylactic nitrofurantoin by urology 03/2021 Was prescribed nitrofurantoin 50mg QID, however that is treatment dose not prophylactic dosing. Reached out to Dr. David Stover who is agreeable to change to 50mg daily prophylactic dosing (6) Diastolic heart failure: Appears euvolemic Holding Lasix due to LYNETTE as above (7) Hypertension: BP controlled, continue atenolol (8) Interstitial pulmonary fibrosis: Was previously on chronic prednisone but has been weaned off 03/[address] 05/19/22 1. Interval progression of the pulmonary fibrosis. 2. No new focal lung consolidations to suggest a pneumonia. 3. Stable 2.1 x 1.0 cm focal irregular density within the left lung apex. This favors scarring. 4. Moderate hiatus hernia, unchanged (9) Hypothyroidism: Levothyroxine dose recently increased from 100 to 112 mcg - will continue Follow up TFTs w/ PCP Total Time Total Time Spent Total Time Spent (In Minutes): 45 Discharge Plan Discharge Items Patient Disposition: Transfer Inpatient Rehab Fac Reason For Visit: COVID, LYNETTE, WEAKNESS Discharge Diagnosis: LYNETTE COVID-19 Generalized weakness, ambulatory dysfunction Activity: Resume your previous activity Non-emergency contact: Primary Care Provider Call non-emergency contact if: you have any medication questions, your symptoms worsen and you have a fever Follow-up/Referrals: Amari Elena MD [Primary Care Provider] - Diet: Regular Addtl Attending Provider Instructions: Patient presented on 05/19 with reports of worsening generalized weakness, poor appetite, previously tested positive for COVID-19 on 05/12. Patient found to have LYNETTE -diuretics were held and patient was given IVF. Renal functions returned to baseline. Mild hypomagnesemia on day of discharge, Mg +1.4. Received 1 g IV Mg+ and mag oxide 400mg PO before discharge. Continue to monitor. Recommend continuing to hold Lasix, can utilize on an as-needed basis. Patient recently started on prophylactic nitrofurantoin due to recurrent UTI --dose adjusted to 50 mg daily, reflective of prophylactic dosing. Pending Studies at Discharge: No Stand-Alone Forms: My [facility] Skilled Items Patient informed of condition?: Yes DNR: Yes Discharge Level of Care: Acute rehab Communicable Disease: No Discharge Prognosis: Stable Lines: None Urinary Catheter: No Medications and DC Order Prescriptions: New nitrofurantoin macrocrystal 50 mg Capsule 50 mg PO HS Qty: 1 0RF Continued montelukast 10 mg tablet 10 mg PO HS Qty: 30 5RF multivitamin [Daily Multi-Vitamin] tablet 1 tab PO QAM omeprazole 20 mg capsule,delayed release(DR/EC) 20 mg PO DAILY PRN (Reason: Dyspepsia) atenolol 50 mg tablet 50 mg PO QAM Qty: 30 diclofenac sodium 3 % gel 1 applic topical TID PRN (Reason: Pain) Rx Instructions: apply to hands aspirin 81 mg Tablet,Delayed Release (Dr/Ec) 81 mg PO HS potassium chloride 20 mEq tablet,ER particles/crystals 20 meq PO QAM cyclosporine [Restasis] 0.05 % dropperette 1 drp OPB BID Premarin 0.625 mg/gram Cream 0.625 mg VAGINAL UD calcium carbonate [Calcium 600] 600 mg calcium (1,500 mg) Tablet 600 mg PO DAILY methylcellulose (laxative) Powder 2 g PO DAILY PRN (Reason: Constipation) levothyroxine 112 mcg tablet 112 mcg PO DAILY hydrocodone-acetaminophen 5-325 mg tablet 1 tab PO TID PRN (Reason: Pain) Changed furosemide 20 mg tablet 20 mg PO DAILY PRN (Reason: edema/weight gain) Qty: 1 0RF Discontinued nitrofurantoin macrocrystal 50 mg capsule 50 mg PO QID amoxicillin-pot clavulanate [Augmentin] 500-125 mg tablet 1 tab PO BID Qty: 20 0RF doxycycline hyclate 100 mg capsule 100 mg PO BID 10 Days Qty: 20 0RF Discharge Orders: Discharge Order (Routine); Ordered 05/21/22 Ordered By: Yahaira Stroud Admission Data Admit Date/Time: 05/19/22 14:25 Attending Provider: Silvino Gilliland Admit Provider: Raul Eastman Primary Care Provider: Amari Elena Other Providers: Raul Eastman ; [facility] ; [facility] ; Bipin Doherty Other Interventions: Discharge Summary Assessment (RN) Last Done: 05/21/22 13:38 Supervising Physician Co-Signing Physician Notes Attending addendum: The patient was seen and examined in medical floor She denies any symptoms except minimal cough No respiratory symptoms and saturating normally on room air Denies any other symptoms On examination Lying in bed comfortably Blood pressure noted to be high at 189/83 which came down to 118/81 Chest-minimal crackles at the bases HeartS1-S2 regular Abdomen-benign Extremities-negative for any edema [employer]-alert, awake and oriented x3. Generally weak but no focal neurodeficit Her labs and imaging studies reviewed Has significant ambulatory dysfunction and will need further rehab COVID-19 diagnosed about 10 days ago remains asymptomatic and will be cleared for the discontinuation of isolation Hypertension is Reviewed assessment and plan as outlined above by BRIEN Reyes DR-
--- NOTE | 2022-05-21 13:50 | Hospitalist Progress Note ---
Date of Service May 21, 2022 Assessment & Plan Admission and Anticipated Discharge Date Admission Date: May 19, 2022 Supervising Physician Co-Signing Physician Notes Attending addendum: The patient was seen and examined in medical floor She denies any symptoms except minimal cough No respiratory symptoms and saturating normally on room air Denies any other symptoms On examination Lying in bed comfortably Blood pressure noted to be high at 189/83 which came down to 118/81 Chest-minimal crackles at the bases HeartS1-S2 regular Abdomen-benign Extremities-negative for any edema [employer]-alert, awake and oriented x3. Generally weak but no focal neurodeficit Her labs and imaging studies reviewed Has significant ambulatory dysfunction and will need further rehab COVID-19 diagnosed about 10 days ago remains asymptomatic and will be cleared for the discontinuation of isolation Hypertension is Reviewed assessment and plan as outlined above by BRIEN Reyes DR- Results & Data Results & Data ([facility]) Vital Signs (Past 12 Hours) Vital Signs Temp Pulse Resp BP Pulse Ox O2 Del Method 05/21/22 09:52 Room Air 05/21/22 08:22 36.6 C 73 17 118/81 94 Room Air
--- NOTE | 2022-05-21 21:16 | Electrocardiogram Report ---
Test Reason : Blood Pressure : / mmHG Vent. Rate : 084 BPM Atrial Rate : 084 BPM P-R Int : 168 ms QRS Dur : 138 ms QT Int : 410 ms P-R-T Axes : 041 -50 126 degrees QTc Int : 484 ms Sinus rhythm with Premature atrial complexes Possible Left atrial enlargement Left axis deviation Left bundle branch block Abnormal ECG When compared with ECG of 12-MAY-2022 12:38, No significant change was found Confirmed by Giorgio Cordero ([id number]) on 05/21/2022 9:16:08 PM Referred By: ED Confirmed By:Giorgio Cordero
== END 2022-05-21 14:19 | DRG 177 ==
LOC: ED 12:24 → 3E 14:25 → SUATTDRO 14:25 → 3E 16:14

== ENCOUNTER 2022-06-17 14:27 | Inpatient (IN) ==
--- NOTE | 2022-06-17 14:42 | Emergency Department Note ---
Impression & Plan Acute UTI, Weakness, Hypomagnesemia, Catheter-associated urinary tract infection ED Provider Note Provider: Jose Reece MD DATE OF SERVICE: 06/17/2022 CHIEF COMPLAINT: Weakness, not eating HISTORY OF PRESENT ILLNESS: Patient is a 89-year-old female with a past medical history of CKD, recent COVID-19, recurrent UTIs currently with Briscoe, interstitial pulmonary fibrosis, history of pneumonia, hypothyroidism, hearing loss, and osteoporosis presenting via ambulance from [facility] ([facility]) where she is currently residing. Was hospitalized here in April. Did some rehab but now staying at [facility]. Evidently last week or so has not been eating or drinking much. Increased weakness. Not able to do physical therapy today. States that she developed a bit of a sore on her sacral region and this is sore when she moves. Denies any falls. Denies chest pain or palpitations. Denies abdominal pain or nausea or vomiting. Patient is quite hard of hearing. REVIEW OF SYSTEMS: A total of 10 review of systems was obtained and negative except as stated above in the HPI. PAST MEDICAL HISTORY: As noted above MEDICATIONS: Reviewed medications from the facility SOCIAL HISTORY: Currently residing at [facility] PHYSICAL EXAM: GENERAL: alert and oriented in no acute distress on stretcher, somewhat hard of hearing Head: normocephalic and atraumatic EYES: No injection, discharge or icterus. PERRL, EOMI. NECK: Trachea midline. Supple. ENT: Mucous membranes pink and moist. LUNGS: Airway patent. No retractions. Breath sounds clear with good air entry bilaterally. HEART: Regular tachycardic rate and rhythm. No chest wall tenderness ABDOMEN: Soft and non-tender, without guarding or rebound. No hepatosplenomegaly or masses BACK: No midline tenderness, no SI joint tenderness. Diffuse approximately 6 cm area of sacral decubitus ulceration erythematous with some peeling of the skin without purulent discharge. SKIN: Acyanotic, warm, dry EXTREMITIES: Trace to no pedal edema. Some healing old abrasions noted. No significant tenderness. NEUROLOGICAL: No focal deficits. No aphasia. No facial droop or slurred speech. Normal strength and tone in the extremities. Sensation to gross touch normal. Ambulatory. EK bpm sinus tachycardia with PAC. Left bundle branch block evident. Left axis. Compared to previous from May 19 for tachycardic. No Sgarbossa critertia noted. CONTINUOUS CARDIAC MONITORING: was ordered and showed a heart rate of 100s-110s bpm in a bundle branch block sinus tachycardia Patient's laboratory studies and imaging reviewed. Differential includes Infection, dehydration, metabolic abnormality, hypo/hyperglycemia, electrolyte disturbance, anemia, hypoxia, cardiac sources, intracerebral event, toxicologic, neurologic, as well as other pathologies. IMPRESSION/MEDICAL DECISION MAKING: Patient hard of hearing but answering questions moving all extremities. No trauma reported. Evidence of some sacral erythema and some pain with rolling or shifting in the bed in this region. No severe evidence of tunneling wound at this time. Benign abdomen. Not hypoxic. Reports some mild diffuse myalgias. Given Tylenol per her request for this. Chest x-ray completed here and per radiology stable without evidence of significant pulmonary edema or pneumonia. EKG completed with a left bundle branch block is somewhat tachycardic initially. Troponin sent but not having active chest pain. History of elevation in the past. Repeat COVID influenza RSV testing sent. Blood work here with leukocytosis along with some chronicity based on previous labs as noted. Anemia today somewhat worse at 9.5 from 12.3 a month ago. Patient states she did receive a transfusion for hemoglobin in the 6 after stay at rehab; so this seems improved compared to recent low level. 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 High-sensitivity troponin stable compared to previous without evidence of rhabdomyolysis. Given small amount of IV fluids as well as some IV magnesium. Renal function just off baseline around 1 at 1.33 today. Minimal hyponatremia of 134. Still positive for COVID today. Did sip on some Pepsi here. Urinalysis after Briscoe catheter change shows gross evidence of infection. Discussed with pharmacy. Given a dose of ceftriaxone. Discussed and updated patient's son via phone. He has been visiting for the past week and she has been having increased weakness and fatigue unable complete therapy today and he is concerned and thus recommended she come in. Discussed with the patient findings. Hospitalist be contacted for observation. DIAGNOSIS: Acute UTI, weakness, hypomagnesemia DISPOSITION: Hospitalist will evaluate Patient was agreeable with this plan. Updated patient's son via phone. Past Med/Surg History Medical History Abnormal CT scan, chest CKD (chronic kidney disease), stage III Deviated nasal septum Diastolic heart failure GERD (gastroesophageal reflux disease) Hiatal hernia Hypertension Hypothyroidism Interstitial pulmonary fibrosis Left bundle branch block Osteoarthritis Recurrent UTI Surgical History H/O repair of right rotator cuff History of appendectomy History of cataract surgery History of hysterectomy History of left oophorectomy History of total left knee replacement History of total right knee replacement S/P left knee arthroscopy S/P right knee arthroscopy S/p total knee replacement, bilateral Family History Other Lung cancer Social History Smoking Status: Never smoker Tobacco Type: Cigarettes Age Started Using Tobacco: 20; Age Quit Using Tobacco: 32; packs per day: 0.25; Second Hand Exposure: Yes; Hx Alcohol Use: No Hx Substance Use: No Preferred Language: Niuean Communication Ability: Effective Quill Collector Required: No Beliefs That Will Affect Care: None marital status: / Current Living Situation: Alone Current Living Situation Comment: Son lives next door and comes over several times a day, caregiver 2hrs x5 Feels Safe at Home: Yes Assistive Devices: Walker Allergies Allergies Allergy/AdvReac Type Severity Reaction Status Date / Time capsaicin AdvReac Intermediate Nausea/Vomi Verified 06/17/22 15:58 ting cefdinir AdvReac Intermediate Nausea and Verified 06/17/22 15:58 Vomiting diclofenac AdvReac Intermediate Nausea/Vomi Verified 06/17/22 15:58 ting ketoprofen AdvReac Intermediate Nausea/Vomi Verified 06/17/22 15:58 ting metoprolol AdvReac Intermediate Dizziness Verified 06/17/22 15:58 to Metoprolol Tartrate naproxen AdvReac Intermediate Nausea/Vomi Verified 06/17/22 15:58 ting propoxyphene AdvReac Intermediate Nausea/Vomi Verified 06/17/22 15:58 ting rofecoxib AdvReac Intermediate Abdominal Verified 06/17/22 15:58 cramps Sulfa (Sulfonamide AdvReac Intermediate Nausea/Vomi Verified 06/17/22 15:58 Antibiotics) ting sulfamethoxazole AdvReac Intermediate Nausea/Vomi Verified 06/17/22 15:58 ting tramadol AdvReac Intermediate Nausea/Vomi Verified 06/17/22 15:58 ting trimethoprim AdvReac Intermediate Nausea/Vomi Verified 06/17/22 15:58 ting Home Meds Home Medications Medication Instructions Recorded Confirmed omeprazole 20 mg capsule,delayed 20 mg PO DAILY PRN Dyspepsia 03/15/19 06/17/22 release cyclosporine 0.05 % eye drops in a 1 drp OPB BID 01/10/20 06/17/22 dropperette (Restasis) levothyroxine 112 mcg tablet 112 mcg PO DAILY 05/19/22 06/17/22 atenolol 25 mg tablet 25 mg PO DAILY 06/17/22 06/17/22 diclofenac sodium 1 % topical gel 2 g topical TID PRN Pain 06/17/22 06/17/22 guaifenesin 600 mg tablet, 600 mg PO [id number] 06/17/22 06/17/22 extended release 12 hr (Mucus Relief ER) Previous Rx's Medication Instructions Recorded montelukast 10 mg tablet 10 mg PO HS #30 tabs 07/10/21 Results & Data (ED) Vital Signs Vital Signs - 24 hr 06/17/22 14:39 06/17/22 16:11 06/17/22 14:35 Temperature 36.5 C Temperature Source Oral Pulse Rate 117 H Pulse Rate [Apical] Pulse Rhythm Regular Pulse Strength Normal Respiratory Rate 21 Respiratory Effort / Characteristics Non-Labored Respiratory Depth Normal Respiratory Pattern Regular Blood Pressure 125/84 Blood Pressure [Right Arm] Blood Pressure Mean 97 Blood Pressure Mean [Right Arm] Blood Pressure Position Sitting Pulse Oximetry 93 94 95 Oxygen Delivery Method Room Air Room Air Room Air Oxygen Flow Rate 0 Sepsis Recent Fever Within 48 Hours No Sepsis New/Unexplained Change in Mental Status N/A Sepsis Action Taken by Nursing Physician Notified 06/17/22 16:40 Temperature Temperature Source Pulse Rate Pulse Rate [Apical] 101 H Pulse Rhythm Pulse Strength Respiratory Rate 13 Respiratory Effort / Characteristics Respiratory Depth Respiratory Pattern Blood Pressure Blood Pressure [Right Arm] 118/73 Blood Pressure Mean Blood Pressure Mean [Right Arm] 88 Blood Pressure Position Pulse Oximetry 96 Oxygen Delivery Method Room Air Oxygen Flow Rate Sepsis Recent Fever Within 48 Hours Sepsis New/Unexplained Change in Mental Status Sepsis Action Taken by Nursing Laboratory Data Result diagrams: 06/17/22 15:05 06/17/22 15:05 Lab Results 06/17/22 06/17/22 06/17/22 Range/Units 15:05 15:05 15:05 WBC 14.32 H (4.8-10.8) K/ul RBC 3.19 L (3.93-5.22) M/uL Hgb 9.5 L (12.0-16.0) g/dl Hct 29.4 L (34.1-44.9) % MCV 92.2 (80.0-100.0) fL MCH 29.8 (25.0-34.0) pg MCHC 32.3 (32.0-36.0) g/dL RDW Std Deviation 49.7 H (36.4-46.3) fL RDW Coeff of Heather 14.6 H (11.5-14.5) % Plt Count 332 (130-400) K/uL MPV 10.4 (9.4-12.3) fL Immature Gran % (Auto) 1.0 % Neut % (Auto) 81.4 % Lymph % (Auto) 6.6 % [place] % (Auto) 10.5 % Eos % (Auto) 0.1 % Baso % (Auto) 0.4 % Neut # (Auto) 11.65 H (1.4-6.5) K/uL Lymph # (Auto) 0.94 L (1.2-3.4) K/uL [place] # (Auto) 1.51 H (0.24-0.82) K/uL Eos # (Auto) 0.01 (0-0.50) K/uL Baso # (Auto) 0.06 (0-0.2) K/uL Immature Gran # (Auto) 0.15 H (0.00-0.02) K/uL Sodium 134 L (136-145) mmol/L Potassium 3.7 (3.5-5.1) mmol/L Chloride 101 (98-107) mmol/L Carbon Dioxide 19 L (21-32) mmol/L Anion Gap 14 H (3-11) BUN 30 H (6-23) mg/dl Creatinine 1.33 H (0.6-1.2) mg/dl Est Cr Clr Drug Dosing 27.2 ml/min Est GFR ( Amer) 41.0 ml/min Est GFR (Non-Af Amer) 35.4 ml/min BUN/Creatinine Ratio 22.6 H (10-20) Glucose 191 H (70-99(Fasting)) mg/dl Calcium 9.9 (8.5-10.1) mg/dl Magnesium 1.5 L (1.7-2.4) mg/dl Total Bilirubin 0.6 (0.2-1.0) mg/dl AST 53 H (13-39) U/L ALT 39 (7-52) U/L Alkaline Phosphatase 118 H (34-104) U/L Total Creatine Kinase 21 L (26-192) U/L Troponin I High Sens 15.1 H (0-14) pg/ml Total Protein 7.7 (6.0-8.3) gm/dl Albumin 2.9 L (3.4-5.0) gm/dl Globulin 4.8 H (2.5-4.0) gm/dl Albumin/Globulin Ratio 0.6 L (0.9-2) TSH 2.339 (0.300-4.500) uIu/ml Urine Color Urine Appearance (Clear) Urine pH (4.5-7.5) Ur Specific [place] (1.000-1.030) Urine Protein (Negative) Urine Glucose (UA) (Negative) Urine Ketones (Negative) Urine Blood (Negative) Urine Nitrite (Negative) Urine Bilirubin (Negative) Urine Urobilinogen (Negative) Ur Leukocyte Esterase (Negative) Urine WBC (Auto) (0-5) /hpf Urine RBC (Auto) (0-4) /hpf U Hyaline Cast (Auto) (0-5) /lpf U Epithel Cells (Auto) (0-5) /lpf Urine Bacteria (Auto) (Negative) Urine Yeast SARS-CoV-2 (PCR) (Negative) Influenza Type A (PCR) (Neg) Influenza Type B (PCR) (Neg) RSV (RT-PCR) (Neg) Blood Type Antibody Screen 06/17/22 06/17/22 06/17/22 Range/Units 15:05 15:50 16:41 WBC (4.8-10.8) K/ul RBC (3.93-5.22) M/uL Hgb (12.0-16.0) g/dl Hct (34.1-44.9) % MCV (80.0-100.0) fL MCH (25.0-34.0) pg MCHC (32.0-36.0) g/dL RDW Std Deviation (36.4-46.3) fL RDW Coeff of Heather (11.5-14.5) % Plt Count (130-400) K/uL MPV (9.4-12.3) fL Immature Gran % (Auto) % Neut % (Auto) % Lymph % (Auto) % [place] % (Auto) % Eos % (Auto) % Baso % (Auto) % Neut # (Auto) (1.4-6.5) K/uL Lymph # (Auto) (1.2-3.4) K/uL [place] # (Auto) (0.24-0.82) K/uL Eos # (Auto) (0-0.50) K/uL Baso # (Auto) (0-0.2) K/uL Immature Gran # (Auto) (0.00-0.02) K/uL Sodium (136-145) mmol/L Potassium (3.5-5.1) mmol/L Chloride (98-107) mmol/L Carbon Dioxide (21-32) mmol/L Anion Gap (3-11) BUN (6-23) mg/dl Creatinine (0.6-1.2) mg/dl Est Cr Clr Drug Dosing ml/min Est GFR ( Amer) ml/min Est GFR (Non-Af Amer) ml/min BUN/Creatinine Ratio (10-20) Glucose (70-99(Fasting)) mg/dl Calcium (8.5-10.1) mg/dl Magnesium (1.7-2.4) mg/dl Total Bilirubin (0.2-1.0) mg/dl AST (13-39) U/L ALT (7-52) U/L Alkaline Phosphatase (34-104) U/L Total Creatine Kinase (26-192) U/L Troponin I High Sens (0-14) pg/ml Total Protein (6.0-8.3) gm/dl Albumin (3.4-5.0) gm/dl Globulin (2.5-4.0) gm/dl Albumin/Globulin Ratio (0.9-2) TSH (0.300-4.500) uIu/ml Urine Color Dark Yellow Urine Appearance Turbid A (Clear) Urine pH 5.0 (4.5-7.5) Ur Specific [place] 1.020 (1.000-1.030) Urine Protein 2+ H (Negative) Urine Glucose (UA) Negative (Negative) Urine Ketones Negative (Negative) Urine Blood 2+ H (Negative) Urine Nitrite Positive A (Negative) Urine Bilirubin Negative (Negative) Urine Urobilinogen Negative (Negative) Ur Leukocyte Esterase 3+ H (Negative) Urine WBC (Auto) >30 H (0-5) /hpf Urine RBC (Auto) 5-10 H (0-4) /hpf U Hyaline Cast (Auto) 1-5 (0-5) /lpf U Epithel Cells (Auto) >30 H (0-5) /lpf Urine Bacteria (Auto) 4+ H (Negative) Urine Yeast Not Reportable SARS-CoV-2 (PCR) POSITIVE A* (Negative) Influenza Type A (PCR) Negative (Neg) Influenza Type B (PCR) Negative (Neg) RSV (RT-PCR) Negative (Neg) Blood Type AB Positive Antibody Screen NEGATIVE Administered Medications Discontinued Medications Acetaminophen (Acetaminophen 500 Mg Tab) 1,000 mg PO NOW STA Stop: 06/17/22 16:15 Last Admin: 06/17/22 16:24 Dose: 1,000 mg Documented By: KV Sodium Chloride (Nss) 250 mls @ 999 mls/hr IV .Q16M ONE Stop: 06/17/22 16:29 Last Admin: 06/17/22 16:26 Dose: 999 mls/hr Documented By: KV Magnesium Sulfate/Dextrose (Magnesium Sulfate / D5w) 1 gm in 100 mls @ 200 mls/hr IV Q30M CHASE Stop: 06/17/22 17:29 Last Admin: 06/17/22 17:33 Dose: 200 mls/hr Documented By: KEVINW Imaging Data Radiologist's Impression: Chest X-Ray 06/17/22 14:35 XR chest 1V portable CLINICAL HISTORY: weakness TECHNIQUE: Single frontal radiograph of the chest was obtained. Comparison: Comparison is made to chest radiograph 05/19/2022 FINDINGS: No lines and tubes are seen. Cardiomegaly is noted. Reticular interstitial opacities are seen. Focal scarring in the left apex is again seen. No evidence of pleural effusion or pneumothorax. IMPRESSION: No acute chest disease. Stable cardiomegaly and interstitial lung disease. ACT 112: Negative or not required by law. Electronically signed by: Hai Salgado M.D. 06/17/2022 2:54 PM Discharge Plan Visit Data Chief Complaint: Weakness ED Provider: Jose Reece Discharge Problem: Acute UTI, Weakness, Hypomagnesemia, Catheter-associated urinary tract infection Patient Disposition: Being Evaluated by Hospitalist Forms Stand Alone Forms: [facility] Prescriptions Prescriptions: No Action montelukast 10 mg tablet 10 mg PO HS Qty: 30 5RF omeprazole 20 mg capsule,delayed release(DR/EC) 20 mg PO DAILY PRN (Reason: Dyspepsia) cyclosporine [Restasis] 0.05 % dropperette 1 drp OPB BID levothyroxine 112 mcg tablet 112 mcg PO DAILY atenolol 25 mg Tablet 25 mg PO DAILY diclofenac sodium [Voltaren] 1 % Gel 2 g TOPICAL TID PRN (Reason: Pain) guaifenesin [Mucus Relief ER] 600 mg Tablet Extended Release 12hr 600 mg PO [id number] Referrals Referrals: Amari Elena MD [Primary Care Provider] -
--- NOTE | 2022-06-17 14:57 | XRay Report ---
XR chest 1V portable CLINICAL HISTORY: weakness TECHNIQUE: Single frontal radiograph of the chest was obtained. Comparison: Comparison is made to chest radiograph 05/19/2022 FINDINGS: No lines and tubes are seen. Cardiomegaly is noted. Reticular interstitial opacities are seen. Focal scarring in the left apex is again seen. No evidence of pleural effusion or pneumothorax. IMPRESSION: No acute chest disease. Stable cardiomegaly and interstitial lung disease. ACT 112: Negative or not required by law. Electronically signed by: Hai Salgado M.D. 06/17/2022 2:54 PM
[2022-06-17 15:55] LABS: Basophils # (auto) 0.06 K/uL (0-0.2); Basophils % (auto) 0.4 %; Eosinophils # (auto) 0.01 K/uL (0-0.50); Eosinophils % (auto) 0.1 %; Hematocrit (blood only) 29.4 % (34.1-44.9); Hemoglobin 9.5 g/dl (12.0-16.0); Immature Granulocytes # (auto) 0.15 K/uL (0.00-0.02); Lymphocytes # (auto) 0.94 K/uL (1.2-3.4); Lymphocytes % (auto) 6.6 %; Mean Corpuscular Hemoglobin 29.8 pg (25.0-34.0); Mean Corpuscular Hgb Conc 32.3 g/dL (32.0-36.0); Mean Corpuscular Volume 92.2 fL (80.0-100.0); Mean Platelet Volume 10.4 fL (9.4-12.3); Monocytes # (auto) 1.51 K/uL (0.24-0.82); Monocytes % (auto) 10.5 %; Neutrophils # (auto) 11.65 K/uL (1.4-6.5); Neutrophils % (auto) 81.4 %; Platelet Count 332 K/uL (130-400); RDW Coefficient of Variation 14.6 % (11.5-14.5); RDW Standard Deviation 49.7 fL (36.4-46.3); Red Blood Count 3.19 M/uL (3.93-5.22); White Blood Count 14.32 K/ul (4.8-10.8)
[2022-06-17] MEDS ORDERED: ACETAMINOPHEN 500 MG TAB PO STA (16:14)
[2022-06-17] MEDS ORDERED: SODIUM CHLORIDE 0.9% 250 ML IV ONE (16:14)
[2022-06-17 16:21] LABS: Troponin I High Sensitivity 15.1 pg/ml (0-14)
[2022-06-17 16:25] LABS: Albumin Globulin Ratio 0.6 (0.9-2); Albumin Level 2.9 gm/dl (3.4-5.0); BUN Creatinine Ratio 22.6 (10-20); Bilirubin,Total 0.6 mg/dl (0.2-1.0); Calcium 9.9 mg/dl (8.5-10.1); Creatinine Clr Calc Pharmacy 27.2 ml/min; Est GFR (Non-African American) 35.4 ml/min; Globulin 4.8 gm/dl (2.5-4.0); Magnesium 1.5 mg/dl (1.7-2.4); Potassium 3.7 mmol/L (3.5-5.1); Total Protein 7.7 gm/dl (6.0-8.3)
[2022-06-17 16:56] LABS: Appearance Urine Turbid (Clear); Bacteria Urine Automated 4+ (Negative); Bilirubin Urine Negative (Negative); Blood Urine 2+ (Negative); Color Urine Dark Yellow; Epithelial Cell Urine Auto >30 /lpf (0-5); Glucose Urine UA Negative (Negative); Ketones Urine Negative (Negative); Leukocyte Esterase Urine 3+ (Negative); Nitrite Urine Positive (Negative); Protein Urine 2+ (Negative); Urobilinogen Urine Negative (Negative); WBC Urine Automated >30 /hpf (0-5)
[2022-06-17 17:06] LABS: Influenza A virus by PCR Negative (Neg); Influenza B virus by PCR Negative (Neg); RSV by PCR Negative (Neg)
[2022-06-17 17:11] LABS: SARS CoV2 RNA(COVID-19) Ceph POSITIVE (Negative)
[2022-06-17] MEDS ORDERED: cefTRIAXone SODIUM 2,000 MG/70 ML BAG IV STA (17:26)
[2022-06-17] MEDS: MAGNESIUM SULFATE / D5W 1 GM/100 ML BAG IV SCH ×2 (17:33→19:13)
--- NOTE | 2022-06-17 18:44 | History & Physical Report ---
Date of Service June 17, 2022 Assessment & Plan (1) Catheter-associated urinary tract infection: Plan: Admit to [facility] Patient presenting from [facility] for evaluation of generalized weakness Recently had Brooks catheter placed for tissue protection due to sacral wound In the ED, UA suggestive of UTI. Patient does not appear septic S/p IV ceftriaxone in the ED, continue with. Previous cultures reviewed. History of recurrent UTIs, previously on chronic suppressive therapy with Macorbid. This seems to have been discontinued since last hospitalization. Follow urine culture (2) Ambulatory dysfunction: (3) Weakness: Plan: 2/2 UTI PT/OT (4) CKD (chronic kidney disease), stage III: Plan: Creat 1.3, slightly above baseline Gentle IVF for additional 500cc Follow renal functions (5) COVID-19: Plan: Patient has been testing positive for COVID since February Remains positive today, asymtomatic (6) Interstitial pulmonary fibrosis: Plan: At baseline, does not require O2 (7) Hypothyroidism: Plan: Continue levothyroxine (8) DVT prophylaxis: Plan: SQ heparin History of Present Illness Chief Complaint: Weakness Primary Care Provider: Amari Elena MD 89-year-old female with PMHPulmonary fibrosis, CKD stage III, HTN, hypothyroidism, LBBB, and other problems listed below who presents to the ED for evaluation of generalized weakness. Patient recently admitted to [facility] 05/19 through 05/21 for generalized weakness, ambulatory dysfunction, positive COVID- 19. Patient did not require COVID-19 directed therapies. Patient was discharged to [facility] for rehab. While at [facility], patient was found to be anemic with hgb as low as 6.7 on 06/05 and patient received PRBC transfusion. Patient also developed a sacral wound and for tissue protection reasons, patient had a brooks catheter placed that remains. Patient was discharged to [facility] at [facility]. Over the past few days, patient has been having increased generalized weakness. Patient denies falls. She denies chest pain and shortness of breath. No lightheadedness, dizziness, diaphoresis, syncopal events. She denies abdominal pain, nausea, vomiting, diarrhea. Brooks catheter was exchanged in the ED. UA suggestive of UTI. WBC 14K. BP stable, afebrile. Patient was given p.o. Tylenol, IV ceftriaxone, magnesium replacement, IVF. Allergies Allergy/AdvReac Type Severity Reaction Status Date / Time capsaicin AdvReac Intermediate Nausea/Vomi Verified 06/17/22 15:58 ting cefdinir AdvReac Intermediate Nausea and Verified 06/17/22 15:58 Vomiting diclofenac AdvReac Intermediate Nausea/Vomi Verified 06/17/22 15:58 ting ketoprofen AdvReac Intermediate Nausea/Vomi Verified 06/17/22 15:58 ting metoprolol AdvReac Intermediate Dizziness Verified 06/17/22 15:58 to Metoprolol Tartrate naproxen AdvReac Intermediate Nausea/Vomi Verified 06/17/22 15:58 ting propoxyphene AdvReac Intermediate Nausea/Vomi Verified 06/17/22 15:58 ting rofecoxib AdvReac Intermediate Abdominal Verified 06/17/22 15:58 cramps Sulfa (Sulfonamide AdvReac Intermediate Nausea/Vomi Verified 06/17/22 15:58 Antibiotics) ting sulfamethoxazole AdvReac Intermediate Nausea/Vomi Verified 06/17/22 15:58 ting tramadol AdvReac Intermediate Nausea/Vomi Verified 06/17/22 15:58 ting trimethoprim AdvReac Intermediate Nausea/Vomi Verified 06/17/22 15:58 ting Home Medications Medication Instructions Recorded Confirmed Type omeprazole 20 mg capsule,delayed 20 mg PO DAILY PRN Dyspepsia 03/15/19 06/17/22 History release cyclosporine 0.05 % eye drops in a 1 drp OPB BID 01/10/20 06/17/22 History dropperette (Restasis) montelukast 10 mg tablet 10 mg PO HS #30 tabs 07/10/21 06/17/22 Rx levothyroxine 112 mcg tablet 112 mcg PO DAILY 05/19/22 06/17/22 History atenolol 25 mg tablet 25 mg PO DAILY 06/17/22 06/17/22 History diclofenac sodium 1 % topical gel 2 g topical TID PRN Pain 06/17/22 06/17/22 History guaifenesin 600 mg tablet, 600 mg PO BID17 06/17/22 06/17/22 History extended release 12 hr (Mucus Relief ER) Past Med/Surg History Medical History Abnormal CT scan, chest CKD (chronic kidney disease), stage III Deviated nasal septum Diastolic heart failure GERD (gastroesophageal reflux disease) Hiatal hernia Hypertension Hypothyroidism Interstitial pulmonary fibrosis Left bundle branch block Osteoarthritis Recurrent UTI Surgical History H/O repair of right rotator cuff History of appendectomy History of cataract surgery History of hysterectomy History of left oophorectomy History of total left knee replacement History of total right knee replacement S/P left knee arthroscopy S/P right knee arthroscopy S/p total knee replacement, bilateral Family History Other Lung cancer Social History Smoking Status: Never smoker Tobacco Type: Cigarettes Age Started Using Tobacco: 20; Age Quit Using Tobacco: 32; packs per day: 0.25; Second Hand Exposure: Yes; Hx Alcohol Use: No Hx Substance Use: No Preferred Language: Faroese Communication Ability: Effective Chainstitch Hemmer Required: No Beliefs That Will Affect Care: None marital status: / Current Living Situation: Alone Current Living Situation Comment: Son lives next door and comes over several times a day, caregiver 2hrs x5 Feels Safe at Home: Yes Assistive Devices: Walker Review of Systems Review of Systems: ROS per HPI, all other systems reviewed and negative Physical Exam Physical Exam: Please refer to Dr. Reynolds's addendum for physical exam. Results & Data Results & Data ([facility]) Vital Signs (Past 12 Hours) Vital Signs Temp Pulse Pulse Resp BP BP Pulse Ox 06/17/22 16:40 101 H 13 118/73 96 06/17/22 14:35 95 06/17/22 16:11 94 06/17/22 14:39 36.5 C 117 H 21 125/84 93 O2 Del Method O2 Flow Rate 06/17/22 16:40 Room Air 06/17/22 14:35 Room Air 0 06/17/22 16:11 Room Air 06/17/22 14:39 Room Air Laboratory Results Short CBC 06/17/22 Range/Units 15:05 WBC 14.32 H (4.8-10.8) K/ul Hgb 9.5 L (12.0-16.0) g/dl Hct 29.4 L (34.1-44.9) % Plt Count 332 (130-400) K/uL BMP 06/17/22 15:05 Sodium 134 L Potassium 3.7 Chloride 101 Carbon Dioxide 19 L BUN 30 H Creatinine 1.33 H Glucose 191 H Calcium 9.9 Cardiac Enzymes 06/17/22 Range/Units 15:05 Total Creatine Kinase 21 L (26-192) U/L Liver Function 06/17/22 Range/Units 15:05 Total Bilirubin 0.6 (0.2-1.0) mg/dl AST 53 H (13-39) U/L ALT 39 (7-52) U/L Alkaline Phosphatase 118 H (34-104) U/L Albumin 2.9 L (3.4-5.0) gm/dl Urine 06/17/22 Range/Units 16:41 Urine Color Dark Yellow Urine Appearance Turbid A (Clear) Urine pH 5.0 (4.5-7.5) Ur Specific [place] 1.020 (1.000-1.030) Urine Protein 2+ H (Negative) Urine Glucose (UA) Negative (Negative) Diagnostic Findings Chest X-Ray 06/17/22 14:35 XR chest 1V portable CLINICAL HISTORY: weakness TECHNIQUE: Single frontal radiograph of the chest was obtained. Comparison: Comparison is made to chest radiograph 05/19/2022 FINDINGS: No lines and tubes are seen. Cardiomegaly is noted. Reticular interstitial opacities are seen. Focal scarring in the left apex is again seen. No evidence of pleural effusion or pneumothorax. IMPRESSION: No acute chest disease. Stable cardiomegaly and interstitial lung disease. ACT 112: Negative or not required by law. Electronically signed by: Hai Salgado M.D. 06/17/2022 2:54 PM Code Status & VTE Plan VTE Prophylaxis Plan VTE Prophylaxis will be ordered: Yes Supervising Physician Co-Signing Physician Notes Pt is a 89 y/o F with hx of Recurrent UTI, Sacral wound on urinary catheter, CKD III, HTN, Hypothyroidism, ambulatory dysfunction admitted for generalized weakness and UTI. Recently pts hgb has been low -received transfusion as outpt -FOBT + -Hgb trend: 7.8>6.7> 8.5>9>8.7 PE: Mild cachectic, NAD Cardiac: Systolic murmur, normal S1/S2 Lungs: Good air entry b/l, no wheezing or crackles Abd: ND, soft, mild TTP of the suprapubic area MSk: no LE edema Psych: AAOx3, normal affect A/P: UTI: -even though pt was on urinary catheter --- will do Ceftriaxone instead of cefepime (due to multiple use of abx and prior UCx sensitive to ceftriaxone) -UCx sent -Urinary catheter changed ---- will keep the catheter due to sacral wound Anemia with FOBT: -due to age will hold off on any procedure -trend hgb: if it worsens then consider GI consult Sacral wound with ambulatory dysfunction: - wound nurse consult -Q2 turn -PT/OT COVID +: -was positive last month -no current respiratory symptoms -CXR: No acute chest disease. Stable cardiomegaly and interstitial lung disease. Other chronic conditions: plan as above Agree with A/P by BRIEN Reid
[2022-06-17] MEDS ORDERED: SODIUM CHLORIDE 0.9% 500 ML IV SCH (20:02)
[2022-06-17] MEDS: MONTELUKAST SODIUM 10 MG TABLET PO SCH (23:22)
[2022-06-17] MEDS: HEPARIN SOD 5,000 UNIT/0.5 ML VIAL SQ SCH (23:23)
[2022-06-18] MEDS: ACETAMINOPHEN 325 MG TAB PO PRN ×3 (00:20→20:22)
[2022-06-18] MEDS: HEPARIN SOD 5,000 UNIT/0.5 ML VIAL SQ SCH ×3 (05:47→20:19)
[2022-06-18] MEDS: LEVOTHYROXINE SODIUM 112 MCG TABLET PO SCH (05:48)
[2022-06-18 07:03] LABS: Hematocrit (blood only) 23.8 % (34.1-44.9); Hemoglobin 7.8 g/dl (12.0-16.0); Mean Corpuscular Hgb Conc 32.8 g/dL (32.0-36.0); Mean Corpuscular Volume 91.5 fL (80.0-100.0); Mean Platelet Volume 9.9 fL (9.4-12.3); Platelet Count 274 K/uL (130-400); RDW Coefficient of Variation 14.6 % (11.5-14.5); RDW Standard Deviation 49.3 fL (36.4-46.3); White Blood Count 8.61 K/ul (4.8-10.8)
[2022-06-18 07:26] LABS: BUN Creatinine Ratio 27.6 (10-20); Calcium 8.7 mg/dl (8.5-10.1); Creatinine Clr Calc Pharmacy 27.2 ml/min; Est GFR (African American) 54.5 ml/min; Potassium 3.2 mmol/L (3.5-5.1)
[2022-06-18] MEDS ORDERED: POTASSIUM CHLORIDE CRTAB 20 MEQ TABCR PO STA (08:16)
[2022-06-18] MEDS: guaiFENesin 600 MG TABCR PO SCH ×2 (08:38→17:56)
[2022-06-18] MEDS: ATENOLOL 25 MG TABLET PO SCH (08:38)
--- NOTE | 2022-06-18 11:54 | Hospitalist Progress Note ---
Date of Service June 18, 2022 Assessment & Plan (1) Catheter-associated urinary tract infection: Plan: Patient presenting from [facility] for evaluation of generalized weakness Recently had Briscoe catheter placed for tissue protection due to sacral wound In the ED, UA suggestive of UTI. Patient did not appear septic S/p IV ceftriaxone in the ED, continue with. History of recurrent UTIs, previously on chronic suppressive therapy with Macorbid. This seems to have been discontinued since last hospitalization. Urine culture growing GNR Continue ceftriaxone and follow up speciation/sensitivities (2) Ambulatory dysfunction: (3) Weakness: Plan: May be related to UTI Awaiting PT/OT eval (4) CKD (chronic kidney disease), stage III: Plan: Creat 1.05 today Avoid nephrotoxin Replete hypokalemia (5) COVID-19: Plan: Patient has been testing positive for COVID since February Remains positive on presentation. ?persistent positive test Asymptomatic (6) Interstitial pulmonary fibrosis: Plan: At baseline Does not require O2 (7) Hypothyroidism: Plan: Continue levothyroxine (8) Anemia: Plan: Normocytic anemia Was reported to have got PRBC at [facility] per chart review No signs of bleeding Hb was 9.5 on admission. Dropped to 7.8 this morning. May be dilutional as all cell lines dropped Anemia workup Will monitor Hb (9) DVT prophylaxis: Plan: SQ heparin Admission and Anticipated Discharge Date Admission Date: June 17, 2022 Subjective Patient seen and examined Reports weakness. Denied any chest pain, cough, shortness of breath Denied nausea, vomiting, abd pain, diarrhea Denied fever, chills, headache, dizziness Physical Exam Constitutional: + well hydrated and + thin; no acute distress Elderly woman Eyes: PERRL, conjunctivae normal, anicteric sclerae ENMT: external ear and nose normal, oropharynx normal Respiratory: normal respiratory effort, lungs clear to auscultation Cardiovascular: Rate/Rhythm: regular rate and regular rhythm S1 S2 Gastrointestinal (Abdomen): normal bowel sounds, soft, nontender, no hepatosplenomegaly Musculoskeletal: No pedal edema Neurologic: PERRL, EOMI, accommodation nl, no face palsy, no dysarthria Psychiatric: Alert and oriented to person, place and month Genitourinary: Briscoe in situ Results & Data Results & Data ([facility]) Vital Signs (Past 12 Hours) Vital Signs Temp Pulse Resp BP Pulse Ox O2 Del Method 06/18/22 07:35 Room Air 06/18/22 07:11 36.3 C L 78 16 132/70 97 Room Air Laboratory Results Abnormal lab results 06/17/22 06/17/22 06/17/22 Range/Units 15:05 15:05 15:50 WBC 14.32 H (4.8-10.8) K/ul RBC 3.19 L (3.93-5.22) M/uL Hgb 9.5 L (12.0-16.0) g/dl Hct 29.4 L (34.1-44.9) % RDW Std Deviation 49.7 H (36.4-46.3) fL RDW Coeff of Heather 14.6 H (11.5-14.5) % Neut # (Auto) 11.65 H (1.4-6.5) K/uL Lymph # (Auto) 0.94 L (1.2-3.4) K/uL [place] # (Auto) 1.51 H (0.24-0.82) K/uL Immature Gran # (Auto) 0.15 H (0.00-0.02) K/uL Sodium 134 L (136-145) mmol/L Potassium (3.5-5.1) mmol/L Carbon Dioxide 19 L (21-32) mmol/L Anion Gap 14 H (3-11) BUN 30 H (6-23) mg/dl Creatinine 1.33 H (0.6-1.2) mg/dl BUN/Creatinine Ratio 22.6 H (10-20) Glucose 191 H (70-99(Fasting)) mg/dl Magnesium 1.5 L (1.7-2.4) mg/dl AST 53 H (13-39) U/L Alkaline Phosphatase 118 H (34-104) U/L Total Creatine Kinase 21 L (26-192) U/L Troponin I High Sens 15.1 H (0-14) pg/ml Albumin 2.9 L (3.4-5.0) gm/dl Globulin 4.8 H (2.5-4.0) gm/dl Albumin/Globulin Ratio 0.6 L (0.9-2) Urine Appearance (Clear) Urine Protein (Negative) Urine Blood (Negative) Urine Nitrite (Negative) Ur Leukocyte Esterase (Negative) Urine WBC (Auto) (0-5) /hpf Urine RBC (Auto) (0-4) /hpf U Epithel Cells (Auto) (0-5) /lpf Urine Bacteria (Auto) (Negative) SARS-CoV-2 (PCR) POSITIVE A* (Negative) 06/17/22 06/18/22 06/18/22 Range/Units 16:41 06:49 06:49 WBC (4.8-10.8) K/ul RBC 2.60 L (3.93-5.22) M/uL Hgb 7.8 L (12.0-16.0) g/dl Hct 23.8 L (34.1-44.9) % RDW Std Deviation 49.3 H (36.4-46.3) fL RDW Coeff of Heather 14.6 H (11.5-14.5) % Neut # (Auto) (1.4-6.5) K/uL Lymph # (Auto) (1.2-3.4) K/uL [place] # (Auto) (0.24-0.82) K/uL Immature Gran # (Auto) (0.00-0.02) K/uL Sodium 134 L (136-145) mmol/L Potassium 3.2 L (3.5-5.1) mmol/L Carbon Dioxide (21-32) mmol/L Anion Gap (3-11) BUN 29 H (6-23) mg/dl Creatinine (0.6-1.2) mg/dl BUN/Creatinine Ratio 27.6 H (10-20) Glucose 101 H (70-99(Fasting)) mg/dl Magnesium (1.7-2.4) mg/dl AST (13-39) U/L Alkaline Phosphatase (34-104) U/L Total Creatine Kinase (26-192) U/L Troponin I High Sens (0-14) pg/ml Albumin (3.4-5.0) gm/dl Globulin (2.5-4.0) gm/dl Albumin/Globulin Ratio (0.9-2) Urine Appearance Turbid A (Clear) Urine Protein 2+ H (Negative) Urine Blood 2+ H (Negative) Urine Nitrite Positive A (Negative) Ur Leukocyte Esterase 3+ H (Negative) Urine WBC (Auto) >30 H (0-5) /hpf Urine RBC (Auto) 5-10 H (0-4) /hpf U Epithel Cells (Auto) >30 H (0-5) /lpf Urine Bacteria (Auto) 4+ H (Negative) SARS-CoV-2 (PCR) (Negative) (1) Anemia Anemia type: unspecified type Qualified Code(s): D64.9 - Anemia, unspecified
[2022-06-18 16:48] LABS: Hematocrit (blood only) 23.7 % (34.1-44.9); Hemoglobin 7.6 g/dl (12.0-16.0)
[2022-06-18 16:49] LABS: Reticulocyte % 1.5 % (0.5-2.0); Reticulocytes # 0.04 10^6/uL (0.02-0.10)
[2022-06-18 17:46] LABS: Ferritin 540.3 ng/ml (8-388)
[2022-06-18] MEDS: cefTRIAXone SODIUM 1,000 MG in DEXTROSE 5% AD-VAN 50 ML IV SCH (17:56)
[2022-06-18] MEDS: MONTELUKAST SODIUM 10 MG TABLET PO SCH (20:18)
[2022-06-19] MEDS: HEPARIN SOD 5,000 UNIT/0.5 ML VIAL SQ SCH ×3 (05:49→20:03)
[2022-06-19] MEDS: LEVOTHYROXINE SODIUM 112 MCG TABLET PO SCH (05:49)
[2022-06-19 06:34] LABS: Hematocrit (blood only) 25.5 % (34.1-44.9); Hemoglobin 8.3 g/dl (12.0-16.0); Mean Corpuscular Hemoglobin 29.9 pg (25.0-34.0); Mean Corpuscular Hgb Conc 32.5 g/dL (32.0-36.0); Mean Corpuscular Volume 91.7 fL (80.0-100.0); Platelet Count 307 K/uL (130-400); RDW Coefficient of Variation 14.6 % (11.5-14.5); RDW Standard Deviation 49.9 fL (36.4-46.3); Red Blood Count 2.78 M/uL (3.93-5.22); White Blood Count 7.33 K/ul (4.8-10.8)
[2022-06-19 07:09] LABS: BUN Creatinine Ratio 29.1 (10-20); Calcium 8.7 mg/dl (8.5-10.1); Creatinine Clr Calc Pharmacy 25.9 ml/min; Est GFR (African American) 51.5 ml/min; Est GFR (Non-African American) 44.5 ml/min; Potassium 4.1 mmol/L (3.5-5.1)
[2022-06-19] MEDS: guaiFENesin 600 MG TABCR PO SCH ×2 (08:28→18:15)
[2022-06-19] MEDS: ATENOLOL 25 MG TABLET PO SCH (08:28)
[2022-06-19] MEDS: ACETAMINOPHEN 325 MG TAB PO PRN ×2 (09:50→20:31)
--- NOTE | 2022-06-19 15:21 | Hospitalist Progress Note ---
Date of Service June 19, 2022 Assessment & Plan (1) Catheter-associated urinary tract infection: Plan: Patient presenting from [facility] for evaluation of generalized weakness Recently had Brooks catheter placed for tissue protection due to sacral wound History of recurrent UTIs, previously on chronic suppressive therapy with Macorbid. This seems to have been discontinued since last hospitalization UA abnormal and patient started on empiric rocephin (on day #3) Urine culture growing E. coli - will plan to transition to Cefdinir in AM Removing brooks catheter and transitioning to purewick (2) Ambulatory dysfunction: (3) Weakness: Plan: May be related to UTI Awaiting PT/OT eval - recommending SNF (4) CKD (chronic kidney disease), stage III: Plan: Creat 1.05 today Avoid nephrotoxin Replete hypokalemia (5) COVID-19: Plan: Patient has been testing positive for COVID since February Remains positive on presentation. ?persistent positive test Asymptomatic (6) Interstitial pulmonary fibrosis: Plan: At baseline Does not require O2 (7) Hypothyroidism: Plan: Continue levothyroxine (8) Anemia: Plan: Normocytic anemia Was reported to have got PRBC at [facility] per chart review Hb was 9.5 on admission. Dropped to 7.8 this morning. May be dilutional as all cell lines dropped Iron studies more consistent with acute reactive phase than MYRIAM but difficult to interpret given recent blood transfusion Hgb improved since yesterday. Asymptomatic. Continue to monitor (9) DVT prophylaxis: Plan: SQ heparin Dispo: admitted to med/surg. Planning dc to SNF Admission and Anticipated Discharge Date Admission Date: June 17, 2022 Supervising Physician Co-Signing Physician Notes Patient seen and examined Denied any complaints Had low urine output overnight. RN reported poor oral intake earlier in the day. Encouraged po intake Continue ceftriaxone today. Plan to change to po cefdinir tomorrow Remove brooks today and put on puerwick Has moisture skin damage PT/OT noted CM working on placement Other plans as detailed by Salma Hutton PA-C Subjective Patient seen and examined in 314-1. Patient is uncomfortable initially but better after repositioning. No acute changes overnight. No fever, chills, lightheadedness, chest pain, SOB, N/V, abdominal pain, dysuria, diarrhea. Review of Systems Review of Systems: At least ten systems reviewed and negative except as noted in the HPI. Physical Exam Physical Exam: Gen: WD/WN, frail, elderly, lying in bed, A&Ox3 HEENT: Normocephalic, atraumatic, conjunctivae moist, sclerae anicteric, mucous membranes moist Lung: Clear to Auscultation bilaterally, no wheezes/rales/rhonchi Heart: Regular rate, regular rhythm, +systolic murmur Abdomen: Soft, NT, ND +BS x 4 : Brooks present Extremities: no edema Skin: Warm, no rash Results & Data Results & Data ([place]) Vital Signs (Past 12 Hours) Vital Signs Temp Pulse Resp BP Pulse Ox O2 Del Method 06/19/22 07:20 Room Air 06/19/22 05:54 36.4 C L 69 16 144/74 H 96 Room Air Laboratory Results Short CBC 06/18/22 06/19/22 Range/Units 16:22 06:18 WBC 7.33 (4.8-10.8) K/ul Hgb 7.6 L 8.3 L (12.0-16.0) g/dl Hct 23.7 L 25.5 L (34.1-44.9) % Plt Count 307 (130-400) K/uL BMP 06/19/22 06:18 Sodium 136 Potassium 4.1 D Chloride 108 H Carbon Dioxide 24 BUN 32 H Creatinine 1.10 Glucose 90 Calcium 8.7 Diagnostic Findings Chest X-Ray 06/17/22 14:35 XR chest 1V portable CLINICAL HISTORY: weakness TECHNIQUE: Single frontal radiograph of the chest was obtained. Comparison: Comparison is made to chest radiograph 05/19/2022 FINDINGS: No lines and tubes are seen. Cardiomegaly is noted. Reticular interstitial opacities are seen. Focal scarring in the left apex is again seen. No evidence of pleural effusion or pneumothorax. IMPRESSION: No acute chest disease. Stable cardiomegaly and interstitial lung disease. ACT 112: Negative or not required by law. Electronically signed by: Hai Salgado M.D. 06/17/2022 2:54 PM (1) Anemia Anemia type: unspecified type Qualified Code(s): D64.9 - Anemia, unspecified
[2022-06-19] MEDS: cefTRIAXone SODIUM 1,000 MG in DEXTROSE 5% AD-VAN 50 ML IV SCH (18:15)
[2022-06-19] MEDS: MONTELUKAST SODIUM 10 MG TABLET PO SCH (20:03)
--- NOTE | 2022-06-19 23:22 | Electrocardiogram Report ---
Test Reason : Blood Pressure : / mmHG Vent. Rate : 109 BPM Atrial Rate : 109 BPM P-R Int : 162 ms QRS Dur : 132 ms QT Int : 366 ms P-R-T Axes : 032 -41 119 degrees QTc Int : 492 ms Poor data quality, interpretation may be adversely affected Sinus tachycardia with Premature atrial complexes Left axis deviation Left bundle branch block Abnormal ECG When compared with ECG of 19-MAY-2022 12:31, No significant change was found Confirmed by Giorgio Cordero ([id number]) on 06/19/2022 11:22:25 PM Referred By: [facility] Confirmed By:Giorgio Cordero
[2022-06-20] MEDS: LEVOTHYROXINE SODIUM 112 MCG TABLET PO SCH (05:36)
[2022-06-20] MEDS: HEPARIN SOD 5,000 UNIT/0.5 ML VIAL SQ SCH ×3 (05:36→22:10)
[2022-06-20] MEDS: ATENOLOL 25 MG TABLET PO SCH (08:39)
[2022-06-20] MEDS: guaiFENesin 600 MG TABCR PO SCH ×2 (08:39→18:36)
[2022-06-20 08:40] LABS: Hematocrit (blood only) 27.1 % (34.1-44.9); Hemoglobin 8.7 g/dl (12.0-16.0); Mean Corpuscular Hemoglobin 29.8 pg (25.0-34.0); Mean Corpuscular Hgb Conc 32.1 g/dL (32.0-36.0); Mean Corpuscular Volume 92.8 fL (80.0-100.0); Mean Platelet Volume 9.9 fL (9.4-12.3); Platelet Count 343 K/uL (130-400); RDW Coefficient of Variation 14.8 % (11.5-14.5); Red Blood Count 2.92 M/uL (3.93-5.22); White Blood Count 7.65 K/ul (4.8-10.8)
[2022-06-20] MEDS ORDERED: CEFDINIR 300 MG CAP PO SCH (09:00)
[2022-06-20 09:04] LABS: BUN Creatinine Ratio 28.2 (10-20); Calcium 8.7 mg/dl (8.5-10.1); Creatinine Clr Calc Pharmacy 25.9 ml/min; Est GFR (African American) 51.5 ml/min; Est GFR (Non-African American) 44.5 ml/min
--- NOTE | 2022-06-20 13:48 | Hospitalist Progress Note ---
Date of Service June 20, 2022 Assessment & Plan (1) Catheter-associated urinary tract infection: Plan: Patient presenting from [facility] for evaluation of generalized weakness Recently had Briscoe catheter placed for tissue protection due to sacral wound History of recurrent UTIs, previously on chronic suppressive therapy with Macrobid. This seems to have been discontinued since last hospitalization Urine culture growing E. coli Transitioned to Cefdinir - will need a 10 day abx course (will complete evening of 06/26) Puer wick in place (2) Ambulatory dysfunction: (3) Weakness: Plan: May be related to UTI PT/OT eval noted CM working on placement (4) CKD (chronic kidney disease), stage III: Plan: Creat 1.1 today Avoid nephrotoxin (5) COVID-19: Plan: Patient has been testing positive for COVID since February Remains positive on presentation. ?persistent positive test Asymptomatic (6) Interstitial pulmonary fibrosis: Plan: At baseline Does not require O2 (7) Hypothyroidism: Plan: Continue levothyroxine (8) Anemia: Plan: Normocytic anemia Was reported to have got PRBC at [facility] per chart review Hgb was 9.5 on admission. Iron studies more consistent with acute reactive phase than MYRIAM but difficult to interpret given recent blood transfusion Hgb stable at 8.7. Asymptomatic. Continue to monitor (9) DVT prophylaxis: Plan: SQ heparin Dispo: admitted to med/surg. Planning dc to SNF once bed is available. Updated at bedside. Admission and Anticipated Discharge Date Admission Date: June 17, 2022 Supervising Physician Co-Signing Physician Notes Patient seen and examined Denied any complaints Ceftriaxone changed to cefdinir po to complete treatment Awaiting placement Other plans as detailed by Salma Hutton PA-C Subjective Patient seen and examined in 314-1. Patient is feeling better today after sleeping well. Feeling stronger. No fever, chills, lightheadedness, chest pain, SOB, N/V, abdominal pain, dysuria or diarrhea. Physical Exam Physical Exam: Gen: WD/WN, frail, elderly, lying in bed, A&Ox3 HEENT: Normocephalic, atraumatic, conjunctivae moist, sclerae anicteric, mucous membranes moist Lung: Clear to Auscultation bilaterally, no wheezes/rales/rhonchi Heart: Regular rate, regular rhythm, +systolic murmur Abdomen: Soft, NT, ND +BS x 4 : Briscoe present Extremities: no edema Skin: Warm, no rash Results & Data Results & Data ([facility]) Vital Signs (Past 12 Hours) Vital Signs Temp Pulse Resp BP Pulse Ox O2 Del Method 06/20/22 07:15 Room Air 06/20/22 07:32 36.6 C 70 17 147/67 H 96 Room Air Laboratory Results Abnormal lab results 06/18/22 06/20/22 06/20/22 Range/Units 16:22 08:09 08:09 RBC 2.92 L (3.93-5.22) M/uL Hgb 8.7 L (12.0-16.0) g/dl Hct 27.1 L (34.1-44.9) % RDW Std Deviation 51.0 H (36.4-46.3) fL RDW Coeff of Heather 14.8 H (11.5-14.5) % Haptoglobin 378 H (43-212) mg/dL BUN 31 H (6-23) mg/dl BUN/Creatinine Ratio 28.2 H (10-20) (1) Anemia Anemia type: unspecified type Qualified Code(s): D64.9 - Anemia, unspecified
[2022-06-20] MEDS: ACETAMINOPHEN 325 MG TAB PO PRN (18:36)
[2022-06-20] MEDS: MONTELUKAST SODIUM 10 MG TABLET PO SCH (22:10)
[2022-06-21] MEDS: HEPARIN SOD 5,000 UNIT/0.5 ML VIAL SQ SCH ×3 (06:22→21:45)
[2022-06-21] MEDS: LEVOTHYROXINE SODIUM 112 MCG TABLET PO SCH (06:22)
[2022-06-21] MEDS: guaiFENesin 600 MG TABCR PO SCH ×2 (09:54→17:52)
[2022-06-21] MEDS: CEFDINIR 300 MG CAP PO SCH (09:54)
[2022-06-21] MEDS: ATENOLOL 25 MG TABLET PO SCH (09:54)
--- NOTE | 2022-06-21 13:38 | Hospitalist Progress Note ---
Date of Service June 21, 2022 Assessment & Plan (1) Catheter-associated urinary tract infection: Plan: Patient presenting from [facility] for evaluation of generalized weakness Recently had Briscoe catheter placed for tissue protection due to sacral wound History of recurrent UTIs, previously on chronic suppressive therapy with Macrobid. This seems to have been discontinued since last hospitalization Urine culture grew E. coli Continue cefdinir to complete treatment Puer wick in place (2) Ambulatory dysfunction: (3) Weakness: Plan: May be related to UTI PT/OT eval noted CM working on placement (4) CKD (chronic kidney disease), stage III: Plan: Stable Avoid nephrotoxin (5) COVID-19: Plan: Patient has been testing positive for COVID since February Remains positive on presentation. ?persistent positive test Asymptomatic (6) Interstitial pulmonary fibrosis: Plan: At baseline Does not require O2 (7) Hypothyroidism: Plan: Continue levothyroxine (8) Anemia: Plan: Normocytic anemia Was reported to have got PRBC at [facility] per chart review Hgb was 9.5 on admission. Iron studies more consistent with acute reactive phase than MYRIAM but difficult to interpret given recent blood transfusion Hgb stable at 8.7. Asymptomatic. Continue to monitor (9) DVT prophylaxis: Plan: SQ heparin Dispo:Awaiting placement Admission and Anticipated Discharge Date Admission Date: June 17, 2022 Subjective Patient seen and examined Reports feeling better Denied any chest pain, cough, shortness of breath Denied nausea, vomiting, abd pain, diarrhea Denied fever, chills, headache, dizziness Physical Exam Constitutional: + well hydrated and + thin; no acute distress Eyes: PERRL, conjunctivae normal, anicteric sclerae ENMT: external ear and nose normal, oropharynx normal Respiratory: normal respiratory effort, lungs clear to auscultation Cardiovascular: Rate/Rhythm: regular rate and regular rhythm S1 S2 Gastrointestinal (Abdomen): normal bowel sounds, soft, nontender, no hepatosplenomegaly Musculoskeletal: No pedal edema Neurologic: PERRL, EOMI, accommodation nl, no face palsy, no dysarthria Results & Data Results & Data ([facility]) Vital Signs (Past 12 Hours) Vital Signs Temp Pulse Resp BP Pulse Ox O2 Del Method 06/21/22 07:55 Room Air 06/21/22 07:38 36.6 C 67 16 130/66 97 Room Air (1) Anemia Anemia type: unspecified type Qualified Code(s): D64.9 - Anemia, unspecified
[2022-06-21] MEDS: ACETAMINOPHEN 325 MG TAB PO PRN ×2 (14:55→18:54)
[2022-06-21] MEDS: MONTELUKAST SODIUM 10 MG TABLET PO SCH (21:48)
[2022-06-22] MEDS: LEVOTHYROXINE SODIUM 112 MCG TABLET PO SCH (06:27)
[2022-06-22] MEDS: HEPARIN SOD 5,000 UNIT/0.5 ML VIAL SQ SCH ×3 (06:27→21:26)
[2022-06-22 07:15] LABS: Creatinine Clr Calc Pharmacy 26.9 ml/min; Est GFR (African American) 53.9 ml/min; Est GFR (Non-African American) 46.5 ml/min
[2022-06-22] MEDS: guaiFENesin 600 MG TABCR PO SCH ×2 (09:59→16:20)
[2022-06-22] MEDS: CEFDINIR 300 MG CAP PO SCH (09:59)
[2022-06-22] MEDS: ATENOLOL 25 MG TABLET PO SCH (09:59)
--- NOTE | 2022-06-22 11:31 | Hospitalist Progress Note ---
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 This seems to have been discontinued since last hospitalization Urine culture grew E. coli Continue cefdinir to complete treatment (2) Ambulatory dysfunction: (3) Weakness: Plan: May be related to UTI PT/OT eval noted CM working on placement (4) CKD (chronic kidney disease), stage III: Plan: Stable Avoid nephrotoxin (5) COVID-19: Plan: Patient has been testing positive for COVID since February Remains positive on presentation. ?persistent positive test Asymptomatic (6) Interstitial pulmonary fibrosis: Plan: At baseline Does not require O2 (7) Hypothyroidism: Plan: Continue levothyroxine (8) Anemia: Plan: Normocytic anemia Was reported to have got PRBC at [facility] per chart review Hgb was 9.5 on admission. Iron studies more consistent with acute reactive phase than MYRIAM but difficult to interpret given recent blood transfusion Hgb stable at 8.7. Asymptomatic. Continue to monitor (9) DVT prophylaxis: Plan: SQ heparin Dispo:Awaiting placement Admission and Anticipated Discharge Date Admission Date: June 17, 2022 Subjective Patient seen and examined Denies any complaints Denied any chest pain, cough, shortness of breath Denied nausea, vomiting, abd pain, diarrhea Denied fever, chills, headache, dizziness Physical Exam Constitutional: + well hydrated and + thin; no acute distress Eyes: PERRL, conjunctivae normal, anicteric sclerae ENMT: external ear and nose normal, oropharynx normal Respiratory: normal respiratory effort, lungs clear to auscultation Cardiovascular: Rate/Rhythm: regular rate and regular rhythm S1 S2 Gastrointestinal (Abdomen): normal bowel sounds, soft, nontender, no hepatosplenomegaly Musculoskeletal: No pedal edema Neurologic: PERRL, EOMI, accommodation nl, no face palsy, no dysarthria Results & Data Results & Data ([facility]) Vital Signs (Past 12 Hours) Vital Signs Temp Pulse Resp BP Pulse Ox O2 Del Method 06/22/22 07:00 36.7 C 74 16 117/78 94 Room Air (1) Anemia Anemia type: unspecified type Qualified Code(s): D64.9 - Anemia, unspecified
[2022-06-22] MEDS: ACETAMINOPHEN 325 MG TAB PO PRN ×3 (13:34→21:32)
[2022-06-22] MEDS: MONTELUKAST SODIUM 10 MG TABLET PO SCH (21:26)
[2022-06-23] MEDS: LEVOTHYROXINE SODIUM 112 MCG TABLET PO SCH (05:54)
[2022-06-23] MEDS: HEPARIN SOD 5,000 UNIT/0.5 ML VIAL SQ SCH ×3 (05:54→21:09)
[2022-06-23] MEDS: CEFDINIR 300 MG CAP PO SCH (10:40)
[2022-06-23] MEDS: guaiFENesin 600 MG TABCR PO SCH ×2 (10:41→17:52)
[2022-06-23] MEDS: ATENOLOL 25 MG TABLET PO SCH (10:41)
--- NOTE | 2022-06-23 11:49 | Hospitalist Progress Note ---
Date of Service June 23, 2022 Assessment & Plan (1) Catheter-associated urinary tract infection: Plan: Patient presented from [facility] for evaluation of generalized weakness Recently had Briscoe catheter placed for tissue protection due to sacral wound History of recurrent UTIs, previously on chronic suppressive therapy with Macrobid. This seems to have been discontinued since last hospitalization Urine culture grew E. coli Continue cefdinir to complete treatment (2) Ambulatory dysfunction: (3) Weakness: Plan: May be related to UTI PT/OT eval noted CM working on placement (4) CKD (chronic kidney disease), stage III: Plan: Stable Avoid nephrotoxin (5) COVID-19: Plan: Patient has been testing positive for COVID since February Remains positive on presentation. ?persistent positive test Asymptomatic (6) Interstitial pulmonary fibrosis: Plan: At baseline Does not require O2 (7) Hypothyroidism: Plan: Continue levothyroxine (8) Anemia: Plan: Normocytic anemia Was reported to have got PRBC at [facility] per chart review Hgb was 9.5 on admission. Iron studies more consistent with acute reactive phase than MYRIAM but difficult to interpret given recent blood transfusion Last Hgb stable at 8.7. Asymptomatic. (9) DVT prophylaxis: Plan: SQ heparin Dispo:Awaiting placement Admission and Anticipated Discharge Date Admission Date: June 17, 2022 Subjective Patient seen and examined Denies any complaints Denied any chest pain, cough, shortness of breath Denied nausea, vomiting, abd pain, diarrhea Denied fever, chills, headache, dizziness Physical Exam Constitutional: + well hydrated and + thin; no acute distress Eyes: PERRL, conjunctivae normal, anicteric sclerae ENMT: external ear and nose normal, oropharynx normal Respiratory: normal respiratory effort, lungs clear to auscultation Cardiovascular: Rate/Rhythm: regular rate and regular rhythm S1 S2 Gastrointestinal (Abdomen): normal bowel sounds, soft, nontender, no hepatosplenomegaly Musculoskeletal: No pedal edema Neurologic: PERRL, EOMI, accommodation nl, no face palsy, no dysarthria Results & Data Results & Data ([facility]) Vital Signs (Past 12 Hours) Vital Signs Temp Pulse Resp BP Pulse Ox O2 Del Method 06/23/22 07:28 Room Air 06/23/22 05:44 36.8 C 71 18 154/75 H 97 Room Air (1) Anemia Anemia type: unspecified type Qualified Code(s): D64.9 - Anemia, unspecified
[2022-06-23] MEDS: MONTELUKAST SODIUM 10 MG TABLET PO SCH (21:09)
[2022-06-23] MEDS: ACETAMINOPHEN 325 MG TAB PO PRN (21:16)
[2022-06-24] MEDS: LEVOTHYROXINE SODIUM 112 MCG TABLET PO SCH (05:55)
[2022-06-24] MEDS: HEPARIN SOD 5,000 UNIT/0.5 ML VIAL SQ SCH (05:55)
[2022-06-24 07:23] VITALS: TEMP 97.9; O2SAT 98
[2022-06-24] MEDS: guaiFENesin 600 MG TABCR PO SCH (08:40)
[2022-06-24] MEDS: ATENOLOL 25 MG TABLET PO SCH (08:40)
[2022-06-24] MEDS: CEFDINIR 300 MG CAP PO SCH (08:40)
[2022-06-24 12:39] VITALS: BP 132/70; PULSE 78
--- NOTE | 2022-06-24 13:20 | Discharge Summary ---
Discharge Summary Date of Service June 24, 2022 Notes For Next Care Provider Follow up recovery at [facility] where she was discharged for rehab Medication Changes From Visit Discharged on 2 more days of cefdinir to complete antibiotic therapy Admission HPI Per Admitting Provider 89-year-old female with PMHPulmonary fibrosis, CKD stage III, HTN, hypothyroidism, LBBB, and other problems listed below who presents to the ED for evaluation of generalized weakness. Patient recently admitted to [facility] 05/19 through 05/21 for generalized weakness, ambulatory dysfunction, positive COVID- 19. Patient did not require COVID-19 directed therapies. Patient was discharged to [facility] for rehab. While at [facility], patient was found to be anemic with hgb as low as 6.7 on 06/05 and patient received PRBC transfusion. Patient also developed a sacral wound and for tissue protection reasons, patient had a brooks catheter placed that remains. Patient was discharged to [facility]. Over the past few days, patient has been having increased generalized weakness. Patient denies falls. She denies chest pain and shortness of breath. No lightheadedness, dizziness, diaphoresis, syncopal events. She denies abdominal pain, nausea, vomiting, diarrhea. Brooks catheter was exchanged in the ED. UA suggestive of UTI. WBC 14K. BP stable, afebrile. Patient was given p.o. Tylenol, IV ceftriaxone, magnesium replacement, IVF. Admission Exam Per Admitting Provider Mild cachectic, NAD Cardiac: Systolic murmur, normal S1/S2 Lungs: Good air entry b/l, no wheezing or crackles Abd: ND, soft, mild TTP of the suprapubic area MSk: no LE edema Psych: AAOx3, normal affect Principal Dx & Hospital Course #1 = Principal Diagnosis (1) Catheter-associated urinary tract infection: Patient presented from [facility] for evaluation of generalized weakness Recently had Brooks catheter placed for tissue protection due to sacral wound History of recurrent UTIs, previously on chronic suppressive therapy with Macrobid. This seems to have been discontinued since last hospitalization Urine culture grew E. coli Patient was treated with IV antibiotic inpatient and then switched to cefdinir based on sensitivities Brooks was discontinued and patient has been doing fine since Continue cefdinir to complete 10 day therapy (2) Ambulatory dysfunction: (3) Weakness: May be related to UTI PT/OT eval noted (4) CKD (chronic kidney disease), stage III: Stable Avoid nephrotoxin (5) COVID-19: Patient has been testing positive for COVID since February Remains positive on presentation. Unlikely true infection. ?persistent positive test Asymptomatic (6) Interstitial pulmonary fibrosis: At baseline Does not require O2 (7) Hypothyroidism: Continue levothyroxine (8) Anemia: Normocytic anemia Was reported to have got PRBC at [facility] per chart review Hgb was 9.5 on admission. Iron studies more consistent with acute reactive phase than MYRIAM but difficult to interpret given recent blood transfusion Last Hgb stable at 8.7. Asymptomatic. Discharge Exam Constitutional + well hydrated and + thin; no acute distress Eyes PERRL, conjunctivae normal, anicteric sclerae ENMT external ear and nose normal, oropharynx normal Respiratory normal respiratory effort, lungs clear to auscultation Cardiovascular Rate/Rhythm: regular rate and regular rhythm S1 S2 Gastrointestinal (Abdomen) normal bowel sounds, soft, nontender, no hepatosplenomegaly Musculoskeletal No pedal edema Neurologic PERRL, EOMI, accommodation nl, no face palsy, no dysarthria Psychiatric A+Ox3, euthymic affect Updated Medication List Medication Instructions Recorded Confirmed Type diclofenac sodium 1 % topical gel 2 g topical TID PRN Pain 06/17/22 06/17/22 History guaifenesin 600 mg tablet, 600 mg PO BID17 06/17/22 06/17/22 History extended release 12 hr (Mucus Relief ER) acetaminophen 325 mg tablet 650 mg PO Q4H PRN pain #60 tabs 06/24/22 Rx atenolol 25 mg tablet 25 mg PO DAILY #30 tabs 06/24/22 Rx cefdinir 300 mg capsule 300 mg PO Q24H #5 caps 06/24/22 Rx cyclosporine 0.05 % eye drops in a 1 drp OPB BID #30 ea 06/24/22 Rx dropperette (Restasis) levothyroxine 112 mcg tablet 112 mcg PO DAILY #30 tabs 06/24/22 Rx montelukast 10 mg tablet 10 mg PO HS #30 tabs 06/24/22 Rx omeprazole 20 mg capsule,delayed 20 mg PO DAILY PRN Dyspepsia #30 06/24/22 Rx release caps Hospital Stay Data Consultations 06/17/22 17:44 ED Decision to Admit Stat Pending Results Patient Have Any Pending Studies at Discharge: No Discharge Instructions Given to Patient (Per Discharging Provider) Mrs Gregory You were brought into the hospital for generalized weakness You were evaluated and treated for urinary tract infection. You are being discharged to care home facility for rehab. Please ensure follow up with your Primary Doctor Please take cefdinir to for next 2 days to complete treatment. It was a pleasure taking care of you Total Time Total Time Spent Total Time Spent (In Minutes): 50 Total Time Includes: Examination of the Patient, Discharge Planning and Medication Reconciliation
== END 2022-06-24 16:03 | DRG 698 ==
LOC: ED 14:27 → SUATTDRO 18:07 → EDINP 18:07 → 3E 20:03